=== PATIENT | male | born 1940 | race Caucasian/White ===

== ENCOUNTER 2019-02-02 16:58 | Inpatient (IN) | payer OTHER ==
[2019-02-02 17:38] VITALS: BMI 44.3
[2019-02-02 17:59] LABS: Absolute Lymphocytes (CBC) 0.5 K/uL (0.7-4.9); Basophils % 0.6 % (0-1.3); Hematocrit 43.3 % (39.6-49.0); Lymphocytes % 4.2 % (15.3-44.8); MPV 9.6 fL (7.6-11.3); RBC Red Blood Cell Count 4.43 M/uL (4.33-5.43)
[2019-02-02 18:12] LABS: Albumin 3.3 g/dL (3.4-5.0); Bilirubin Total 1.2 mg/dL (0.2-1.0); Potassium 3.8 mmol/L (3.5-5.1); Protein, Total 7.4 g/dL (6.4-8.2)
[2019-02-02 18:22] LABS: Urine White Blood Cell Casts OK
[2019-02-02 18:23] LABS: Blood Morphology Comment NOT SEEN (NOT SEEN); Platelet Estimate ADEQ
[2019-02-02] MEDS ORDERED: GLUCAGON 1 MG/VIAL IM PRN (20:18)
[2019-02-02] MEDS ORDERED: D50W 25 GM/50 ML SYRINGE IV PRN (20:18)
[2019-02-02] MEDS: NACHLORIDE 0.45% 1,000 ML IV SCH (20:58)
[2019-02-02] MEDS: ENOXAPARIN 30 MG/0.3 ML SQ SCH (21:00)
[2019-02-02] MEDS: INSULIN -REGULAR HUMAN 50 UNIT/0.5 ML ML SQ SCH (21:00)
[2019-02-02] MEDS ORDERED: VANCOMYCIN 1 GM/VIAL ONE (21:20)
[2019-02-02] MEDS: VANCOMYCIN 2 GM in NA CHLORIDE 0.9% 500 ML IVPB SCH (21:21)
[2019-02-02] MEDS: TAMSULOSIN 0.4 MG SR CAP PO SCH (21:24)
[2019-02-02] MEDS ORDERED: NA CHLORIDE 0.9% 0 ML ONE (21:24)
[2019-02-02] MEDS ORDERED: NA CHLORIDE 0.9% 500 ML ONE (21:26)
[2019-02-02] MEDS: HYDRALAZINE HCL 25 MG TABLET PO SCH (21:33)
[2019-02-02] MEDS ORDERED: ACETAMINOPHEN 325 MG TABLET PO PRN (22:05)
[2019-02-02 23:39] LABS: Urine Appearance CLEAR; Urine Bilirubin NEGATIVE (NEG); Urine Blood NEGATIVE (NEG); Urine Color DK YELLOW; Urine Glucose NEGATIVE (NEG); Urine Protein NEGATIVE (NEG); Urine Urobilinogen 0.2 mg/dL (0.2-1.0)
[2019-02-02 23:56] LABS: Urine Microscopic Reflex ORDER UMIC
[2019-02-03 01:01] LABS: Urine Bacteria >50 /HPF (NONE SEEN); Urine Culture Reflex Order REFLEXED; Urine RBC <5 /HPF (NONE SEEN)
[2019-02-03] MEDS: NACHLORIDE 0.45% 1,000 ML IV SCH (05:07)
[2019-02-03] MEDS: INSULIN -REGULAR HUMAN 50 UNIT/0.5 ML ML SQ SCH ×4 (07:30→21:00)
[2019-02-03] MEDS: HYDRALAZINE HCL 25 MG TABLET PO SCH ×4 (07:43→20:57)
[2019-02-03] MEDS: ENOXAPARIN 30 MG/0.3 ML SQ SCH (07:43)
[2019-02-03] MEDS ORDERED: INFLUENZA VACCINE (for 3y+) 0.5 ML DOSE IMVAC ONE (08:00)
--- NOTE | 2019-02-03 08:21 | RAD REPORT ---
EXAM DESCRIPTION: USExtrem Venous W Compress Bil02/02/2019 11:07 pm CLINICAL HISTORY: Right leg pain and swelling. COMPARISON: 2014 FINDINGS: Right common femoral, superficial femoral, popliteal and right posterior tibial veins are compressible and demonstrate augmentation. Doppler demonstrates good flow. IMPRESSION: No evidence of deep venous thrombosis involving the right lower extremity.
[2019-02-03] MEDS: SMZ./TMP. 800/160 MG TABLET PO SCH ×2 (09:20→20:57)
[2019-02-03] MEDS: ATENOLOL 50 MG TAB PO SCH (12:14)
--- NOTE | 2019-02-03 19:00 | HP ---
Date of Admission: 02/02/2019 Chief Complaint: Pain, redness, swelling of both legs, right more than the left. History Of Present Illness: An 78-year-old male was brought to the office with history of 7-10 days of gradual swelling and oozing of the exudation from both legs, particularly the right leg. The stephane ent was found to have temperature of 102. The patient is admitted with a diagnosis of cellulitis, in [facility]. The patient denied any history of trauma. Past Medical History: The patient is known to have history of hypertension, type 2 diabetes, history of DVT. Past Surgical History: Positive for cataract surgery, right ear surgery for melanoma. Family History: History of hypertension, cancer present. Allergies: POSSIBLY TO LEVAQUIN. Review of Systems: The patient denied any chest pain or shortness of breath. Physical Examination: General: Revealed an 78-year-old male, alert for his age. Vital Signs: Temperature 102, blood pressure 150/80. HEENT: No icterus. Neck: Supple. JVD negative. Chest: Clear. Heart: Regular. Abdomen: Pendulous, nontender. Extremities: There is diffuse area of swelling, redness and oozing, right leg more than the left leg . Pedal pulses are hard to feel because of the amount of swelling. Laboratory: White count 12,000. Chem Profile: BUN 27, creatinine 1.23, random blood sugar of 136. Procalcitonin 1.15. Assessment: 1.Cellulitis, both legs, right more than the left. 2.Type 2 diabetes. 3.Hypertension. 4.Benign prostatic hypertrophy. 5.Urinary tract infection. Plan: The patient has been started on vancomycin. He will receive Bactrim for his UTI. Pending the cultures. MARIMAR/JOSELUIS Voice ID: [id number]
[2019-02-03] MEDS: TAMSULOSIN 0.4 MG SR CAP PO SCH (20:57)
[2019-02-03] MEDS: VANCOMYCIN 2 GM in NA CHLORIDE 0.9% 500 ML IVPB SCH (20:58)
--- NOTE | 2019-02-04 00:24 | PN ---
Patient's leg looks better. There is less oozing. He is afebrile. His blood sugars are well contro lled. In view of his response, he will be continued on the same management. MARIMAR/JOSELUIS Voice ID: [id number] Report ID: [id number]
[2019-02-04] MEDS: INSULIN -REGULAR HUMAN 50 UNIT/0.5 ML ML SQ SCH ×4 (07:30→21:00)
--- NOTE | 2019-02-04 08:41 | RAD REPORT ---
EXAM DESCRIPTION: RAD - Chest Single View - 02/04/2019 8:34 am CLINICAL HISTORY: atrial fibrillation Chest pain. COMPARISON: CHEST SINGLE VIEW dated 09/16/2014; CHEST PA AND LAT 2 VIEW dated 09/14/2014 FINDINGS: Portable technique limits examination quality. The lungs are grossly clear. Mild elevation of the right hemidiaphragm is seen, chronic. The heart is moderately enlarged with a tortuous thoracic aorta. IMPRESSION: Moderate cardiomegaly.
[2019-02-04] MEDS: ATENOLOL 50 MG TAB PO SCH (09:19)
[2019-02-04] MEDS: HYDRALAZINE HCL 25 MG TABLET PO SCH ×4 (09:20→22:42)
[2019-02-04] MEDS: SMZ./TMP. 800/160 MG TABLET PO SCH ×2 (09:20→22:42)
[2019-02-04] MEDS: ENOXAPARIN 30 MG/0.3 ML SQ SCH (09:21)
--- NOTE | 2019-02-04 09:40 | EKG ---
Test Date: 2019-02-04 Test Time: 09:03:54 Commercial Energy Auditor: REYNALDO MEASUREMENT RESULTS: Intervals: Rate: 66 MN: QRSD: 144 QT: 488 QTc: 511 [place]: P: MN: QRS: 80 T: -61 INTERPRETIVE STATEMENTS: Atrial fibrillation with premature ventricular or aberrantly conducted complexes Right bundle branch block T wave abnormality, consider inferior ischemia or digitalis effect Abnormal ECG Compared to ECG 09/14/2014 17:04:44 Right bundle-branch block now present T-wave abnormality now present Possible ischemia now present Sinus rhythm no longer present Electronically Signed On 02-04-19 09:40:30 CDT by Wily Carrillo
[2019-02-04] MEDS: NACHLORIDE 0.45% 1,000 ML IV SCH (13:00)
--- NOTE | 2019-02-04 13:52 | CON ---
Identification: An 78-year-old man. Reason For Hospitalization: Cellulitis especially on his right leg. Reason For Cardiology Consult: Atrial fibrillation. 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 His right leg became more swollen, red, painful. He was getting a little bit dizzy, so he saw Dr. De La Cruz. He has in the hospital receiving antibiotics for cellulitis. 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 He has had an old hi story of deep vein thrombosis. No thrombosis is seen in the blood vessels presently. Past Medical History: The patient does not have a previous history of atrial fibrillation. He has a history of melanoma on the ear, history of a leg fracture, history of diabetes, hypertension, remote history of DVT, history of lymphedema. Home Medications: Tamsulosin, atenolol, metformin, lisinopril, hydrochlorothiazide, and hydralazine. Physical Examination: General: He is 5 feet 9 inches and 300 pounds, obese, alert, oriented, pleasant, not in distress. Vital Signs: Blood pressure 102/58, heart rate 68, temperature 97.6. Lungs: Clear. Heart: Actually regular. Assessment And Plan: His admission EKG shows sinus rhythm with first-degree AV block. His monitor n ow shows an irregular beat, but atrial activity is very hard to discern on it and it looks like he is in a right bundle, so we are going to get an EKG before we have to clear this atrial fibr illation. The echocardiogram is pending. His right leg is very edematous, very red, and after his cellulitis improves, he should be considered for [facility] in the lymphedema clinic. NAYELY Voice ID: [id number] Report ID: [id number]
[2019-02-04] MEDS: RIVAROXABAN 15 MG TABLET PO SCH (16:03)
[2019-02-04] MEDS: VANCOMYCIN 2 GM in NA CHLORIDE 0.9% 500 ML IVPB SCH (22:41)
[2019-02-04] MEDS: TAMSULOSIN 0.4 MG SR CAP PO SCH (22:42)
[2019-02-05] MEDS: NACHLORIDE 0.45% 1,000 ML IV SCH (02:20)
[2019-02-05] MEDS: INSULIN -REGULAR HUMAN 50 UNIT/0.5 ML ML SQ SCH ×4 (07:30→20:59)
[2019-02-05] MEDS: SMZ./TMP. 800/160 MG TABLET PO SCH ×2 (09:24→20:58)
[2019-02-05] MEDS: ATENOLOL 50 MG TAB PO SCH (09:24)
[2019-02-05] MEDS: HYDRALAZINE HCL 25 MG TABLET PO SCH ×4 (09:24→20:58)
[2019-02-05] MEDS: FUROSEMIDE 20 MG TABLET PO SCH ×2 (09:27→17:40)
--- NOTE | 2019-02-05 11:08 | ECHO ---
HEIGHT: 5 ft 9 in WEIGHT: 300 lb 0 oz DATE OF STUDY: 02/05/[address]: Mian De La Cruz MD 2-DIMENSIONAL: YES M.MODE: YES DOPPLER: YES COLOR FLOW: YES TDS: PORTABLE: DEFINITY: BUBBLE STUDY: DIAGNOSIS: ATRIAL FIBRILLATION CARDIAC HISTORY: CATHERIZATION: SURGERY: PROSTHETIC VALVE: PACEMAKER: MEASUREMENTS (cm) DIASTOLIC (NORMALS) SYSTOLIC (NORMALS) IVSd 2.3 (0.6-1.2) LA Diam 4.8 (1.9-4.0) LVEF 60-69% LVIDd 3.1 (3.5-5.7) LVIDs 2.3 (2.0-3.5) %FS 24% LVPWd 1.6 (0.6-1.2) Ao Diam 3.3 (2.0-3.7) 2 DIMENSIONAL ASSESSMENT: RIGHT ATRIUM: DILATED LEFT ATRIUM: DILATED RIGHT VENTRICLE: DILATED LEFT VENTRICLE: LEFT VENTRICULAR HYPERTROPHY, SEPTAL ASYMMERTICAL TRICUSPID VALVE: NORMAL MITRAL VALVE: NORMAL PULMONIC VALVE: NORMAL AORTIC VALVE: NORMAL PERICARDIAL EFFUSION: NONE AORTIC ROOT: NORMAL LEFT VENTRICULAR WALL MOTION: NORMAL DOPPLER/COLOR FLOW: NO LEFT VENTRICULAR OUTFLOW TRACT GRADIENT. MILD MITRAL AND TRICUSPID REGURGITATION. ESTIMATED RIGHT VENTRICULAR SYSTOLIC PRESSURE 60-65 mmHg (SEVERE PULMONARY HYPERTENSION). COMMENTS: NORMAL LEFT VENTRICULAR EJECTION FRACTION. DILATED LEFT ATRIUM, RIGHT ATRIUM AND RIGHT VENTRICLE. ASYMMERTICAL SEPTAL HYPERTROPHY. NO LEFT VENTRICULAR OUTFLOW TRACT GRADIENT. HYPERTROPHIC CARDIOMYOPATHY. SEVERE PULMONARY HYPERTENSION. ATRIAL FIBRILLATION. HEART RATE 60-80 BEATS PER MINUTE. TECHNOLOGIST: BC URBINA
[2019-02-05] MEDS: RIVAROXABAN 15 MG TABLET PO SCH (17:43)
[2019-02-05] MEDS: TAMSULOSIN 0.4 MG SR CAP PO SCH (20:58)
[2019-02-05] MEDS: VANCOMYCIN 2 GM in NA CHLORIDE 0.9% 500 ML IVPB SCH (20:59)
[2019-02-06] MEDS: INSULIN -REGULAR HUMAN 50 UNIT/0.5 ML ML SQ SCH ×4 (07:30→20:51)
[2019-02-06] MEDS: SMZ./TMP. 800/160 MG TABLET PO SCH ×2 (09:07→20:50)
[2019-02-06] MEDS: ATENOLOL 50 MG TAB PO SCH (09:07)
[2019-02-06] MEDS: FUROSEMIDE 20 MG TABLET PO SCH ×2 (09:08→16:33)
[2019-02-06] MEDS: HYDRALAZINE HCL 25 MG TABLET PO SCH ×4 (09:09→20:50)
--- NOTE | 2019-02-06 12:58 | PN ---
Shane is doing well. He is in chronic AFib. He is on anticoagulation. 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 It is the firs t time he has had an echo. He also has rather severe pulmonary hypertension and a pulmonary consulta nt might be worthwhile. YAQUELIN/JOSELUIS Voice ID: [id number] Report ID: [id number]
--- NOTE | 2019-02-06 13:57 | PN ---
Patient is afebrile. He is ambulating; however, there is too active oozing from the leg and swelling is elevated. Patient is already on Lasix. Whirlpool therapy might help in debriding the scab and o ther superficial skin pathology. Patient has organisms that are sensitive to Bactrim. He will be switched to oral antibiotic only. MARIMAR/JOSELUIS Voice ID: [id number] Report ID: [id number]
[2019-02-06] MEDS: RIVAROXABAN 15 MG TABLET PO SCH (16:33)
[2019-02-06] MEDS: TAMSULOSIN 0.4 MG SR CAP PO SCH (20:50)
[2019-02-07] MEDS: INSULIN -REGULAR HUMAN 50 UNIT/0.5 ML ML SQ SCH ×4 (07:30→21:00)
[2019-02-07] MEDS: SMZ./TMP. 800/160 MG TABLET PO SCH ×2 (08:28→21:04)
[2019-02-07] MEDS: ATENOLOL 50 MG TAB PO SCH (08:28)
[2019-02-07] MEDS: HYDRALAZINE HCL 25 MG TABLET PO SCH ×4 (08:29→21:04)
[2019-02-07] MEDS: FUROSEMIDE 20 MG TABLET PO SCH ×2 (08:29→16:25)
--- NOTE | 2019-02-07 12:17 | PN ---
Patient's leg looks better, but still it is swollen. I am going to add compression dressings. He al so will [facility] care. He is on oral Bactrim now. If he does not have an y fever, after the consultation from [facility], he will be discharged and followed up as an outpatie nt. MARIMAR/JOSELUIS Voice ID: [id number] Report ID: [id number]
[2019-02-07] MEDS: RIVAROXABAN 15 MG TABLET PO SCH (16:25)
[2019-02-07] MEDS: TAMSULOSIN 0.4 MG SR CAP PO SCH (21:04)
[2019-02-07 21:38] VITALS: O2SAT 95
[2019-02-08] MEDS: INSULIN -REGULAR HUMAN 50 UNIT/0.5 ML ML SQ SCH ×3 (07:30→16:30)
[2019-02-08] MEDS: FUROSEMIDE 20 MG TABLET PO SCH ×2 (09:06→16:38)
[2019-02-08] MEDS: SMZ./TMP. 800/160 MG TABLET PO SCH (09:06)
[2019-02-08] MEDS: HYDRALAZINE HCL 25 MG TABLET PO SCH ×3 (09:07→16:38)
[2019-02-08] MEDS: ATENOLOL 50 MG TAB PO SCH (09:07)
[2019-02-08] MEDS: RIVAROXABAN 15 MG TABLET PO SCH (16:38)
[2019-02-08 16:39] VITALS: BP 128/84
[2019-02-08 17:20] VITALS: TEMP 98.1
== END 2019-02-08 18:23 | disposition home or self-care (01) | DRG 603 ==
LOC: 4TH 16:58
PROVIDERS: ADMIT Internal Medicine; ATTEND Internal Medicine
DX: L03.115 Cellulitis of right lower limb (principal); I48.20 Chronic atrial fibrillation, unspecified; Z68.41 Body mass index [BMI] 40.0-44.9, adult; I42.2 Other hypertrophic cardiomyopathy; N39.0 Urinary tract infection, site not specified; I27.20 Pulmonary hypertension, unspecified; E66.9 Obesity, unspecified; I44.0 Atrioventricular block, first degree; I10 Essential (primary) hypertension; E11.9 Type 2 diabetes mellitus without complications; L03.116 Cellulitis of left lower limb; N40.0 Benign prostatic hyperplasia without lower urinary tract symptoms; Z86.718 Personal history of other venous thrombosis and embolism; Z79.01 Long term (current) use of anticoagulants; Z23 Encounter for immunization
CPT/HCPCS: 36415; 71045; 80053; 80202; 81003; 81015; 82565; 82962; 84145; 84443; 85025; 87040; 87070; 87075; 87077; 87086; 87088; 87186; 87205; 90471; 93005; 93306; 93970; 97116; 97161; 99251; J1650; J7040; Q2035

== ENCOUNTER 2019-02-18 10:22 | Inpatient (IN) | payer OTHER ==
[2019-02-18 11:24] LABS: Absolute Lymphocytes (CBC) 0.4 K/uL (0.7-4.9); Basophils % 0.4 % (0-1.3); Hematocrit 42.8 % (39.6-49.0); Lymphocytes % 3.9 % (15.3-44.8); MPV 8.8 fL (7.6-11.3); RBC Red Blood Cell Count 4.36 M/uL (4.33-5.43)
[2019-02-18 11:42] LABS: Albumin 3.1 g/dL (3.4-5.0); Bilirubin Direct 0.7 mg/dL (0-0.2); Bilirubin Total 1.7 mg/dL (0.2-1.0); Potassium 4.3 mmol/L (3.5-5.1); Protein, Total 7.7 g/dL (6.4-8.2)
--- NOTE | 2019-02-18 12:52 | RAD REPORT ---
EXAM DESCRIPTION: CT - Abdomen Pelvis Wo Contrast - 02/18/2019 12:21 pm CLINICAL HISTORY: ABD PAIN COMPARISON: No comparisons TECHNIQUE: Axial [address] imaging of the abdomen and pelvis was performed without IV contrast. No IV contrast was given because of allergy, abnormal renal function, patient refusal or physician re quest. No oral contrast given. All CT scans are performed using dose optimization technique as appropriate and may include automated exposure control or mA/KV adjustment according to patient size. FINDINGS: Interstitial scarring and atelectasis changes are present at each base. No pleural effusio n. No pericardial thickening or effusion. No focal liver lesion seen on noncontrast imaging. No splenomegaly. No primary pancreatic process see n. Gallbladder and biliary tree are also without suspicious finding. No hydronephrosis or suspicious renal mass. Multiple bilateral variably sized low-density masses are present all believed to be incidental cysts. Largest is lower pole left kidney 3.8 cm in size. No sig nificant adrenal finding. Isodense renal masses and pyelonephritis cannot be excluded in the absence of IV contrast. Urinary bladder is partially contracted. Prostate gland is enlarged projecting into t he bladder base. No invasion of adjacent structures. Irregular thickening of the gastric antrum and proximal duodenum noted. Multiple small air collection s are present in the fatty tissues adjacent to the distal stomach and proximal duodenal C-loop. Perfo rated duodenal ulcer is most likely. This is potentially a perforated gastric ulcer. Distal duodenum in the remainder of the small bowel shows no acute findings. No acute colon process. No abscess. A small amount of free fluid is collecting along the lateral margin of the liver and in the lateral lower right quadrant. No mass or bulky lymphadenopathy. No omental thickening. Disc and bony degenerative changes are present. No pathologic bone process. IMPRESSION: Abnormal appearance to the gastric antrum and proximal duodenum. Free air, free fluid an d stranding in the right upper quadrant. Findings are consistent with perforated ulcer at or near the duodenal bulb. No abscess. Full assessment is limited is the absence of IV contrast.
[2019-02-18] MEDS ORDERED: NA CHLORIDE 0.9% 1,000 ML ONE (13:05)
[2019-02-18] MEDS ORDERED: PIPER/TAZO/NS 3.375gm 3.375 GM/100 ML BAG ONE (13:05)
--- NOTE | 2019-02-18 13:11 | ER ---
Nurse's Notes [facility] Name: Shane Talbert Jr Age: 78 yrs Sex: Male : 1940 Arrival Date: 02/18/2019 Time: 10:26 Bed 5 Private MD: Mian De La Cruz R Diagnosis: Acute duodenal ulcer with perforation Presentation: 02/18 10:47 Presenting complaint: Patient states: upper abd pain radiating to right mid back iw started about 0200 today, pain described ast pressure, dull ache, watery stool this morning but normally has loose stool, denies vomiting, was started on keflex recently for cellulitis in legs. Transition of care: patient was not received from another setting of care. Onset of symptoms was February 18, 2019. Risk Assessment: Do you want to hurt yourself or someone else? Patient reports no desire to harm self or others. Initial Sepsis Screen: Does the patient meet any 2 criteria? No. Patient's initial sepsis screen is negative. Does the patient have a suspected source of infection? No. Patient's initial sepsis screen is negative. Care prior to arrival: None. 10:47 Method Of Arrival: Wheelchair iw 10:47 Acuity: CARMEN 3 iw Historical: - Allergies: 10:51 No Known Allergies; iw - Home Meds: 10:51 tamsulosin 0.4 mg oral cp24 1 cap once daily [Active]; metformin 500 mg Oral tab 1 tab iw 2 times per day [Active]; atenolol 100 mg Oral tab 1 tab once daily [Active]; furosemide 20 mg Oral tab 1 tab once daily [Active]; lisinopril-hydrochlorothiazide 20-25 mg oral tab 1 tab once daily [Active]; hydralazine 50 mg Oral tab daily [Active]; Xarelto 15 mg oral tab daily [Active]; - PMHx: 10:51 Atrial Fib; BPH; Hypertension; Diabetes - NIDDM; iw - PSHx: 10:51 cataract; Tonsillectomy; melanoma removed from right ear; iw - Immunization history:: Adult Immunizations up to date. - Social history:: Smoking status: Patient/guardian denies using tobacco. - Ebola Screening: : Patient negative for fever greater than or equal to 101.5 degrees Fahrenheit, and additional compatible Ebola Virus Disease symptoms Patient denies exposure to infectious person Patient denies travel to an Ebola-affected area in the 21 days before illness onset No symptoms or risks identified at this time. Screenin:59 Abuse screen: Denies threats or abuse. Nutritional screening: No deficits noted. aa5 Tuberculosis screening: No symptoms or risk factors identified. Fall Risk None identified. Assessment: 10:55 General: Appears comfortable, Behavior is calm, cooperative. Pain: Complains of pain in aa5 left upper quadrant Pain radiates to right upper quadrant Pain currently is 3 out of 10 on a pain scale. Quality of pain is described as aching, dull, Pain began today at 0200 Is continuous. Neuro: Level of Consciousness is awake, alert, obeys commands, Oriented to person, place, time, situation. Cardiovascular: Heart tones S1 S2 present Rhythm is atrial fibrillation. Respiratory: Airway is patent Respiratory effort is even, unlabored, Respiratory pattern is regular, symmetrical, Breath sounds are clear bilaterally. GI: Abdomen is obese, Bowel sounds present X 4 quads. Abd is soft and non tender X 4 quads. Reports diarrhea, Patient currently denies nausea, vomiting. : No signs and/or symptoms were reported regarding the genitourinary system. EENT: No signs and/or symptoms were reported regarding the EENT system. Derm: Skin is pink, warm \\T\\ dry. Musculoskeletal: Swelling present in jesenia lower extremites Bandage noted to right lower leg, pt reports cellulitis to right lower leg. Pt states "I was here in the hospital with cellulitis for like a week and I was taking Bactrim and now I am taking Keflex". 12:15 Reassessment: patient sent to ultrasound via stretcher. mg2 14:36 Reassessment: patient prepared for OR. mg2 15:04 Reassessment: Dr Angulo came and spoke to the patient about the surgery. mg2 15:42 Reassessment: Patient appears in no apparent distress at this time. Patient and/or mg2 family updated on plan of care and expected duration. Pain level reassessed. Patient is alert, oriented x 3, equal unlabored respirations, skin warm/dry/pink. Vital Signs: 10:52 BP 134 / 53; Pulse 84; Resp 18 S; Temp 98.0; Pulse Ox 94% on R/A; Weight 136.08 kg; iw Height 5 ft. 9 in. (175.26 cm); Pain 3/10; 11:52 BP 116 / 53; Pulse 76; Resp 18; Pulse Ox 92% on R/A; mg2 12:00 Pulse Ox 97% on 2 lpm NC; mg2 13:00 BP 128 / 65; Pulse 78; Resp 17; Pulse Ox 98% on R/A; tw2 14:00 BP 111 / 52; Pulse 64; Resp 17; Pulse Ox 98% on R/A; tw2 15:07 BP 120 / 60; Pulse 79; Resp 22; Pulse Ox 95% on R/A; tw2 16:05 BP 110 / 51; Pulse 69; Resp 18; Pulse Ox 98% on 2 lpm NC; mg2 10:52 Body Mass Index 44.30 (136.08 kg, 175.26 cm) iw ED Course: 10:26 Patient arrived in ED. mr 10:26 Mian De La Cruz MD is Private Physician. mr 10:36 Charbel Huynh NP is PHCP. pm1 10:36 Lazaro Rushing MD is Attending Physician. pm1 10:46 Suni Houston RN is Primary Nurse. aa5 10:49 Triage completed. iw 10:51 Initial lab(s) drawn, by me, sent to lab. Inserted saline lock: 18 gauge in right dh3 antecubital area, using aseptic technique. Blood collected. 10:52 Arm band placed on. iw 10:55 Patient has correct armband on for positive identification. Placed in gown. Bed in low aa5 position. Call light in reach. Side rails up X2. Adult w/ patient. 11:01 EKG done, by manufacturing tech. reviewed by Charbel Huynh NP. at1 12:05 Report given to GRETEL Torres. aa5 12:20 Abdomen In Process Unspecified. EDMS 13:10 Mian De La Cruz MD is Hospitalizing Provider. pm1 13:17 Initial lab(s) drawn, by me, sent to lab. mg2 14:11 Hospitalizing Provider role handed off by Mian De La Cruz MD pm1 14:11 Luis Hinds MD is Hospitalizing Provider. pm1 15:20 No provider procedures requiring assistance completed. Patient admitted, IV remains in mg2 place. 16:18 Repeat lab(s) drawn. by me, sent to lab. dh3 Administered Medications: 13:17 Drug: NS 0.9% 1000 ml Route: IV; Rate: 100 ml/hr; Site: right antecubital; mg2 16:43 Follow up: Response: No adverse reaction; IV Status: Infusion continued upon admission; mg2 IV Intake: 300ml 13:17 Drug: Zosyn 3.375 grams Route: IVPB; Infused Over: 60 mins; Site: right antecubital; mg2 16:43 Follow up: Response: No adverse reaction; IV Status: Completed infusion mg2 15:18 Drug: ProTONIX 40 mg Route: IVP; Site: right antecubital; mg2 16:43 Follow up: Response: No adverse reaction mg2 Intake: 16:43 IV: 300ml; Total: 300ml. mg2 Outcome: 13:11 Decision to Hospitalize by Provider. pm1 16:45 Admitted to OR accompanied by nurse, via stretcher, with oxygen, with chart, Report mg2 called to GRETEL Arciniega 16:45 Condition: stable 16:45 Instructed on the need for admit, Demonstrated understanding of instructions. 16:45 Patient left the ED. mg2 Signatures: Dispatcher [employer] Claritza Engel mr Mary Alice Harvey, RN RN iw Suni Houston RN RN aa5 Rachell Klein, mult au matic operator EKG Tat1 Charbel Huynh, DIRECT SUPPORT WORKER DIRECT SUPPORT WORKER pm1 Hedy Calderon RN RN 2 Shanita Coburn 3 Brian Can RN RN mg2
--- NOTE | 2019-02-18 13:12 | EDPHYS ---
Physician Documentation [facility] Name: Shane Talbert Jr Age: 78 yrs Sex: Male : 1940 Arrival Date: 02/18/2019 Time: 10:26 Bed 5 Private MD: Mian De La Cruz R ED Physician Lazaro Rushing HPI: 02/18 10:59 This 78 yrs old Male presents to ER via Wheelchair with complaints of pm1 Abdominal Pain. 10:59 The patient presents with abdominal pain in the upper abdomen. Onset: The pm1 symptoms/episode began/occurred this morning, at 02:00. 10:59 The symptoms do not radiate. Associated signs and symptoms: Pertinent positives: loose pm1 stool that is his baseline, Pertinent negatives: nausea, vomiting, and diarrhea, chest pain, constipation, dysuria, fever, shortness of breath. The symptoms are described as achy. Modifying factors: The symptoms are alleviated by nothing, the symptoms are aggravated by nothing. Severity of pain: in the emergency department the pain is a 2 / 10. The patient has not experienced similar symptoms in the past. The patient has been recently seen by a physician: Dr. Keenan for apparently unrelated complaints, wound care clinic right lower leg wounds with lymphedema. 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 - Social history:: Smoking status: Patient/guardian denies using tobacco. - Ebola Screening: : Patient negative for fever greater than or equal to 101.5 degrees Fahrenheit, and additional compatible Ebola Virus Disease symptoms Patient denies exposure to infectious person Patient denies travel to an Ebola-affected area in the 21 days before illness onset No symptoms or risks identified at this time. ROS: 10:59 Constitutional: Negative for fever, chills, and weight loss, Eyes: Negative for injury, pm1 pain, redness, and discharge, ENT: Negative for injury, pain, and discharge, Neck: Negative for injury, pain, and swelling, Cardiovascular: Negative for chest pain, palpitations, and edema, Respiratory: Negative for shortness of breath, cough, wheezing, and pleuritic chest pain. 10:59 : Negative for injury, bleeding, discharge, and swelling, MS/Extremity: Negative for injury and deformity, Skin: Negative for injury, rash, and discoloration. 10:59 Neuro: Negative for headache, weakness, numbness, tingling, and seizure. 10:59 Abdomen/GI: Positive for abdominal pain, of the right upper quadrant and left upper quadrant. 10:59 Back: Positive for of the right mid back. Exam: 10:59 Constitutional: This is a well developed, well nourished patient who is awake, alert, pm1 and in no acute distress. Head/Face: Normocephalic, atraumatic. Neck: Trachea midline, no thyromegaly or masses palpated, and no cervical lymphadenopathy. Supple, full range of motion without nuchal rigidity, or vertebral point tenderness. No Meningismus. Chest/axilla: Normal chest wall appearance and motion. Nontender with no deformity. No lesions are appreciated. Respiratory: Lungs have equal breath sounds bilaterally, clear to auscultation and percussion. No rales, rhonchi or wheezes noted. No increased work of breathing, no retractions or nasal flaring. 10:59 Back: No spinal tenderness. No costovertebral tenderness. Full range of motion. Skin: Warm, dry with normal turgor. Normal color with no rashes, no lesions, and no evidence of cellulitis. MS/ Extremity: Pulses equal, no cyanosis. Neurovascular intact. Full, normal range of motion. 10:59 Cardiovascular: Rate: normal, Rhythm: irregular, Pulses: no pulse deficits are appreciated, Heart sounds: normal, normal S1and S2, no murmur, no rub, no gallop, Edema: Bilateral pedal edema. Right lower leg dressed. 10:59 Abdomen/GI: Inspection: obese Bowel sounds: normal, Palpation: soft, mild abdominal tenderness, in the abdomen diffusely, mass, is not appreciated, rebound tenderness, is not appreciated. 10:59 Neuro: Orientation: is normal, Motor: is normal, moves all fours. Vital Signs: 10:52 BP 134 / 53; Pulse 84; Resp 18 S; Temp 98.0; Pulse Ox 94% on R/A; Weight 136.08 kg; iw Height 5 ft. 9 in. (175.26 cm); Pain 3/10; 11:52 BP 116 / 53; Pulse 76; Resp 18; Pulse Ox 92% on R/A; mg2 12:00 Pulse Ox 97% on 2 lpm NC; mg2 13:00 BP 128 / 65; Pulse 78; Resp 17; Pulse Ox 98% on R/A; tw2 14:00 BP 111 / 52; Pulse 64; Resp 17; Pulse Ox 98% on R/A; tw2 15:07 BP 120 / 60; Pulse 79; Resp 22; Pulse Ox 95% on R/A; tw2 16:05 BP 110 / 51; Pulse 69; Resp 18; Pulse Ox 98% on 2 lpm NC; mg2 10:52 Body Mass Index 44.30 (136.08 kg, 175.26 cm) iw MDM: 10:36 Patient medically screened. pm1 10:47 ED course: Patient comfortable, offered him pain medication. He refused. pm1 12:55 ED course: last PO intake, banana at 0900 this AM. Last took Xarelto 15mg at 2200 pm1 yesterday. 12:55 Counseling: I had a detailed discussion with the patient and/or guardian regarding: the pm1 historical points, exam findings, and any diagnostic results supporting the discharge/admit diagnosis, lab results, radiology results, the need for further work-up and treatment in the hospital. 12:59 Physician consultation: Magdy Kendrick MD was called at 12:57. pm1 13:26 Data reviewed: vital signs. Data interpreted: Pulse oximetry: on room air is 97 %. pm1 Interpretation: normal. 13:32 Physician consultation: Magdy Kendrick MD was contacted at 13:32, Says not production stage manager. pm1 13:34 Physician consultation: Jamison Rebolledo MD was contacted at 13:34, Not production stage manager. pm1 14:07 Physician consultation: Luis Hinds MD was contacted at 14:07, regarding admission, pm1 patient's condition, and will see patient in ED, in OR, shortly, Wants admit to his service with Dr. De La Cruz as consult. He would like me to contact Dr. De La Cruz to let him know. 15:09 Physician consultation: Luis Hinds MD in the emergency department to see patient at pm1 14:50, Change admission to Dorothy with him as Consult. Patient will go to ICU after surgery. Give Protonix IV now. 02/18 10:43 Order name: Basic Metabolic Panel; Complete Time: 11:47 pm1 02/18 10:43 Order name: CBC with Diff; Complete Time: 13:51 pm1 02/18 10:43 Order name: Creatinine for Radiology; Complete Time: 11:47 pm1 02/18 10:43 Order name: Hepatic Function; Complete Time: 11:47 pm1 02/18 10:43 Order name: Lipase; Complete Time: 11:47 pm1 02/18 12:52 Order name: PT-INR; Complete Time: 13:45 pm1 02/18 11:50 Order name: Abdomen ; Complete Time: 12:59 EDMS 02/18 12:52 Order name: Lactate; Complete Time: 14:02 pm1 02/18 13:01 Order name: Type And Screen; Complete Time: 14:26 mg2 02/18 13:50 Order name: Manual Differential; Complete Time: 13:51 EDMS 02/18 14:09 Order name: ABO/RH no charge; Complete Time: 14:26 EDMS 02/18 16:40 Order name: NOVA iw 02/18 10:43 Order name: IV Saline Lock; Complete Time: 10:53 pm1 02/18 10:43 Order name: Labs collected and sent; Complete Time: 10:53 pm1 02/18 12:51 Order name: NPO; Complete Time: 12:54 pm1 02/18 12:54 Order name: EKG Electrocardiogram EDMS EC:59 Rate is 80 beats/min. Rhythm is irregular, A flutter. Clinical impression: Atrial pm1 Flutter. Administered Medications: 13:17 Drug: NS 0.9% 1000 ml Route: IV; Rate: 100 ml/hr; Site: right antecubital; mg2 16:43 Follow up: Response: No adverse reaction; IV Status: Infusion continued upon admission; mg2 IV Intake: 300ml 13:17 Drug: Zosyn 3.375 grams Route: IVPB; Infused Over: 60 mins; Site: right antecubital; mg2 16:43 Follow up: Response: No adverse reaction; IV Status: Completed infusion mg2 15:18 Drug: ProTONIX 40 mg Route: IVP; Site: right antecubital; mg2 16:43 Follow up: Response: No adverse reaction mg2 Disposition: 02/19 15:24 Co-signature as Attending Physician, Lazaro Rushing MD. Disposition: 02/18/19 13:11 Hospitalization ordered by Luis Hinds for Inpatient Admission. Preliminary diagnosis is Acute duodenal ulcer with perforation. - Bed requested for Operating Room. - Status is Inpatient Admission. mg2 - Condition is Stable. - Problem is new. - Symptoms have improved. UTI on Admission? No Signatures: Dispatcher [employer] [facility] Tami Gagnon RN RN Mary Alice Harvey RN RN Charbel Huynh, PLACIDO SHACTOR HELPER pm1 Lazaro Rushing MD MD Cele Rubin Brian Can RN RN mg2 Corrections: (The following items were deleted from the chart) 02/18 11:50 10:44 Abdomen Pelvis W Con+CT.RAD.BRZ ordered. [facility] EDPR 13:28 13:11 Hospitalization Ordered by Mian De La Cruz MD for Inpatient Admission. Preliminary eb diagnosis is Acute duodenal ulcer with perforation. Bed requested for Telemetry/MedSurg (Inpatient). Status is Inpatient Admission. Condition is Stable. Problem is new. Symptoms have improved. UTI on Admission? No. pm1 14:11 13:28 02/18/2019 13:11 Hospitalization Ordered by Mian De La Cruz MD for Inpatient pm1 Admission. Preliminary diagnosis is Acute duodenal ulcer with perforation. Bed requested for Telemetry/MedSurg (Inpatient). Status is Inpatient Admission. Condition is Stable. Problem is new. Symptoms have improved. UTI on Admission? No. eb 14:39 14:11 02/18/2019 13:11 Hospitalization Ordered by Luis Hinds MD for Inpatient eb Admission. Preliminary diagnosis is Acute duodenal ulcer with perforation. Bed requested for Operating Room. Status is Inpatient Admission. Condition is Stable. Problem is new. Symptoms have improved. UTI on Admission? No. pm1 14:41 14:39 02/18/2019 13:11 Hospitalization Ordered by Luis Hinds MD for Inpatient dw Admission. Preliminary diagnosis is Acute duodenal ulcer with perforation. Bed requested for Telemetry/MedSurg (observation). Status is Inpatient Admission. Condition is Stable. Problem is new. Symptoms have improved. UTI on Admission? No. eb 15:50 14:41 02/18/2019 13:11 Hospitalization Ordered by Luis Hinds MD for Inpatient dw Admission. Preliminary diagnosis is Acute duodenal ulcer with perforation. Bed requested for Telemetry/MedSurg (observation). Status is Inpatient Admission. Condition is Stable. Problem is new. Symptoms have improved. UTI on Admission? No. dw 16:45 15:50 02/18/2019 13:11 Hospitalization Ordered by Luis Hinds MD for Inpatient mg2 Admission. Preliminary diagnosis is Acute duodenal ulcer with perforation. Bed requested for Operating Room. Status is Inpatient Admission. Condition is Stable. Problem is new. Symptoms have improved. UTI on Admission? No. dw
[2019-02-18 13:41] LABS: Protime INR 1.88
[2019-02-18 13:49] LABS: Blood Morphology Comment NOT SEEN (NOT SEEN); Platelet Estimate ADEQ
[2019-02-18] MEDS ORDERED: PANTOPRAZOLE 40 MG INJ ONE (15:16)
[2019-02-18] MEDS ORDERED: MORPHINE 4 MG/ML SYR IV PRN (15:38)
[2019-02-18] MEDS ORDERED: ONDANSETRON 4 MG/2 ML VIAL IV PRN (15:38)
[2019-02-18] MEDS ORDERED: D50W 25 GM/50 ML SYRINGE IV PRN (15:38)
[2019-02-18] MEDS ORDERED: SODIUM CHLORIDE 0.9% 10ML INJ IV PRN (15:38)
[2019-02-18] MEDS ORDERED: GLUCAGON 1 MG/VIAL IM PRN (15:38)
[2019-02-18] MEDS: INSULIN -REGULAR HUMAN 50 UNIT/0.5 ML ML SQ SCH ×2 (16:30→21:00)
--- NOTE | 2019-02-18 17:13 | P.HP ---
Certification for Inpatient With expected LOS: >2 Midnights Patient will require the following post-hospital care: Rehabilitation Practitioner: I am a practitioner with admitting privileges, knowledge of patient current condition, hospital course, and medical plan of care. Services: Services provided to patient in accordance with Admission requirements found in Title 42 Section 412.3 of the Code of Federal Regulations Patient History Date of Service: 02/18/19 Primary Care Provider: Dr. De La Cruz Reason for admission: Exploratory laparotomy for perforated viscus History of Present Illness: The patient had sudden onset of abdominal pain last night at 2:00 a.m.. Was located in the upper portion of his abdomen pain intensified throughout the day any could not get relief. Hurts whenever he tries to move. As long as he lays still it is manageable. Has not had any nausea or vomiting associated with this. 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 - Family History Father -: Heart disease Mother -: Cancer - Social History Alcohol use: No CD- Drugs: No Caffeine use: Yes Physical Examination - Vital Signs Temperature: 98.0 F Blood Pressure: 110/51 Pulse: 69 Respirations: 18 - Physical Exam General: Other (Awake alert mildly uncomfortable as long as he does not move) HEENT: Other (Within normal limits) Respiratory: Other (Chest movement equal bilaterally) Cardiovascular: Other (Heart sounds 1 and 2 normal) Gastrointestinal: Distended (Tender in the upper abdomen with guarding and rebound) Musculoskeletal: Other (Has bilateral lymphedema, wound on lower leg (wound was not inspected but will in the OR)) Neurological: Normal affect Lymphatics: Other (Lymphedema of both lower legs) External genitalia: Normal Rectal: Deferred - Studies Laboratory Data (last 24 hrs) 02/18/19 13:09: PT 21.7 H, INR 1.88 02/18/19 10:51: Creatinine 1.63 H 02/18/19 10:51: Sodium 136, Potassium 4.3, BUN 32 H, Creatinine 1.64 H, Glucose 184 H, Total Bilirubin 1.7 H, AST 40 H, ALT 47, Alkaline Phosphatase 126 H, Lipase 252 02/18/19 09:20: WBC 11.2 H, Hgb 14.4, Hct 42.8, Plt Count 231 Imagings Data: Has free fluid around his liver, free air around the area of the pylorus Assessment and Plan - Plan Patient clinically has an acute abdomen, CT scan confirms a ruptured viscus with fluid seen around the liver. Suspected area is that of the 1st portion of the duodenum/pylorus. I will take him to the operating room for exploratory laparotomy and repair of this perforation. The risks of this procedure have been discussed. The possibility of bleeding, infection, injury to blood vessels and surrounding structures were described. The possible need for further surgeries and procedures was discussed. He understands and wants to proceed. - Advance Directives Does patient have a Living Will: Yes Does patient have a Durable POA for Healthcare: Yes - Code Status/Comfort Care Code Status Assessed: Yes Code Status: Full Code Critical Care: Yes
[2019-02-18] MEDS ORDERED: PIPER/TAZO/NS 3.375gm 3.375 GM/100 ML BAG IVPB SCH (18:00)
[2019-02-18] MEDS ORDERED: SUCCINYLCHOLINE 20 MG/ML (10 ML) IV ONE (18:14)
[2019-02-18] MEDS ORDERED: FENTANYL CITR 250 MCG/5 ML ONE (18:16)
[2019-02-18] MEDS ORDERED: ROCURONIUM 50 MG/5 ML VIAL IV ONE ×2 (18:16→18:59)
[2019-02-18] MEDS ORDERED: PROPOFOL 200 MG/20 ML VIAL IV ONE (18:16)
[2019-02-18] MEDS ORDERED: Ringers Lactate 1,000 ML IV ONE ×2 (18:54→19:35)
[2019-02-18] MEDS: PIPER/TAZO/NS 3.375gm 3.375 GM/100 ML BAG IVPB SCH ×2 (19:00→22:17)
[2019-02-18] MEDS ORDERED: Phenylephrine HCl 10 MG/ML 1 ML VIAL ONE (19:02)
[2019-02-18] MEDS ORDERED: GLYCOPYRROLATE 0.2 MG/ML SYR ONE ×2 (19:52)
[2019-02-18] MEDS ORDERED: NEOSTIGMINE 1 MG/ML -10 ML VIAL ONE (19:52)
--- NOTE | 2019-02-18 20:51 | P.OP ---
Preoperative diagnosis: Perforated viscus Postoperative diagnosis: Perforated duodenum ulcer Primary procedure: Harjinder patch of perforated ulcer Secondary procedure: Exploratory laparotomy Anesthesia: General Estimated blood loss: Less than 20 cc Specimen: 9 sent Findings: Perforation anteriorly of the duodenum actively leaking Operative Technique: The patient brought the operating room placed supine on the table. After the induction of adequate general endotracheal anesthesia, the area of the abdomen was prepped with a DuraPrep solution, and he was draped in usual aseptic manner. A Rayo catheter having been inserted. A generous upper midline incision was made. This brought down through the skin and subcutaneous tissue. The fascia was opened in the midline. With this allowed us access to the peritoneal cavity. In the right upper quadrant we encounter a large pocket of green bilious fluid. This was aspirated from the peritoneal cavity. It was also irrigated with a saline solution. Further exploration underneath the liver allowed us to come to an area that was pocketed and contained some old coagulated albumin is type material. This was aspirated from the peritoneal cavity. We could see the 1st portion of the duodenum. Anteriorly there was a hold it was actively leaking. The area was sharply debrided. We now were able to mobilize a piece of omentum and a formal Harjinder patch was performed. The omentum was sutured in place with some chromic superiorly. 5 sutures of silk were then used to securely close and a whole list omentum in place. The area was irrigated with a saline solution. Some further fat from the area was also placed over this to buttress it. The area above the liver was now irrigated and aspirated. A 10 mm [place] drain was placed and into Morison's pouch and drained out through a lateral stab wound incision. At this point the abdomen is inspected to ensure adequate hemostasis. The midline incision was closed with a running suture of looped nylon. Prakash were then applied to the skin. At the end of procedure he was stable when sent to the recovery room. Needle sponge instrument count were correct. 1 drain as mentioned. No specimens were sent. Drain(s): Nasogastric, Wound drain, BARRETT drain Transferred to: Recovery Room Condition: Good
[2019-02-18] MEDS ORDERED: ONDANSETRON 4 MG/2 ML VIAL ONE (20:58)
[2019-02-18] MEDS: MORPHINE 4 MG/ML SYR ONE ×2 (21:00→21:05)
[2019-02-18] MEDS ORDERED: PIPERACIL/TAZO 3.375 GM VIAL IV ONE (22:14)
[2019-02-18] MEDS ORDERED: NA CHLORIDE 0.9% 100 ML ONE (22:15)
[2019-02-18] MEDS: NA CHLORIDE 0.9% 1,000 ML IV SCH (22:18)
[2019-02-19] MEDS ORDERED: NA CHLORIDE 0.9% 100 ML ONE (04:42)
[2019-02-19] MEDS ORDERED: PIPERACIL/TAZO 3.375 GM VIAL IV ONE (04:42)
[2019-02-19] MEDS: PIPER/TAZO/NS 3.375gm 3.375 GM/100 ML BAG IVPB SCH ×3 (05:09→17:30)
[2019-02-19 05:29] LABS: Basophils % 0.3 % (0-1.3); Hematocrit 39.7 % (39.6-49.0); Lymphocytes % 8.3 % (15.3-44.8); MPV 8.4 fL (7.6-11.3); RBC Red Blood Cell Count 3.95 M/uL (4.33-5.43)
[2019-02-19 05:48] LABS: Albumin 2.5 g/dL (3.4-5.0); Bilirubin Direct 0.6 mg/dL (0-0.2); Bilirubin Total 1.1 mg/dL (0.2-1.0); Potassium 5.3 mmol/L (3.5-5.1)
[2019-02-19] MEDS: NA CHLORIDE 0.9% 1,000 ML IV SCH ×2 (06:12→17:00)
[2019-02-19] MEDS: INSULIN -REGULAR HUMAN 50 UNIT/0.5 ML ML SQ SCH ×4 (07:30→21:00)
[2019-02-19] MEDS: PANTOPRAZOLE 40 MG INJ IVP SCH (08:32)
--- NOTE | 2019-02-19 12:14 | CON ---
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 He came to the hospital with sudden onset of uppe r abdominal pain. He was found to have free air in the peritoneum, and after emergency surgery, he w as found to have a perforated duodenal ulcer, now postop, repaired with an omental patch by Dr. Rosario persaud. He was not having any new heart problems. He has chronic atrial fib. He was on Xarelto and act ually was still anticoagulated on Xarelto when he had his surgery. Does not seem to have been a lot of blood loss, which speaks to the excellent surgical technique by Dr. Hinds, and presently he is n ot on any anticoagulation. He should stay off anticoagulation until risk of further bleeding is redu freda and then we can give Lovenox. Father Gali also has chronic left bundle-branch block and he lara s hypertrophic cardiomyopathy without left ventricular outflow tract obstruction and his ejection fra ction is in the normal range. He also has cellulitis and lymphedema of his right leg. Lymphedema is really bilateral and recently he has been getting FarrowWraps by a wound clinic for the lymphedema w ith cellulitis. Physical Examination: Vital Signs: 5 feet 9 inches, 304 pounds. Blood pressure 108/74, heart rate 68, O2 saturation 98% o n nasal cannula. HEENT: Normal. General: Alert, oriented, pleasant. Lungs: Clear. Extremities: Reveal edema. Distal pulses palpable. Impression: The patient is doing well postop. His atrial fibrillation is chronic. We will continue not to give anticoagulation presently. When Dr. Hinds says it is ready, we will give Lovenox subcu twice daily. YAQUELIN/JOSELUIS Voice ID: [id number] Report ID: [id number]
--- NOTE | 2019-02-19 12:58 | EKG ---
Test Date: 2019-02-18 Test Time: 10:54:06 Nail Feeder: REYNALDO MEASUREMENT RESULTS: Intervals: Rate: 80 NH: QRSD: 98 QT: 406 QTc: 468 [place]: P: NH: QRS: 97 T: 269 INTERPRETIVE STATEMENTS: Atrial fibrillation Rightward axis Incomplete right bundle branch block ST & T wave abnormality, non specific Abnormal ECG Compared to ECG 02/04/2019 09:03:54 Right-axis deviation now present Incomplete right bundle-branch block now present Right bundle-branch block no longer present Electronically Signed On 02-19-19 12:57:35 CDT by Wily Carrillo
[2019-02-19] MEDS ORDERED: TAMSULOSIN 0.4 MG SR CAP PO ONE (14:04)
[2019-02-19] MEDS: MORPHINE 4 MG/ML SYR IV PRN (20:00)
--- NOTE | 2019-02-19 23:26 | HP ---
Date of Admission: 02/18/2019 Chief Complaint: Abdominal pain. History Of Present Illness: An 78-year-old male, started having abdominal pain and because of persis tent, he was taken to the emergency room, where a CAT scan showed evidence of perforated duodenal ulc er. Patient is admitted for emergency surgery and follow up. There is no prior history of documente d peptic ulcer disease. No history of vomiting of blood. No history of blood in the stools. Past Medical History: Positive for hypertension; diabetes; intermittent atrial fibrillation; benign prostatic hypertrophy; chronic venous insufficiency with recent cellulitis in both legs, right more t moore the left. Past Surgical History: Positive for melanoma surgery, tonsillectomy, and cataract surgeries. Allergies: NONE. Home Medicines: Please refer to the chart. Physical Examination: General: Revealed an 78-year-old male, alert for his age. Afebrile. HEENT: Negative. Neck: Supple. JVD negative. Chest: Occasional wheezes. Heart: Regular. Abdomen: Tender upper abdomen. Bowel sounds decreased. Extremities: Bilateral pedal edema with excoriations. Laboratory Data: White count done in the emergency room showed white count 11.2. Chemistry profile; creatinine 1.63. CAT scan of the abdomen evidence of perforated viscus. Assessment: 1.Perforated duodenal ulcer. 2.Hypertension. 3.Intermittent atrial fibrillation. 4.Type 2 diabetes, not requiring insulin. 5.Osteoarthritis. 6.Venous insufficiency with secondary infection. Plan: Patient underwent emergency surgery and patching of the perforation. Patient postoperatively doing very well. His potassium is high at 5.3. Patient will be placed on low-potassium diet and it will be repeated. MARIMAR/JOSELUIS Voice ID: [id number]
[2019-02-20] MEDS: PIPER/TAZO/NS 3.375gm 3.375 GM/100 ML BAG IVPB SCH ×4 (00:32→17:27)
[2019-02-20] MEDS: NA CHLORIDE 0.9% 1,000 ML IV SCH ×3 (00:33→18:00)
[2019-02-20] MEDS: MICONAZOLE 2% TOPICAL 15 GM TOP SCH (02:45)
[2019-02-20] MEDS: MORPHINE 4 MG/ML SYR IV PRN (03:51)
[2019-02-20] MEDS: INSULIN -REGULAR HUMAN 50 UNIT/0.5 ML ML SQ SCH ×4 (07:30→21:00)
[2019-02-20] MEDS: PANTOPRAZOLE 40 MG INJ IVP SCH (09:31)
--- NOTE | 2019-02-20 13:27 | PN ---
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 He is out of ICU. He is still not on anticoagulant. I will ask Dr. Hinds to say what we might start giving him some Lovenox or heparin and eventually we want to get h im back on his Xarelto that he has been on. He will begin later today to answer that question. In t he meantime, we will hold off on getting full anticoagulation. YAQUELIN/MODL Voice ID: [id number] Report ID: [id number]
--- NOTE | 2019-02-20 14:50 | P.PN ---
Date of Service: 02/20/19 S: Patient states he feels tired today compared to yesterday. Pain is manageable. Requiring minimal pain medicine. O: Vital signs are stable, BARRETT has some fluid consistent with irrigation fluid, not GI contents. Rayo catheter is in place and draining well Adequate effort on incentive spirometry. Expected amount through nasogastric tube. A: Patient remains surgically stable. Will start to mobilize him. Was unable to remove Rayo catheter will try again on Friday morning. Minimal bowel sounds , no bowel movements yet. Hemoglobin hematocrit are stable. P: Will resume on is Lovenox. He he me trans turned over when he is taking p.o.. Ice chips and popsicles today, will put some Maalox down through the nasogastric tube. Encourage incentive spirometry, ambulation. Continue to mobilize.
--- NOTE | 2019-02-20 16:09 | PN ---
Patient still has not passed any gas. He seems to have mild distention. However, he is afebrile. H is IV antibiotic will be continued. His IV fluids will be continued. Patient will have repeat CBC a nd chem 7 in a.m. MARIMAR/JOSELUIS Voice ID: [id number] Report ID: [id number]
[2019-02-20] MEDS: POLYVINYL ALCOHOL 1.4% 15 ML EACH EYE SCH ×2 (17:24→23:03)
[2019-02-20] MEDS: MAGNES/ALUMIN/SIMET 30ML UCUP FT PRN (17:28)
[2019-02-21] MEDS: PIPER/TAZO/NS 3.375gm 3.375 GM/100 ML BAG IVPB SCH ×4 (00:23→17:00)
[2019-02-21] MEDS: MAGNES/ALUMIN/SIMET 30ML UCUP FT PRN (00:23)
[2019-02-21] MEDS: NA CHLORIDE 0.9% 1,000 ML IV SCH ×3 (00:23→15:46)
[2019-02-21 05:19] LABS: Potassium 4.6 mmol/L (3.5-5.1)
[2019-02-21] MEDS: INSULIN -REGULAR HUMAN 50 UNIT/0.5 ML ML SQ SCH ×4 (07:30→20:22)
[2019-02-21] MEDS: POLYVINYL ALCOHOL 1.4% 15 ML EACH EYE SCH ×4 (08:29→21:46)
[2019-02-21] MEDS: MICONAZOLE 2% TOPICAL 15 GM TOP SCH ×2 (08:30→21:46)
[2019-02-21] MEDS: PANTOPRAZOLE 40 MG INJ IVP SCH (08:31)
--- NOTE | 2019-02-21 13:07 | PN ---
Father Gali is doing nicely, is postop ileus. Still continues to have nasogastric suction and cosme s get ice chips and popsicles. I suspect he may be slower than the average person to wake up from at. His atrial fibrillation is chronic. He is not having heart failure or any other problems from t he atrial fibrillation. He is on an anticoagulant now, so we could probably switch to an oral antico agulant once he is on his diet. YAQUELIN/JOSELUIS Voice ID: [id number] Report ID: [id number]
[2019-02-21] MEDS: TOBRAMYCIN 0.3% 5ML OPTH DROPS RIGHT EYE SCH ×2 (13:21→21:46)
[2019-02-21] MEDS ORDERED: TOBRAMYCIN 0.3% 5ML OPTH DROPS LEFT EYE SCH (14:00)
[2019-02-21 15:41] LABS: Absolute Lymphocytes (CBC) 0.8 K/uL (0.7-4.9); Basophils % 0.5 % (0-1.3); Hematocrit 39.4 % (39.6-49.0); Lymphocytes % 10.8 % (15.3-44.8); MPV 8.3 fL (7.6-11.3); RBC Red Blood Cell Count 3.93 M/uL (4.33-5.43)
--- NOTE | 2019-02-21 20:07 | PN ---
Patient has passed flatus. No bowel movement. He has abdominal distention, however, he is generally feeling better. NG tube return is clear. He is afebrile. He will be continued on Zosyn, which he is on currently. EVELYNK/JOSELUIS Voice ID: [id number] Report ID: [id number]
[2019-02-21] MEDS: MORPHINE 4 MG/ML SYR IV PRN (21:46)
[2019-02-22] MEDS: PIPER/TAZO/NS 3.375gm 3.375 GM/100 ML BAG IVPB SCH ×4 (00:45→17:39)
[2019-02-22] MEDS: MORPHINE 4 MG/ML SYR IV PRN (02:28)
[2019-02-22] MEDS: INSULIN -REGULAR HUMAN 50 UNIT/0.5 ML ML SQ SCH ×4 (07:30→21:00)
[2019-02-22] MEDS: POLYVINYL ALCOHOL 1.4% 15 ML EACH EYE SCH ×4 (08:26→21:00)
[2019-02-22] MEDS: PANTOPRAZOLE 40 MG INJ IVP SCH (08:26)
[2019-02-22] MEDS: TOBRAMYCIN 0.3% 5ML OPTH DROPS RIGHT EYE SCH ×3 (08:26→21:00)
[2019-02-22] MEDS: MICONAZOLE 2% TOPICAL 15 GM TOP SCH ×2 (08:26→21:00)
[2019-02-22] MEDS: NA CHLORIDE 0.9% 1,000 ML IV SCH ×2 (08:28)
--- NOTE | 2019-02-22 13:29 | CON ---
Chief Complaint: Acute on chronic kidney injury. History Of Present Illness: The patient has chronic kidney disease stage 3. He developed severe pre renal azotemia. He is 78-year-old man with history of hypertension, diabetes mellitus type 2, lymphe mary, chronic venous insufficiency with secondary infection in the legs and ulcers. The patient pres ented to the hospital because of abdominal pain. He was complaining of persistent generalized abdomi nal pain. CT scan of the abdomen showed some evidence of perforated duodenal ulcer. He underwent em ergent surgery and close followup. The patient has previous history of peptic ulcer disease. He has history of chronic kidney disease. Baseline creatinine level is 1.1 and 1.2. During this admission , creatinine level is 1.7. Patient is on IV fluids. Patient was found to have acute on chronic kidn ey injury secondary to prerenal azotemia and nonoliguric ATN, complicated by bladder outlet obstructi on. The patient had a Rayo catheter placed to prevent urinary retention. Today, electrolytes are as follows: Sodium 141, potassium 4.6, chloride 108, CO2 of 29, BUN is 45, c reatinine 1.72, calcium 8.9. Patient is currently bed-bound. He is somewhat lethargic. He cannot provide review of systems. He has multiple medical problems. Past Medical History: Morbid obesity, atrial fibrillation, hypertension, venous insufficiency in bot h legs, chronic left bundle-branch block, hypertrophic cardiomyopathy, left ventricular outflow tract obstruction and ejection fraction was normal. The patient has history of chronic dermatitis and his tory of cellulitis, lymphedema of the right leg as well as left leg, chronic kidney disease stage 3, bladder outlet obstruction, and atrial fibrillation on chronic anticoagulation. Social History: Denies tobacco, alcohol, or illicit drugs. Family History: No kidney disease in his family. Physical Examination: General: The patient is awake, follows commands. Eyes: Anicteric sclerae, EOMI. Ears, Nose, Mouth, and throat: NG tube in place. Neck: Supple. No bruits. Lungs: Diminished breath sounds in the bases. No rhonchi. No wheezing. Heart: S1, S2. No pericardial friction or rub. Abdomen: Distended, obese. Bowel sounds diminished. Extremities: Severe edema, cellulitis with venous stasis ulcers and erythema present. Neurological: Moving extremities. Cranial nerves intact. Psychiatric: Alert, oriented. Follows commands. Laboratory Data: Sodium 141, potassium 4.6, chloride 108, CO2 of 29, BUN 45, creatinine 1.72, glucos e 127, calcium 8.9. Urinalysis showed specific gravity 1.020, nitrite positive, leukocyte esterase 2 +. Wbcs greater than 50, rbc's less than 5. Bacteria greater than . Vancomycin trough lev el on February 04, 2019, was 11.2. Hematology shows hemoglobin 13.0, WBC 7.5, platelet count is 199,00 0, absolute neutrophils 5.5, absolute lymphocytes is 0.8. Abdomen and pelvis CT scan done on February 18 without contrast, no hydronephrosis or suspicious renal mass. Multiple bilateral and variable si ze low-density masses are present, all this to be incidental kidney cysts, largest is lower pole, lef t kidney 3.8 cm in size. No significant renal findings, hypodense renal masses and pyelonephritis ca nnot be excluded in the absence of IV contrast. Distal view in the remainder of the small bowel show s no acute findings proximally or edema noted. Multiple small air collection are present in the fatt y tissue adjacent of the distal stomach and proximal duodenum. perforated duodenal ulcer is most likely and potentially perforated gastric ulcer. Impression: 1.Acute on chronic kidney injury with prerenal azotemia secondary to sepsis and ongoing renal hypope rfusion in setting of abdominal pathology with perforated ulcer. Continue IV fluids. Monitor electr olytes. The patient has NG tube. Patient will require electrolytes supplementation currently and po tassium level is within normal level and there is no evidence of metabolic alkalosis or acidosis. 2.Diabetes mellitus. The patient will continue with the insulin tablets. The patient might benefit from TPN. 3.Urinary tract infection likely in this particular setting. The patient is undergoing workup to ru le out urinary tract infection and he will have antibiotics. Currently, on February 04, the patient was found to have E coli infection, sensitive to Zosyn, and sensitive to ampicillin and resistant to Cipro. On the recent urinalysis, there is positive nitrites and multiple wbc. Plan is to rule out i ncreased postvoid residual volume. Catheter was removed due to the discomfort. The patient was comp laining of some discomfort with Rayo catheter. 4.Acute kidney injury. Avoid nephrotoxic medication. Currently, the patient is on multiple antibio tics. Bowel pathology with perforated ulcer. Continue Zosyn with renally adjusted dose. EB/MODL Voice ID: [id number] Report ID: [id number]
--- NOTE | 2019-02-22 14:52 | RAD REPORT ---
EXAM DESCRIPTION: US - Renal Ultrasound-Complete - 02/22/2019 2:26 pm CLINICAL HISTORY: . Acute renal insufficiency COMPARISON: February 18, 2019 cat scan FINDINGS: Limited exam secondary to body habitus. The right kidney measures 11 cm with a normal echotexture. The left kidney measures cm with a normal echotexture. 3.6 centimeters cyst Smaller renal cysts present Hydronephrosis is not seen. Bladder is decompressed and poorly seen IMPRESSION: 3.6 centimeter left renal cyst
--- NOTE | 2019-02-22 15:17 | P.PN ---
Date of Service: 02/22/19 S: Patient apparently had a rough day yesterday with urinary catheters, urinary retention, and not much sleep. He is currently resting at the moment. O: Vital signs remain stable. Minimal out through the nasogastric tube. Minimal out through BARRETT drain. A: Patient from a surgical standpoint is improving P: A Rayo catheter will last a for least a week. Tomorrow will work on the scene nasogastric tube as well as BARRETT drain. We will allow him to rest today. ( He has already had his physical therapy, was sitting up in a chair, and has been moving around.
--- NOTE | 2019-02-22 16:44 | CON ---
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 This was repaired by Dr. Monte on 02/18/2019 with a Harjinder patch, perforated ulcer , and exploratory laparotomy. Patient is now on the floor. He is postop day 4. He still has his NG tube in. He has a history of BPH and normally takes tamsulosin. He has not been taking his tamsulosin here due to surgery. The fact that he is still n.p.o. He has had a Rayo catheter in that was removed and he was unable to void. They reinserted a Rayo catheter and he says he has been having lots of burning from this catheter, so I had it removed this morning at 4:30. It is now approximately 1 p.m. and has not gone into dribbling. PVR showed he has about 600 cc of urine in the bladder. I think he needs to have a Rayo catheter placed. We could try a Silastic just in case, it was latex that was causing some irritation. Medications: Atenolol, tamsulosin, hydralazine, lisinopril, hydrochlorothiazide , metformin. Allergies: NO KNOWN DRUG ALLERGIES. 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 Family History: Significant for heart disease. Mother had cancer. Social History: No alcohol. No drugs. Some caffeine use. Physical Examination: Vital Signs: Afebrile, stable, 97.8, 99, 20, 130/76, 96% sat. General: Awake, comfortable, who is sitting up in chair. Sister is present in the room. He has no spouse. 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 HEENT: Atraumatic, normocephalic. Respiratory: Clear. Cardiovascular: S1, S2. Gastrointestinal: Slightly distended, postop changes. Legs: Lymphedema both legs. Right leg is wrapped. Rectal: Deferred for now. Laboratories: Microbiology also refers that he has had Enterobacter Providencia and Staph, ___ except for Levaquin and Cipro. Latest CBC done yesterday, white count 7.5, H and H 13 and 39, platelet count 199. Coagulation : PT is slightly elevated at 21.7, INR 1.88. Chemistry from yesterday's labs. Sodium 141, potassium 4.6, chloride of 108, carbon dioxide 29, BUN 45, creatinine 1.7, GFR 38, glucose 127. Assessment: Postop, patient with history of BPH, unable to get Flomax due to urinary retention and had some burning from the last catheter placed so we are going to try a Silastic catheter, see if we can get this in place for him. Patient understood all the risks and benefits and proceeding with the Rayo placement, wished to proceed. His PVR is over 600 cc now and he is just having dribbling. There is an overflow incontinence right now, so he definitely needs to keep his Rayo in, will definitely keep it in, once we get it in, keep it in until he is on his Flomax. It may be about a week or so after we can do a voiding trial. DAKOTA/JOSELUIS Voice ID: [id number] Report ID: [id number] JOS
[2019-02-23] MEDS: NA CHLORIDE 0.9% 1,000 ML IV SCH (01:01)
[2019-02-23] MEDS: PIPER/TAZO/NS 3.375gm 3.375 GM/100 ML BAG IVPB SCH ×3 (01:01→12:00)
--- NOTE | 2019-02-23 02:15 | PN ---
The patient could not empty his bladder. Neurology consultation was obtained for insertion. The pat ient had urethral bleeding. For that reason, consultation was done. The patient is afebrile. He lara s mild wheezing of the chest. The patient is passing gas. His bowel sounds are hypoactive. The pat ient will be continued on the same management. MARIMAR/JOSELUIS Voice ID: [id number] Report ID: [id number]
[2019-02-23] MEDS ORDERED: MINERAL OIL 30 ML UCUP PO ONE (06:00)
[2019-02-23] MEDS: INSULIN -REGULAR HUMAN 50 UNIT/0.5 ML ML SQ SCH ×4 (07:30→20:41)
[2019-02-23] MEDS: PANTOPRAZOLE 40 MG INJ IVP SCH (08:37)
[2019-02-23] MEDS: POLYVINYL ALCOHOL 1.4% 15 ML EACH EYE SCH ×4 (09:00→20:39)
[2019-02-23] MEDS: MICONAZOLE 2% TOPICAL 15 GM TOP SCH (09:00)
[2019-02-23] MEDS: TOBRAMYCIN 0.3% 5ML OPTH DROPS RIGHT EYE SCH ×3 (09:00→20:39)
--- NOTE | 2019-02-23 11:12 | PN ---
Date of Progress Note: 02/23/2019 Patient had come in on 02/18/2019 with a perforated duodenal ulcer, underwent surgery by Dr. Hinds. He has chronic atrial fibrillation. He is still on Lovenox for now. His NG tube has been pulled o ff. He still has his Rayo catheter. He is starting to have some clear liquid. He has been sitting up in the chair. From our standpoint whenever he is able to take p.o., he can certainly come off Lo venox and get back on Xarelto 15 mg daily which he was taking at home. He is asymptomatic from a car diovascular standpoint. We will sign off his case. TONI/JOSELUIS Voice ID: [id number] Report ID: [id number]
--- NOTE | 2019-02-23 13:27 | P.PN ---
Date of Service: 02/23/19 S: The patient sitting up in a chair today, states he feels somewhat better than yesterday. Did his physical therapy. Says he is tired. O: Vital signs are stable, adequate urine output. Minimal out through BARRETT drain at this point. Abdomen is soft A: Patient continues to improve P: I will discontinue his antibiotics. We will remove his Fuad-King drain. He will be started on a clear liquid diet advanced as tolerated. Will ask nursing home social worker to see regarding rehab as patient will require assistance with his ambulation
[2019-02-23] MEDS: NYSTATIN 100MU/GM CREAM 15GM TOP SCH (16:19)
[2019-02-23] MEDS ORDERED: ENOXAPARIN 60 MG/0.6 ML SQ SCH (17:00)
--- NOTE | 2019-02-23 17:06 | PN ---
The patient is more alert today. He passed gas and the NG tube has been removed. He did not have an y vomiting or abdominal distention. Very likely, patient may have advanced diet. Meanwhile, the pat ient is afebrile. His Rayo catheter is draining. MARIMAR/JOSELUIS Voice ID: [id number] Report ID: [id number]
--- NOTE | 2019-02-23 19:36 | PN ---
The patient is doing well today. NG tube is out. Starting to feed him. His urine is draining well via Rayo catheter. Offered no complaints about any burning or pain from the catheter, which is good . Once he is ambulating and eating and taking his Flomax, then he can get a voiding trial, but I wou ld not do it until then. DAKOTA/JOSELUIS Voice ID: [id number] Report ID: [id number]
[2019-02-23] MEDS ORDERED: CLOTRIMAZOLE 1% VAG SCH (21:00)
--- NOTE | 2019-02-23 22:53 | P.PN ---
Subjective Date of Service: 02/23/19 Primary Care Provider: Dr. De La Cruz Chief Complaint: Exploratory laparotomy for perforated viscus Subjective: No new changes Pt with HX of DM, Afib , and chronic lymphedema was admitted for perforated Peptic ulcer , recenlty admitted for LE cellulites , received ABx, started on lasix Cr upon discharged increased to 1.4 Today started on liquid diet have LE edema will hold IVF brantley placed for urinary retention Physical Examination - Vital Signs Temperature: 96.8 F Blood Pressure: 166/84 Pulse: 65 Respirations: 20 Pulse Ox (%): 96 - Physical Exam General: In no apparent distress, Mild distress, Obese HEENT: Atraumatic Neck: Supple, Without JVD or thyroid abnormality Respiratory: Clear to auscultation bilaterally Cardiovascular: Regular rate/rhythm, Normal S1 S2, No gallops, No rubs, No murmurs, Edema Gastrointestinal: Soft and benign, Other (wound dressing ) Musculoskeletal: Swelling Assessment And Plan - Plan RADHA on CKD possibly due to ATN from Abx completed Abx now US no hydro will dc iVF Urinary retention S/p Brantley HTN controlled DM as per primary PUD tolerating liquid diet Afib
[2019-02-24 06:34] LABS: Albumin 2.1 g/dL (3.4-5.0); Bilirubin Total 0.8 mg/dL (0.2-1.0); Potassium 4.3 mmol/L (3.5-5.1); Protein, Total 6.6 g/dL (6.4-8.2)
[2019-02-24] MEDS: INSULIN -REGULAR HUMAN 50 UNIT/0.5 ML ML SQ SCH ×4 (07:30→21:00)
[2019-02-24] MEDS: NYSTATIN 100MU/GM CREAM 15GM TOP SCH ×2 (09:00→21:05)
[2019-02-24] MEDS ORDERED: FUROSEMIDE 20 MG TABLET PO SCH (09:00)
[2019-02-24] MEDS: ATENOLOL 50 MG TAB PO SCH (09:08)
[2019-02-24] MEDS: RIVAROXABAN 15 MG TABLET PO SCH (09:08)
[2019-02-24] MEDS: PANTOPRAZOLE 40 MG INJ IVP SCH (09:08)
[2019-02-24] MEDS: TOBRAMYCIN 0.3% 5ML OPTH DROPS RIGHT EYE SCH ×3 (09:09→21:04)
[2019-02-24] MEDS: POLYVINYL ALCOHOL 1.4% 15 ML EACH EYE SCH ×4 (09:09→21:04)
--- NOTE | 2019-02-24 14:21 | P.PN ---
Date of Service: 02/24/19 S: Patient had a rehab early today, sitting up in a chair, says he feels like this is his best day yet. Had rehab earlier today. Tolerating a diet. O: Vital signs remain stable chest movement equal bilaterally abdomen is soft local motor intact as he sits in a chair A: Surgically stable but very weak will require rehab and muscle conditioning P: Continue current therapy, anticipate transfer to the 5th floor soon
--- NOTE | 2019-02-24 15:10 | PN ---
Date of Progress Note: 02/24/2019 Patient was admitted with acute kidney injury. The patient was feeling much better. Kidney function has been normalized. Physical Examination: General: When I saw the patient, the patient sitting on the chair. Vital Signs: Blood pressure 142/90, pulse of 59, afebrile. Patient had good urine output of 2 L, ne gative of 200. Chest: Crackles bilateral base. Heart: S1, S2. Systolic murmur. Abdomen: Soft, nontender. Extremities: +3 lymphedema. Laboratory Data: WBC 7.5, H and H 13/39.4, platelets of 199. Sodium 147, potassium 4.3, bicarb 28, BUN 39, creatinine 1, calcium 8.7. Current Medications: The patient on include: 1.Lasix 20 mg daily. 2.Flomax. 3.Nystatin. 4.Atenolol. 5.Magnesium oxide. 6.Pantoprazole. Assessment And Plan: 1.Acute kidney injury secondary to ATN slightly on the wet side. I am going to go ahead and increas e his Lasix to b.i.d. 2.Urinary retention. Continue Rayo for the time being. Continue Flomax. 3.Hypertension, controlled, optimal, continue current medication. We will increase Lasix. 4.Deconditioning. Continue PT/OT. 5.Obstructive uropathy. Continue Flomax. Continue Rayo. ELIZABETH/JOSELUIS Voice ID: [id number] Report ID: [id number]
[2019-02-24] MEDS: FUROSEMIDE 20 MG TABLET PO SCH (16:19)
[2019-02-24] MEDS: TAMSULOSIN 0.4 MG SR CAP PO SCH (21:04)
--- NOTE | 2019-02-25 00:16 | PN ---
Patient is doing very well today. He is tolerating the diet. I have changed his Lovenox to oral Xar elto 15 mg, which he was on before. His Rayo is draining well. I explained to him that he may need Rayo catheter for some time. However, he is started on Flomax. Patient is afebrile. Patient is r naomie for transfer to rehab unit. MARIMAR/JOSELUIS Voice ID: [id number] Report ID: [id number]
[2019-02-25] MEDS: INSULIN -REGULAR HUMAN 50 UNIT/0.5 ML ML SQ SCH ×4 (07:30→20:49)
[2019-02-25] MEDS: RIVAROXABAN 15 MG TABLET PO SCH (09:06)
[2019-02-25] MEDS: ATENOLOL 50 MG TAB PO SCH (09:06)
[2019-02-25] MEDS: PANTOPRAZOLE 40 MG INJ IVP SCH (09:07)
[2019-02-25] MEDS: FUROSEMIDE 20 MG TABLET PO SCH ×2 (09:07→16:43)
[2019-02-25] MEDS: TOBRAMYCIN 0.3% 5ML OPTH DROPS RIGHT EYE SCH ×3 (09:08→20:45)
[2019-02-25] MEDS: NYSTATIN 100MU/GM CREAM 15GM TOP SCH ×2 (09:08→20:50)
[2019-02-25] MEDS: POLYVINYL ALCOHOL 1.4% 15 ML EACH EYE SCH ×4 (09:08→20:45)
--- NOTE | 2019-02-25 14:32 | P.PN ---
Date of Service: 02/25/19 S: No specific complaints. Did well at rehab today. Has been having bowel movements. Diet is improving. O: Vital signs is stable, incisions clean, and has wound on his right Garcia in ( I did not visualize it today) due to be changed tomorrow. A: Surgically stable P: Awaiting rehab arrangements.
--- NOTE | 2019-02-25 16:47 | PN ---
Date of Progress Note: 02/25/2019 Patient was admitted with acute kidney injury, anasarca. Yesterday, we increased his Lasix. Patient feeling better. Physical Examination: Vital Signs: Blood pressure 131/73, pulse of 72. Patient had good urine output of 1900, negative of 1 L. Chest: Crackles bilateral base. Heart: S1, S2 regular. Abdomen: Soft, nontender. Extremities: Dressing on the right leg. Edema +2. Laboratory Data: WBC 7.5, H and H 13/39.4, platelets 199. Sodium 147, potassium 4.3, bicarb 28, BUN 39, creatinine 1, calcium 8.7. Current Medications: The patient on include: 1.Nystatin. 2.Flomax. 3.Xarelto. 4.Atenolol. 5.Lasix 20 b.i.d. 6.Pantoprazole. 7.Zofran. 8.Insulin. Assessment And Plan: 1.Acute kidney injury secondary to prerenal, toxic acute tubular necrosis, still over volume, achiev ing good negative balance on current treatment. Continue current Lasix dose. 2.Hypertension, controlled, optimal. We will keep utilizing blood pressure for more diuresis. 3.Anasarca secondary to renal failure. Continue diuresis. 4.Cellulitis. Continue current antibiotic. 5.Urinary retention, on Rayo. We will follow up with Urology. ELIZABETH/JOSELUIS Voice ID: [id number] Report ID: [id number]
--- NOTE | 2019-02-25 18:41 | PN ---
The patient is doing well. He is ambulating. He is being fed. He is in a diet. He started his Ashwin max. Plan is to do a voiding trial in the morning and we will see how he does. DAKOTA/JOSELUIS Voice ID: [id number] Report ID: [id number]
[2019-02-25] MEDS: TAMSULOSIN 0.4 MG SR CAP PO SCH (20:44)
--- NOTE | 2019-02-26 02:48 | PN ---
Patient is afebrile. He is tolerating diet. He has mild abdominal distention; however, he does not have any fever. He has loose stools and stools will be checked for C difficile toxin. The patient o therwise is ready for transfer to rehab. MARIMAR/JOSELUIS Voice ID: [id number] Report ID: [id number]
[2019-02-26] MEDS: ATENOLOL 50 MG TAB PO SCH (06:07)
[2019-02-26 06:21] LABS: Albumin 2.2 g/dL (3.4-5.0); Phosphorus 2.5 mg/dL (2.5-4.9); Potassium 3.2 mmol/L (3.5-5.1)
[2019-02-26] MEDS: INSULIN -REGULAR HUMAN 50 UNIT/0.5 ML ML SQ SCH ×4 (07:30→19:58)
[2019-02-26] MEDS: FUROSEMIDE 20 MG TABLET PO SCH ×2 (08:32→17:43)
[2019-02-26] MEDS: PANTOPRAZOLE 40 MG INJ IVP SCH (08:32)
[2019-02-26] MEDS: POLYVINYL ALCOHOL 1.4% 15 ML EACH EYE SCH ×4 (08:32→19:57)
[2019-02-26] MEDS: RIVAROXABAN 15 MG TABLET PO SCH (08:32)
[2019-02-26] MEDS: NYSTATIN 100MU/GM CREAM 15GM TOP SCH ×2 (08:33→19:58)
[2019-02-26] MEDS: TOBRAMYCIN 0.3% 5ML OPTH DROPS RIGHT EYE SCH ×3 (08:33→19:57)
[2019-02-26] MEDS ORDERED: POTASSIUM 25 MEQ EFFERV TAB PO ONE (11:17)
--- NOTE | 2019-02-26 12:30 | P.PN ---
Subjective Date of Service: 02/26/19 Primary Care Provider: Dr. De La Cruz Chief Complaint: Exploratory laparotomy for perforated viscus Pt with HX of DM, Afib , and chronic lymphedema was admitted for perforated Peptic ulcer , recenlty admitted for LE cellulites , received ABx, started on lasix Cr upon discharged increased to 1.4 Today Cr normalized brantley removed again, now with decreased UO , f/u with Urology cont bowel regemin and PT K replaced will consider to increase lasix by tomorrow Physical Examination - Vital Signs Temperature: 97.9 F Blood Pressure: 107/51 Pulse: 73 Respirations: 20 Pulse Ox (%): 95 - Physical Exam General: In no apparent distress, Oriented x3, Obese HEENT: Atraumatic Neck: Supple, Without JVD or thyroid abnormality Respiratory: Clear to auscultation bilaterally, Normal air movement Cardiovascular: Regular rate/rhythm, Normal S1 S2, No gallops, No rubs, No murmurs, Edema Gastrointestinal: Soft and benign Musculoskeletal: Swelling Assessment And Plan - Plan RADHA on CKD resolved possibly due to ATN from Abx completed Abx now US no hydro cont lasix Urinary retention brantley removed urology on baord HTN controlled DM as per primary PUD S/P surgical repair tolerating diet Afib on atenolol
--- NOTE | 2019-02-26 13:49 | P.PN ---
Date of Service: 02/26/19 S: Patient complaining he can not void at the moment. Has been tolerating a diet. When for 2 rounds with physical therapy today. O: Vital signs is stable A: From a surgical standpoint, doing well P: Patient is still having difficulty with urination. I recommended that they call the urologist now so he could re-evaluate the patient in regards to need for a catheter.
[2019-02-26] MEDS: TAMSULOSIN 0.4 MG SR CAP PO SCH (19:57)
--- NOTE | 2019-02-27 00:47 | PN ---
Patient is doing well. He is ambulating in the room with help. His Rayo has been taken out and hop efully he will start urinating without any catheterization. He is afebrile. We are waiting for the bed in the rehab for transfer. MARIMAR/JOSELUIS Voice ID: [id number] Report ID: [id number]
[2019-02-27 05:09] LABS: Albumin 2.3 g/dL (3.4-5.0); Phosphorus 2.7 mg/dL (2.5-4.9); Potassium 3.4 mmol/L (3.5-5.1)
[2019-02-27] MEDS: ATENOLOL 50 MG TAB PO SCH (05:12)
[2019-02-27] MEDS: INSULIN -REGULAR HUMAN 50 UNIT/0.5 ML ML SQ SCH ×4 (07:30→20:58)
[2019-02-27] MEDS: FUROSEMIDE 20 MG TABLET PO SCH ×2 (08:50→16:08)
[2019-02-27] MEDS: POLYVINYL ALCOHOL 1.4% 15 ML EACH EYE SCH ×4 (08:51→20:58)
[2019-02-27] MEDS: RIVAROXABAN 15 MG TABLET PO SCH (08:51)
[2019-02-27] MEDS: TOBRAMYCIN 0.3% 5ML OPTH DROPS RIGHT EYE SCH ×3 (08:51→20:57)
[2019-02-27] MEDS: NYSTATIN 100MU/GM CREAM 15GM TOP SCH ×2 (08:51→20:58)
[2019-02-27] MEDS: PANTOPRAZOLE 40 MG INJ IVP SCH (08:54)
[2019-02-27 10:07] LABS: Urine Appearance CLEAR; Urine Bilirubin NEGATIVE (NEG); Urine Blood 2+ (NEG); Urine Color YELLOW; Urine Glucose NEGATIVE (NEG); Urine Protein 1+ (NEG); Urine pH 5.5 (5.0-7.0)
[2019-02-27 10:39] LABS: Urine Bacteria <20 /HPF (NONE SEEN); Urine Culture Reflex Order NOT NEEDED; Urine RBC 20-50 /HPF (NONE SEEN)
[2019-02-27] MEDS: TAMSULOSIN 0.4 MG SR CAP PO SCH (20:57)
--- NOTE | 2019-02-28 00:31 | PN ---
Patient is doing well. He is able to ambulate in the room. His transfer to rehab has been rejected. I spoke to the patient regarding [facility] facility. He is agreeable and as well as this is arranged, he will be transferred. MARIMAR/JOSELUIS Voice ID: [id number] Report ID: [id number]
--- NOTE | 2019-02-28 00:51 | PN ---
Date of Progress Note: 02/27/2019 Chief Complaint: Acute kidney injury. History Of Present Illness: Patient responded to treatment. He received Lasix for legs edema. He h as lower extremity cellulitis and lymphedema. He has diabetes mellitus, chronic kidney disease secon maría to diabetes mellitus and hypertension. He tolerated peptic ulcer, recently admitted for lower e xtremity cellulitis. He is on antibiotics and he was started on Lasix to control lymphedema. Rayo catheter was removed. Patient was found to have decreased urine output and Urology will follow up. Patient received replacement for hypokalemia. Review of Systems: Denies fever, chills. Physical Examination: Lungs: Clear respiration bilaterally. Heart: S1, S2. Abdomen: Soft, benign. Extremities: Edema present. Impression And Plan: 1.Acute on chronic kidney injury. Monitor fluid balance. Avoid nephrotoxic medication. Patient de veloped acute kidney injury due to acute tubular necrosis. Currently, renal function is stabilizing at baseline. 2.Sepsis. Patient completed antibiotics. Ultrasound did not show hydronephrosis. 3.Patient has bladder outlet obstruction. He will follow up with Urology. Rayo catheter was remov ed. 4.Hypertension, controlled. 5.Diabetes mellitus. Continue insulin. 6.Peptic ulcer disease, status post surgical repair. 7.Patient is tolerating diet. 8.Monitor electrolytes. Adjust replacement with potassium and magnesium and monitor phosphorus. EB/MODL Voice ID: [id number] Report ID: [id number]
--- NOTE | 2019-02-28 01:11 | PN ---
Subjective: He is doing better. He is diuresing well. Last intake was 810 and output 1300 for a ne gative 490. His swelling in his hands are improving. The edema in his hands, upper extremities is i mproving. Urine color was clear. Urine was essentially negative for any type of infection. He was rejected for rehab on the fifth floor. He is looking at going to another place in [place] and disch arge and keeping the Rayo catheter for another 2 to 3 weeks and continue taking his Flomax. DAKOTA/MODL Voice ID: [id number] Report ID: [id number]
[2019-02-28] MEDS: ATENOLOL 50 MG TAB PO SCH (05:29)
[2019-02-28 06:07] LABS: Albumin 2.3 g/dL (3.4-5.0); Phosphorus 2.6 mg/dL (2.5-4.9); Potassium 3.4 mmol/L (3.5-5.1)
[2019-02-28] MEDS: INSULIN -REGULAR HUMAN 50 UNIT/0.5 ML ML SQ SCH ×4 (07:30→20:39)
[2019-02-28] MEDS: NYSTATIN 100MU/GM CREAM 15GM TOP SCH ×2 (09:00→20:41)
[2019-02-28] MEDS: PANTOPRAZOLE 40 MG INJ IVP SCH (09:51)
[2019-02-28] MEDS: FUROSEMIDE 20 MG TABLET PO SCH ×2 (09:52→18:43)
[2019-02-28] MEDS: TOBRAMYCIN 0.3% 5ML OPTH DROPS RIGHT EYE SCH ×3 (09:52→20:38)
[2019-02-28] MEDS: RIVAROXABAN 15 MG TABLET PO SCH (09:53)
[2019-02-28] MEDS: POLYVINYL ALCOHOL 1.4% 15 ML EACH EYE SCH ×4 (09:53→20:38)
[2019-02-28] MEDS: TAMSULOSIN 0.4 MG SR CAP PO SCH (20:38)
--- NOTE | 2019-02-28 22:17 | PN ---
Patient is afebrile. He is ambulating in the room. His Rayo is draining well. His bowel movements are normal. Patient needs to go to [facility] facility. This was explained to the patient. MARIMAR/JOSELUIS Voice ID: [id number] Report ID: [id number]
--- NOTE | 2019-03-01 01:48 | PN ---
Date of Progress Note: 02/28/2019 History Of Present Illness: Congestive heart failure, lymphedema, diabetes mellitus, chronic kidney disease accelerated by acute kidney injury. Patient has urinary retention. He has a Rayo catheter. Review of Systems: Denies fever, chills. Physical Examination: Lungs: Diminished breath sounds in bases. Heart: S1, S2. Abdomen: Soft, benign. Extremities: Edema in both legs. Impression And Plan: 1.Acute on chronic kidney injury. Monitor fluid balance. Avoid nephrotoxic medication. Patient de veloped acute kidney injury due to acute tubular necrosis. Currently, renal function is stabilizing and at baseline. 2.Sepsis. Continue antibiotics as needed. Ultrasound of the kidneys did not show hydronephrosis. Patient will follow up with urologist for bladder outlet obstruction. 3.Diabetes mellitus. Continue insulin. 4.Peptic ulcer disease, status post surgical repair. Patient is tolerating p.o. intake. 5.Hypertension, controlled. Continue current treatment. ZACKARY/JOSELUIS Voice ID: [id number] Report ID: [id number]
[2019-03-01 04:41] VITALS: O2SAT 92
[2019-03-01] MEDS: ATENOLOL 50 MG TAB PO SCH (05:06)
[2019-03-01 05:32] VITALS: BMI 46.0
[2019-03-01 06:23] LABS: Albumin 2.3 g/dL (3.4-5.0); Phosphorus 2.9 mg/dL (2.5-4.9); Potassium 3.2 mmol/L (3.5-5.1)
[2019-03-01] MEDS: INSULIN -REGULAR HUMAN 50 UNIT/0.5 ML ML SQ SCH ×2 (07:30→11:30)
[2019-03-01] MEDS: PANTOPRAZOLE 40 MG INJ IVP SCH (09:06)
[2019-03-01] MEDS: FUROSEMIDE 20 MG TABLET PO SCH (09:08)
[2019-03-01] MEDS: TOBRAMYCIN 0.3% 5ML OPTH DROPS RIGHT EYE SCH (09:09)
[2019-03-01] MEDS: POLYVINYL ALCOHOL 1.4% 15 ML EACH EYE SCH ×2 (09:09→12:30)
[2019-03-01] MEDS: RIVAROXABAN 15 MG TABLET PO SCH (09:19)
[2019-03-01] MEDS: NYSTATIN 100MU/GM CREAM 15GM TOP SCH (09:20)
[2019-03-01] MEDS ORDERED: POTASSIUM CL SA 10 MEQ TAB PO ONE (11:06)
--- NOTE | 2019-03-01 13:46 | P.PN ---
Date of Service: 03/01/19 S: Patient feels much better today, up ambulating on his own. Feels he manage at home by himself. O: Vitals are stable A: Surgically stable P: Patient is surgically stable. He may be discharged and follow up with me in my office in approximately 10 days time. He still has the breanna in the will need to be removed. He will also need a upper endoscopy shows old as an outpatient. He still has his Rayo catheter and he will make arrangements for follow up with his urologist.
--- NOTE | 2019-03-01 15:45 | PN ---
Subjective: Patient's had voiding trial this morning. It has been about 8 hours. Nurse did a bladder scan showing about 400 cc of urine. We will replace the silastic catheter. Objective: Vital Signs: Stable. Laboratory Data: White count 7.5, H and H 13 and 39, platelet count 99. no recent urine cultures. Will check ua/micro. PB/MODSerena Voice ID: [id number] Report ID: [id number] JOS
--- NOTE | 2019-03-01 16:30 | PN ---
Date of Progress Note: 03/01/2019 Chief Complaint: Acute kidney injury, fluid overload, lymphedema, hypernatremia, . History: Patient was found to have mild hypernatremia and p.o. fluid restriction was terminated. Chandra hu will tolerate mild fluid intake. He can have unrestricted p.o. fluid intake. He has congestiv e heart failure, lymphedema, diabetes mellitus. He was found to have hypernatremia and . He has been on diuretics to control legs edema. Review of Systems: Denies PND or orthopnea. Physical Examination: Lungs: Clear to auscultation bilaterally. Heart: S1, S2. Abdomen: Soft, benign. Extremities: Dressing in place. Impression And Plan: 1.Acute on chronic kidney injury secondary to cardiorenal syndrome. Avoid nephrotoxic medication. Renal function has improved and stabilized. Patient has chronic kidney disease stage 3 due to diabet es mellitus, hypertension, benign nephrosclerosis. 2.Sepsis. Continue antibiotics and adjust dose to renal function. Ultrasound did not show hydronep hrosis. Patient will follow up with urologist for bladder outlet obstruction. 3.Diabetes mellitus. Continue insulin. 4.Peptic ulcer disease, status post surgical repair. Patient tolerates p.o. intake. 5.Hypertension. Blood pressure controlled. Continue current treatment. ZACKARY/JOSELUIS Voice ID: [id number] Report ID: [id number]
[2019-03-01 18:20] VITALS: BP 150/70; TEMP 97
--- NOTE | 2019-03-11 03:05 | DS ---
Date of Discharge: 03/01/2019 Final Diagnoses: 1.Perforated peptic ulcer. 2.Type 2 diabetes. 3.Hypertension. 4.Atrial fibrillation, intermittent. 5.Osteoarthritis. 6.Venous insufficiency with secondary infection. 7.Benign prostatic hypertrophy, symptomatic. Hospital Course: The patient after cardiac clearance was taken to surgery and he had surgery with cl osure of the peptic ulcer perforation. The patient was placed on Zosyn. The patient postoperatively had no complications. He will be put on a sliding scale for his blood sugars. The patient subseque ntly developed renal insufficiency. Renal service was consulted, who managed the IV fluids. In adriana tion, patient also had urinary retention. The patient had Rayo catheter done. There was no evidenc e of pneumonia postoperatively. The patient had a renal ultrasound done. There was no evidence of o bstruction. The patient subsequently was discharged home on 03/01/2019, to have outpatient followup. Laboratory Data: Laboratory is extensive please refer to the chart. MARIMAR/JOSELUIS Voice ID: [id number] Report ID: [id number]
== END 2019-03-01 16:39 | disposition home health service (06) | DRG 329 ==
LOC: ER 10:22 → ERHOLD 14:15 → 3RD-ICU 20:23 → 4TH 02-19 16:40
PROVIDERS: ADMIT Internal Medicine; ATTEND Internal Medicine
PROC: 0DU907Z Supplement Duodenum with Autologous Tissue Substitute, Open Approach (ICD-10-PCS; principal; 2019-02-18 16:45)
DX: K26.1 Acute duodenal ulcer with perforation (principal); N17.0 Acute kidney failure with tubular necrosis; A41.9 Sepsis, unspecified organism; I48.20 Chronic atrial fibrillation, unspecified; K56.7 Ileus, unspecified; Z68.42 Body mass index [BMI] 45.0-49.9, adult; K91.89 Other postprocedural complications and disorders of digestive system; L03.115 Cellulitis of right lower limb; N39.0 Urinary tract infection, site not specified; K26.5 Chronic or unspecified duodenal ulcer with perforation; N40.0 Benign prostatic hyperplasia without lower urinary tract symptoms; M19.90 Unspecified osteoarthritis, unspecified site; I87.2 Venous insufficiency (chronic) (peripheral); I12.9 Hypertensive chronic kidney disease with stage 1 through stage 4 chronic kidney disease, or unspecified chronic kidney disease; E11.22 Type 2 diabetes mellitus with diabetic chronic kidney disease; N18.3 Chronic kidney disease, stage 3 (moderate); E66.01 Morbid (severe) obesity due to excess calories; Y83.8 Other surgical procedures as the cause of abnormal reaction of the patient, or of later complication, without mention of misadventure at the time of the procedure; I44.7 Left bundle-branch block, unspecified; N39.490 Overflow incontinence; R33.9 Retention of urine, unspecified; N32.0 Bladder-neck obstruction
CPT/HCPCS: 11042; 11045; 36415; 74176; 76770; 80048; 80053; 80069; 80076; 81001; 82947; 82962; 83605; 83690; 84132; 85025; 85610; 86850; 86900; 86901; 87086; 87088; 93005; 96365; 96366; 96375; 97110; 97116; 97161; 97530; 99285; C9113; J0330; J1650; J2370; J2405; J2543; J2704; J2710; J3010; J7030; J7120

== ENCOUNTER 2019-03-03 14:38 | Inpatient (IN) | payer OTHER ==
[2019-03-03] MEDS ORDERED: SODIUM CHL 0.9% IRR SOLN 2000 ML IRR SCH (16:00)
[2019-03-03 16:28] VITALS: BMI 44.3
[2019-03-03 16:59] LABS: Absolute Lymphocytes (CBC) 1.7 K/uL (0.7-4.9); Basophils % 0.5 % (0-1.3); Hematocrit 42.3 % (39.6-49.0); Lymphocytes % 16.1 % (15.3-44.8); MPV 9.5 fL (7.6-11.3); RBC Red Blood Cell Count 4.32 M/uL (4.33-5.43)
[2019-03-03 18:37] LABS: Urine Appearance TURBID; Urine Blood 3+ (NEG); Urine Color RED; Urine Glucose NEGATIVE (NEG); Urine Protein 3+ (NEG)
[2019-03-03 18:40] LABS: Urine Bilirubin 3+ (NEG)
[2019-03-03 18:48] LABS: Urine Bacteria >50 /HPF (NONE SEEN); Urine Culture Reflex Order REFLEXED; Urine Mucus 2+ /HPF (NONE SEEN); Urine RBC TNTC /HPF (NONE SEEN)
[2019-03-03] MEDS: TRAMADOL HCL 50 MG TAB PO PRN (19:34)
[2019-03-03] MEDS: TAMSULOSIN 0.4 MG SR CAP PO SCH (21:04)
[2019-03-03] MEDS ORDERED: MORPHINE 4 MG/ML SYR IV PRN (21:10)
[2019-03-03] MEDS ORDERED: ONDANSETRON 4 MG/2 ML VIAL IV PRN (21:11)
[2019-03-04] MEDS: HYDRALAZINE HCL 25 MG TABLET PO SCH (10:07)
[2019-03-04] MEDS: hydroCHLOROthiazide 25 MG TAB PO SCH (10:07)
[2019-03-04] MEDS: FUROSEMIDE 20 MG TABLET PO SCH (10:08)
[2019-03-04] MEDS: ATENOLOL 50 MG TAB PO SCH (10:08)
[2019-03-04] MEDS: LISINOPRIL 20 MG TAB PO SCH (10:08)
[2019-03-04] MEDS: PANTOPRAZOLE 40MG TABLET PO SCH (10:10)
[2019-03-04] MEDS ORDERED: GLUCAGON 1 MG/VIAL IM PRN (13:10)
[2019-03-04] MEDS ORDERED: D50W 25 GM/50 ML SYRINGE/VIAL IV PRN (13:10)
[2019-03-04] MEDS: INSULIN -REGULAR HUMAN 50 UNIT/0.5 ML ML SQ SCH ×2 (16:30→21:00)
[2019-03-04] MEDS: CIPROFLOXACIN HCL 500 MG TAB PO SCH (21:28)
[2019-03-04] MEDS: TAMSULOSIN 0.4 MG SR CAP PO SCH (21:28)
[2019-03-04] MEDS: TRAMADOL HCL 50 MG TAB PO PRN (21:32)
--- NOTE | 2019-03-05 00:02 | HP ---
Date of Admission: 03/03/2019 Chief Complaint: Bloody urine. History Of Present Illness: An 78-year-old male was discharged the day before admission following ex tended stay in the hospital with multiple complications that include perforated duodenal and gastric ulcer, chronic venous insufficiency with infection, atrial fibrillation needing Xarelto, hypertension . The patient denied any history of trauma. Past Medical History: Positive for hypertension, type 2 diabetes, chronic venous insufficiency, and cellulitis of the legs. Past Surgical History: Positive for recent perforated peptic ulcer with subsequent patch repair. Family History: Hypertension, diabetes present. Personal History: No known allergies. Home Medicines: Please refer to the chart. Review of Systems: The patient denied any fever, chills, rigors. Physical Examination: General: Revealed an 78-year-old male, morbidly obese. Vital Signs: Temperature normal, blood pressure 150/80. HEENT: Negative. Neck: Supple. JVD negative. Chest: Clear. Heart: Occasional irregularity noted. Abdomen: Pendulous, nontender. Extremities: Bilateral pedal edema. Rayo catheter, lisa bloody urine. Laboratory Data: White count normal, hemoglobin 4.2. Urinalysis; lisa hematuria, nitrite positive, urine bacteria present. Assessment: 1.Lisa hematuria. 2.Rayo catheter due to prostatic obstruction induced urinary retention. 3.Recent peptic ulcer perforation, subsequent surgery. 4.Hypertension. 5.Type 2 diabetes. 6.Chronic venous insufficiency. Plan: The patient has consultation from Urology Service. The patient is having intermittent flushin g of the Rayo catheter since he has bacteria, I will start the antibiotic pending the culture report . MARIMAR/JOSELUIS Voice ID: [id number]
[2019-03-05] MEDS: INSULIN -REGULAR HUMAN 50 UNIT/0.5 ML ML SQ SCH ×4 (07:30→21:00)
[2019-03-05] MEDS: FUROSEMIDE 20 MG TABLET PO SCH (08:03)
[2019-03-05] MEDS: HYDRALAZINE HCL 25 MG TABLET PO SCH (08:03)
[2019-03-05] MEDS: ATENOLOL 50 MG TAB PO SCH (08:04)
[2019-03-05] MEDS: hydroCHLOROthiazide 25 MG TAB PO SCH (08:04)
[2019-03-05] MEDS: CIPROFLOXACIN HCL 500 MG TAB PO SCH ×2 (08:04→21:59)
[2019-03-05] MEDS: PANTOPRAZOLE 40MG TABLET PO SCH (08:07)
[2019-03-05] MEDS: LISINOPRIL 20 MG TAB PO SCH (08:07)
--- NOTE | 2019-03-05 17:16 | PN ---
This patient was admitted because of gross hematuria secondary to Rayo catheter insertion that was d one because of prostatic obstruction. The patient also has Escherichia coli urinary infection. The patient is already on oral antibiotics. His urine is looking better even though it is still bloody. Dr. Gupta is on consult. Before this hematuria episode, patient was on Xarelto for his atrial fibri llation, which has not been restarted because of the bleeding. Patient also had a recent perforated gastric ulcer and was discharged 3 days prior to readmission. Patient now considering going to [facility] because of issues of physical limitations he has due to chronic venous insufficiency. He is on insulin coverage for his mild diabetes. Patient generally is stable. Patient is thinking as to w [facility] would like to go. Patient said he will let the nurse know, after which transfer pr ocess will be initiated. MARIMAR/JOSELUIS Voice ID: [id number] Report ID: [id number]
[2019-03-05] MEDS: DOCUSATE CALCIUM 240 MG CAP PO SCH (21:59)
[2019-03-05] MEDS: TAMSULOSIN 0.4 MG SR CAP PO SCH (21:59)
[2019-03-06] MEDS: INSULIN -REGULAR HUMAN 50 UNIT/0.5 ML ML SQ SCH ×4 (07:30→21:00)
[2019-03-06] MEDS: LISINOPRIL 20 MG TAB PO SCH (09:00)
[2019-03-06] MEDS: hydroCHLOROthiazide 25 MG TAB PO SCH (09:00)
[2019-03-06] MEDS: HYDRALAZINE HCL 25 MG TABLET PO SCH (09:00)
[2019-03-06] MEDS: ATENOLOL 50 MG TAB PO SCH (09:30)
[2019-03-06] MEDS: CIPROFLOXACIN HCL 500 MG TAB PO SCH ×2 (09:31→22:44)
[2019-03-06] MEDS: FUROSEMIDE 20 MG TABLET PO SCH (09:31)
[2019-03-06] MEDS: DOCUSATE CALCIUM 240 MG CAP PO SCH ×2 (09:32→22:44)
[2019-03-06] MEDS: PANTOPRAZOLE 40MG TABLET PO SCH (09:32)
[2019-03-06 13:41] LABS: Absolute Lymphocytes (CBC) 1.1 K/uL (0.7-4.9); Basophils % 0.2 % (0-1.3); Lymphocytes % 6.7 % (15.3-44.8); MPV 9.6 fL (7.6-11.3); RBC Red Blood Cell Count 3.92 M/uL (4.33-5.43)
--- NOTE | 2019-03-06 16:48 | PN ---
Date of Progress Note: 03/06/2019 Subjective: The patient was seen and examined. Chart reviewed and case discussed with RN. [facility] ist service covering for Dr. De La Cruz this weekend. Patient states that his hematuria has improved sign ificantly with irrigation. No other significant complaints, was concerned about his abdominal incisi on from previous surgery. Medications: List reviewed. Physical Examination: Vital Signs: Temperature 97.1, heart rate 67, blood pressure 113/54, respirations 20, O2 94% on room air. General: Awake, alert, oriented x3. Morbidly obese male, in some mild distress, does not appear ill . CV: S1, S2. Regular rate and rhythm. Respiratory: Moving air well bilaterally. No wheezing or stridor. No use of accessory muscles. Gastrointestinal: Abdomen is soft, mildly distended. Positive bowel sounds. Incision site is clean , dry, intact. Prakash in place. No signs of infection. Extremities: No clubbing, cyanosis. Patient has diffuse peripheral edema in bilateral lower extremi ties with a right lower extremity ESTEPHANIA wrapped. Neurologic: Cranial nerves 2 through 12 intact grossly. No focal neurological focal neurological de ficits. Speech is normal. Microbiology: Urine culture growing out E coli sensitive to Cipro. Assessment: 78-year-old male with: 1.Gross hematuria, improving. We will continue with bladder irrigation intermittently. Dr. Gupta i s on the case. We will check CBC today, ensure hemoglobin is stable. Patient was on blood thinners. 2.History of prostatic obstruction, with Rayo catheter due to urinary retention. 3.Recent peptic ulcer perforation with surgical repair. Incision site looks clean, dry, intact. Chandra hu to follow up with surgeon at [place] in 1 week. 4.Essential hypertension, stable. Continue home medications. 5.Diabetes mellitus type 2, non-insulin requiring. We will continue with sliding scale insulin and monitor blood glucose levels. 6.Chronic venous insufficiency with diffuse edema of the lower extremities. We will continue with e levating the legs, ESTEPHANIA wraps. Monitor for signs of infection. Plan: Patient is pending acceptance to [facility]. /MODL Voice ID: [id number] Report ID: [id number]
[2019-03-06] MEDS: TAMSULOSIN 0.4 MG SR CAP PO SCH (22:44)
[2019-03-07] MEDS: TRAMADOL HCL 50 MG TAB PO PRN (00:04)
[2019-03-07 06:29] LABS: Absolute Lymphocytes (CBC) 1.4 K/uL (0.7-4.9); Hematocrit 38.7 % (39.6-49.0); Lymphocytes % 9.7 % (15.3-44.8); MPV 9.4 fL (7.6-11.3); RBC Red Blood Cell Count 3.93 M/uL (4.33-5.43)
[2019-03-07 06:38] LABS: Potassium 3.5 mmol/L (3.5-5.1)
[2019-03-07] MEDS: INSULIN -REGULAR HUMAN 50 UNIT/0.5 ML ML SQ SCH ×4 (07:30→21:00)
[2019-03-07] MEDS: DOCUSATE CALCIUM 240 MG CAP PO SCH ×2 (09:38→21:34)
[2019-03-07] MEDS: CIPROFLOXACIN HCL 500 MG TAB PO SCH (09:39)
[2019-03-07] MEDS: ATENOLOL 50 MG TAB PO SCH (09:39)
[2019-03-07] MEDS: HYDRALAZINE HCL 25 MG TABLET PO SCH (09:39)
[2019-03-07] MEDS: LISINOPRIL 20 MG TAB PO SCH (09:40)
[2019-03-07] MEDS: FUROSEMIDE 20 MG TABLET PO SCH (09:40)
[2019-03-07] MEDS: hydroCHLOROthiazide 25 MG TAB PO SCH (09:40)
[2019-03-07] MEDS: PANTOPRAZOLE 40MG TABLET PO SCH (09:41)
--- NOTE | 2019-03-07 12:16 | P.CNS ---
Date of Consult: 03/07/19 Reason for Consult: RADHA Chief Complaint: hematuria History of Present Illness: An 78 Yo man with PMhx of DM, Afib , HTn , Le lymphedema, and recent perforated PU pt was admitted for hematuria pt is known to me from recent admission, he was admitted for perforated PU, pt developed RADHA , that improved on IVF and brantley insertion, , pt cr was 0.8 on discharged and he went home with Brantley now presented with hematuria that cleared in irrigation, today Cr up to 2.7 no NSAID or contrast exposure , vomiting , diarhhea or constipation , pt was on lasix Po daily Allergies No Known Allergies Allergy (Verified 09/15/14 07:26) Home Medications: Atenolol 100 mg PO DAILY 09/14/14 Tamsulosin HCl [Flomax] 0.4 mg PO BEDTIME 09/14/14 Hydralazine HCl [Apresoline] 1 tab PO DAILY 02/02/19 Lisinopril/Hydrochlorothiazide [Lisinopril-Hctz 20-25 mg Tab] 1 each PO DAILY Furosemide 20 mg PO DAILY 02/18/19 Pantoprazole [Protonix Tab] 40 mg PO DAILY 90 Days #90 tab 03/01/19 - Past Medical/Surgical History Diabetic: Yes -: R leg DVT -: HTN -: cellulitis -: NIDDM -: afib -: BPH -: lymphedema -: Bilateral cataracts (2004) -: Removal of melanoma right ear -: tonsillectomy -: torn retina right eye - Family History Father Medical History: Heart disease Mother Medical History: Cancer - Social History Alcohol use: No CD- Drugs: No Caffeine use: Yes Physical Examination Temp Pulse Resp BP Pulse Ox 97.7 F 61 20 127/60 96 03/07/19 08:00 03/07/19 08:00 03/07/19 08:00 03/07/19 08:00 03/07/19 08:00 General: Obese HEENT: Atraumatic Neck: Supple, Without JVD or thyroid abnormality Respiratory: Clear to auscultation bilaterally, Normal air movement Cardiovascular: Regular rate/rhythm, Normal S1 S2, No rubs, No murmurs, Edema Gastrointestinal: Normal bowel sounds, Soft and benign, Other (Brantley cath with purulent discharge ) Laboratory Data (last 24 hrs) 03/07/19 05:45: Sodium 137, Potassium 3.5, BUN 50 H D, Creatinine 2.35 H D, Glucose 136 H 03/07/19 05:45: WBC 14.0 H, Hgb 12.9 L, Hct 38.7 L, Plt Count 199 03/06/19 13:28: WBC 15.7 H D, Hgb 12.7 L, Hct 38.0 L, Plt Count 205 Conclusions/Impression: RADHA on CKD reason unclear, possibly from overdiuresis vs AIN from Abx No skin rash or eosiniophilia S/P brantley will repeat US will switch cipro to rocephin will DC lasix and start on IVF Lymphedema will hold lasix for now Hematuria resolved HTN controlled DM as per primary Afib on atenolol
--- NOTE | 2019-03-07 13:42 | PN ---
Date of Progress Note: 03/07/2019 Patient seen and examined. Chart reviewed and case discussed with RN. No acute events overnight. Patient is still awaiting acceptance to [facility]. Medications List: Reviewed. Physical Examination: Vital Signs: Temperature 97.7, heart rate 61, blood pressure 127/60, respirations 20, O2 is 96% on room air. General: Awake, alert, oriented x3, not in any acute distress. Elderly male, morbidly obese. CV: S1, S2. Regular rate and rhythm. Peripheral pulses present. Respiratory: Diminished breath sounds at the bases. No wheezing or stridor. Gastrointestinal: Abdomen is distended. Positive bowel sounds. No guarding or rigidity. [place] in place. Extremities: No clubbing, cyanosis. Patient has diffuse edema of the bilateral lower extremities 3+. Right lower extremity is Ad wrapped. Neurologic: Nonfocal. Laboratory Data: WBC 14, H and H 12.9 and 38.7, platelets 199, neutrophils 75% . Sodium 137, potassium 3.5, chloride 101, CO2 of 27, BUN 50, creatinine 2.35. Baseline creatinine is 0.86 from 5 days ago, glucose 136, calcium 8.5. Urine culture growing out E coli. Assessment: 78-year-old male with: 1. Gross hematuria, improving. We will continue with bladder irrigation intermittently. Appreciate Dr. Gupta's input. Hemoglobin is stable. Minimal drop likely due to dilution from the admission. 2. Acute on chronic kidney injury. Stage III. Creatinine is up to 2.35, was normal in February 2019. We will continue with IV fluids, avoid NSAIDs. Possible obstruction. 3. History of prostatic obstruction, now with Rayo catheter and patient with urinary retention. 4. Recent peptic ulcer perforation with surgical repair. Patient to follow up with surgeon in [place] in 1 week. 5. Essential hypertension, stable. 6. Diabetes mellitus type 2, non-insulin requiring. We will continue with sliding scale insulin. Monitor Accu-Cheks. 7. Chronic venous insufficiency with diffuse edema of the lower extremities. We will continue with symptomatic treatment. 8. Deep vein thrombosis prophylaxis addressed. Plan: Monitor kidney function. We will discontinue lisinopril and HCTZ. Avoid nephrotoxins. Consult Nephrology. Dr. De La Cruz to resume care in am. ADDENDUM: Spoke to Dr. De La Cruz. He will see the patient in am. SA/MODL Voice ID: [id number] Report ID: [id number] MTDD
[2019-03-07] MEDS: NA CHLORIDE 0.9% 1,000 ML IV SCH (15:14)
[2019-03-07] MEDS ORDERED: CIPROFLOXACIN HCL 250 MG TAB PO SCH (21:00)
[2019-03-07] MEDS: TAMSULOSIN 0.4 MG SR CAP PO SCH (21:34)
[2019-03-08] MEDS: NA CHLORIDE 0.9% 1,000 ML IV SCH ×3 (04:41→20:42)
[2019-03-08 05:33] LABS: Absolute Lymphocytes (CBC) 1.4 K/uL (0.7-4.9); Basophils % 0.4 % (0-1.3); Hematocrit 34.6 % (39.6-49.0); Lymphocytes % 10.9 % (15.3-44.8); MPV 9.2 fL (7.6-11.3); RBC Red Blood Cell Count 3.55 M/uL (4.33-5.43)
[2019-03-08 05:53] LABS: Potassium 3.7 mmol/L (3.5-5.1); Thyroid Stimulating Hormone 2.18 uIU/mL (0.360-3.740)
[2019-03-08] MEDS: INSULIN -REGULAR HUMAN 50 UNIT/0.5 ML ML SQ SCH ×4 (07:30→20:44)
[2019-03-08] MEDS: HYDRALAZINE HCL 25 MG TABLET PO SCH (09:00)
[2019-03-08] MEDS: CEFTRIAXONE/SWI 1gm 1 GM/10 ML SYR IVP SCH (09:38)
[2019-03-08] MEDS: ACETAMINOPHEN 500 MG TAB PO PRN ×2 (09:39→21:40)
[2019-03-08] MEDS: ATENOLOL 50 MG TAB PO SCH (09:39)
[2019-03-08] MEDS: DOCUSATE CALCIUM 240 MG CAP PO SCH ×2 (09:40→20:44)
[2019-03-08] MEDS: ENOXAPARIN 30 MG/0.3 ML SQ SCH (09:40)
[2019-03-08] MEDS: PANTOPRAZOLE 40MG TABLET PO SCH (09:40)
[2019-03-08] MEDS: FUROSEMIDE 20 MG TABLET PO SCH (09:40)
--- NOTE | 2019-03-08 11:01 | RAD REPORT ---
EXAM DESCRIPTION: US - Renal Ultrasound-Complete - 03/08/2019 10:53 am CLINICAL HISTORY: RADHA Flank pain COMPARISON: Renal Ultrasound-Complete dated 02/22/2019; Abdomen Pelvis Wo Contrast dated 9 FINDINGS: Bilateral renal cysts are present, benign in appearance. The right kidney measures 12.7 x 6.8 x 4.8 cm. No hydronephrosis or aggressive mass seen. The left kidney measures 13.8 x 7.5 x 6.0 cm.. Mild left hydronephrosis. No focal mass seen. Rayo catheter decompresses the urinary bladder. Slight echogenic tissue is seen surrounding the Fole y catheter which may represent enlarged prostatic tissue or a small amount of blood clot. IMPRESSION: Mild left hydronephrosis is seen. Bilateral renal cysts are present, benign in appearance.
--- NOTE | 2019-03-08 15:56 | RAD REPORT ---
EXAM DESCRIPTION: CT - Abdomen Pelvis Wo Contrast - 03/08/2019 3:08 pm CLINICAL HISTORY: fu left hydronephrosis Abdominal pain COMPARISON: Abdomen Pelvis Wo Contrast dated 02/18/2019; Renal Ultrasound-Complete dated 03/08/2019 ; Renal Ultrasound-Complete dated 02/22/2019 TECHNIQUE: Axial [address] imaging of the abdomen and pelvis was performed without IV contrast. No IV contrast was given because of allergy, abnormal renal function, patient refusal or physician re quest. Oral contrast was given. All CT scans are performed using dose optimization technique as appropriate and may include automated exposure control or mA/KV adjustment according to patient size. FINDINGS: No suspicious findings in the lung bases. The liver, spleen and pancreas show no suspicious findings on non-contrast imaging. Gallbladder and b iliary tree are also without suspicious finding. A Rayo catheter has been placed. The balloon tip is inflated in the inferior aspect of the prostatic urethra. This is approximately 45 cm inferior to the urinary bladder lumen. Air is present within th e lumen of the urinary bladder presumed to be related to Rayo catheter placement. No air within eith er ureter. Bilateral renal cysts are present. Left-sided hydronephrosis is present similar or slightly worse. Th ere is extensive congestion and edema appearance to the fat of each renal hilum. No significant adre nal finding. Isodense renal masses and pyelonephritis cannot be excluded in the absence of IV contras t. No dilated bowel loops or bowel wall thickening. No abscess is identifiable. No free air or pneumatos is. Trace amount of free fluid adjacent to the liver. No hernia, mass or bulky lymphadenopathy. Disc and bony degenerative changes are present. Findings telephoned to the referring physician 3:53 p.m. IMPRESSION: Left-sided hydronephrosis is noted. There is significant bilateral congestion and edema in each renal hilum. Pyelonephritis cannot be excluded on a noncontrast study. Rayo catheter has been placed. However, the balloon tip is inflated within the inferior aspect of th e prostatic urethra, 4-5 cm inferior to the urinary bladder lumen. Urinary bladder is distended. Air within the urinary bladder lumen is presumed to be from placement o f the catheter rather than gas-forming organism. Full assessment is limited is the absence of IV contrast. No acute finding. No abscess or free air .
--- NOTE | 2019-03-08 18:54 | CON ---
History Of Present Illness: 78-year-old gentleman with past medical history of diabetes, AFib, hypertension, lymphedema, status post perforated ulcer repair, duodenal ulcer repair, who was admitted for fall. He has urinary retention since his surgery, has a Rayo catheter. Urine is now growing E coli, sensitive to nitrofurantoin, Levaquin, and Cipro. His white count is slightly elevated and he was started on IV Rocephin, which is sensitive to. He also has a new left hydronephrosis on ultrasound, so we will get a CT scan, stone protocol to evaluate that left hydronephrosis. Allergies: NO ALLERGIES. Home Medications: Atenolol, tamsulosin, hydralazine, lisinopril, hydrochloride , Lasix, Protonix. Past Medical History: Right leg DVT, hypertension, cellulitis, __, AFib, BPH, lymphedema, bilateral cataracts, melanoma removal, tonsillectomy, __ right eye. Family History: Significant for heart disease. Mother had cancer. Social History: No alcohol use. No drug use. Some caffeine use. Physical Examination: Vital Signs: Afebrile, stable, 99.1, 59, 70, 97, 95% sat. HEENT: Atraumatic, normocephalic. Chest: Clear. Abdomen: Soft, nontender. Rayo catheter draining clear urine. Extremities: Normal range of motion. Laboratories: Elevated white count of 13.3, H and H 11.7 and 34.6, platelet count 192. Chemistry; sodium 136, potassium 3.7, chloride 101, carbon dioxide 27, creatinine 3.2, GFR 19, seems to be down per the patient, GFR was 75 in the past. Urine culture as mentioned E coli. Assessment: New hydronephrosis. Plan: Plain CT to rule out stone. I will remove catheter in the morning, do voiding trial. PB/MODL Voice ID: [id number] Report ID: [id number] JOS
[2019-03-08] MEDS: TAMSULOSIN 0.4 MG SR CAP PO SCH (20:44)
--- NOTE | 2019-03-09 01:28 | PN ---
Date of Progress Note: 03/08/2019 Chief Complaint: Acute kidney injury and bladder outlet obstruction. Patient had Rayo catheter placed for bladder outlet obstruction and urinary retention. History Of Present Illness: Patient is an 78-year-old man with history of diabetes mellitus, hypertension, history of lymphedema. Recently, he was hospitalized for perforated peptic ulcer. Patient has history of acute kidney injury, diabetic kidney disease with chronic kidney disease stage 3. He was taking lisinopril/hydrochlorothiazide for diabetic kidney disease and furosemide for leg edema. He presented to the hospital because of generalized weakness. Patient was discharged and developed hematuria. He came to the hospital, was evaluated for acute kidney injury, and was found to have creatinine up to 2.7. On discharge, creatinine was 0.8. He denies nonsteroidal anti-inflammatory medication. No contrast exposure. Review of Systems: Denies fever, chills. Physical Examination: Lungs: Clear to auscultation bilaterally. Heart: S1, S2. Abdomen: Soft, obese. Extremities: Severe edema. Laboratory Data: Sodium 136, potassium 3.7, chloride 101, CO2 27, BUN 64, creatinine 3.24. Impression And Plan: Acute on chronic kidney injury, nonoliguric. Renal function has declined. Patient is undergoing workup for obstructive uropathy. Plan is to continue Rayo catheter. Patient has severe leg edema, lymphedema, and will require diuretics for volemia control. Patient was found to have mild left hydronephrosis. Urology consultation is obtained to rule out obstructive uropathy. Patient has bilateral kidney cysts, appeared benign. Monitor fluid balance. Patient may need to start IV fluids if renal function does not improve over the next 24 hours. Lasix is currently on hold. Hematuria resolved. Consult pending. Patient was started on antibiotics and Cipro was switched to Rocephin. Culture pending. ZACKARY/MODSerena Voice ID: [id number] Report ID: [id number] JOS
--- NOTE | 2019-03-09 03:31 | PN ---
Patient is afebrile. However, his kidney function has gotten worse. Patient was told about the opti on of starting anticoagulation for his atrial fibrillation as well as DVT prophylaxis. He will be gi donna Lovenox. Meanwhile, he has been changed to IV Rocephin in view of his elevated white count. Ofelia montiel will have repeat lab in a.m. to see whether IV fluid administration as ordered by Renal Service will improve his kidney function. MARIMAR/JOSELUIS Voice ID: [id number] Report ID: [id number]
[2019-03-09] MEDS: NA CHLORIDE 0.9% 1,000 ML IV SCH ×2 (05:00→17:31)
[2019-03-09] MEDS: INSULIN -REGULAR HUMAN 50 UNIT/0.5 ML ML SQ SCH ×4 (07:30→21:00)
[2019-03-09 07:53] LABS: Absolute Lymphocytes (CBC) 1.4 K/uL (0.7-4.9); Basophils % 0.3 % (0-1.3); Hematocrit 33.8 % (39.6-49.0); Lymphocytes % 11.2 % (15.3-44.8); MPV 9.6 fL (7.6-11.3); RBC Red Blood Cell Count 3.45 M/uL (4.33-5.43)
[2019-03-09 08:08] LABS: CKMB Creatine Kinase MB 1.1 ng/mL (0.3-3.6); Phosphorus 5.1 mg/dL (2.5-4.9); Potassium 3.6 mmol/L (3.5-5.1)
[2019-03-09] MEDS: DOCUSATE CALCIUM 240 MG CAP PO SCH ×2 (09:37→21:00)
[2019-03-09] MEDS: HYDRALAZINE HCL 25 MG TABLET PO SCH (09:37)
[2019-03-09] MEDS: ATENOLOL 50 MG TAB PO SCH (09:37)
[2019-03-09] MEDS: PANTOPRAZOLE 40MG TABLET PO SCH (09:38)
[2019-03-09] MEDS: ENOXAPARIN 30 MG/0.3 ML SQ SCH (09:38)
[2019-03-09] MEDS: CEFTRIAXONE/SWI 1gm 1 GM/10 ML SYR IVP SCH (09:38)
--- NOTE | 2019-03-09 10:16 | RAD REPORT ---
EXAM DESCRIPTION: RAD - Chest Single View - 03/09/2019 4:58 am CLINICAL HISTORY: The patient is 78 years old and is Male; PICC TECHNIQUE: Frontal view of the chest. COMPARISON: No relevant prior studies available. FINDINGS: LUNGS: Unremarkable. No consolidation. PLEURAL SPACE: Unremarkable. No pneumothorax. HEART: The cardiac silhouette is enlarged. MEDIASTINUM: Unremarkable. BONES/JOINTS: Unremarkable. TUBES, LINES AND DEVICES: A right upper extremity PICC is present with the tip near the SVC/RA j unction. IMPRESSION: A right upper extremity PICC is present with the tip near the SVC/RA junction. Electronically signed by: Mahsa Cai MD 03/09/2019 6:03 AM DIETARY TECH Due to temporary technical issues with the PACS/Fluency reporting system, reports are being signed by the in house radiologist as a courtesy to ensure prompt reporting. The interpreting radiologist is f ully responsible for the content of the report.
--- NOTE | 2019-03-09 12:20 | EKG ---
Test Date: 2019-03-08 Test Time: 23:27:45 Electrochemist: RT-O MEASUREMENT RESULTS: Intervals: Rate: 66 PA: QRSD: 144 QT: 492 QTc: 515 [place]: P: PA: QRS: 58 T: -55 INTERPRETIVE STATEMENTS: Atrial fibrillation Right bundle branch block T wave abnormality, consider lateral ischemia or digitalis effect Abnormal ECG Compared to ECG 02/18/2019 10:54:06 Right bundle-branch block now present T-wave abnormality now present Possible ischemia now present Right-axis deviation no longer present Incomplete right bundle-branch block no longer present ST (T wave) deviation no longer present Electronically Signed On 03-09-19 12:19:21 OIL INSPECTOR by Riccardo Salas
--- NOTE | 2019-03-09 16:10 | PN ---
History Of Present Illness: Patient was admitted with acute kidney injury secondary to obstructive u ropathy. Rayo has been changed. Rayo has been removed today. Patient still have lymphedema. Acc ording to him, patient incontinent. Physical Examination: Vital Signs: Blood pressure 120/58, pulse of 60, afebrile. Patient had good urine output of 1100. Chest: Decreased entry bilateral base. Heart: S1, S2. Regular. Abdomen: Soft, nontender. Extremities: Lymphedema bilateral. Laboratory Data: WBC 12.4, H and H 11.6/33.8, platelet 183. Sodium 138, potassium 3.6, bicarb 26, B UN 77, creatinine 3.2, GFR down to 18, calcium 8.4, phosphorus 5.1. Medications: Current medications the patient on, its include: 1.Flomax. 2.Ceftriaxone. 3.Lovenox. 4.Atenolol. 5.Hydralazine 50 daily. 6.Tylenol. 7.Zofran. 8.IV fluid at 75 per hour. Assessment And Plan: 1.Acute kidney injury secondary to obstructive uropathy, status post Rayo removal today. I am junaid g do postvoid renal ultrasound to make sure that he is voiding back to where it should be. Continue Flomax. I rather hold on the discharging for another 24 hours to establish better stabilization on t he kidney function. Continue IV fluid for the time being. 2.Hypertension, controlled, optimal. Continue current medication. 3.Lymphedema. We will keep holding Lasix for the time being. 4.Obstructive uropathy. Follow up with Urology. Continue Flomax as above. KULWANT Voice ID: [id number] Report ID: [id number]
--- NOTE | 2019-03-09 21:22 | PN ---
Patient had his Rayo catheter removed in the morning. Has not been voiding well, just been tricklin g and dribbling when he stands up. Had the nurse check a PVR was about 600 cc. Nurse tried to attem pt to place a silastic catheter, but gotten some type of obstruction or false passage, so came by and tried. It would not advance, so decided to a flexible cystoscope at the bedside. There was some re dness seen in the prostatic urethra, but was able to navigate by turning the tip of the scope upwards and got into the bladder. Urine was seen coming back through the port. We then placed a [employer] gu idewire through the port into the bladder by using the Seldinger technique. The scope was removed le aving the wire in place and then an 18 Councill-Tip Aryo catheter was passed over the guidewire into the bladder with good return of urine. A wire was removed. Rayo was inflated and connected to a b ag. DAKOTA/JOSELUIS Voice ID: [id number] Report ID: [id number]
[2019-03-09] MEDS: TAMSULOSIN 0.4 MG SR CAP PO SCH (21:26)
[2019-03-09] MEDS: levoFLOXacin 250 MG TAB PO SCH (21:27)
[2019-03-10] MEDS: ACETAMINOPHEN 500 MG TAB PO PRN
--- NOTE | 2019-03-10 00:31 | PN ---
Patient's renal function has not improved with the IV fluids yet. His white count, however, is ema r. I spoke to the patient regarding issues with urinary infection and renal failure. Patient unders tands the problems. Renal service recommendations are noted. They want to monitor postvoid urinary volume to make sure that there is no obstructive process causing the renal failure. Patient generall y is stable. RRK/MODL Voice ID: [id number] Report ID: [id number]
[2019-03-10] MEDS: NA CHLORIDE 0.9% 1,000 ML IV SCH (05:14)
[2019-03-10 05:18] LABS: Potassium 3.4 mmol/L (3.5-5.1)
[2019-03-10 05:19] LABS: Absolute Lymphocytes (CBC) 1.3 K/uL (0.7-4.9); Basophils % 0.5 % (0-1.3); Hematocrit 33.7 % (39.6-49.0); Lymphocytes % 12.7 % (15.3-44.8); MPV 9.2 fL (7.6-11.3)
[2019-03-10] MEDS: INSULIN -REGULAR HUMAN 50 UNIT/0.5 ML ML SQ SCH ×4 (07:30→21:00)
[2019-03-10] MEDS: HYDRALAZINE HCL 25 MG TABLET PO SCH (10:14)
[2019-03-10] MEDS: DOCUSATE CALCIUM 240 MG CAP PO SCH ×2 (10:14→19:58)
[2019-03-10] MEDS: PANTOPRAZOLE 40MG TABLET PO SCH (10:14)
[2019-03-10] MEDS: ATENOLOL 50 MG TAB PO SCH (10:15)
[2019-03-10] MEDS: ENOXAPARIN 30 MG/0.3 ML SQ SCH (10:15)
--- NOTE | 2019-03-10 12:36 | P.PN ---
Subjective Date of Service: 03/10/19 Chief Complaint: hematuria Pt admitted for hematuria , found to have RADHA , due to obstructive Uropathy today Polyuric , will change fluid to 1/2 NS and adjust 1/2 NS rate to be 2/3 of UO Cr improving , K replaced Physical Examination - Vital Signs Temperature: 97.2 F Blood Pressure: 118/60 Pulse: 56 Respirations: 18 Pulse Ox (%): 95 - Physical Exam General: Alert, In no apparent distress HEENT: Atraumatic Neck: Supple, Without JVD or thyroid abnormality Respiratory: Clear to auscultation bilaterally, Normal air movement Cardiovascular: Regular rate/rhythm, Normal S1 S2, Abnormal S3, No gallops, No rubs, Edema Gastrointestinal: Soft and benign Musculoskeletal: Swelling - Studies Laboratory Data (last 24 hrs) 03/10/19 04:50: Sodium 141, Potassium 3.4 L, BUN 68 H, Creatinine 1.99 H D, Glucose 127 H 03/10/19 04:50: WBC 10.5 D, Hgb 11.4 L, Hct 33.7 L, Plt Count 198 Assessment And Plan - Plan RADHA on CKD III Due to obstructive uropathy Rayo replaced polyuric now Cont 1/2 NS Polyuria due to release of obstructive uropathy will cont 1/2 NS at rate of 2/3 of UO Lymphedema will cont to monitor UTI cont abx HTN controlled DM as per primary Afib on atenolol
[2019-03-10] MEDS ORDERED: NACHLORIDE 0.45% 1,000 ML IV SCH (13:00)
[2019-03-10] MEDS: NACHLORIDE 0.45% 1,000 ML IV SCH (15:03)
--- NOTE | 2019-03-10 18:37 | PN ---
Subjective: Patient is feeling well. Patient's vital signs are stable, afebrile. Patient's I's and O's show that he took in 1269 and put out 2100, especially after the Rayo catheter was fixed, -831 mL over the last shift. His white count has come down from 12,400 to 10,500. Creatinine is now down to 1.99 from a high of 3.3. Plan: To go ahead and pull out the Rayo and empty every 4 to 6 hours with bladder training. DAKOTA/JOSELUIS Voice ID: [id number] Report ID: [id number]
[2019-03-10] MEDS: TAMSULOSIN 0.4 MG SR CAP PO SCH (19:57)
[2019-03-10] MEDS: levoFLOXacin 250 MG TAB PO SCH (19:58)
--- NOTE | 2019-03-10 22:34 | PN ---
Subjective: Patient is doing much better. He feels better. He is afebrile. His urine output has i ncreased. His BUN and creatinine have come down very likely. Renal failure was secondary to post ob struction. This was explained to the patient. Plan: As soon as the renal function is normal, discharge planning will be done. MARIMAR/JOSELUIS Voice ID: [id number] Report ID: [id number]
[2019-03-11] MEDS: INSULIN -REGULAR HUMAN 50 UNIT/0.5 ML ML SQ SCH ×4 (07:30→21:00)
[2019-03-11] MEDS: ATENOLOL 50 MG TAB PO SCH (08:35)
[2019-03-11] MEDS: HYDRALAZINE HCL 25 MG TABLET PO SCH (08:35)
[2019-03-11] MEDS: ENOXAPARIN 30 MG/0.3 ML SQ SCH (08:35)
[2019-03-11] MEDS: DOCUSATE CALCIUM 240 MG CAP PO SCH ×2 (08:35→21:00)
[2019-03-11] MEDS: PANTOPRAZOLE 40MG TABLET PO SCH (08:35)
[2019-03-11] MEDS: NACHLORIDE 0.45% 1,000 ML IV SCH (08:36)
[2019-03-11 09:41] LABS: Potassium 3.4 mmol/L (3.5-5.1)
[2019-03-11 16:06] LABS: Absolute Lymphocytes (CBC) 1.4 K/uL (0.7-4.9); Hematocrit 33.9 % (39.6-49.0); Lymphocytes % 22.1 % (15.3-44.8); MPV 8.8 fL (7.6-11.3); RBC Red Blood Cell Count 3.48 M/uL (4.33-5.43)
[2019-03-11 16:22] LABS: Potassium 3.5 mmol/L (3.5-5.1)
--- NOTE | 2019-03-11 18:47 | PN ---
Subjective: Patient is afebrile. He is ambulating in the room. However, his bladder training is no t very effective so far. The patient's BUN and creatinine today has come down further back to normal . BUN is 42 and creatinine 1.17, indicating correction of obstruction. Patient would like to go carol e. At this point, patient is on bladder training. Once this is complete, he will be discharged. MARIMAR/JOSELUIS Voice ID: [id number] Report ID: [id number]
--- NOTE | 2019-03-11 20:33 | PN ---
Subjective: The patient is doing well today. Rayo catheter is draining well. White count checked_. He is doing well today. His urine culture did show E coli in the past, sensitive to Macrobid and Augmentin. I believe he can go home on some Macrodantin 50 mg once a day. He already got treatment for the E coli while an inpatient. He is making good urine output, in fact it is -780 over the shift. He is going half-way home in the [facility] due to some Medicare issues with his insurance, something is off, and he is trying to get that straightened out. He can keep the catheter in for a month. See me in a month. He may be at his half-way home for about 2 to 3 weeks and then see me after. He will be receiving rehabilitation there. DAKOTA/JOSELUIS Voice ID: [id number] Report ID: [id number] JOS
[2019-03-11] MEDS: levoFLOXacin 250 MG TAB PO SCH (21:57)
[2019-03-11] MEDS: TAMSULOSIN 0.4 MG SR CAP PO SCH (21:58)
--- NOTE | 2019-03-12 02:13 | PN ---
Date of Progress Note: 03/11/2019 Chief Complaint: Acute kidney injury due to obstructive uropathy associated with hematuria. History Of Present Illness: Patient is on uric. He is started on fluids with half normal saline. Subsequently creatinine is somewhat improving. Potassium is replaced. Review of Systems: Denies PND, orthopnea. He has swelling in upper and lower extremities. Denies nausea, vomiting. Physical Examination: Vital Signs: Blood pressure 110/60, heart rate 56, respiratory rate 18, SpO2 of 95%. General: Not in acute distress. Eyes: Anicteric sclerae. Lungs: Clear to auscultation bilaterally. Heart: S1, S2. Abdomen: Soft, benign. Extremities: Edema present. Laboratory Data: Hemoglobin 11.5, WBC 6.3, platelet count 201. Sodium 143, potassium 3.5, chloride 108, CO2 of 29, BUN is 41, creatinine 1.26, glucose 142 , calcium 8.4. Impression And Plan: 1. Acute kidney injury due to obstructive uropathy. Patient will continue IV hydration. Monitor electrolytes and plan replacement accordingly. 2. Severe legs edema, history of lymphedema. Monitor fluid. 3. [id number] kidney injury due to obstructive uropathy. Avoid nephrotoxic medication. 4. Right hydronephrosis per Urology. 5. Urinary tract infection. Continue antibiotics. 6. Diabetes mellitus. Continue insulin. I spent total 36 min including 25 min to coordinate care plan. ZACKARY/JOSELUIS Voice ID: [id number] Report ID: [id number] JOS
[2019-03-12 05:29] VITALS: O2SAT 90
[2019-03-12 05:32] LABS: Potassium 3.4 mmol/L (3.5-5.1)
[2019-03-12] MEDS: NACHLORIDE 0.45% 1,000 ML IV SCH (07:00)
[2019-03-12] MEDS: INSULIN -REGULAR HUMAN 50 UNIT/0.5 ML ML SQ SCH ×3 (07:30→16:30)
[2019-03-12] MEDS: DOCUSATE CALCIUM 240 MG CAP PO SCH (09:00)
[2019-03-12] MEDS: ENOXAPARIN 30 MG/0.3 ML SQ SCH (09:57)
[2019-03-12] MEDS: ATENOLOL 50 MG TAB PO SCH (09:58)
[2019-03-12] MEDS: PANTOPRAZOLE 40MG TABLET PO SCH (09:58)
[2019-03-12] MEDS: HYDRALAZINE HCL 25 MG TABLET PO SCH (09:58)
[2019-03-12] MEDS ORDERED: POTASSIUM 25 MEQ EFFERV TAB PO ONE (11:45)
--- NOTE | 2019-03-12 11:47 | P.PN ---
Subjective Date of Service: 03/12/19 Chief Complaint: hematuria Subjective: Improving Pt admitted for hematuria , found to have RADHA , due to obstructive Uropathy today Cr normalize UO slowing down will dc IVF will replace K cleared for discharge from nephrology point of view, F/U with nephrology clinic in 2-3 days Physical Examination - Vital Signs Temperature: 97.5 F Blood Pressure: 154/72 Pulse: 57 Respirations: 18 Pulse Ox (%): 95 - Physical Exam General: Oriented x3, Obese HEENT: Atraumatic Neck: Supple Respiratory: Clear to auscultation bilaterally, Normal air movement Cardiovascular: Regular rate/rhythm, Normal S1 S2, No gallops, No rubs, No murmurs, Edema Gastrointestinal: Soft and benign Musculoskeletal: No swelling - Studies Laboratory Data (last 24 hrs) 03/12/19 05:06: Sodium 144, Potassium 3.4 L, BUN 34 H, Creatinine 1.03, Glucose 136 H 03/11/19 15:35: WBC 6.3 D, Hgb 11.5 L, Hct 33.9 L, Plt Count 201 03/11/19 15:35: Sodium 143, Potassium 3.5, BUN 41 H, Creatinine 1.26, Glucose 142 H Assessment And Plan - Plan RADHA on CKD III Due to obstructive uropathy Rayo replaced Lymphedema stable will cont to monitor UTI cont abx HTN controlled DM as per primary Afib on atenolol
[2019-03-12 17:25] VITALS: BP 118/57; TEMP 98.6
== END 2019-03-12 17:20 | DRG 683 ==
LOC: OBSVTOIN 14:39 → INTOOBSV 14:39 → 2ND 14:39 → OBSVTOIN 03-06 13:48
PROVIDERS: ADMIT Internal Medicine; ATTEND Internal Medicine
PROC: 02HV33Z Insertion of Infusion Device into Superior Vena Cava, Percutaneous Approach (ICD-10-PCS; principal; 2019-03-09)
DX: I12.9 Hypertensive chronic kidney disease with stage 1 through stage 4 chronic kidney disease, or unspecified chronic kidney disease (principal); N17.9 Acute kidney failure, unspecified; N39.0 Urinary tract infection, site not specified; Z68.41 Body mass index [BMI] 40.0-44.9, adult; E11.22 Type 2 diabetes mellitus with diabetic chronic kidney disease; N18.3 Chronic kidney disease, stage 3 (moderate); N13.9 Obstructive and reflux uropathy, unspecified; I89.0 Lymphedema, not elsewhere classified; B96.20 Unspecified Escherichia coli [E. coli] as the cause of diseases classified elsewhere; R31.9 Hematuria, unspecified; I48.91 Unspecified atrial fibrillation; I87.2 Venous insufficiency (chronic) (peripheral); E66.01 Morbid (severe) obesity due to excess calories; R33.8 Other retention of urine; Z96.0 Presence of urogenital implants
CPT/HCPCS: 36415; 71045; 74176; 76770; 80048; 81001; 82553; 82947; 84100; 84443; 85025; 87077; 87086; 87088; 87186; 93005; 97110; 97116; 97161; 97530; G0378; G0379; J0696; J1650; J7030

== ENCOUNTER 2019-04-26 12:28 | Observation (INO) | payer OTHER ==
[2019-04-26 13:48] LABS: Absolute Lymphocytes (CBC) 1.2 K/uL (0.7-4.9); Basophils % 0.7 % (0-1.3); Hematocrit 42.1 % (39.6-49.0); Lymphocytes % 20.1 % (15.3-44.8); MPV 9.5 fL (7.6-11.3); RBC Red Blood Cell Count 4.16 M/uL (4.33-5.43)
[2019-04-26 14:04] LABS: Potassium 4.1 mmol/L (3.5-5.1)
[2019-04-26] MEDS ORDERED: FUROSEMIDE 100 MG/10 ML VIAL IV ONE (14:17)
--- NOTE | 2019-04-26 14:53 | RAD REPORT ---
EXAM DESCRIPTION: CTAbdomen Pelvis W Contrast - 04/26/2019 2:37 pm CLINICAL HISTORY: Abdominal pain. scrotal pain COMPARISON: No comparisons TECHNIQUE: Biphasic CT imaging of the abdomen and pelvis was performed with 100 ml non-ionic IV cont rast. All CT scans are performed using dose optimization technique as appropriate and may include automated exposure control or mA/KV adjustment according to patient size. FINDINGS: Small right pleural effusion is seen with linear atelectasis in the right lung base. Mild diffuse fatty liver is present. No focal mass or intrahepatic biliary dilatation. The spleen, ad renal glands are normal. A few small calcifications are present in the pancreas compatible with chron ic pancreatitis. Benign appearing renal cysts are noted bilaterally. No significant hydronephrosis. Mild ascites is seen. Significant fluid is present in scrotal sac. No bowel obstruction or free air. Sigmoid diverticulosis coli without diverticulitis. Normal appendix. Aortic atherosclerosis. No evide nce of significant lymphadenopathy. Prostate gland is mildly enlarged. Small fat containing left ingu inal hernia. Moderate lumbosacral degenerative changes. IMPRESSION: Small right pleural effusion, mild ascites and significant scrotal hydrocele noted.
[2019-04-26] MEDS ORDERED: IPRATROPIUM BROM 0.5MG/2.5ML NEB PRN (17:27)
[2019-04-26] MEDS ORDERED: ALBUTEROL 2.5 MG/3 ML NEB SOL NEB PRN (17:27)
[2019-04-26] MEDS ORDERED: ACETAMINOPHEN 500 MG TAB PO PRN (17:27)
[2019-04-26] MEDS ORDERED: ONDANSETRON 4 MG/2 ML VIAL IV PRN (17:27)
--- NOTE | 2019-04-26 17:41 | ER ---
Nurse's Notes [facility] Name: Shane Talbert Jr Age: 78 yrs Sex: Male : 1940 Arrival Date: 04/26/2019 Time: 12:30 Bed 15 Private MD: Mian De La Cruz R Diagnosis: Lymphedema, not elsewhere classified;Shortness of breath;Hydrocele, unspecified;COPD Exacerbation Presentation: 04/26 12:41 Presenting complaint: Patient states: testicular swelling x 2 days. Transition of care: sv patient was not received from another setting of care. Onset of symptoms was April 24, 2019. Risk Assessment: Do you want to hurt yourself or someone else? Patient reports no desire to harm self or others. Initial Sepsis Screen: Does the patient meet any 2 criteria? No. Patient's initial sepsis screen is negative. Does the patient have a suspected source of infection? No. Patient's initial sepsis screen is negative. Care prior to arrival: None. 12:41 Method Of Arrival: Wheelchair sv 12:41 Acuity: CARMEN 3 sv Triage Assessment: 18:24 General: Behavior is calm, cooperative. 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 - Social history:: Smoking status: Patient/guardian denies using tobacco. - Ebola Screening: : No symptoms or risks identified at this time. Screenin:00 Abuse screen: Denies threats or abuse. Denies injuries from another. Nutritional aj1 screening: No deficits noted. Tuberculosis screening: No symptoms or risk factors identified. 18:23 Fall Risk No fall in past 12 months (0 pts). Secondary diagnosis (15 points) impaired aj1 mobility, IV access (20 points). Ambulatory Aid- None/Bed Rest/Nurse Assist (0 pts). Gait- Impaired (20 pts.). Mental Status- Oriented to own ability (0 pts). Total Rodriges Fall Scale indicates High Risk Score (45 or more points). Family Present and informed to notify staff if the need to leave the bedside As available patient and family educated on Fall Prevention Program and Strategies. Assessment: 13:00 General: Appears in no apparent distress. uncomfortable. Pain: Denies pain. Neuro: aj1 Level of Consciousness is awake, alert, obeys commands. Cardiovascular: Patient's skin is warm and dry. Cardiovascular: anasarca noted, large amounts of edema noted to scrotum . Respiratory: Reports shortness of breath Airway is patent Respiratory effort is even, unlabored, Respiratory pattern is regular, symmetrical. GI: No signs and/or symptoms were reported involving the gastrointestinal system. : Swelling noted. EENT: No signs and/or symptoms were reported regarding the EENT system. Derm: No signs and/or symptoms reported regarding the dermatologic system. Skin is pink, warm \T\ dry. normal. Musculoskeletal: No signs and/or symptoms reported regarding the musculoskeletal system. Circulation, motion, and sensation intact. 14:00 Reassessment: Patient appears in no apparent distress at this time. No changes from aj1 previously documented assessment. Patient and/or family updated on plan of care and expected duration. Pain level reassessed. Patient is alert, oriented x 3, equal unlabored respirations, skin warm/dry/pink. 15:00 Reassessment: Patient appears in no apparent distress at this time. No changes from aj1 previously documented assessment. Patient and/or family updated on plan of care and expected duration. Pain level reassessed. Patient is alert, oriented x 3, equal unlabored respirations, skin warm/dry/pink. 16:00 Reassessment: Patient and/or family updated on plan of care and expected duration. Pain aj1 level reassessed. General: Appears in no apparent distress. uncomfortable. Neuro: Level of Consciousness is awake, alert, obeys commands, Oriented to person, place, time, situation, Speech is normal, Facial symmetry appears normal. Cardiovascular: Patient's skin is warm and dry. Respiratory: Airway is patent Respiratory effort is even, unlabored, Respiratory pattern is regular, symmetrical. Derm: No signs and/or symptoms reported regarding the dermatologic system. Skin is pink, warm \T\ dry. normal. Musculoskeletal: No signs and/or symptoms reported regarding the musculoskeletal system. Circulation, motion, and sensation intact. 17:05 Reassessment: Patient appears in no apparent distress at this time. No changes from aj1 previously documented assessment. Patient and/or family updated on plan of care and expected duration. Pain level reassessed. Patient is alert, oriented x 3, equal unlabored respirations, skin warm/dry/pink. 18:05 Reassessment: Patient appears in no apparent distress at this time. No changes from aj1 previously documented assessment. Patient and/or family updated on plan of care and expected duration. Pain level reassessed. Patient is alert, oriented x 3, equal unlabored respirations, skin warm/dry/pink. Vital Signs: 12:42 BP 126 / 49; Pulse 58; Resp 20; Temp 97; Pulse Ox 96% ; Weight 147.42 kg; Height 5 ft. sv 9 in. (175.26 cm); 13:31 BP 125 / 75; Pulse 58; Resp 18; Temp 97.5(O); Pulse Ox 93% on R/A; mh5 14:30 BP 111 / 67; Pulse 60; Resp 18; Pulse Ox 95% on R/A; aj1 15:45 BP 128 / 79; Pulse 63; Resp 20; Temp 98.0(O); Pulse Ox 94% on R/A; mh5 16:45 BP 101 / 72; Pulse 59; Resp 18; Pulse Ox 98% on R/A; aj1 18:23 BP 111 / 66; Pulse 52; Resp 18; Pulse Ox 98% on R/A; aj1 12:42 Body Mass Index 47.99 (147.42 kg, 175.26 cm) sv ED Course: 12:30 Patient arrived in ED. as 12:31 Mian De La Cruz MD is Private Physician. as 12:33 Nicola Ayala MD is Attending Physician. kdr 12:41 Triage completed. sv 12:42 Arm band placed on. sv 13:00 No provider procedures requiring assistance completed. aj1 13:32 Patient has correct armband on for positive identification. Bed in low position. Call [facility] light in reach. Side rails up X 1. Adult w/ patient. Warm blanket given. Pulse ox on. NIBP on. 13:43 Placed in gown. [facility] 13:43 Initial lab(s) drawn, by ia, sent to lab. Inserted saline lock: 22 gauge in right [facility] antecubital area, using aseptic technique. Blood collected. 13:43 Chem 7 Sent. [facility] 13:43 CBC with Diff Sent. 5 14:35 Note: BEST IMAGES OBTAINED DUE TO PATIENT HAVING DIFFICULTY BREATHING WHILE LAYING sw FLAT, HAD TO CALL RN OVER FOR O2. 14:[address] via stretcher. 14:39 CT Abd/Pelvis - IV Contrast Only In Process Unspecified. EDMS 16:10 Rayo cath inserted, using sterile technique, 16 Fr., by me, by ED staff, balloon ss inflated, to gravity drainage, Patient tolerated well. 16:54 Claudette Morales, RN is Primary Nurse. aj1 17:32 Mian De La Cruz MD is Hospitalizing Provider. kdr 18:24 Patient admitted, IV remains in place. aj1 18:43 Report given to GRETEL ESTRADA on 2nd floor. aj1 Administered Medications: 15:47 Drug: Lasix 100 mg Route: IVP; Site: left antecubital; ss 19:15 Follow up: Response: No adverse reaction aj1 Outcome: 17:40 Decision to Hospitalize by Provider. kdr 19:14 Admitted to Tele accompanied by tech, via stretcher, with chart. aj1 19:14 Condition: stable 19:14 Discharge instructions given to patient, family, Instructed on the need for admit, Demonstrated understanding of instructions. 19:26 Patient left the ED. ea Signatures: Dispatcher [employer] EDMS Claudette Morales, RN GRETEL ajAlicia Wen, Nicola Abraham RN, MD MD kdr Martinez, Amelia as Smirch, Shelby, RN RN ss Warren, Shannon sw Martinez, Maria [facility] Aniya Montalvo RN RN ea
--- NOTE | 2019-04-26 17:42 | EDPHYS ---
Physician Documentation [facility] Name: Shane Talbert Jr Age: 78 yrs Sex: Male : 1940 Arrival Date: 04/26/2019 Time: 12:30 Bed 15 Private MD: Mian De La Cruz R ED Physician Nicola Ayala HPI: 04/26 16:03 This 78 yrs old Male presents to ER via Wheelchair with complaints of kdr Testicular Swelling. 16:03 The patient presents with scrotal pain, swelling, that is moderate, of the scrotum. kdr Onset: The symptoms/episode began/occurred gradually, 1 month(s) ago. Modifying factors: The symptoms are alleviated by nothing, the symptoms are aggravated by movement, pressure, Standing up. Associated signs and symptoms: Pertinent positives: The patient has a history of lymphedema with swelling to both extremities and abdomen.. Severity of symptoms: At their worst the symptoms were mild, moderate, in the emergency department the symptoms are unchanged. The patient has not experienced similar symptoms in the past, The lymph edema has slightly worsened but the scrotal swelling is new. The patient has been recently seen by a physician: the patient's primary care provider. 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 - Social history:: Smoking status: Patient/guardian denies using tobacco. - Ebola Screening: : No symptoms or risks identified at this time. ROS: 16:03 Constitutional: Negative for fever, chills, and weight loss, Eyes: Negative for injury, kdr pain, redness, and discharge, ENT: Negative for injury, pain, and discharge, Neck: Negative for injury, pain, and swelling, Cardiovascular: Negative for chest pain, palpitations, and edema, Back: Negative for injury and pain, MS/Extremity: Negative for injury and deformity, Skin: Negative for injury, rash, and discoloration, Neuro: Negative for headache, weakness, numbness, tingling, and seizure activity. Psych: Negative for depression, anxiety, suicide ideation, homicidal ideation, and hallucinations, Allergy/Immunology: Negative for hives, rash, and allergies, Endocrine: Negative for neck swelling, polydipsia, polyuria, polyphagia, and marked weight changes, Hematologic/Lymphatic: Negative for swollen nodes, abnormal bleeding, and unusual bruising. 16:03 Respiratory: Positive for dyspnea on exertion, orthopnea, shortness of breath, on exertion. wheezing, Negative for hemoptysis, pleurisy. 16:03 MS/extremity: Positive for swelling, of the right leg and left leg, Significant kdr lymphedema to both lower extremities. Exam: 16:03 Constitutional: This is a well developed, well nourished patient who is awake, alert, kdr and in no acute distress. Head/Face: Normocephalic, atraumatic. Eyes: Pupils equal round and reactive to light, extra-ocular motions intact. Lids and lashes normal. Conjunctiva and sclera are non-icteric and not injected. Cornea within normal limits. Periorbital areas with no swelling, redness, or edema. Neck: Trachea midline, no thyromegaly or masses palpated, and no cervical lymphadenopathy. Supple, full range of motion without nuchal rigidity, or vertebral point tenderness. No Meningismus. Chest/axilla: Normal chest wall appearance and motion. Nontender with no deformity. No lesions are appreciated. Cardiovascular: Regular rate and rhythm with a normal S1 and S2. No gallops, murmurs, or rubs. Normal PMI, no JVD. No pulse deficits. Back: No spinal tenderness. No costovertebral tenderness. Full range of motion. Skin: Warm, dry with normal turgor. Normal color with no rashes, no lesions, and no evidence of cellulitis. Neuro: Awake and alert, GCS 15, oriented to person, place, time, and situation. Cranial nerves II-XII grossly intact. Motor strength 5/5 in all extremities. Sensory grossly intact. Cerebellar exam normal. Normal gait. Psych: Awake, alert, with orientation to person, place and time. Behavior, mood, and affect are within normal limits. 16:03 Respiratory: the patient does not display signs of respiratory distress, Respirations: normal, Breath sounds: wheezing: that is mild, is heard diffusely. 16:03 Abdomen/GI: Inspection: obese scar(s), are noted in the epigastric area, umbilical area and suprapubic area. 16:03 : Male external genitalia: swelling, scrotal, that is severe, tenderness, that is mild. 16:03 Musculoskeletal/extremity: Significant bilateral lymphedema that is slight worse on the left per the patient. Vital Signs: 12:42 BP 126 / 49; Pulse 58; Resp 20; Temp 97; Pulse Ox 96% ; Weight 147.42 kg; Height 5 ft. sv 9 in. (175.26 cm); 13:31 BP 125 / 75; Pulse 58; Resp 18; Temp 97.5(O); Pulse Ox 93% on R/A; mh5 14:30 BP 111 / 67; Pulse 60; Resp 18; Pulse Ox 95% on R/A; aj1 15:45 BP 128 / 79; Pulse 63; Resp 20; Temp 98.0(O); Pulse Ox 94% on R/A; mh5 16:45 BP 101 / 72; Pulse 59; Resp 18; Pulse Ox 98% on R/A; aj1 18:23 BP 111 / 66; Pulse 52; Resp 18; Pulse Ox 98% on R/A; aj1 12:42 Body Mass Index 47.99 (147.42 kg, 175.26 cm) sv MDM: 17:40 Patient medically screened. kdr 17:40 Data reviewed: vital signs, nurses notes, lab test result(s), radiologic studies. kdr Counseling: I had a detailed discussion with the patient and/or guardian regarding: the historical points, exam findings, and any diagnostic results supporting the discharge/admit diagnosis, lab results, radiology results, the need for further work-up and treatment in the hospital. 04/26 12:43 Order name: CBC with Diff; Complete Time: 14:26 kdr 04/26 12:43 Order name: Chem 7; Complete Time: 14:26 kdr 04/26 16:10 Order name: Urine Culture ss 04/26 17:31 Order name: Basic Metabolic Panel EDDE 04/26 17:31 Order name: Basic Metabolic Panel EDDE 04/26 17:31 Order name: CBC with Automated Diff EDDE 04/26 12:43 Order name: CT Abd/Pelvis - IV Contrast Only; Complete Time: 15:07 kdr 04/26 17:31 Order name: CBC with Automated Diff EDDE 04/26 17:31 Order name: NT PRO-BNP EDDE 04/26 17:31 Order name: NT PRO-BNP [facility] 04/26 17:31 Order name: Troponin I [facility] 04/26 17:31 Order name: Troponin I [facility] 04/26 17:31 Order name: Troponin I [facility] 04/26 12:43 Order name: Urine Dipstick-Ancillary (obtain specimen); Complete Time: 16:10 kdr 04/26 17:31 Order name: Regular EDDE Administered Medications: 15:47 Drug: Lasix 100 mg Route: IVP; Site: left antecubital; 19:15 Follow up: Response: No adverse reaction aj1 Disposition: 04/26/19 17:40 Hospitalization ordered by Mian De La Cruz for Observation. Preliminary diagnosis are Lymphedema, not elsewhere classified, Shortness of breath, Hydrocele, unspecified, COPD Exacerbation. - Bed requested for Telemetry/MedSurg (observation). - Status is Observation. ea - Condition is Fair. - Problem is an acute exacerbation. - Symptoms have improved. UTI on Admission? No Signatures: Dispatcher [employer] EDDE Giuliana Hernandez Stephanie, RN RN sv Nicola Ayala MD MD kdr Smirch, Shelby, RN RN ss Aniya Montalvo RN RN ea Johnson, Angela RN aj1 Corrections: (The following items were deleted from the chart) 18:05 17:40 Hospitalization Ordered by Mian De La Cruz MD for Observation. Preliminary diagnosis bd is Lymphedema, not elsewhere classified; Shortness of breath; Hydrocele, unspecified; COPD Exacerbation. Bed requested for Telemetry/MedSurg (observation). Status is Observation. Condition is Fair. Problem is an acute exacerbation. Symptoms have improved. UTI on Admission? No. kdr 19:26 18:05 04/26/2019 17:40 Hospitalization Ordered by Mian De La Cruz MD for Observation. ea Preliminary diagnosis is Lymphedema, not elsewhere classified; Shortness of breath; Hydrocele, unspecified; COPD Exacerbation. Bed requested for Telemetry/MedSurg (observation). Status is Observation. Condition is Fair. Problem is an acute exacerbation. Symptoms have improved. UTI on Admission? No. bd
[2019-04-26 23:50] LABS: Urine Appearance CLOUDY; Urine Bilirubin NEGATIVE (NEG); Urine Blood 3+ (NEG); Urine Color YELLOW; Urine Glucose NEGATIVE (NEG); Urine Protein TRACE (NEG)
[2019-04-27 00:11] LABS: Urine Microscopic Reflex ORDER UMIC
[2019-04-27 00:46] LABS: Urine Culture Reflex Order NOT NEEDED
[2019-04-27 00:48] LABS: Urine Bacteria 20-50 /HPF (NONE SEEN); Urine Mucus 2+ /HPF (NONE SEEN); Urine RBC 20-50 /HPF (NONE SEEN); Urine Urothelial Cells <5 /HPF (NONE SEEN)
[2019-04-27] MEDS ORDERED: METHYLPREDNISOLONE 40 MG INJ IV SCH (01:00)
[2019-04-27 04:16] LABS: Absolute Lymphocytes (CBC) 1.1 K/uL (0.7-4.9); Basophils % 0.7 % (0-1.3); Hematocrit 40.7 % (39.6-49.0); Lymphocytes % 19.7 % (15.3-44.8); MPV 9.6 fL (7.6-11.3); RBC Red Blood Cell Count 4.03 M/uL (4.33-5.43)
[2019-04-27 04:47] LABS: Potassium 4.1 mmol/L (3.5-5.1)
[2019-04-27] MEDS: RIVAROXABAN 20 MG TABLET PO SCH (09:00)
[2019-04-27] MEDS: FUROSEMIDE 40 MG/4 ML VIAL IV SCH ×2 (09:00→16:28)
[2019-04-27] MEDS: SPIRONOLACTONE 25 MG TABLET PO SCH (09:00)
[2019-04-27] MEDS: ASPIRIN EC 81 MG TAB PO SCH (09:00)
[2019-04-27] MEDS: NITROFURAN MACRO 50 MG CAP PO SCH (09:00)
[2019-04-27] MEDS: PANTOPRAZOLE 40MG TABLET PO SCH (09:00)
[2019-04-27] MEDS ORDERED: ATENOLOL 100 MG PO SCH ×2 (09:00)
[2019-04-27] MEDS ORDERED: HOME MED 1 EA UNK (Hydralazine Hcl [Hydralazine Hcl] 50 MG) PO SCH (09:00)
--- NOTE | 2019-04-27 11:53 | CON ---
Date of Consultation: 04/26/2019 He is admitted to Dr. De La Cruz's service on 04/26/2019. I saw the patient on 04/26/2019. Reason For Consultation: Congestive heart failure. History Of Present Illness: The patient is an 78-year-old white male. He is a patient of Dr. Wily Carrillo and Dr. De La Cruz. He has a history of chronic diastolic congestive heart failure, atrial fibrill ation, hypertension, gastroesophageal reflux disease, benign prostatic hypertrophy, and chronic bilat eral severe lymphedema. He comes in with congestive heart failure symptoms, PND, orthopnea, shortnes s of breath. Denied any symptoms of palpitations or chest pain or syncope. Denied any fever or chil ls. Symptoms have been going on for approximately 2 days. By the time I saw him, he received IV Las ix in the emergency room and diuresed 1300 cc immediately and was feeling slightly better. A Rayo w as in place. Past Medical History: As stated above. Allergies: NONE. Review of Systems: Negative. Social History: Negative. Family History: Noncontributory. Medications: At home include Lasix 20 mg daily, atenolol 100 mg daily, Flomax, Macrodantin, hydralaz ine, Protonix, and he takes lisinopril with hydrochlorothiazide. Physical Examination: General: Patient, when I saw him, he was in no acute distress. Vital Signs: Stable. He was in sinus rhythm. He was afebrile. HEENT: Negative. Neck: Supple without any bruit, lymphadenopathy, JVD, or thyromegaly. Chest: Reveals some rales, both bases. Cardiac: Revealed a regular rhythm and rate with a tricuspid regurgitation murmur, S4 gallops. No r ubs. Abdomen: Obese, but benign. Extremities: Revealed lymphedema bilaterally. He had both of his lower extremity wrapped. Pulses w ere weak distally bilaterally. Skin: Dry and intact. Neurologic: He was nonfocal. Diagnostic Data: Fairly unremarkable. Chest x-ray showed mild failure. His echocardiogram from Feb showed severe pulmonary hypertension. Normal ejection fraction. Asymmetrical septal hy pertrophy. Impression And Plan: 1.Acute on chronic diastolic congestive heart failure. 2.Atrial fibrillation that has resolved. 3.Hypertension, well controlled. 4.Lymphedema, chronic. 5.Gastroesophageal reflux disease. 6.Benign prostatic hypertrophy. 7.Severe pulmonary hypertension. I think we need to diurese him with IV Lasix as we are doing 40 b.i.d. I think when he goes home, he should go home on Lasix 40 mg daily, Aldactone 25 mg daily. He should continue beta-luiz. He sh ould stop his lisinopril with hydrochlorothiazide. We will continue to follow him. TONI/JOSELUIS Voice ID: [id number] Report ID: [id number]
--- NOTE | 2019-04-27 13:19 | PN ---
Date of Progress Note: 04/27/2019 Patient is 78, was admitted with acute on chronic diastolic congestive heart failure. He is on a bet a-luiz. He diuresed significantly on Lasix IV b.i.d. I think I am comfortable with him going carol e today. I think he should stop the lisinopril with hydrochlorothiazide. He should increase his Las ix dose to 40 once or twice a day. I think he need to start Aldactone 25 mg daily. Continue the res t of the medications, otherwise. We will see him in the office in the next 2 weeks. The case was di scussed with Dr. De La Cruz. TONI/JOSELUIS Voice ID: [id number] Report ID: [id number]
[2019-04-27] MEDS: TAMSULOSIN 0.4 MG SR CAP PO SCH (21:15)
--- NOTE | 2019-04-27 21:19 | HP ---
Date of Admission: 04/26/2019 Chief Complaint: Swelling of legs and scrotum. History Of Present Illness: An 78-year-old male was brought to the emergency room with gradual swell ing of both legs as well as scrotum. Patient is known to have chronic lymphedema for which he [facility]. The patient after initial workup is admitted. Past Medical History: The patient is known to have chronic atrial fibrillation. He is on Xarelto. He has history of BPH, type 2 diabetes, hypertension, and chronic lymphedema. Past Surgical History: Positive for right ear surgery for melanoma, tonsillectomy, and cataract surg eries. Family History: Negative. Personal History: Nonsmoker. Home Medicines: Please refer to the chart. Allergies: NONE. Review of Systems: No history of chest pain. Physical Examination: General: Revealed an 78-year-old male, not in acute distress. Vital Signs: Normal. HEENT: Negative. Neck: Supple, JVD negative. Chest: Few scattered wheezes. Heart: Irregularity noted. Abdomen: Pendulous, nontender. Extremities: Diffuse bilateral leg edema including scrotal edema. However, there is no evidence of cellulitis. Laboratory Data: White count normal. Chest x-ray, pulmonary congestion, atelectasis, and small pleu ral effusion. Assessment: 1.Acute on chronic lymphedema. 2.Type 2 diabetes. 3.Hypertension. 4.Chronic atrial fibrillation on Xarelto. 5.Morbid obesity. 6.Symptomatic benign prostatic hypertrophy. Plan: The patient received IV Lasix. He is already feeling better and he wants to go home for [facility]. He will be discharged as soon as he decides to go. While he is here, he will receive IV Lasix and at discharge his Lasix will be increased to twice a day and electrolytes will be followed in the office. MARIMAR/JOSELUIS Voice ID: [id number]
[2019-04-28] MEDS: PANTOPRAZOLE 40MG TABLET PO SCH (09:38)
[2019-04-28] MEDS: SPIRONOLACTONE 25 MG TABLET PO SCH (09:38)
[2019-04-28] MEDS: FUROSEMIDE 40 MG/4 ML VIAL IV SCH ×2 (09:38→16:35)
[2019-04-28] MEDS: HYDRALAZINE HCL 25 MG TABLET PO SCH (09:39)
[2019-04-28] MEDS: ASPIRIN EC 81 MG TAB PO SCH (09:39)
[2019-04-28] MEDS: atenoloL 50 MG TAB PO SCH (09:39)
[2019-04-28] MEDS: RIVAROXABAN 20 MG TABLET PO SCH (09:39)
[2019-04-28] MEDS: NITROFURAN MACRO 50 MG CAP PO SCH (10:35)
[2019-04-28] MEDS ORDERED: PNEUMOCOCCAL VACCINE 0.5 ML IMVAC ONE (12:00)
[2019-04-28] MEDS: TAMSULOSIN 0.4 MG SR CAP PO SCH (20:40)
--- NOTE | 2019-04-28 22:12 | PN ---
History: The patient is afebrile. His swelling of the legs as well as abdominal wall is much better . He is growing ESBL on urine culture; however, he has a Rayo catheter and prior to Rayo catheter, he did not have any symptoms, it is not clear whether it needs to be treated. Consultation with Inf ectious Disease has been done, pending recommendation. He will be on observation for any signs of UT I. The patient will have a BMP done tomorrow. MARIMAR/JOSELUIS Voice ID: [id number] Report ID: [id number]
[2019-04-29 06:43] LABS: Potassium 3.6 mmol/L (3.5-5.1)
[2019-04-29] MEDS ORDERED: POTASSIUM 25 MEQ EFFERV TAB PO ONE (08:34)
[2019-04-29] MEDS: FUROSEMIDE 40 MG/4 ML VIAL IV SCH ×2 (08:35→17:21)
[2019-04-29] MEDS: ASPIRIN EC 81 MG TAB PO SCH (08:36)
[2019-04-29] MEDS: RIVAROXABAN 20 MG TABLET PO SCH (08:36)
[2019-04-29] MEDS: atenoloL 50 MG TAB PO SCH (08:36)
[2019-04-29] MEDS: PANTOPRAZOLE 40MG TABLET PO SCH (08:36)
[2019-04-29] MEDS: SPIRONOLACTONE 25 MG TABLET PO SCH (08:36)
[2019-04-29] MEDS: NITROFURAN MACRO 50 MG CAP PO SCH (08:37)
[2019-04-29] MEDS: HYDRALAZINE HCL 25 MG TABLET PO SCH (08:41)
[2019-04-29] MEDS ORDERED: NS 0.9% IV SCH (17:00)
[2019-04-29] MEDS ORDERED: MEROPENEM IV SCH (17:00)
[2019-04-29] MEDS ORDERED: Meropenem 500 MG in NA CHLORIDE 0.9% 100 ML IV SCH (17:00)
[2019-04-29] MEDS ORDERED: Meropenem 500 MG VIAL IV SCH (17:00)
[2019-04-29] MEDS ORDERED: ALBUTEROL 2.5 MG/3 ML NEB SOL NEB PRN (18:00)
[2019-04-29] MEDS ORDERED: IPRATROPIUM BROM 0.5MG/2.5ML NEB PRN (18:00)
--- NOTE | 2019-04-29 21:04 | CON ---
History Of Present Illness: Patient is an 78-year-old male. I was consulted for stasis ulcer, stasi s edema and lymphedema of the scrotum and lower extremity. Patient has significant history of diabet es mellitus, benign prostatic hypertrophy, hypertension, chronic lymphedema, melanoma, tonsillectomy, cataract surgery, right ear surgery, coming in with worsening edema to the scrotum and lower extremi ties. Patient [facility] [place]. Past Medical History: As per HPI. Social History: Nonsmoker, nondrinker. Family History: Noncontributory. Medication: Macrodantin. See MAR for other medications. Allergies: NO KNOWN DRUG ALLERGIES. Review of Systems: A 10-point review was performed. Physical Examination: General: This is an 78-year-old male, sitting in easy chair, not in any acute cardiopulmonary distre ss. Vital Signs: Temperature 98.5, pulse 59, respirations 18, blood pressure 117/68. HEENT: Unremarkable. Neck: Supple. Lungs: Basal crackles. Heart: S1, S2. Regular. Abdomen: Soft, nontender. Bowel sounds present. Obese. Extremities: 4+ nonpitting edema in both lower extremity and scrotal 4+ nonpitting edema. Small ulc erations noted on the leg and scrotal area, also noted in the bilateral groin area. Laboratory Data: WBC 5.5, hemoglobin 13.1, platelets are . Chemistry shows sodium 143, po tassium 3.6, chloride 104, bicarb 36, BUN 32, creatinine 1.1. Glucose is 120. Micro data shows urine cultures growing E coli ESBL sensitive to meropenem, resistant to Macrodantin, was not checked. Assessment And Plan: An 78-year-old male with significant lymphedema to the lower extremity and scro simone area. We will recommend to apply Xeroform and petroleum gel to the dry areas of the skin and als o antifungal cream to the groin area and barrier cream to the coccyx region. We will start patient o n meropenem for urinary tract infection and continue meropenem 500 mg IV q.8 hours for 10 days. We w ill follow patient closely. Repeat urinalysis and cultures in 5 days. Consider transferring patient to long-term acute care. We will follow patient closely. Continue leg wraps. Apply cotton roll in itially and then Ad wrap and Coban dressing on top. We will follow patient closely. Thank you, Dr. De La Cruz for consult. NISSA/JOSELUIS Voice ID: [id number] Report ID: [id number]
[2019-04-29] MEDS: TAMSULOSIN 0.4 MG SR CAP PO SCH (21:15)
--- NOTE | 2019-04-30 00:43 | PN ---
The patient is afebrile. His urine is clear. Infectious Disease consultation resulted in , given imipenem. The patient is not sure whether he wants to go to a Nursing Facility. I will disc uss with him again tomorrow. A Social Service consult also will be done. MARIMAR/JOSELUIS Voice ID: [id number] Report ID: [id number]
[2019-04-30] MEDS: FUROSEMIDE 40 MG/4 ML VIAL IV SCH ×2 (09:00→16:53)
[2019-04-30] MEDS ORDERED: ERTAPENEM SODIUM 1 GM VIAL IVPB SCH (09:00)
--- NOTE | 2019-04-30 10:11 | RAD REPORT ---
EXAM DESCRIPTION: RAD - Chest Single View - 04/29/2019 8:52 pm CLINICAL HISTORY: PICC placement TECHNIQUE: Frontal view of the chest. COMPARISON: 03/09/2019. FINDINGS: Limitations: None. Lungs: Mild vascular congestion. Stable airspace consolidation in the right base. Improved aer ation left base. Pleural space: Unremarkable. No pneumothorax. Heart: Stable cardiac enlargement. Mediastinum: Unremarkable. Bones/joints: Unremarkable. Tubes, lines and devices: Right percutaneous catheter central venous catheter terminates at the junction of the middle and distal thirds of the SVC. IMPRESSION: 1. Mild vascular congestion. Stable airspace consolidation in the right base. Impr adele aeration left base. 2. Lines and tubes as above. Electronically signed by: Giuliana Peterson MD 04/29/2019 9:37 PM IMAGING NURSE Due to temporary technical issues with the PACS/Fluency reporting system, reports are being signed by the in house radiologist as a courtesy to ensure prompt reporting. The interpreting radiologist is f ully responsible for the content of the report.
[2019-04-30] MEDS: RIVAROXABAN 20 MG TABLET PO SCH (10:56)
[2019-04-30] MEDS: atenoloL 50 MG TAB PO SCH (10:57)
[2019-04-30] MEDS: HYDRALAZINE HCL 25 MG TABLET PO SCH (10:57)
[2019-04-30] MEDS: SPIRONOLACTONE 25 MG TABLET PO SCH (10:57)
[2019-04-30] MEDS: PANTOPRAZOLE 40MG TABLET PO SCH (10:57)
[2019-04-30] MEDS: ASPIRIN EC 81 MG TAB PO SCH (10:58)
[2019-04-30] MEDS: Meropenem 500 MG in NA CHLORIDE 0.9% 100 ML IV SCH ×2 (12:25→16:53)
[2019-04-30] MEDS ORDERED: ERTAPENEM NA 1 GM in NA CHLORIDE 0.9% 100 ML IVPB SCH (15:00)
[2019-04-30] MEDS: TAMSULOSIN 0.4 MG SR CAP PO SCH (20:07)
--- NOTE | 2019-04-30 21:04 | PN ---
Date of Progress Note: 04/30/2019 Subjective: Patient under hospitalist service as Dr. Mendez is out due to illness, requested h ospitalist service. Patient was admitted on the for lower extremity edema, scrotal edema. Ramya ent was seen and examined, chart reviewed and case discussed with RN. Patient currently on meropenem for ESBL E coli. States his swelling has improved. Medications: List reviewed. Code Status: Full. Physical Examination: Vital Signs: Temperature 97, heart rate 52, blood pressure 112/53, respirations 17, O2 of 95% on abdoul m air. General: Awake, alert, oriented x3. Morbidly obese, elderly male, somewhat ill-appearing. CV: S1, S2. Irregularly irregular. Peripheral pulses present. Respiratory: Moving air well bilaterally. No wheezing or stridor. Gastrointestinal: Abdomen is somewhat distended. Positive bowel sounds. No guarding or rigidity. Extremities: No clubbing or cyanosis. Patient has lower extremity edema 3+ with currently wrapped i n Ad wrap. Neuro: Nonfocal. Laboratory Data: Blood glucose levels 116. Urine culture growing out ESBL E coli. Chest x-ray from 04/29/2019, shows mild vascular congestion, stable airspace consolidation in the rig ht base, improved aeration in the left base. Lines And Tubes: As above. Assessment: 78-year-old male with. 1.Acute on chronic lymphedema. Patient has been diuresed with Lasix. We will continue diuretics. Appreciate Dr. Salas's input. Continue elevating legs when sitting. 2.Chronic venous stasis ulcerations. Appreciate Dr. Jimenez's input. Patient is undergoing wound ca re. 3.Acute cystitis without hematuria, secondary to extended-spectrum beta-lactamase Escherichia coli, currently on meropenem. Awaiting transfer to LTAC versus SNF for treatment with Invanz. 4.Diabetes mellitus type 2, non-insulin requiring with hyperglycemia. We will continue with sliding scale insulin and monitor blood glucose levels. 5.Essential hypertension, stable. 6.Atrial fibrillation, chronic, permanent. Continue Xarelto and rate control, stable. 7.Morbid obesity. BMI greater than 40. 8.Symptomatic benign prostatic hyperplasia. We will continue tamsulosin. Plan: Discharge once placement has been arranged and IV antibiotics have been arranged as outpatient . SA/MODL Voice ID: [id number] Report ID: [id number]
[2019-05-01] MEDS: Meropenem 500 MG in NA CHLORIDE 0.9% 100 ML IV SCH ×3 (00:44→16:05)
[2019-05-01 05:44] VITALS: BMI 47.7
[2019-05-01] MEDS: ASPIRIN EC 81 MG TAB PO SCH (08:26)
[2019-05-01] MEDS: RIVAROXABAN 20 MG TABLET PO SCH (08:26)
[2019-05-01] MEDS: PANTOPRAZOLE 40MG TABLET PO SCH (08:26)
[2019-05-01] MEDS: SPIRONOLACTONE 25 MG TABLET PO SCH (08:26)
[2019-05-01] MEDS: atenoloL 50 MG TAB PO SCH (08:27)
[2019-05-01] MEDS: HYDRALAZINE HCL 25 MG TABLET PO SCH (08:27)
[2019-05-01] MEDS: FUROSEMIDE 40 MG/4 ML VIAL IV SCH (08:29)
[2019-05-01 13:21] VITALS: O2SAT 92
[2019-05-01 13:26] VITALS: BP 124/67; TEMP 97.1
--- NOTE | 2019-05-02 11:19 | DS ---
Date of Discharge: 05/01/2019 Discharge Diagnoses: 1.Chronic lymphedema, improved. 2.Chronic venous stasis ulceration, undergoing wound care. 3.Acute cystitis with extended spectrum beta lactamase Escherichia coli. 4.Diet-controlled diabetes mellitus. 5.Hypertension. 6.Atrial fibrillation. 7.Morbid obesity. 8.Urinary retention needing Rayo catheter. 9.BPH. Consult: 1.Dr. Jimenez. 2.Dr. Salas. Procedure: CT of the abdomen and pelvis done on the admission date showed small right pleural effusi on. Mild ascites and significant scrotal hydrocele noted. History Of Present Illness: Please refer to admission note from Dr. Mendez. Hospital Course: Initially, the patient presented with progressive lower extremity edema. He have a history of chronic lymphedema. He presented with acute on chronic edema. Dr. Salas seen him from Cardiology. He advised to give him IV Lasix twice a day as well as Aldactone 25 mg daily. In the , the patient had wound care for his lower extremity wounds. His urine culture showed ESBL an d Dr. Jimenez was consulted and the patient was initially on meropenem and Dr. Jimenez advised to switc h him to Invanz 1 g IV for next 10 days. On initial exam, we sent the patient to long-term care [facility], but then the patient wanted to go home. Dr. Jimenez advised to check his CBC and BMP weekly on Friday. He also advised wound care to bilateral lower extremity wrap ointment over dry ar eas rubbed with cotton rolls pressure. Apply antifungal cream to the groin as well as ___ cream to bilateral buttocks. Patient had issue with urinary retention with a Rayo catheter placed. He was continued on tamsulosin. We will continue Rayo catheter and patient need to follow up with Dr. Gupta as outpatient to decide what they are going to do about his BPH. I also advised sharmin hu to follow up with Dr. Jimenez in 1 week. Follow up with primary care physician next week. Discharge Condition: Stable. Discharged Diet: Cardiac, 1800 ADA. Given patient's history of diet-controlled diabetes mellitus. Activities: As tolerated. Discharge Medications: Invanz 1 g daily, Aldactone 25 mg daily per Cardiology, Tenormin 100 mg daily , Lasix 40 mg daily, hydralazine 50 mg daily, Protonix 40 mg daily, Xarelto 20 mg daily, and Flomax 0 .4 mg daily. Discharge Condition: Stable. Discharge Diet: As above. Discharge Activity: As tolerated. Discharge Physical Examination: Vital Signs: Blood pressure is 124/67, respiratory rate 20, pulse 6 2, temperature 97.1, saturating 92%. General: Patient is alert and oriented x3, does not look in any distress. HEENT: Atraumatic, normocephalic. PERRLA. Oral mucosa is moist. Neck: Supple. No JVD. No carotid bruits. Chest: Clear to auscultation. Good air entry. Heart: Regular rate and rhythm. S1, S2 normal. No gallop or murmur. Abdomen: Soft, nontender. No masses. No hepatosplenomegaly. Obese. Positive bowel sounds. Extremities: No clubbing or cyanosis. +3 edema. Currently wrapped in Ad wrap. MAMADOU/JOSELUIS Voice ID: [id number] Report ID: [id number]
== END 2019-05-01 17:29 | disposition home or self-care (01) ==
LOC: ER 12:28 → ERHOLD 17:31 → 2ND 18:53
PROVIDERS: ADMIT Family Medicine; ATTEND Internal Medicine
DX: I89.0 Lymphedema, not elsewhere classified (principal); I83.009 Varicose veins of unspecified lower extremity with ulcer of unspecified site; L97.909 Non-pressure chronic ulcer of unspecified part of unspecified lower leg with unspecified severity; N30.00 Acute cystitis without hematuria; B96.20 Unspecified Escherichia coli [E. coli] as the cause of diseases classified elsewhere; Z16.12 Extended spectrum beta lactamase (ESBL) resistance; E11.9 Type 2 diabetes mellitus without complications; I10 Essential (primary) hypertension; I48.91 Unspecified atrial fibrillation; E66.9 Obesity, unspecified; Z68.42 Body mass index [BMI] 45.0-49.9, adult; N40.1 Benign prostatic hyperplasia with lower urinary tract symptoms; R33.8 Other retention of urine
CPT/HCPCS: 87088; 85025 ×2; 87086; 80048 ×3; 36415 ×2; 84132; 82947 ×18; 87077; 87186; 84484 ×2; 83880; 74177; 71045; 94760 ×8; 51702; 96374; 99285; Q9967; J1940 ×9; G0378 ×8; J2920; 81003; 81015; J1335

== ENCOUNTER 2019-06-21 10:33 | Inpatient (IN) | payer OTHER, BC ==
--- NOTE | 2019-06-21 11:30 | RAD REPORT ---
EXAM DESCRIPTION: CT - Ct Stroke Brain Wo Cont - 06/21/2019 11:13 am CLINICAL HISTORY: Slurred speech COMPARISON: none TECHNIQUE: Computed axial tomography of the head was obtained. All CT scans are performed using dose optimization technique as appropriate and may include automated exposure control or mA/KV adjustment according to patient size. FINDINGS: An intracranial bleed is not seen . The ventricles are normal in caliber. No extra-axial fluid collection is noted. Fluid within the sinuses/ mastoids is not seen. IMPRESSION: No acute intracranial abnormality is seen. If patient's symptoms persist MRI of the bra in would be recommended. Dr Ibarra of the emergency room was notified at 11:16 a.m. June 21, 2019
[2019-06-21 11:31] LABS: Absolute Lymphocytes (CBC) 0.7 K/uL (0.7-4.9); Basophils % 0.2 % (0-1.3); Hematocrit 43.9 % (39.6-49.0); MPV 9.5 fL (7.6-11.3); RBC Red Blood Cell Count 4.31 M/uL (4.33-5.43)
[2019-06-21 11:33] LABS: Potassium 5.5 mmol/L (3.5-5.1); Troponin (Emerg Dept Use Only) 0.03 ng/mL (0.0-0.045)
[2019-06-21 11:36] LABS: Protime INR 1.81
--- NOTE | 2019-06-21 11:45 | RAD REPORT ---
EXAM DESCRIPTION: RAD - Chest Single View - 06/21/2019 11:23 am CLINICAL HISTORY: SOB Chest pain. COMPARISON: Chest Single View dated 04/29/2019; Chest Single View dated 03/09/2019; Chest Single View dated 02/04/2019; CHEST SINGLE VIEW dated 09/16/2014 FINDINGS: Portable technique limits examination quality. Mild chronic opacity in the right lung base probably represents atelectasis. The heart is mildly mode rately enlarged with a very tortuous thoracic aorta. No displaced fractures.
[2019-06-21 12:34] LABS: Anisocytosis 1+; Blood Morphology Comment NOTED (NOT SEEN); Platelet Estimate DECR
--- NOTE | 2019-06-21 12:52 | EDPHYS ---
Physician Documentation [facility] Name: Shane Talbert Jr Age: 78 yrs Sex: Male : 1940 Arrival Date: 06/21/2019 Time: 10:36 Bed 5 Private MD: Mian De La Cruz R ED Physician Ziggy Ibarra HPI: 06/21 20:13 This 78 yrs old Male presents to ER via Wheelchair with complaints of Slurred tw4 Speech, Tired. 20:13 The patient presents to the emergency department with weakness of the entire body, tw4 generalized weakness. Onset: The symptoms/episode began/occurred today. Context: occurred at home. Associated signs and symptoms: The patient has no apparent associated signs or symptoms. Severity of symptoms: At their worst the symptoms were moderate in the emergency department the symptoms are unchanged. The patient has not experienced similar symptoms in the past. 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 - Coronavirus screen:: The patient has NOT traveled to [place] in the past 14 days. The patient has NOT had contact with known/suspected case of Coronavirus? Proceed with normal triage procedures. - Social history:: Smoking status: Patient denies any tobacco usage or history of. - Ebola Screening: : No symptoms or risks identified at this time. ROS: 20:13 Constitutional: Negative for fever, chills, and weight loss, Eyes: Negative for injury, tw4 pain, redness, and discharge, Cardiovascular: Negative for chest pain, palpitations, and edema, Respiratory: Negative for shortness of breath, cough, wheezing, and pleuritic chest pain, Abdomen/GI: Negative for abdominal pain, nausea, vomiting, diarrhea, and constipation, Back: Negative for injury and pain, MS/Extremity: Negative for injury and deformity, Skin: Negative for injury, rash, and discoloration. 20:13 Neuro: Positive for weakness, Negative for altered mental status, dizziness, gait disturbance, headache, hearing loss, loss of consciousness, numbness, seizure activity, speech changes, syncope, near syncope, tinnitus, tremor, visual changes. Exam: 20:13 Constitutional: This is a well developed, well nourished patient who is awake, alert, tw4 and in no acute distress. Head/Face: Normocephalic, atraumatic. Eyes: Pupils equal round and reactive to light, extra-ocular motions intact. Lids and lashes normal. Conjunctiva and sclera are non-icteric and not injected. Cornea within normal limits. Periorbital areas with no swelling, redness, or edema. Chest/axilla: Normal chest wall appearance and motion. Nontender with no deformity. No lesions are appreciated. Cardiovascular: Regular rate and rhythm with a normal S1 and S2. No gallops, murmurs, or rubs. Normal PMI, no JVD. No pulse deficits. Respiratory: Lungs have equal breath sounds bilaterally, clear to auscultation and percussion. No rales, rhonchi or wheezes noted. No increased work of breathing, no retractions or nasal flaring. Abdomen/GI: Soft, non-tender, with normal bowel sounds. No distension or tympany. No guarding or rebound. No evidence of tenderness throughout. Back: No spinal tenderness. No costovertebral tenderness. Full range of motion. MS/ Extremity: Pulses equal, no cyanosis. Neurovascular intact. Full, normal range of motion. Neuro: Awake and alert, GCS 15, oriented to person, place, time, and situation. Cranial nerves II-XII grossly intact. Motor strength 5/5 in all extremities. Sensory grossly intact. Cerebellar exam normal. Normal gait. Vital Signs: 10:55 Weight 136.08 kg; Height 5 ft. 9 in. (175.26 cm); Pain 0/10; ss 10:56 BP 123 / 68; Pulse 72; Resp 16; Temp 97.4; Pulse Ox 95% on R/A; hb 12:08 BP 96 / 56; Pulse 52; Resp 16; Pulse Ox 95% on R/A; tw2 13:06 BP 100 / 63; Pulse 38; tw2 14:08 BP 112 / 71; Pulse 53; Resp 16; Pulse Ox 97% on R/A; tw2 10:55 Body Mass Index 44.30 (136.08 kg, 175.26 cm) ss 13:06 provider notified. tw2 MDM: 10:46 Patient medically screened. tw4 20:13 Data reviewed: vital signs, nurses notes. Data reviewed: lab test result(s), cardiac tw4 enzymes, CBC, hepatic panel. Data interpreted: Pulse oximetry: is 93 %. Interpretation: hypoxia. Plan: O2 by NC applied. Test interpretation: by ED physician or midlevel provider: ECG, plain radiologic studies. Counseling: I had a detailed discussion with the patient and/or guardian regarding: the historical points, exam findings, and any diagnostic results supporting the discharge/admit diagnosis. Special discussion: I discussed with the patient/guardian in detail that at this point there is no indication for admission to the hospital. It is understood, however, that if the symptoms persist or worsen the patient needs to return immediately for re-evaluation. 20:20 Physician consultation: Mian De La Cruz MD regarding admission, to the telemetry unit. tw4 patient's condition, and will see patient in inpatient room. Admission orders: after a detailed discussion of the patient's condition and case, the admit orders are written by me. 06/21 10:59 Order name: Troponin (emerg Dept Use Only) tw4 06/21 10:59 Order name: Basic Metabolic Panel tw4 06/21 10:59 Order name: CBC with Diff tw4 06/21 10:59 Order name: Protime (+inr) tw4 06/21 10:59 Order name: Ptt, Activated tw4 06/21 10:59 Order name: BNP tw4 06/21 11:37 Order name: Protime (+INR); Complete Time: 12:16 EDMS 06/21 11:37 Order name: PTT, Activated Partial Thromb; Complete Time: 12:16 EDMS 06/21 11:43 Order name: Basic Metabolic Panel; Complete Time: 12:16 EDMS 06/21 11:43 Order name: Troponin (Emerg Dept Use Only); Complete Time: 12:16 EDPA 06/21 11:43 Order name: NT PRO-BNP; Complete Time: 12:16 EDPA 06/21 12:33 Order name: Manual Differential [facility] 06/21 12:41 Order name: Lactate tw 06/21 13:18 Order name: Lactate [facility] 06/21 10:59 Order name: CT Stroke Brain w/o Contrast [facility] 06/21 10:59 Order name: Stroke CXR 1 View 06/21 10:59 Order name: EKG; Complete Time: 11:01 06/21 10:59 Order name: Cardiac monitoring; Complete Time: 11:10 06/21 10:59 Order name: EKG - Nurse/Tech; Complete Time: 12:10 06/21 10:59 Order name: IV Saline Lock; Complete Time: 12:10 06/21 12:13 Order name: CT; Complete Time: 12:16 [facility] 06/21 12:14 Order name: RAD; Complete Time: 12:16 [facility] 06/21 14:03 Order name: Urine Dipstick--Ancillary (enter results) 06/21 10:59 Order name: Labs collected and sent; Complete Time: 11:10 06/21 10:59 Order name: NPO; Complete Time: 11:10 06/21 10:59 Order name: O2 Per Protocol; Complete Time: 11:10 06/21 10:59 Order name: O2 Sat Monitoring; Complete Time: 11:10 06/21 10:59 Order name: Stroke Swallow Screen; Complete Time: 12:19 06/21 13:56 Order name: Urine Dipstick-Ancillary (obtain specimen); Complete Time: 13:56 Administered Medications: 13:17 Drug: D50W 50 ml Route: IVP; Site: right antecubital; 13:56 Follow up: Response: No adverse reaction 13:19 Drug: Insulin Regular Human 10 units {Co-Signature: sv (Alicia Lr RN).} Route: tw2 IVP; Site: right antecubital; 13:56 Follow up: Response: No adverse reaction 13:22 Drug: Sodium Bicarbonate 1 amp Route: IVP; Site: right antecubital; tw2 13:55 Follow up: Response: No adverse reaction tw2 13:24 Drug: Calcium Gluconate 1 grams Route: IVPB; Infused Over: 60 mins; Site: right tw2 antecubital; 13:25 Follow up: Response: No adverse reaction; IV Status: Completed infusion tw2 14:00 Drug: Rocephin - (cefTRIAXone) 1 grams {Note: IVP available only.} Route: IVPB; Infused tw2 Over: 5 mins; Site: right antecubital; 14:07 Follow up: Response: No adverse reaction; IV Status: Completed infusion tw2 14:29 Drug: AZITHromycin 500 mg Route: IVPB; Infused Over: 1 hrs; Site: right antecubital; tw2 14:40 Follow up: IV Status: Infusion continued upon admission tw2 Disposition: 06/21/19 12:50 Hospitalization ordered by Mian De La Cruz for Inpatient Admission. Preliminary diagnosis are Weakness, Hyperkalemia, Other pneumonia, unspecified organism. - Bed requested for Telemetry/MedSurg (Inpatient). - Status is Inpatient Admission. sv - Condition is Stable. - Problem is an ongoing problem. - Symptoms are unchanged. Signatures: Dispatcher [employer] EDMS Giuliana Hernandez Stephanie, RN RN Blaire Styles RN RN Hedy Calderon RN RN tw2 Ziggy Ibarra MD MD tw4 Alicia Lr RN sv Corrections: (The following items were deleted from the chart) 12:10 10:59 Accucheck ordered. tw4 tw2 12:50 12:50 Hospitalization Ordered by Mian De La Cruz MD for Inpatient Admission. Preliminary tw4 diagnosis is Weakness. Bed requested for Telemetry/MedSurg (Inpatient). Status is Inpatient Admission. Condition is Stable. Problem is an ongoing problem. Symptoms are unchanged. tw4 13:36 12:50 06/21/2019 12:50 Hospitalization Ordered by Mian De La Cruz MD for Inpatient tw4 Admission. Preliminary diagnosis is Weakness; Hyperkalemia. Bed requested for Telemetry/MedSurg (Inpatient). Status is Inpatient Admission. Condition is Stable. Problem is an ongoing problem. Symptoms are unchanged. tw4 14:30 13:36 06/21/2019 12:50 Hospitalization Ordered by Mian De La Cruz MD for Inpatient bd Admission. Preliminary diagnosis is Weakness; Hyperkalemia; Other pneumonia, unspecified organism. Bed requested for Telemetry/MedSurg (Inpatient). Status is Inpatient Admission. Condition is Stable. Problem is an ongoing problem. Symptoms are unchanged. tw4 14:50 14:30 06/21/2019 12:50 Hospitalization Ordered by Mian De La Cruz MD for Inpatient sv Admission. Preliminary diagnosis is Weakness; Hyperkalemia; Other pneumonia, unspecified organism. Bed requested for Telemetry/MedSurg (Inpatient). Status is Inpatient Admission. Condition is Stable. Problem is an ongoing problem. Symptoms are unchanged. bd
--- NOTE | 2019-06-21 12:52 | ER ---
Nurse's Notes [facility] Name: Shane Talbert Jr Age: 78 yrs Sex: Male : 1940 Arrival Date: 06/21/2019 Time: 10:36 Bed 5 Private MD: Mian De La Cruz R Diagnosis: Weakness;Hyperkalemia;Other pneumonia, unspecified organism Presentation: 06/21 10:55 Presenting complaint: states: intermittent slurred speech and fatigue x 1 week. ss Low blood pressure last night. Transition of care: patient was not received from another setting of care. Onset of symptoms was June 14, 2019. Risk Assessment: Do you want to hurt yourself or someone else? Patient reports no desire to harm self or others. Initial Sepsis Screen: Does the patient meet any 2 criteria? No. Patient's initial sepsis screen is negative. Does the patient have a suspected source of infection? No. Patient's initial sepsis screen is negative. Care prior to arrival: None. 10:55 Method Of Arrival: Wheelchair ss 10:55 Acuity: CARMEN 3 ss Historical: - Allergies: 10:55 No Known Allergies; hb - Home Meds: 10:55 atenolol 100 mg Oral tab 1 tab once daily [Active]; furosemide 20 mg Oral tab 1 tab hb once daily [Active]; hydralazine 50 mg Oral tab daily [Active]; lisinopril-hydrochlorothiazide 20-25 mg Oral tab 1 tab once daily [Active]; metformin 500 mg Oral tab 1 tab 2 times per day [Active]; tamsulosin 0.4 mg Oral cp24 1 cap once daily [Active]; Xarelto 15 mg Oral tab daily [Active]; - PMHx: 10:55 Atrial Fib; BPH; Diabetes - NIDDM; Hypertension; lymphedema; hb - PSHx: 10:55 cataract; Tonsillectomy; 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 - Coronavirus screen:: The patient has NOT traveled to [place] in the past 14 days. The patient has NOT had contact with known/suspected case of Coronavirus? Proceed with normal triage procedures. - Social history:: Smoking status: Patient denies any tobacco usage or history of. - Ebola Screening: : No symptoms or risks identified at this time. Screenin:56 Abuse screen: Denies threats or abuse. Denies injuries from another. Nutritional hb screening: No deficits noted. Tuberculosis screening: No symptoms or risk factors identified. Fall Risk None identified. 12:19 Patient has been NPO before screening. The patient is alert, able to follow commands. tw2 The patient does not exhibit slurred or garbled speech slow in speech The patient is not exhibiting difficulty speaking. The patient is exhibiting difficulty understanding words. The patient is able to swallow own secretions with no drooling or need for suction. Patient tolerated one teaspoon of water. No drooling, immediate coughing, gurgling, or clearing of the throat was noted. The patient tolerated 90mL of water. No drooling, immediate coughing, gurgling, or clearing of the throat was noted. The patient passed the bedside swallow screening. Oral medications may be given as ordered. Contact Physician for further diet orders. Provider notified of bedside swallow screening results: Ziggy Ibarra MD. Assessment: 11:12 General: Appears in no apparent distress. Behavior is calm, cooperative. Pain: Denies hb pain. Neuro: Level of Consciousness is awake, alert, obeys commands, Oriented to person, place, time, situation. Cardiovascular: Capillary refill < 3 seconds Patient's skin is warm and dry. Respiratory: Airway is patent Respiratory effort is even, unlabored, Respiratory pattern is regular, symmetrical. GI: No signs and/or symptoms were reported involving the gastrointestinal system. : No signs and/or symptoms were reported regarding the genitourinary system. EENT: No signs and/or symptoms were reported regarding the EENT system. Derm: Skin is pink, warm \T\ dry. Musculoskeletal: No signs and/or symptoms reported regarding the musculoskeletal system. 12:09 Reassessment: Patient appears in no apparent distress at this time. No changes from tw2 previously documented assessment. Patient and/or family updated on plan of care and expected duration. Pain level reassessed. Patient is alert, oriented x 3, equal unlabored respirations, skin warm/dry/pink. 12:59 Reassessment: order for Calcium Gluconate faxed to pharmacy at this time. tw2 13:00 Reassessment: Patient appears in no apparent distress at this time. No changes from tw2 previously documented assessment. Patient and/or family updated on plan of care and expected duration. Pain level reassessed. Patient is alert, oriented x 3, equal unlabored respirations, skin warm/dry/pink. 14:08 Reassessment: Patient appears in no apparent distress at this time. No changes from tw2 previously documented assessment. Patient and/or family updated on plan of care and expected duration. Pain level reassessed. Patient is alert, oriented x 3, equal unlabored respirations, skin warm/dry/pink. Vital Signs: 10:55 Weight 136.08 kg; Height 5 ft. 9 in. (175.26 cm); Pain 0/10; ss 10:56 BP 123 / 68; Pulse 72; Resp 16; Temp 97.4; Pulse Ox 95% on R/A; hb 12:08 BP 96 / 56; Pulse 52; Resp 16; Pulse Ox 95% on R/A; tw2 13:06 BP 100 / 63; Pulse 38; tw2 14:08 BP 112 / 71; Pulse 53; Resp 16; Pulse Ox 97% on R/A; tw2 10:55 Body Mass Index 44.30 (136.08 kg, 175.26 cm) ss 13:06 provider notified. tw2 ED Course: 10:36 Patient arrived in ED. mr 10:36 Mian De La Crzu MD is Private Physician. mr 10:45 Ziggy Ibarra MD is Attending Physician. tw4 10:51 Blaire Styles, RN is Primary Nurse. hb 10:56 Arm band placed on. hb 10:56 Patient has correct armband on for positive identification. Bed in low position. Call hb light in reach. Side rails up X 1. 10:58 Triage completed. ss 11:08 Inserted saline lock: 20 gauge in right antecubital area, using aseptic technique. hb Blood collected. 12:08 Primary Nurse role handed off by Blaire Styles, RN tw2 12:08 Hedy Calderon, GRETEL is Primary Nurse. tw2 12:45 Mian De La Cruz MD is Hospitalizing Provider. tw4 14:18 Urine Dipstick--Ancillary (enter results) Sent. sv 14:18 Lactate Sent. sv 14:18 BNP Sent. sv 14:19 Troponin (emerg Dept Use Only) Sent. sv 14:19 Basic Metabolic Panel Sent. sv 14:19 Stroke CXR 1 View Sent. sv 14:19 CT Stroke Brain w/o Contrast Sent. sv 14:19 Protime (+inr) Sent. sv 14:19 Ptt, Activated Sent. sv 14:41 No provider procedures requiring assistance completed. Patient admitted, IV remains in tw2 place. Administered Medications: 13:17 Drug: D50W 50 ml Route: IVP; Site: right antecubital; tw2 13:56 Follow up: Response: No adverse reaction tw2 13:19 Drug: Insulin Regular Human 10 units {Co-Signature: gabby (Alicia Lr RN).} Route: tw2 IVP; Site: right antecubital; 13:56 Follow up: Response: No adverse reaction tw2 13:22 Drug: Sodium Bicarbonate 1 amp Route: IVP; Site: right antecubital; tw2 13:55 Follow up: Response: No adverse reaction tw2 13:24 Drug: Calcium Gluconate 1 grams Route: IVPB; Infused Over: 60 mins; Site: right tw2 antecubital; 13:25 Follow up: Response: No adverse reaction; IV Status: Completed infusion tw2 14:00 Drug: Rocephin - (cefTRIAXone) 1 grams {Note: IVP available only.} Route: IVPB; Infused tw2 Over: 5 mins; Site: right antecubital; 14:07 Follow up: Response: No adverse reaction; IV Status: Completed infusion tw2 14:29 Drug: AZITHromycin 500 mg Route: IVPB; Infused Over: 1 hrs; Site: right antecubital; tw2 14:40 Follow up: IV Status: Infusion continued upon admission tw2 Outcome: 12:50 Decision to Hospitalize by Provider. tw4 14:41 Admitted to Med/surg accompanied by tech, via stretcher, room 411, with chart, Report tw2 called to GRETEL Hinojosa 14:41 Condition: stable 14:41 Instructed on the need for admit. 14:50 Patient left the ED. Signatures: Alicia Lr, GRETEL pierre Austin Claritza mr KurtzVanessa scott, GRETEL MAJANO Blaire Styles RN RN hb Wise, Tara, RN RN tw2 Ziggy Ibarra MD MD tw4 Alicia pierre
[2019-06-21] MEDS ORDERED: INSULIN -REGULAR HUMAN 50 UNIT/0.5 ML ML ONE (13:00)
[2019-06-21] MEDS ORDERED: D50W 25 GM/50 ML SYRINGE/VIAL IV ONE ×2 (13:00→18:00)
[2019-06-21] MEDS ORDERED: CALCIUM GLUCONATE 1gm/100 ML NS (4.65 mEq/100mL) IV ONE ×2 (13:15)
[2019-06-21] MEDS ORDERED: IPRATROPIUM BROM 0.5MG/2.5ML NEB PRN (13:38)
[2019-06-21] MEDS ORDERED: ALBUTEROL 2.5 MG/3 ML NEB SOL NEB PRN (13:38)
[2019-06-21] MEDS ORDERED: CEFTRIAXONE/SWI 1gm 1 GM/10 ML SYR ONE (14:03)
[2019-06-21] MEDS ORDERED: AZITHROMYCIN IV 500 MG in NA CHLORIDE 0.9% 250 ML IVPB ONE (14:15)
[2019-06-21 15:11] VITALS: BMI 48.3
--- NOTE | 2019-06-21 15:27 | EKG ---
Test Date: 2019-06-21 Test Time: 11:33:44 Resident Services Supervisor: MICHEL MEASUREMENT RESULTS: Intervals: Rate: 63 NV: QRSD: 150 QT: 488 QTc: 499 Una: P: NV: QRS: 98 T: -64 INTERPRETIVE STATEMENTS: Atrial fibrillation Right bundle branch block T wave abnormality, consider inferolateral ischemia Abnormal ECG Compared to ECG 03/08/2019 23:27:45 no significant change from previous ECG Electronically Signed On 06-21-19 15:27:00 TRAFFIC I MANAGER by Wily Carrillo
[2019-06-21] MEDS ORDERED: PNEUMOCOCCAL VACCINE 0.5 ML IMVAC ONE (16:00)
[2019-06-21] MEDS ORDERED: D50W 25 GM/50 ML SYRINGE/VIAL IV PRN (16:03)
[2019-06-21] MEDS ORDERED: GLUCAGON 1 MG/VIAL IM PRN (16:03)
[2019-06-21] MEDS: INSULIN -REGULAR HUMAN 50 UNIT/0.5 ML ML SQ SCH ×2 (16:30→21:00)
[2019-06-21 16:34] LABS: Urine Blood NEGATIVE (NEG); Urine Glucose NEGATIVE (NEG); Urine Protein NEGATIVE (NEG)
--- NOTE | 2019-06-21 17:57 | RAD REPORT ---
EXAM DESCRIPTION: US - Renal Ultrasound-Complete - 06/21/2019 5:48 pm CLINICAL HISTORY: hydronephrosis/arf COMPARISON: Renal Ultrasound-Complete dated 03/08/2019 FINDINGS: Examination was quite limited due to patient body habitus bowel gas shadowing. The right kidney measures 11.7 x 6.8 x 5.2 cm. No hydronephrosis, focal mass or perinephric fluid. The left kidney measures 13.2 x 6.9 x 4.8 cm.. No hydronephrosis, focal mass or perinephric fluid. 3 cm benign-appearing cortical renal cyst. The urinary bladder is incompletely distended without gross abnormality seen. IMPRESSION: Unremarkable renal sonogram, however limited by body habitus and bowel gas shadowing. .
[2019-06-21] MEDS ORDERED: INSULIN -REGULAR HUMAN 50 UNIT/0.5 ML ML IV ONE (18:00)
[2019-06-21] MEDS ORDERED: ALBUTEROL 2.5 MG/3 ML NEB SOL NEB ONE (18:00)
[2019-06-21] MEDS: RIVAROXABAN 20 MG TABLET PO SCH (18:32)
[2019-06-21] MEDS: NA CHLORIDE 0.9% 1,000 ML IV SCH (18:33)
[2019-06-21] MEDS ORDERED: HOME MED 1 EA UNK (Hydralazine Hcl [Hydralazine Hcl] 50 MG) PO SCH (21:00)
[2019-06-21] MEDS: CEFTRIAXONE/SWI 1gm 1 GM/10 ML SYR IV SCH (21:27)
[2019-06-21] MEDS: TAMSULOSIN 0.4 MG SR CAP PO SCH (21:27)
[2019-06-21] MEDS: HYDRALAZINE HCL 25 MG TABLET PO SCH (21:27)
[2019-06-22 04:12] LABS: Urine Protein/Creatinine Ratio 0.18 ratio (<0.15)
[2019-06-22 05:49] LABS: Absolute Lymphocytes (CBC) 0.6 K/uL (0.7-4.9); Basophils % 0.3 % (0-1.3); Hematocrit 41.6 % (39.6-49.0); Lymphocytes % 7.7 % (15.3-44.8); MPV 9.3 fL (7.6-11.3)
[2019-06-22] MEDS: INSULIN -REGULAR HUMAN 50 UNIT/0.5 ML ML SQ SCH ×4 (07:30→21:00)
[2019-06-22] MEDS: FUROSEMIDE 20 MG TABLET PO SCH (08:50)
[2019-06-22] MEDS: HYDRALAZINE HCL 25 MG TABLET PO SCH (08:50)
[2019-06-22] MEDS ORDERED: AZITHROMYCIN IV 250 MG in NA CHLORIDE 0.9% 250 ML IVPB SCH (09:00)
[2019-06-22] MEDS ORDERED: ATENOLOL 100 MG PO SCH (09:00)
[2019-06-22] MEDS ORDERED: atenoloL 50 MG TAB PO SCH (09:00)
[2019-06-22] MEDS: CEFTRIAXONE/SWI 1gm 1 GM/10 ML SYR IV SCH ×2 (09:32→21:03)
--- NOTE | 2019-06-22 14:02 | P.CNS ---
Date of Consult: 06/22/19 Reason for Consult: RADHA , hyperkalemia Chief Complaint: AMS History of Present Illness: An 78 Yo man with PMhx of DM, Afib on Xarelto , HTn , LE lymphedema, and Hx perforated PU pt was admitted for AMS As per pt he was lethargic for 3 days, he denied taking pain medications had no similar episodes before , he is compliant with Xarelto in er BP borderline, Head CT negative , K 5.5, Cr 1.7 no NSAID or contrast exposure , vomiting , diarrhea or constipation , pt was on lasix Po daily he stated he was gaining weight and had developed scrotal edema since last month Physical exam general: AAOX3, NAD , obese Neck; Supple, No elevated JVD hear: RRR, normal S1,2 no murmur or rub Chest: CTBA, no rlaes or wheezes Abdomen: Soft ,Mild distended Nt , scrotal edema Extremities Edema +1 with upper extremity +2 RADHA on CKD III possibly due to dehydration US: no hydro, UA no prto or bld, UPC 0.1 will stop IVF this evening , considering he abdominal distension and edema Cr improved , but Bun still elevated Lymphedema stable will cont to monitor will hold lasix for now PNA cont Abx Hyperkalmeia due to RADHA reaolved HTN borderline will dc hydralazine DM as per primary Afib on xarelto Allergies No Known Allergies Allergy (Verified 04/26/19 22:42) Home Medications: Atenolol [Tenormin] 100 mg PO DAILY 04/26/19 Furosemide [Lasix*] 20 mg PO DAILY 04/26/19 Hydralazine HCl 50 mg PO BID 04/26/19 Rivaroxaban [Xarelto] 20 mg PO DAILY 04/26/19 Tamsulosin [Flomax*] 0.4 mg PO BEDTIME 04/26/19 Finasteride [Proscar*] 5 mg PO DAILY 06/22/19 - Past Medical/Surgical History Diabetic: Yes -: R leg DVT -: HTN -: cellulitis -: NIDDM -: afib -: BPH -: lymphedema -: Bilateral cataracts (2004) -: Removal of melanoma right ear -: tonsillectomy -: torn retina right eye - Family History Father Medical History: Heart disease Mother Medical History: Cancer - Social History Alcohol use: No CD- Drugs: No Caffeine use: Yes Place of Residence: Home Physical Examination Temp Pulse Resp BP Pulse Ox 96.4 F L 57 18 100/51 L 93 06/22/19 12:00 06/22/19 12:00 06/22/19 12:00 06/22/19 12:00 06/22/19 12:00
--- NOTE | 2019-06-22 15:32 | RAD REPORT ---
EXAM DESCRIPTION: US - Abdomen Exam Limited - 06/22/2019 2:48 pm CLINICAL HISTORY: evaluate for ascitis Abdominal distention COMPARISON: Renal Ultrasound-Complete dated 06/21/2019 FINDINGS: Limited abdominal sonography was performed to evaluate presence of ascites and volume. Fou r-quadrant sonography was performed. Ascites is present. Ascites is mild in overall volume. IMPRESSION: Small amount of abdominal ascites present. Volume is probably amenable to diagnostic paracentesis. Volume is not felt to be sufficient for thera peutic paracentesis.
[2019-06-22] MEDS ORDERED: IPRATROPIUM BROM 0.5MG/2.5ML NEB PRN (16:00)
[2019-06-22] MEDS ORDERED: ALBUTEROL 2.5 MG/3 ML NEB SOL NEB PRN (16:00)
[2019-06-22] MEDS: NA CHLORIDE 0.9% 1,000 ML IV SCH (16:17)
[2019-06-22] MEDS: RIVAROXABAN 20 MG TABLET PO SCH (17:42)
--- NOTE | 2019-06-22 19:06 | HP ---
Date of Admission: 06/21/2019 Chief Complaint: Weakness. History Of Present Illness: An 78-year-old male, who is known to have multiple medical problems, who was brought to the emergency room with fatigue, weakness, lack of energy, and vague symptoms. He lara d workup done. He was found to have acute on chronic renal failure with hyperkalemia. The patient i s admitted. There also was findings of atelectasis versus pneumonitis on the x-ray. The patient denied any history of chest pain. Past Medical History: Positive for chronic atrial fibrillation, benign prostatic hypertrophy with ur inary retention in the past, type 2 diabetes, hypertension, chronic lymphedema. Past Surgical History: Positive for tonsillectomy, cataract surgery, right ear surgery. Review of Systems: Patient denied any chest pain. Family History: Noncontributory. Personal History: Nonsmoker. Home Medicines: Please refer to the chart. Physical Examination: General: Revealed 78-year-old male, comfortable at rest. HEENT: Negative. Neck: Supple. JVD negative. Chest: Few scattered wheezes. Heart: Irregularity with bradycardia noted. Abdomen: Pendulous, nontender. Extremities: Bilateral pedal edema and scrotal edema noted. Laboratory: White count normal. Chem profile at admission; potassium 5.5, BUN 72, creatinine 1.78. BNP 2657. Troponin normal. Chest x-ray, atelectasis right base versus pneumonitis. Assessment: 1.Acute on chronic renal failure. 2.Atelectasis versus pneumonitis. 3.Hypertension. 4.Chronic atrial fibrillation. Plan: The patient is started on IV antibiotic and Nephrology consult has been done. Renal ultrasoun d does not show any evidence of urinary obstruction. Patient developed severe bradycardia with ateno lol, which will be on hold and the patient will be observed in regard to the ventricular response on the monitor. RRK/MODL Voice ID: [id number]
[2019-06-22] MEDS: TAMSULOSIN 0.4 MG SR CAP PO SCH (21:03)
[2019-06-22] MEDS: JUVEN PACKET PO SCH (21:03)
[2019-06-23] MEDS: INSULIN -REGULAR HUMAN 50 UNIT/0.5 ML ML SQ SCH ×4 (07:30→21:00)
[2019-06-23] MEDS: FUROSEMIDE 20 MG TABLET PO SCH (09:19)
[2019-06-23] MEDS: AZITHROMYCIN 250 MG TAB PO SCH (09:20)
[2019-06-23] MEDS: JUVEN PACKET PO SCH ×2 (09:20→22:04)
[2019-06-23] MEDS: CEFTRIAXONE/SWI 1gm 1 GM/10 ML SYR IV SCH ×2 (09:20→21:58)
[2019-06-23] MEDS: RIVAROXABAN 20 MG TABLET PO SCH (16:41)
--- NOTE | 2019-06-23 16:43 | PN ---
Date of Progress Note: 06/23/2019 Subjective: The patient was admitted with acute kidney injury, altered mental status. Physical Examination: Vital Signs: Blood pressure 112/61, pulse of 65. Patient had urine output of 650. Chest: Decreased air entry bilateral base. Heart: S1, S2. Regular. Abdomen: Morbidly obese. Extremities: Bilateral edema, lymphedema. Compression dressing bilateral. Laboratory Data: WBC 7.6, hemoglobin and hematocrit 13.4/41.6, platelets 121. Sodium 138, potassium 5, bicarb 25, BUN 72, creatinine 1.3, calcium 8.7. BNP 2800. Chest x-ray, cardiomegaly. Current Medications: The patient on: 1.Lasix 20 p.o. 2.Ceftriaxone. 3.Flomax. 4.Breathing treatment. Assessment And Plan: 1.Acute kidney injury secondary to cardiorenal slightly on the wet side. I am going to go ahead and increase Lasix to 40 mg IV and we will monitor the patient. 2.Edema, possible secondary to renal failure/cardiorenal. We will adjust diuresis. Protein and cre atinine within normal limit. We will send for TSH and we will follow up. 3.Pneumonia. Continue current antibiotic. 4.Hypertension. We will utilize the blood pressure for more diuresis. Increase Lasix. ELIZABETH/JOSELUIS Voice ID: [id number] Report ID: [id number]
[2019-06-23] MEDS: TAMSULOSIN 0.4 MG SR CAP PO SCH (21:58)
[2019-06-24 05:26] LABS: Albumin 2.6 g/dL (3.4-5.0); Phosphorus 3.5 mg/dL (2.5-4.9); Potassium 4.9 mmol/L (3.5-5.1)
[2019-06-24 05:28] LABS: Thyroid Stimulating Hormone 4.95 uIU/mL (0.360-3.740)
[2019-06-24] MEDS: INSULIN -REGULAR HUMAN 50 UNIT/0.5 ML ML SQ SCH ×2 (07:30→11:30)
[2019-06-24 08:20] VITALS: O2SAT 95
[2019-06-24] MEDS ORDERED: FUROSEMIDE 40 MG/4 ML VIAL IV SCH (09:00)
[2019-06-24] MEDS: AZITHROMYCIN 250 MG TAB PO SCH (09:11)
[2019-06-24] MEDS: CEFTRIAXONE/SWI 1gm 1 GM/10 ML SYR IV SCH (09:11)
[2019-06-24 09:47] VITALS: TEMP 96.8
[2019-06-24] MEDS ORDERED: FUROSEMIDE 40 MG/4 ML VIAL IV ONE (10:31)
--- NOTE | 2019-06-24 13:18 | PN ---
The patient is doing better. He still has considerable leg swelling. However, his kidney function i s better. His potassium is 4.9. The patient is generally doing well. I spoke to the family regardi ng future care of lymphedema as well as diuresis and other ancillary measures to reduce the swelling of the legs. RRK/MODL Voice ID: [id number] Report ID: [id number]
[2019-06-24 14:27] VITALS: BP 123/58
--- NOTE | 2019-06-24 15:47 | PN ---
Date of Progress Note: 06/24/2019 Subjective: The patient was admitted with acute kidney injury, anasarca. Physical Examination: Vital Signs: When I saw the patient, blood pressure 131/60, pulse of 68, afebrile. Patient had good urine output. No change in weight. Chest: Decreased entry bilateral base. Heart: S1, S2. Regular. Abdomen: Soft, morbidly obese. Extremities: Compression dressing, both leg. Laboratory Data: WBC 7.6, H and H 13.4/41.6, platelets 121. Sodium 139, potassium 4.9, bicarb 25, B UN 68, creatinine 1.2. GFR of 58, albumin 2.6. TSH 4.9. PC ratio 0.1. Current Medications: The patient on include: 1.Z-Shashank. 2.Ceftriaxone. 3.Flomax. 4.Lasix 40 daily. 5.Insulin. Assessment And Plan: 1.Acute kidney injury secondary to cardiorenal. Continue to recover. Still on the over volume side . I am going to keep and diuresing the patient. I am going to give the patient extra dose of Lasix today and we will monitor the patient. 2.Hypertension, controlled, optimal. Continue current treatment. We will utilize blood pressure fo r more diuresis. 3.Anasarca, minimal proteinuria, TSH marginally elevated, mostly secondary to lymphedema. Continue diuresis. We will follow up with primary. 4.Pneumonia. Continue current antibiotic. ELIZABETH/JOSELUIS Voice ID: [id number] Report ID: [id number]
--- NOTE | 2019-07-11 23:32 | DS ---
Date of Discharge: 06/24/2019 Final Diagnoses: 1.Pccof-px-lxtdjkv renal failure. 2.Hyperkalemia related to above. 3.Atelectasis/pneumonia. 4.Hypertension. 5.Chronic atrial fibrillation. 6.Chronic venous insufficiency with swelling of the legs. Hospital Course: This patient was admitted because of multiple vague symptoms. However, his lab was clearly abnormal with elevation of BUN to 72 and potassium of 5.5. The patient, after admission to the hospital was seen by Renal Service. He was put on low-potassium diet and renal ultrasound did no t show any evidence of obstruction. The patient received cautious dose of Lasix to improve his leg s welling at the same time not worsen the renal failure. The patient showed improvement with this appr [facility] and the patient was discharged home on 06/24 with the advice to stop atenolol and renal adjustme nt for the Lasix was made. He was advised to follow up in the office. Laboratory Data: Admitting white count normal. Chem-profile, potassium 5.5, BUN 72, creatinine 1.78 . Normal troponin. BNP 2657. Chest x-ray, atelectasis versus pneumonia, right base. RRK/MODL Voice ID: [id number] Report ID: [id number]
== END 2019-06-24 15:10 | disposition home health service (06) | DRG 682 ==
LOC: ER 10:33 → ERHOLD 13:37 → 4TH 14:41
PROVIDERS: ADMIT Internal Medicine; ATTEND Internal Medicine
DX: I12.9 Hypertensive chronic kidney disease with stage 1 through stage 4 chronic kidney disease, or unspecified chronic kidney disease (principal); J18.9 Pneumonia, unspecified organism; N17.9 Acute kidney failure, unspecified; Z68.42 Body mass index [BMI] 45.0-49.9, adult; J98.11 Atelectasis; E11.22 Type 2 diabetes mellitus with diabetic chronic kidney disease; N18.3 Chronic kidney disease, stage 3 (moderate); E87.5 Hyperkalemia; E66.9 Obesity, unspecified; I48.91 Unspecified atrial fibrillation; N40.0 Benign prostatic hyperplasia without lower urinary tract symptoms; I87.2 Venous insufficiency (chronic) (peripheral); Z79.01 Long term (current) use of anticoagulants
CPT/HCPCS: 36415; 70450; 71045; 71275; 74175; 76705; 76770; 80048; 80053; 80069; 80076; 80202; 81003; 81015; 82150; 82550; 82553; 82565; 82570; 82947; 83605; 83690; 83735; 83880; 84100; 84145; 84156; 84439; 84443; 84484; 84550; 85025; 85610; 85730; 87040; 93005; 93970; 94640; 94760; 96365; 96374; 96375; 97116; 97161; 97530; 99251; 99285; J0456; J0610; J0692; J0696; J1200; J1650; J1940; J2543; J3370; J7030; J7040; Q9967

== ENCOUNTER 2019-06-26 16:52 | Inpatient (IN) | payer OTHER, BC ==
[2019-06-26] MEDS ORDERED: FUROSEMIDE 20 MG/ 2ML VIAL ONE (20:30)
--- NOTE | 2019-06-26 20:44 | RAD REPORT ---
EXAM DESCRIPTION: RAD - Chest Single View - 06/26/2019 8:31 pm CLINICAL HISTORY: SOB COMPARISON: Chest Single View dated 06/21/2019; Chest Single View dated 04/29/2019; Chest Single View dated 03/09/2019; Abdomen Pelvis W Contrast dated 04/26/2019 TECHNIQUE: AP portable chest image was obtained 06/26/2019 8:31 pm . FINDINGS: Lungs are underinflated. Right hemidiaphragm elevation is present. There is chronic opacif ication at the right base. Small chronic pleural effusion is suspected. Cardiac silhouette is enlarge d. There is prominent widening in the mediastinum accentuated by rotation on this examination. This i s not clearly different from prior imaging. No pneumothorax. No acute aortic finding suspected. IMPRESSION: Limited portable study showing chronic pleural and parenchymal opacification right lung base. Cardiomegaly with enlarged mediastinal silhouette matching prior imaging.
[2019-06-26 20:59] LABS: Albumin 2.6 g/dL (3.4-5.0); Bilirubin Direct 0.6 mg/dL (0-0.2); Bilirubin Total 0.9 mg/dL (0.2-1.0); CKMB Creatine Kinase MB 4.5 ng/mL (0.3-3.6); Potassium 4.3 mmol/L (3.5-5.1); Protein, Total 7.8 g/dL (6.4-8.2); Troponin (Emerg Dept Use Only) 0.04 ng/mL (0.0-0.045)
--- NOTE | 2019-06-26 21:45 | ER ---
Nurse's Notes [facility] Name: Shane Talbert Jr Age: 78 yrs Sex: Male : 1940 Arrival Date: 06/26/2019 Time: 16:54 Bed 27 Private MD: Diagnosis: Edema, unspecified;Cellulitis and acute lymphangitis of other parts of limb-bilateral lower extremities;Obesity, unspecified;Type 2 diabetes mellitus;Pleural effusion in conditions classified elsewhere;Cardiomegaly;Unspecified combined systolic (congestive) and diastolic (congestive) heart failure;Ascites;Atrial fibrillation and flutter Presentation: 06/26 17:23 Presenting complaint: Significant other states: "he just got out of the hospital, he aj1 had pneumonia, and a high potassium, his kidneys are not working right, he's had lymphedema and cellulitis and they were oozing, but it wasn't a big issue last week but now the drainage is green, he hasn't started running temperature, but I think that's because he's been on antibiotics". Transition of care: patient was not received from another setting of care. Onset of symptoms was June 2019. Risk Assessment: Do you want to hurt yourself or someone else? Patient reports no desire to harm self or others. Initial Sepsis Screen: Does the patient meet any 2 criteria? No. Patient's initial sepsis screen is negative. Does the patient have a suspected source of infection? Yes: Skin breakdown/wound. Care prior to arrival: None. 17:23 Method Of Arrival: Wheelchair aj1 17:23 Acuity: CARMEN 3 aj1 Triage Assessment: 17:29 General: Appears in no apparent distress. comfortable, Behavior is calm, cooperative, aj1 appropriate for age. Pain: Denies pain. Neuro: Level of Consciousness is awake, alert, obeys commands. Cardiovascular: Patient's skin is warm and dry. Respiratory: Airway is patent Respiratory effort is even, unlabored, Respiratory pattern is regular, symmetrical. Historical: - Allergies: 17:29 Levaquin; aj1 - Home Meds: 17:29 finasteride 5 mg oral tab 1 tab once daily [Active]; furosemide 60 mg Oral tab 1 tab aj1 once daily [Active]; hydralazine 50 mg Oral tab daily [Active]; Xarelto 15 mg Oral tab daily [Active]; tamsulosin 0.4 mg Oral cp24 1 cap once daily [Active]; - PMHx: 17:29 Atrial Fib; BPH; Diabetes - NIDDM; Hypertension; lymphedema; aj1 - Immunization history:: Flu vaccine is up to date. - Coronavirus screen:: The patient has NOT traveled to [place] in the past 14 days. - Social history:: Smoking status: Patient/guardian denies using tobacco. - Family history:: not pertinent. - Ebola Screening: : Patient denies travel to an Ebola-affected area in the 21 days before illness onset. Screenin:00 Abuse screen: Denies threats or abuse. Denies injuries from another. Nutritional ls4 screening: No deficits noted. Tuberculosis screening: No symptoms or risk factors identified. Fall Risk None identified. Assessment: 23:57 General: Appears in no apparent distress. ls4 23:58 General: Behavior is calm, cooperative. ls4 Vital Signs: 17:29 BP 147 / 74; Pulse 67; Resp 18; Temp 97.5; Pulse Ox 95% on R/A; Weight 136.08 kg (R); aj1 Height 5 ft. 9 in. (175.26 cm) (R); Pain 0/10; 19:00 BP 133 / 66; Pulse 64; Resp 16; Pulse Ox 96% on R/A; Pain 0/10; ls4 20:00 BP 127 / 77; Pulse 68; Resp 16; Pulse Ox 95% on R/A; Pain 0/10; ls4 21:00 BP 138 / 72; Pulse 62; Resp 14; Pulse Ox 96% on R/A; Pain 0/10; ls4 17:29 Body Mass Index 44.30 (136.08 kg, 175.26 cm) aj1 ED Course: 16:54 Patient arrived in ED. as 17:27 Triage completed. aj1 17:29 Arm band placed on Patient placed in waiting room, Patient notified of wait time. aj1 19:00 Patient has correct armband on for positive identification. Bed in low position. Call ls4 light in reach. Side rails up X 1. interactive digital media specialist on. Pulse ox on. NIBP on. Warm blanket given. Pillow given. 19:00 No provider procedures requiring assistance completed. Inserted saline lock: 18 gauge ls4 in right antecubital area, using aseptic technique. Blood collected. Patient maintains SpO2 saturation greater than 95% on room air. 19:06 Elizabeth Marie RN is Primary Nurse. ls4 19:08 Darron Ivy MD is Attending Physician. ruchi 20:50 Patient admitted, IV remains in place. intact. Wound care: to cellulitis was cleaned ls4 with dressed with cling, katia wraps . 21:42 Justin Lunsford is Hospitalizing Provider. ruchi 23:09 Radiology exam delayed due to in ct, u/s completed. sg3 23:20 Urine Dipstick--Ancillary (enter results) Sent. ls4 23:20 CT Aorta for Dissection: ro dissection, pe Sent. ls4 23:21 US Extremity Venous W Compression Jeff Sent. ls4 23:21 Magnesium Sent. ls4 23:21 NT PRO-BNP Sent. ls4 23:22 Amylase, Serum Sent. ls4 23:22 Basic Metabolic Panel Sent. ls4 23:22 Blood Culture Adult (2) Sent. ls4 23:23 CBC with Diff Sent. ls4 23:23 Ckmb Sent. ls4 23:23 CPK Sent. ls4 23:28 Lactate Sent. ls4 23:29 LFT's Sent. ls4 23:29 Lipase Sent. ls4 23:29 Procalcitonin Sent. ls4 23:29 Protime (+inr) Sent. ls4 23:49 Ptt, Activated Sent. ls4 23:49 Troponin (emerg Dept Use Only) Sent. ls4 23:49 Urine Microscopic Only Sent. ls4 Administered Medications: 20:37 Drug: Lasix 20 mg Route: IVP; Site: right antecubital; ls4 21:07 Follow up: Response: No adverse reaction ls4 22:52 Drug: Zosyn 3.375 grams Route: IVPB; Infused Over: 60 mins; Site: right antecubital; ls4 23:50 Follow up: IV Status: Completed infusion; IV Intake: 100ml ls4 Intake: 23:50 IV: 100ml; Total: 100ml. ls4 Outcome: 21:44 Decision to Hospitalize by Provider. [facility] 06/27 01:12 Admitted to Tele accompanied by tech, family with patient, via wheelchair, room 401, ls4 with chart, Report called to Nathalia MAJANO Condition: stable Instructed on the need for admit. 01:18 Patient left the ED. ls4 Signatures: Claudette Morales RN RN aj1 Darron Ivy MD MD cha Martinez, Amelia as Godinez, Sarah 3 Elizabeth Marie RN RN ls4
--- NOTE | 2019-06-26 21:45 | EDPHYS ---
Physician Documentation [facility] Name: Shane Talbert Jr Age: 78 yrs Sex: Male : 1940 Arrival Date: 06/26/2019 Time: 16:54 Bed 27 Private MD: NICOLLE Physician Darron Ivy HPI: 06/26 20:13 This 78 yrs old Male presents to ER via Wheelchair with complaints of Leg ruchi Swelling - green discharge. 20:13 The patient presents with decreased range of motion, pain, swelling, tenderness. The ruchi complaints affect the right leg and left leg. Context: The problem was sustained at an unknown site. Onset: The symptoms/episode began/occurred 20 day(s) ago. Modifying factors: The symptoms are alleviated by elevating leg, the symptoms are aggravated by movement, weight bearing. Associated signs and symptoms: The patient has no apparent associated signs or symptoms. The patient presents with abdominal distention in the upper abdomen, in the lower abdomen. Onset: The symptoms/episode began/occurred 20 day(s) ago. Associated signs and symptoms: Pertinent positives: shortness of breath. Historical: - Allergies: 17:29 Levaquin; aj1 - Home Meds: 17:29 finasteride 5 mg oral tab 1 tab once daily [Active]; furosemide 60 mg Oral tab 1 tab aj1 once daily [Active]; hydralazine 50 mg Oral tab daily [Active]; Xarelto 15 mg Oral tab daily [Active]; tamsulosin 0.4 mg Oral cp24 1 cap once daily [Active]; - PMHx: 17:29 Atrial Fib; BPH; Diabetes - NIDDM; Hypertension; lymphedema; aj1 - Immunization history:: Flu vaccine is up to date. - Coronavirus screen:: The patient has NOT traveled to [place] in the past 14 days. - Social history:: Smoking status: Patient/guardian denies using tobacco. - Family history:: not pertinent. - Ebola Screening: : Patient denies travel to an Ebola-affected area in the 21 days before illness onset. ROS: 20:13 Constitutional: Negative for fever, chills, and weight loss, Eyes: Negative for injury, ruchi pain, redness, and discharge, ENT: Negative for injury, pain, and discharge, Neck: Negative for injury, pain, and swelling, Cardiovascular: Negative for chest pain, palpitations, and edema, Respiratory: Negative for shortness of breath, cough, wheezing, and pleuritic chest pain, Back: Negative for injury and pain, : Negative for injury, bleeding, discharge, and swelling, Skin: Negative for injury, rash, and discoloration, Psych: Negative for depression, anxiety, suicide ideation, homicidal ideation, and hallucinations, Allergy/Immunology: Negative for hives, rash, and allergies, Endocrine: Negative for neck swelling, polydipsia, polyuria, polyphagia, and marked weight changes, Hematologic/Lymphatic: Negative for swollen nodes, abnormal bleeding, and unusual bruising. 20:13 Abdomen/GI: Positive for abdominal distension. 20:13 MS/extremity: Positive for decreased range of motion, erythema, pain, swelling, tenderness, of the right leg and left leg. Exam: 20:13 Constitutional: This is a well developed, well nourished patient who is awake, alert, ruchi and in no acute distress. Head/Face: Normocephalic, atraumatic. Eyes: Pupils equal round and reactive to light, extra-ocular motions intact. Lids and lashes normal. Conjunctiva and sclera are non-icteric and not injected. Cornea within normal limits. Periorbital areas with no swelling, redness, or edema. ENT: Nares patent. No nasal discharge, no septal abnormalities noted. Tympanic membranes are normal and external auditory canals are clear. Oropharynx with no redness, swelling, or masses, exudates, or evidence of obstruction, uvula midline. Mucous membranes moist. Neck: Trachea midline, no thyromegaly or masses palpated, and no cervical lymphadenopathy. Supple, full range of motion without nuchal rigidity, or vertebral point tenderness. No Meningismus. Chest/axilla: Normal chest wall appearance and motion. Nontender with no deformity. No lesions are appreciated. Cardiovascular: Regular rate and rhythm with a normal S1 and S2. No gallops, murmurs, or rubs. Normal PMI, no JVD. No pulse deficits. Abdomen/GI: Soft, non-tender, with normal bowel sounds. No distension or tympany. No guarding or rebound. No evidence of tenderness throughout. Back: No spinal tenderness. No costovertebral tenderness. Full range of motion. Male : Normal genitalia with no discharge or lesions. Neuro: Awake and alert, GCS 15, oriented to person, place, time, and situation. Cranial nerves II-XII grossly intact. Motor strength 5/5 in all extremities. Sensory grossly intact. Cerebellar exam normal. Normal gait. Psych: Awake, alert, with orientation to person, place and time. Behavior, mood, and affect are within normal limits. 20:13 Respiratory: the patient does not display signs of respiratory distress, Respirations: normal, Breath sounds: are clear throughout, Respiratory rate: 18 Vital Signs: 17:29 BP 147 / 74; Pulse 67; Resp 18; Temp 97.5; Pulse Ox 95% on R/A; Weight 136.08 kg (R); aj1 Height 5 ft. 9 in. (175.26 cm) (R); Pain 0/10; 19:00 BP 133 / 66; Pulse 64; Resp 16; Pulse Ox 96% on R/A; Pain 0/10; ls4 20:00 BP 127 / 77; Pulse 68; Resp 16; Pulse Ox 95% on R/A; Pain 0/10; ls4 21:00 BP 138 / 72; Pulse 62; Resp 14; Pulse Ox 96% on R/A; Pain 0/10; ls4 17:29 Body Mass Index 44.30 (136.08 kg, 175.26 cm) 1 MDM: 19:08 Patient medically screened. [facility] 20:16 Data reviewed: vital signs, nurses notes, lab test result(s), EKG, radiologic studies, [facility] CT scan, plain films. 06/26 20:00 Order name: Amylase, Serum [facility] 06/26 20:00 Order name: Basic Metabolic Panel [facility] 06/26 20:00 Order name: Blood Culture Adult (2) [facility] 06/26 20:00 Order name: CBC with Diff [facility] 06/26 20:00 Order name: Ckmb [facility] 06/26 20:00 Order name: CPK [facility] 06/26 20:00 Order name: Lactate [facility] 06/26 20:00 Order name: LFT's [facility] 06/26 20:00 Order name: Lipase [facility] 06/26 20:00 Order name: Procalcitonin [facility] 06/26 20:00 Order name: Protime (+inr) [facility] 06/26 20:00 Order name: Ptt, Activated [facility] 06/26 20:00 Order name: Troponin (emerg Dept Use Only) [facility] 06/26 20:00 Order name: Urine Microscopic Only [facility] 06/26 20:08 Order name: Magnesium [facility] 06/26 20:08 Order name: NT PRO-BNP [facility] 06/26 21:07 Order name: Basic Metabolic Panel; Complete Time: 21:10 EDMS 06/26 21:08 Order name: Liver (Hepatic) Function; Complete Time: 21:10 EDMS 06/26 21:08 Order name: Creatine Phosphokinase; Complete Time: 21:10 EDMS 06/26 21:08 Order name: CKMB Creatine Kinase MB; Complete Time: 21:10 EDMS 06/26 21:08 Order name: Troponin (Emerg Dept Use Only); Complete Time: 21:10 EDMS 06/26 21:08 Order name: Amylase Level; Complete Time: 21:10 EDMS 06/26 21:08 Order name: Lipase; Complete Time: 21:10 [facility] 06/26 21:08 Order name: Lactate; Complete Time: 21:10 [facility] 06/26 21:29 Order name: Procalcitonin; Complete Time: 21:33 EDMS 06/26 22:05 Order name: CBC with Automated Diff [facility] 06/26 22:17 Order name: Protime (+INR); Complete Time: 23:10 EDMS 06/26 22:17 Order name: PTT, Activated Partial Thromb; Complete Time: 23:10 EDMS 06/26 22:25 Order name: NT PRO-BNP; Complete Time: 23:10 [facility] 06/26 22:25 Order name: Magnesium; Complete Time: 23:10 [facility] 06/26 20:00 Order name: Chest Single View XRAY [facility] 06/26 20:00 Order name: Cardiac monitoring; Complete Time: 23:21 [facility] 06/26 20:00 Order name: EKG - Nurse/Tech; Complete Time: 23:21 [facility] 06/26 20:00 Order name: IV Saline Lock - Large Bore; Complete Time: 23:21 [facility] 06/26 20:00 Order name: Labs collected and sent; Complete Time: 23:21 [facility] 06/26 20:00 Order name: O2 Per Protocol; Complete Time: 23:21 [facility] 06/26 20:00 Order name: O2 Sat Monitoring; Complete Time: 23:22 ls4 06/26 20:00 Order name: Urine Dipstick-Ancillary (obtain specimen); Complete Time: 23:50 ls4 06/26 20:08 Order name: EKG; Complete Time: 21:41 [facility] 06/26 20:08 Order name: IV Saline Lock [facility] 06/26 20:08 Order name: US Extremity Venous W Compression Jeff [facility] 06/26 21:35 Order name: CT Aorta for Dissection: ro dissection, pe [facility] 06/26 21:55 Order name: RAD; Complete Time: 23:10 EDMS 06/26 23:07 Order name: Urine Dipstick--Ancillary (enter results) sp 06/26 23:22 Order name: Urine Microscopic Only; Complete Time: 23:59 EDMS 06/26 23:57 Order name: Urine Dipstick-Ancillary; Complete Time: 23:59 EDMS 06/27 00:43 Order name: Manual Differential EDMS Administered Medications: 20:37 Drug: Lasix 20 mg Route: IVP; Site: right antecubital; ls4 21:07 Follow up: Response: No adverse reaction ls4 22:52 Drug: Zosyn 3.375 grams Route: IVPB; Infused Over: 60 mins; Site: right antecubital; ls4 23:50 Follow up: IV Status: Completed infusion; IV Intake: 100ml ls4 Disposition: 06/26/19 21:44 Hospitalization ordered by Justin Lunsford for Inpatient Admission. Preliminary diagnosis are Edema, unspecified, Cellulitis and acute lymphangitis of other parts of limb - bilateral lower extremities, Obesity, unspecified, Type 2 diabetes mellitus, Pleural effusion in conditions classified elsewhere, Cardiomegaly, Unspecified combined systolic (congestive) and diastolic (congestive) heart failure, Ascites, Atrial fibrillation and flutter. - Bed requested for Telemetry/MedSurg (Inpatient). - Status is Inpatient Admission. ls4 - Condition is Stable. - Problem is new. - Symptoms have improved. Signatures: Dispatcher [employer] EDMS Claudette Morales RN RN aj1 Darron Ivy MD MD cha Garcia, Cindy, RN RN cg Elizabeth Marie RN RN ls4 Cassandra Vieira lt1 Corrections: (The following items were deleted from the chart) 23:45 21:44 Hospitalization Ordered by Justin Lunsford for Inpatient Admission. Preliminary diagnosis is Edema, unspecified; Cellulitis and acute lymphangitis of other parts of limb - bilateral lower extremities; Obesity, unspecified; Type 2 diabetes mellitus. Bed requested for Telemetry/MedSurg (Inpatient). Status is Inpatient Admission. Condition is Stable. Problem is new. Symptoms have improved. ruchi 23:52 23:45 06/26/2019 21:44 Hospitalization Ordered by Justin Lunsford for Inpatient lt1 Admission. Preliminary diagnosis is Edema, unspecified; Cellulitis and acute lymphangitis of other parts of limb - bilateral lower extremities; Obesity, unspecified; Type 2 diabetes mellitus. Bed requested for Telemetry/MedSurg (Inpatient). Status is Inpatient Admission. Condition is Stable. Problem is new. Symptoms have improved. 06/27 00:01 06/26 23:52 06/26/2019 21:44 Hospitalization Ordered by Justin Lunsford for Inpatient ruchi Admission. Preliminary diagnosis is Edema, unspecified; Cellulitis and acute lymphangitis of other parts of limb - bilateral lower extremities; Obesity, unspecified; Type 2 diabetes mellitus. Bed requested for Telemetry/MedSurg (Inpatient). Status is Inpatient Admission. Condition is Stable. Problem is new. Symptoms have improved. lt1 06/27 01:18 00:01 06/26/2019 21:44 Hospitalization Ordered by Justin Lunsford for Inpatient ls4 Admission. Preliminary diagnosis is Edema, unspecified; Cellulitis and acute lymphangitis of other parts of limb - bilateral lower extremities; Obesity, unspecified; Type 2 diabetes mellitus; Pleural effusion in conditions classified elsewhere; Cardiomegaly; Unspecified combined systolic (congestive) and diastolic (congestive) heart failure; Ascites; Atrial fibrillation and flutter. Bed requested for Telemetry/MedSurg (Inpatient). Status is Inpatient Admission. Condition is Stable. Problem is new. Symptoms have improved. ruchi
[2019-06-26 22:03] LABS: Absolute Lymphocytes (CBC) 0.6 K/uL (0.7-4.9); Basophils % 0.9 % (0-1.3); Hematocrit 42.2 % (39.6-49.0); Lymphocytes % 11.1 % (15.3-44.8); MPV 8.9 fL (7.6-11.3); RBC Red Blood Cell Count 4.17 M/uL (4.33-5.43)
[2019-06-26 22:11] LABS: Protime INR 1.19
[2019-06-26] MEDS ORDERED: PIPER/TAZO/NS 3.375gm 3.375 GM/100 ML BAG ONE (22:34)
--- NOTE | 2019-06-26 23:19 | P.HP ---
Certification for Inpatient Patient admitted to: Inpatient With expected LOS: >2 Midnights Practitioner: I am a practitioner with admitting privileges, knowledge of patient current condition, hospital course, and medical plan of care. Services: Services provided to patient in accordance with Admission requirements found in Title 42 Section 412.3 of the Code of Federal Regulations Patient History Date of Service: 06/26/19 Reason for admission: Increased bilateral lower extremity swelling and weeping sores History of Present Illness: 78-year-old gentleman with a history of chronic lower extremity lymphedema, diabetes mellitus type 2 and atrial fibrillation presented to the ED with a complaint of increased bilateral lower extremity swelling. Patient has both legs in a lymphedema wrap. He stated both his legs were oozing pus, followed by clear yellow to greenish discharge when they were unwrapped today. He was then referred to the emergency department for evaluation. The patient was here about 4 days ago for hyperkalemia and acute renal failure. He was seen by nephrology, treated with IV hydration and discharged to home a couple of days ago. He has scrotal edema which the patient stated has gotten better. Today his serum creatinine is normal. He has a history of severe pulmonary hypertension and cor pulmonale. He is admitted for further management. Allergies levofloxacin [From Levaquin] Allergy (Verified 06/27/19 01:27) Hives Home Medications: Furosemide [Lasix*] 60 mg PO DAILY 04/26/19 Hydralazine HCl 50 mg PO BID 04/26/19 Rivaroxaban [Xarelto] 20 mg PO DAILY 04/26/19 Tamsulosin [Flomax*] 0.4 mg PO BEDTIME 04/26/19 Finasteride [Proscar*] 5 mg PO DAILY 06/22/19 - Past Medical/Surgical History Diabetic: Yes -: R leg DVT -: HTN -: cellulitis -: NIDDM -: afib -: BPH -: lymphedema -: Bilateral cataracts (2004) -: Removal of melanoma right ear -: tonsillectomy -: torn retina right eye - Family History Father -: Heart disease Mother -: Cancer - Social History Alcohol use: No CD- Drugs: No Caffeine use: Yes Review of Systems Other: Except as documented, all other systems reviewed and negative. Physical Examination - Physical Exam General: Alert, In no apparent distress, Oriented x3, Obese HEENT: Mucous membr. moist/pink, Sclerae nonicteric Neck: Supple, JVD not distended Respiratory: Clear to auscultation bilaterally, Normal air movement Cardiovascular: Normal S1 S2, Edema (3+ bilateral lower extremity edema), Irregular heart rate/rhythm Capillary refill: <2 Seconds Gastrointestinal: Normal bowel sounds, Soft and benign, Non-distended, No tenderness Musculoskeletal: Other (Bilateral lower extremity lymphedema) Integumentary: Other (Weeping sores on bilateral lower extremity) Neurological: Normal speech, Normal strength at 5/5 x4 extr, Cranial nerves 3- 12 intact - Studies Laboratory Data (last 24 hrs) 06/26/19 21:48: Magnesium 2.0 06/26/19 21:48: PT 13.9 H, INR 1.19, APTT 34.0 06/26/19 21:48: WBC 5.6 D, Hgb 13.5 L, Hct 42.2, Plt Count 136 L 06/26/19 20:06: Sodium 142, Potassium 4.3, BUN 46 H D, Creatinine 0.93, Glucose 112 H, Total Bilirubin 0.9, AST 56 H, ALT 43, Alkaline Phosphatase 217 H, Amylase 76, Lipase 329 Assessment and Plan - Problems (Diagnosis) (1) Cellulitis, leg Onset Date: 09/15/14 Current Visit: No Status: Acute (2) Chronic venous hypertension (idiopathic) with ulcer of right lower extremity Current Visit: No Status: Acute (3) Chronic cor pulmonale Current Visit: Yes Status: Chronic (4) DM type 2 (diabetes mellitus, type 2) Current Visit: Yes Status: Acute (5) Chronic atrial fibrillation Current Visit: Yes Status: Acute (6) Morbid obesity Current Visit: Yes Status: Acute - Plan Admit to medical. Treat lower extremity edema with IV Lasix. Keep lower extremities elevated. Follow venous Doppler of lower extremities result IV Rocephin and vanco Aggressive blood sugar control-insulin sliding scale. Local wound care Consult to wound care team. Monitor renal function. - Advance Directives Does patient have a Living Will: No Does patient have a Durable POA for Healthcare: No
[2019-06-26 23:21] LABS: Urine Bacteria <20 /HPF (NONE SEEN); Urine RBC NONE SEEN /HPF (NONE SEEN)
[2019-06-26 23:56] LABS: Urine Blood NEGATIVE (NEG); Urine Glucose NEGATIVE (NEG); Urine Protein NEGATIVE (NEG); Urine Specific Gravity 1.015 (1.005-1.030)
[2019-06-27] MEDS ORDERED: VANCOMYCIN 1.25 GM in NA CHLORIDE 0.9% 250 ML IVPB SCH (00:18)
[2019-06-27] MEDS ORDERED: Levofloxacin 750mg IV 750 MG/150 ML BAG IV SCH (00:18)
[2019-06-27] MEDS ORDERED: ALBUTEROL 2.5 MG/3 ML NEB SOL NEB PRN (00:18)
[2019-06-27 00:42] LABS: Blood Morphology Comment NOT SEEN (NOT SEEN); Platelet Estimate ADEQ
[2019-06-27 01:24] VITALS: BMI 49.6
[2019-06-27] MEDS ORDERED: VANCOMYCIN 1 GM/VIAL ONE ×2 (01:58→02:21)
[2019-06-27] MEDS ORDERED: VANCOMYCIN 500 MG/VIAL ONE (01:59)
[2019-06-27 02:24] LABS: Thyroid Stimulating Hormone 4.25 uIU/mL (0.360-3.740)
[2019-06-27] MEDS: VANCOMYCIN 2 GM in NA CHLORIDE 0.9% 500 ML IVPB SCH ×2 (02:25→21:29)
[2019-06-27] MEDS ORDERED: NA CHLORIDE 0.9% 0 ML ONE (02:25)
[2019-06-27] MEDS ORDERED: NA CHLORIDE 0.9% 500 ML ONE (02:29)
[2019-06-27 03:01] LABS: Urine Appearance CLEAR; Urine Bilirubin NEGATIVE (NEG); Urine Blood NEGATIVE (NEG); Urine Color YELLOW; Urine Glucose NEGATIVE (NEG); Urine Protein NEGATIVE (NEG); Urine Specific Gravity >=1.030 (1.005-1.030)
[2019-06-27 03:07] LABS: Urine Microscopic Reflex NO UMIC
[2019-06-27 06:34] LABS: Absolute Lymphocytes (CBC) 0.5 K/uL (0.7-4.9); Basophils % 0.5 % (0-1.3); Hematocrit 39.9 % (39.6-49.0); Lymphocytes % 11.9 % (15.3-44.8); MPV 8.8 fL (7.6-11.3); RBC Red Blood Cell Count 3.94 M/uL (4.33-5.43)
[2019-06-27 07:07] LABS: Magnesium 2.1 mg/dL (1.8-2.4); Phosphorus 2.8 mg/dL (2.5-4.9); Potassium 3.5 mmol/L (3.5-5.1)
[2019-06-27] MEDS: INSULIN -REGULAR HUMAN 50 UNIT/0.5 ML ML SQ SCH ×4 (07:30→21:00)
--- NOTE | 2019-06-27 07:45 | EKG ---
Test Date: 2019-06-26 Test Time: 23:46:42 Audio Visual Facilities Engineer: RIZWANT MEASUREMENT RESULTS: Intervals: Rate: 64 MT: QRSD: 148 QT: 440 QTc: 453 [place]: P: MT: QRS: 92 T: -53 INTERPRETIVE STATEMENTS: Atrial fibrillation Right bundle branch block T wave abnormality, consider lateral ischemia Abnormal ECG Compared to ECG 06/21/2019 11:33:44 No significant changes Electronically Signed On 06-27-19 07:44:30 BONDING AND COMPOSITE FABRICATOR by Riccardo Salas
[2019-06-27] MEDS ORDERED: POTASSIUM CL SA 10 MEQ TAB PO ONE (08:00)
[2019-06-27] MEDS: FUROSEMIDE 40 MG/4 ML VIAL IV SCH ×2 (08:56→17:06)
[2019-06-27] MEDS ORDERED: ENOXAPARIN 40 MG/0.4 ML SQ SCH (09:00)
--- NOTE | 2019-06-27 09:57 | RAD REPORT ---
EXAM DESCRIPTION: USExtrem Venous W Compress Bil06/26/2019 11:10 pm CLINICAL HISTORY: Bilateral leg swelling COMPARISON: 2019 FINDINGS: The common femoral, superficial femoral, popliteal and posterior tibial veins bilaterally are compressible and demonstrate augmentation. Doppler demonstrates good flow. Edema is present within the subcutaneous tissues IMPRESSION: No evidence of deep venous thrombosis involving either lower extremity.
--- NOTE | 2019-06-27 11:09 | PN ---
Date of Progress Note: 06/27/2019 Subjective: Patient is seen and examined. Chart reviewed and case discussed with RN. Patient is co mplaining of some swelling of his legs. Code Status: Full. Medications: List reviewed. Physical Examination: Vital Signs: Temperature 97, heart rate 61, blood pressure 119/65, respirations 20, O2 of 93% on abdoul m air. General: Awake, alert, oriented x3. Elderly male, morbidly obese, in some mild distress. CV: S1, S2. Regular rate and rhythm. Peripheral pulses present. Respiratory: Moving air well bilaterally. No wheezing or stridor. Gastrointestinal: Abdomen is soft, nontender, nondistended. Positive bowel sounds. Extremities: No clubbing or cyanosis. Patient has lower extremity edema. Skin: Erythema of the bilateral lower extremities. Neuro: Cranial nerves 2 through 12 intact grossly. No focal neurological deficit. Speech is normal . Laboratory Data: Sodium 143, potassium 3.5, chloride 108, CO2 of 26, BUN 41, creatinine 0.88, glucos e 103, calcium 8.4, phosphorus 2.8, magnesium 2.1. WBC 4.5, H and H are 13 and 39.9, platelets 130. Blood cultures are pending. Imaging Studies: Venous doppler of lower extremities still pending. CT scan shows no evidence of in tra-atrial filling defect to suggest acute or chronic pulmonary embolism or aortic dissection. Ascen ding thoracic aorta is borderline, dilated, small right pleural effusion with right basilar consolida tion, likely due to atelectasis. Hazy ground-glass opacification bilaterally, which is nonspecific a nd may be related to edema, cardiomegaly, diffuse infiltration of the subcutaneous fat along the post erolateral lower chest wall consistent with edema. CTA of the abdomen and pelvis, no evidence of abd ominal aortic aneurysm, aortic dissection. Small bilateral renal cyst, small amount of ascites, infi ltration of the subcutaneous fat consistent with anasarca. Mild prostatic enlargement. Mild likely chronic superior endplate compression fracture of L4. Assessment And Plan: 78-year-old male with: 1.Cellulitis of the bilateral lower extremities. Continue with IV antibiotics. Follow up on cultur es. Continue with wound care. 2.Chronic venous hypertension with ulceration of the lower extremities. Continue with antibiotics a nd elevate lower extremities. [facility] to be consulted in a.m. 3.Chronic cor pulmonale. 4.Diabetes mellitus type 2, non-insulin requiring with hyperglycemia. We will continue with sliding scale insulin. Monitor blood glucose levels. 5.Chronic atrial fibrillation, permanent. Continue with Xarelto. Discontinue Lovenox. 6.Morbid obesity. BMI 49.6. We will add cefepime for gram-negative coverage. We will turn over e service to Dr. Ann, hospitalist service covering this weekend. /JOSELUIS Voice ID: [id number] Report ID: [id number]
[2019-06-27] MEDS ORDERED: CEFEPIME 2 GM in NA CHLORIDE 0.9% 100 ML IV SCH (21:00)
[2019-06-27] MEDS ORDERED: HOME MED 1 EA UNK (Hydralazine Hcl [Hydralazine Hcl] 50 MG) PO SCH (21:00)
[2019-06-27] MEDS: TAMSULOSIN 0.4 MG SR CAP PO SCH (21:36)
[2019-06-27] MEDS: HYDRALAZINE HCL 25 MG TABLET PO SCH (21:36)
[2019-06-27] MEDS ORDERED: DIPHENHYDRAMINE 50 MG/ML VIAL IV ONE (22:15)
[2019-06-27] MEDS ORDERED: DIPHENHYDRAMINE 50 MG/ML VIAL ONE (22:25)
[2019-06-28 04:16] LABS: Absolute Lymphocytes (CBC) 0.6 K/uL (0.7-4.9); Basophils % 1.2 % (0-1.3); Hematocrit 38.9 % (39.6-49.0); Lymphocytes % 12.9 % (15.3-44.8); MPV 9.1 fL (7.6-11.3); RBC Red Blood Cell Count 3.88 M/uL (4.33-5.43)
[2019-06-28 04:42] LABS: Albumin 2.2 g/dL (3.4-5.0); Bilirubin Total 1.1 mg/dL (0.2-1.0); Potassium 3.7 mmol/L (3.5-5.1); Protein, Total 6.6 g/dL (6.4-8.2)
[2019-06-28] MEDS ORDERED: POTASSIUM 25 MEQ EFFERV TAB PO ONE (05:26)
[2019-06-28] MEDS: INSULIN -REGULAR HUMAN 50 UNIT/0.5 ML ML SQ SCH ×4 (07:30→20:55)
[2019-06-28] MEDS: FINASTERIDE 5 MG TAB PO SCH (09:12)
[2019-06-28] MEDS: RIVAROXABAN 20 MG TABLET PO SCH (09:12)
[2019-06-28] MEDS: FUROSEMIDE 40 MG/4 ML VIAL IV SCH ×2 (09:16→17:24)
[2019-06-28] MEDS: HYDRALAZINE HCL 25 MG TABLET PO SCH ×2 (09:17→20:54)
--- NOTE | 2019-06-28 12:10 | RAD REPORT ---
EXAM DESCRIPTION: CT - Angio Aorta For Dissection - 06/26/2019 10:51 pm CLINICAL HISTORY: 78-year-old male with chest pain, rule out dissection. TECHNIQUE: CT imaging of the chest, abdomen and pelvis with intravenous contrast administration. Sag ittal and coronal reconstructed images were performed. No MIP or 3-D images were obtained for this st y. The CT study is performed according to ALARA (as low as reasonably achievable) or ALARA/[employer], with automatic adjustment of mA and/or kV according to patient size. Performed on: 06/26/2019 at 10:04 PM COMPARISON: None FINDINGS: CHEST: Lungs: The lungs are well expanded. There is hazy groundglass opacification bilaterally which is nons pecific and may be related to edema. There is a small right pleural effusion and right basilar consol idation likely due to atelectasis. Heart: The heart is enlarged. There is no pericardial effusion. Mediastinum: The mediastinum is unremarkable. The ascending aorta measures approximately 4.1 x 3.8 cm in cross-sectional diameter and is borderline dilated. There is no evidence of aortic dissection. Pulmonary arteries are normal in caliber and contour. No definite intra-arterial filling defects are identified to suggest acute or chronic pulmonary emboli. There are moderate coronary artery calcifica tions. Bones: No acute osseous abnormalities are identified. There are degenerative changes along the thorac ic spine. Soft tissues: There is diffuse infiltration of the subcutaneous fat particularly along the posterior lateral lower chest wall. Lymphadenopathy: No pathologic hilar, mediastinal or axillary lymphadenopathy is identified. ABDOMEN/PELVIS: Liver: The liver is normal in size and configuration. No focal hepatic abnormalities are identified. Liver attenuation is within normal limits. Spleen: The spleen is normal is size, configuration and attenuation. Gallbladder and bile duct: The gallbladder is well distended and unremarkable. There is no biliary ductal dilatation. Pancreas: The pancreas is grossly normal in size and configuration. Adrenal Glands: The adrenal glands are normal in size and configuration. Kidneys: The kidneys are normal in size and configuration. There is no evidence of hydronephrosis. Th ere is no evidence of nephrolithiasis. There are a diffuse small bilateral renal hypodense mass lesio ns most consistent with renal cysts. There is stranding of the perinephric fat bilaterally which is n onspecific but can be seen with chronic medical renal disease. Stomach: The stomach is grossly normal. There is a very small hiatal hernia. Bowel: The bowel gas pattern is non specific and non obstructive. Appendix: The appendix is not well visualized on this examination. Free air: There is no evidence of free air. Free fluid: There is a small amount of ascites best appreciated surrounding the liver and spleen and in the right lower quadrant. Vasculature: The aorta is normal in caliber and contour without evidence of aneurysm or dissection. T he celiac artery and superior mesenteric artery are patent and are unremarkable. The inferior mesente marni artery is patent. The renal arteries are patent bilaterally and are grossly unremarkable. The com mon iliac arteries are patent and are normal in caliber and contour. There are atherosclerotic calcif ications along the abdominal aorta and iliac arteries. The inferior vena cava is grossly unremarkable . Lymphadenopathy: No pathologic lymphadenopathy is identified. Bladder: The bladder is partially distended and smooth in contour. Reproductive: The prostate gland is mildly enlarged and measures approximately 5.4 x 4.5 cm in cross- sectional diameter. Bones: No acute osseous abnormalities are identified. There are degenerative changes along the thorac ic spine. There is a mild, likely chronic superior endplate compression fracture along the superior e ndplate of L4. Soft tissues: There is diffuse infiltration of the subcutaneous fat consistent with anasarca. IMPRESSION: CTA chest: 1. No evidence of intra-arterial filling defect to suggest acute or chronic pulmonary embolism or aor tic dissection. The ascending thoracic aorta is borderline dilated. 2. Small right pleural effusion with right basilar consolidation likely due to atelectasis. 3. Hazy groundglass opacification bilaterally which is nonspecific and may be related to edema. 4. Cardiomegaly. 5. Diffuse infiltration of the subcutaneous fat along the posterior lateral lower chest wall consiste nt with edema. CTA abdomen and pelvis: 1. No evidence of abdominal aortic aneurysm or aortic dissection. 2. Small bilateral renal cysts. 3. Small amount of ascites. 4. Infiltration of the subcutaneous fat consistent with anasarca. 5. Mild prostatic enlargement. 6. Mild, likely chronic superior endplate compression fracture of L4. Electronically signed by: Kyung Mora DO 06/26/2019 11:32 PM FAX MACHINE OPERATOR Due to temporary technical issues with the PACS/Fluency reporting system, reports are being signed by the in house radiologist as a courtesy to ensure prompt reporting. The interpreting radiologist is f ully responsible for the content of the report.
[2019-06-28] MEDS: VANCOMYCIN 2 GM in NA CHLORIDE 0.9% 500 ML IVPB SCH (13:57)
[2019-06-28] MEDS ORDERED: ACETIC ACID 0.25% IRRIG IRR ONE (20:00)
[2019-06-28] MEDS: TAMSULOSIN 0.4 MG SR CAP PO SCH (20:53)
[2019-06-29] MEDS: SILVER SULFADIAZINE 1% 25 GM TOP SCH ×3 (05:15→21:00)
[2019-06-29 06:40] LABS: Potassium 3.7 mmol/L (3.5-5.1)
[2019-06-29] MEDS: INSULIN -REGULAR HUMAN 50 UNIT/0.5 ML ML SQ SCH ×4 (07:30→21:00)
[2019-06-29] MEDS: VANCOMYCIN 2 GM in NA CHLORIDE 0.9% 500 ML IVPB SCH (08:00)
--- NOTE | 2019-06-29 08:41 | PN ---
The patient is afebrile. However, there is extensive cellulitis of the legs. I spoke to the wound c are service and they started local wound care treatment; however, the patient is going to need long-t erm care for antibiotic as well as wound care. Consult with Social Service will be done in that rega rd. The patient meanwhile is doing well without any fever. MARIMAR/JOSELUIS Voice ID: [id number] Report ID: [id number]
[2019-06-29] MEDS ORDERED: POTASSIUM CL SA 10 MEQ TAB PO ONE (09:00)
[2019-06-29] MEDS: RIVAROXABAN 20 MG TABLET PO SCH (09:30)
[2019-06-29] MEDS: FUROSEMIDE 40 MG/4 ML VIAL IV SCH ×2 (09:30→16:35)
[2019-06-29] MEDS: FINASTERIDE 5 MG TAB PO SCH (09:30)
[2019-06-29] MEDS: HYDRALAZINE HCL 25 MG TABLET PO SCH ×2 (09:30→21:53)
[2019-06-29] MEDS ORDERED: ALBUTEROL 2.5 MG/3 ML NEB SOL NEB PRN (18:00)
[2019-06-29] MEDS: TAMSULOSIN 0.4 MG SR CAP PO SCH (21:53)
[2019-06-30] MEDS: VANCOMYCIN 2 GM in NA CHLORIDE 0.9% 500 ML IVPB SCH (02:00)
[2019-06-30 06:50] LABS: Potassium 4.2 mmol/L (3.5-5.1)
[2019-06-30] MEDS: INSULIN -REGULAR HUMAN 50 UNIT/0.5 ML ML SQ SCH ×4 (07:30→22:06)
[2019-06-30] MEDS: HYDRALAZINE HCL 25 MG TABLET PO SCH ×2 (08:55→22:05)
[2019-06-30] MEDS: FINASTERIDE 5 MG TAB PO SCH (08:55)
[2019-06-30] MEDS: FUROSEMIDE 40 MG/4 ML VIAL IV SCH ×2 (08:55→16:40)
[2019-06-30] MEDS: SILVER SULFADIAZINE 1% 25 GM TOP SCH ×2 (08:57→21:00)
--- NOTE | 2019-06-30 12:08 | PN ---
The patient is doing well. His vancomycin level is elevated. There is still oozing and swelling of the legs. The patient very likely will need a long-term management of these issues and tomorrow, as per the nurse, long-term facility people will visit him to see whether he is eligible and agreeable p er the plan. His labs overall look satisfactory with a BUN of 36, creatinine 1.19, potassium normal. RRK/MODL Voice ID: [id number] Report ID: [id number]
[2019-06-30] MEDS ORDERED: VANCOMYCIN 2 GM in NA CHLORIDE 0.9% 500 ML IVPB SCH (15:00)
[2019-06-30] MEDS: RIVAROXABAN 20 MG TABLET PO SCH (16:39)
[2019-06-30] MEDS: TAMSULOSIN 0.4 MG SR CAP PO SCH (22:00)
[2019-07-01] MEDS: INSULIN -REGULAR HUMAN 50 UNIT/0.5 ML ML SQ SCH ×4 (07:30→21:00)
[2019-07-01] MEDS: SILVER SULFADIAZINE 1% 25 GM TOP SCH ×2 (09:00→21:11)
[2019-07-01] MEDS: FINASTERIDE 5 MG TAB PO SCH (09:21)
[2019-07-01] MEDS: HYDRALAZINE HCL 25 MG TABLET PO SCH ×2 (09:21→21:11)
[2019-07-01] MEDS: FUROSEMIDE 40 MG/4 ML VIAL IV SCH ×2 (09:21→18:10)
[2019-07-01] MEDS: VANCOMYCIN/NS 1 gm 1 GM/250 ML BAG IV SCH (09:24)
--- NOTE | 2019-07-01 12:54 | PN ---
Patient's legs look slightly better. There is still watery oozing, but there is no foul smell or yel lowish discoloration. Patient is to be seen by LTAC facility to see whether he will be eligible for long-term care. MARIMAR/JOSELUIS Voice ID: [id number] Report ID: [id number]
[2019-07-01] MEDS: RIVAROXABAN 20 MG TABLET PO SCH (18:10)
[2019-07-01] MEDS: TAMSULOSIN 0.4 MG SR CAP PO SCH (21:11)
[2019-07-02] MEDS: INSULIN -REGULAR HUMAN 50 UNIT/0.5 ML ML SQ SCH ×2 (07:30→11:30)
[2019-07-02] MEDS: VANCOMYCIN/NS 1 gm 1 GM/250 ML BAG IV SCH (10:24)
[2019-07-02] MEDS: FUROSEMIDE 40 MG/4 ML VIAL IV SCH (10:27)
[2019-07-02 10:28] VITALS: O2SAT 94
[2019-07-02] MEDS: FINASTERIDE 5 MG TAB PO SCH (10:28)
[2019-07-02] MEDS: HYDRALAZINE HCL 25 MG TABLET PO SCH (10:28)
[2019-07-02 12:17] VITALS: BP 116/62; TEMP 96.9
--- NOTE | 2019-07-02 12:53 | PN ---
Subjective: Patient refused to go to [facility]. He wants to follow up in the [facility]. T he patient will be discharged on IV antibiotic as an outpatient. He will be rechecked on Friday and if stable will receive oral antibiotic and he will follow up with the lymphedema clinic in [facility]. Meanwhile, the patient was told about continuing the maintenance medication. MARIMAR/JOSELUIS Voice ID: [id number] Report ID: [id number]
--- NOTE | 2019-07-05 15:04 | RAD REPORT ---
EXAM DESCRIPTION: RAD - Chest Single View - 07/02/2019 1:20 am CLINICAL HISTORY: PICC Placement TECHNIQUE: Single frontal view of the chest is submitted. COMPARISON: 04/29/2019 FINDINGS: Heart: The cardiothoracic silhouette is enlarged, stable. Lungs: Mild central pulmonary vascular and interstitial prominence. Patchy right basilar opacificatio n. Mediastinum: Thoracic aortic atherosclerosis. Pleura: Blunting of the right costophrenic angle. Bones: Intact Upper abdomen: Unremarkable Other: Right upper extremity PICC tip projects over the mid superior vena cava. IMPRESSION: 1. Right upper extremity PICC tip projects over the mid superior vena cava. 2. Findings which may be related to mild pulmonary congestion including possible small right pleura l effusion. Superimposed infection not excluded. Electronically signed by: Lacie Gomez MD 07/01/2019 11:03 PM SENIOR GL ACCOUNTANT Due to temporary technical issues with the PACS/Fluency reporting system, reports are being signed by the in house radiologist as a courtesy to ensure prompt reporting. The interpreting radiologist is f ully responsible for the content of the report.
--- NOTE | 2019-07-11 23:08 | DS ---
Date of Discharge: 07/02/2019 Final Diagnoses: 1.Cellulitis, both legs. 2.Chronic venous insufficiency. 3.Morbid obesity. 4.Chronic atrial fibrillation. 5.Chronic renal insufficiency. 6.Type 2 diabetes. Hospital Course: This patient was admitted because of evidence of cellulitis of the legs. The patie nt after admission to the hospital was started on IV vancomycin. The patient was restarted on his me dication including Lasix. The patient had elevation of the leg and local treatment of the legs. The patient, however had significant the swelling as well as redness. The patient needed outpatient IV antibiotic. The patient was discharged on IV vancomycin and the patient was advised to follow up in the office as well as [facility] for further care. Laboratory Data: White count 5.6, BUN 46, creatinine 0.9. PT, PTT normal. Magnesium 2.0. Chest x-ray, no evidence of pneumonia. RRK/MODL Voice ID: [id number] Report ID: [id number]
== END 2019-07-02 14:10 | disposition home health service (06) | DRG 603 ==
LOC: ER 16:52 → ERHOLD 23:32 → 4TH 06-27 00:04
PROVIDERS: ADMIT Internal Medicine; ATTEND Internal Medicine
DX: L03.116 Cellulitis of left lower limb (principal); I48.20 Chronic atrial fibrillation, unspecified; Z68.42 Body mass index [BMI] 45.0-49.9, adult; I87.311 Chronic venous hypertension (idiopathic) with ulcer of right lower extremity; L03.115 Cellulitis of right lower limb; I27.81 Cor pulmonale (chronic); E66.01 Morbid (severe) obesity due to excess calories; E11.9 Type 2 diabetes mellitus without complications; I10 Essential (primary) hypertension
CPT/HCPCS: 36415; 71045; 71275; 74175; 80048; 80053; 80076; 80202; 81003; 81015; 82150; 82550; 82553; 82565; 82947; 83605; 83690; 83735; 83880; 84100; 84145; 84439; 84443; 84484; 85025; 85610; 85730; 87040; 93005; 93970; 94760; 96365; 96375; 97116; 97161; 97530; 99251; 99285; J0692; J1200; J1650; J1940; J2543; J3370; J7030; J7040; Q9967

== ENCOUNTER 2019-09-10 05:12 | Inpatient (IN) | payer OTHER, BC ==
--- OUTSIDE RECORDS SUMMARY | 2019-09-10 05:15 | XMS REPORT | Clinical Summary ---
:1940 Author Organization [facility] Address [address] [place] [address] Care Team Providers Name Role Phone Micheline Bond MD Primary Care Provider [phone] Allergies Active Allergy Reactions Severity Noted Date Comments Levofloxacin Rash Low 07/08/2019 Medications Medication Sig Dispensed Refills Start Date End Date Status hydrALAZINE Take 50 mg by 0 Acti ve (APRESOLINE) 50 mouth 2 (two) MG tablet times a day. tamsulosin Take 0.4 mg 0 Active (FLOMAX) 0.4 mg by mouth capsule daily with dinner. rivaroxaban Take 20 mg by 0 Acti ve (XARELTO) 20 mg mouth daily. tablet finasteride Take 5 mg by 0 Activ e (PROSCAR) 5 mg mouth daily. tablet freestyle 28 Check glucose 100 each 1 07/19/2019 Ac tive gauge once a day. lancetsIndication s: Pre-diabetes FREESTYLE TEST Check glucose 100 strip 1 07/19/2019 Active strip test once a day. stripsIndications : Pre-diabetes furosemide TAKE 1 TABLET 30 tablet 2 08/23/2019 Acti ve (LASIX) 20 mg BY MOUTH tablet EVERY MORNING furosemide Take 20 mg by 0 Disco ntinued (LASIX) 20 mg mouth 3 0 (Reord er) tablet (three) times a day. furosemide Take 1 tablet 90 tablet 1 07/19/2019 Disc ontinued (LASIX) 20 mg (20 mg total) 0 tablet by mouth 3 (three) times a day. Active Problems Not on file Encounters Date Type Specialty Care Team Description 08/23/2019 Refill Family Medicine Micheline Bnod MD 08/03/2019 Travel 08/02/2019 Travel 08/02/2019 Telephone Family Medicine Micheline Bond MD 08/02/2019 Telephone Family Medicine Micheline Bond MD 07/26/2019 Refill Internal Medicine Micheline Bond MD 07/19/2019 Telephone Internal Medicine Micheline Bond Pre-d iabetes (Primary MD Sourav Dx) 07/13/2019 Telephone Family Medicine Micheline Bond MD 07/08/2019 Office Visit Family [facility] Micheline Bond Chronic acquired lymphedema (Primary Dx); MD Sourav Recurrent cellu litis of lower extremity; Pneumonia due t o infectious organism, unspecified laterality, unspecified part of lung after 09/09/2018 Family History Relation Name Status Comments Father Mother Social History Tobacco Use Types Packs/Day Years Used Date Never Smoker Smokeless Tobacco: Never Used Sex Assigned at Date Recorded Not on file Job Start Date Occupation Industry Not on file Not on file Not on file Travel History Travel Start Travel End No recent travel history available. Last Filed Vital Signs Vital Sign Reading Time Taken Comments Blood Pressure 130/72 07/08/2019 2:31 PM PUPIL PERSONNEL WORKER Pulse 71 07/08/2019 2:31 PM PUPIL PERSONNEL WORKER Temperature 36.4 C (97.6 F) 07/08/2019 2:31 PM PUPIL PERSONNEL WORKER Respiratory Rate - - Oxygen Saturation 96% 07/08/2019 2:31 PM PUPIL PERSONNEL WORKER Inhaled Oxygen Concentration - - Weight 147 kg (325 lb) 07/08/2019 2:31 PM PUPIL PERSONNEL WORKER Height 175.3 cm (5' 9") 07/08/2019 2:31 PM PUPIL PERSONNEL WORKER Body Mass Index 47.99 07/08/2019 2:31 PM PUPIL PERSONNEL WORKER Plan of Treatment Health Maintenance Due Date Last Done Comments SHINGLES VACCINES (#1) 1988 65+ PNEUMOCOCCAL VACCINE (1 of 2 - PCV13) 10/24/2003 INFLUENZA VACCINE 12/04/2019 Results Not on fileafter 09/09/2018 Insurance Payer Benefit Plan / Subscriber ID Effective Dates Phone Addre ss Type Group MEDICARE MEDICARE PART A xxxxxxxxxxx 2011-Present [place], [place] Medicare AND B BCBS BCBS CHOICE xxxxxxxxxxxx 2019-Present PPO PPO/FEDERAL EMPL PPO ([place]) [facility] [address] [place] [address] Advance Directives For more information, please contact: [phone] Type Date Recorded Patient Seam Sewer Explanati on Advance Directives, Living Will and Medical Power of Steam Tender
[2019-09-10 05:45] LABS: Absolute Lymphocytes (CBC) 0.6 K/uL (0.7-4.9); Basophils % 0.7 % (0-1.3); Hematocrit 40.6 % (39.6-49.0); Lymphocytes % 12.6 % (15.3-44.8); MPV 8.1 fL (7.6-11.3); RBC Red Blood Cell Count 4.15 M/uL (4.33-5.43)
[2019-09-10] MEDS ORDERED: dexAMETHasone 10 MG/ML VIAL ONE (05:45)
[2019-09-10] MEDS ORDERED: METOCLOPRAMIDE 10 MG/2mL INJ ONE (05:45)
[2019-09-10] MEDS ORDERED: NA CHLORIDE 0.9% 500 ML ONE ×2 (05:46→07:25)
[2019-09-10 05:52] LABS: Protime INR 2.39
[2019-09-10 06:28] LABS: Potassium 6.1 mmol/L (3.5-5.1)
--- NOTE | 2019-09-10 06:40 | ER ---
Nurse's Notes [facility] Name: Shane Talbert Jr Age: 78 yrs Sex: Male : 1940 Arrival Date: 09/10/2019 Time: 05:15 Bed 13 Private MD: Diagnosis: Headache;Acute kidney failure;Acidosis;Hyperkalemia Presentation: 09/09 05:30 Chief complaint: Patient states: i woke up with occipital headache, sensitivity to mg2 bright light and ringing in my ears. Coronavirus screen: Proceed with normal triage. Patient denies a cough. Patient denies shortness of breath or difficulty breathing. Patient denies measured and/or subjective temperature greater than 100.4F prior to today's visit. Patient denies travel on a cruise ship or to a country the [facility] currently lists as an affected area. Patient denies contact with known and/or suspected case of COVID-19. Ebola Screen: No symptoms or risks identified at this time. Initial Sepsis Screen: Does the patient meet any 2 criteria? No. Patient's initial sepsis screen is negative. Does the patient have a suspected source of infection? No. Patient's initial sepsis screen is negative. Risk Assessment: Do you want to hurt yourself or someone else? Patient reports no desire to harm self or others. Onset of symptoms was September 10, 2019. 05:30 Method Of Arrival: Wheelchair mg2 05:30 Acuity: CARMEN 3 mg2 Triage Assessment: 05:44 Headache History: Denies prior headaches. General: Appears in no apparent distress. mg2 comfortable, Behavior is calm, cooperative. Pain:. 05:45 Headache History: Denies prior headaches. General: Appears in no apparent distress. mg2 comfortable, Behavior is calm, cooperative. 05:45 Pain: Complains of pain in occiput Pain currently is 5 out of 10 on a pain scale. Pain mg2 began gradually, Also complains of photophobia. Historical: - Allergies: 05:41 Levaquin; mg2 - Home Meds: 05:41 finasteride 5 mg Oral tab 1 tab once daily [Active]; furosemide 60 mg Oral tab 1 tab mg2 once daily [Active]; hydralazine 50 mg Oral tab daily [Active]; tamsulosin 0.4 mg Oral cp24 1 cap once daily [Active]; Xarelto 15 mg Oral tab daily [Active]; - PMHx: 05:41 Atrial Fib; BPH; Diabetes - NIDDM; Hypertension; lymphedema; mg2 - PSHx: 05:41 abdominal surgery; mg2 - Immunization history:: Flu vaccine is up to date. - Social history:: Smoking status: Patient denies any tobacco usage or history of. Patient/guardian denies using alcohol, street drugs, IV drugs. - Family history:: not pertinent. - Hospitalizations: : No recent hospitalization is reported. Screenin:39 Abuse screen: Denies threats or abuse. Denies injuries from another. Nutritional mg2 screening: No deficits noted. Tuberculosis screening: No symptoms or risk factors identified. Fall Risk IV access (20 points). Gait- Weak (10 pts.). Assessment: 05:42 General: Appears in no apparent distress. comfortable, Behavior is calm, cooperative. mg2 Pain: Complains of pain in occiput. Neuro: Level of Consciousness is awake, alert, obeys commands, Oriented to person, place, time, situation, Reports headache photophobia. Cardiovascular: Capillary refill < 3 seconds Patient's skin is warm and dry. Respiratory: Airway is patent Respiratory effort is even, unlabored, Respiratory pattern is regular, symmetrical. GI: No signs and/or symptoms were reported involving the gastrointestinal system. : No signs and/or symptoms were reported regarding the genitourinary system. EENT: Reports ringing in right ear and left ear. Derm: patient has bilateral lymphedema with dressing on both legs. Musculoskeletal: Circulation, motion, and sensation intact. Capillary refill < 3 seconds. 05:42 GI: Abdomen is round distended. mg2 06:01 Reassessment: patient in ct scan now. mg2 06:27 Reassessment: patient returned back from ct scan. mg2 07:11 Reassessment: Patient appears in no apparent distress at this time. Patient and/or mg2 family updated on plan of care and expected duration. Pain level reassessed. Patient is alert, oriented x 3, equal unlabored respirations, skin warm/dry/pink. 07:30 Reassessment: Patient appears in no apparent distress at this time. Patient and/or em family updated on plan of care and expected duration. Pain level reassessed. Patient is alert, oriented x 3, equal unlabored respirations, skin warm/dry/pink. Patient denies pain at this time. Patient states feeling better. 08:30 Reassessment: Patient appears in no apparent distress at this time. Patient and/or em family updated on plan of care and expected duration. Pain level reassessed. Patient is alert, oriented x 3, equal unlabored respirations, skin warm/dry/pink. brantley cath. inserted, tolerated well. 09:09 Reassessment: PLACIDO Daniels (hospitalist) at bedside. em 11:34 Reassessment: Patient appears in no apparent distress at this time. Patient and/or em family updated on plan of care and expected duration. Pain level reassessed. Patient is alert, oriented x 3, equal unlabored respirations, skin warm/dry/pink. Patient denies pain at this time. Vital Signs: 05:30 BP 91 / 52; Pulse 87; Resp 18; Temp 97.8(O); Pulse Ox 95% on R/A; Weight 127.01 kg; mg2 Height 5 ft. 9 in. (175.26 cm); Pain 5/10; 06:28 BP 93 / 56; Pulse 83; Resp 18; Pulse Ox 96% on R/A; mg2 07:11 BP 104 / 55; Pulse 85; Resp 18; Pulse Ox 94% on R/A; mg2 08:30 BP 104 / 62; Pulse 80; Resp 16; Pulse Ox 94% on R/A; Pain 0/10; em 10:15 BP 103 / 54; Pulse 83; Resp 16; Pulse Ox 92% on R/A; em 11:24 BP 130 / 67; Pulse 89; Resp 16; Pulse Ox 95% on R/A; Pain 0/10; em 05:30 Body Mass Index 41.35 (127.01 kg, 175.26 cm) mg2 Floyd Coma Score: 06:37 Eye Response: spontaneous(4). Verbal Response: oriented(5). Motor Response: obeys rn commands(6). Total: 15. ED Course: 05:15 Patient arrived in ED. ag3 05:17 Felice Parmar MD is Attending Physician. rn 05:36 Luis Ta is Primary Nurse. wh 05:38 Triage completed. mg2 05:38 Arm band placed on. mg2 05:38 No provider procedures requiring assistance completed. Inserted saline lock: 20 gauge mg2 in right forearm, using aseptic technique. Blood collected. by GRETEL Genao. 05:43 Patient has correct armband on for positive identification. Door closed. Warm blanket mg2 given. 06:00 Brian Can, GRETEL is Primary Nurse. mg2 06:13 CT Head Brain wo Cont In Process Unspecified. EDMS 06:28 Notified ED physician of a critical lab result(s). K 6.1, Creatinine 6.32. lp1 06:39 Julia Wolf MD is Hospitalizing Provider. rn 06:58 Radiology exam delayed due to Patient is unable to come to the CT Department at this kw1 time -receiving medication. 07:48 CT Abd/Pelvis - Without Contrast In Process Unspecified. EDMS 08:30 Brantley cath inserted, using sterile technique, 16 Fr., by pr, balloon inflated, returned em barak urine. Patient tolerated well. 11:44 Patient admitted, IV remains in place. em Administered Medications: 05:41 Drug: Decadron - Dexamethasone 10 mg Route: IVP; Site: right forearm; mg2 06:32 Follow up: Response: No adverse reaction; Marked relief of symptoms mg2 05:43 Drug: Reglan 10 mg Route: IVP; Site: right forearm; rr5 06:32 Follow up: Response: No adverse reaction; Marked relief of symptoms mg2 06:25 Drug: NS 0.9% 500 ml Route: IV; Rate: bolus; Site: right forearm; mg2 11:22 Follow up: IV Status: Completed infusion; IV Intake: 500ml em 06:55 Drug: Sodium Bicarbonate 1 amp Route: IVP; Site: right forearm; mg2 11:23 Follow up: Response: No adverse reaction em 07:10 Drug: Insulin Regular Human 5 units {Co-Signature: em (Clark Bright RN).} Route: IVP; mg2 Site: right forearm; 11:24 Follow up: Response: No adverse reaction em 07:10 Drug: D50W 50 ml Route: IVP; Site: right forearm; mg2 07:30 Follow up: Response: No adverse reaction em 08:35 Drug: NS 0.9% 500 ml Route: IV; Rate: 75 ml/hr; Site: right forearm; em 11:22 Follow up: IV Status: Infusion continued upon admission em Point of Care Testing: Blood Glucose: 11:35 Blood Glucose: 151 mg/dL; em Ranges: Intake: 11:22 IV: 500ml; Total: 500ml. em Output: 12:00 Urine: 380ml (Brantley); Total: 380ml. em Outcome: 06:40 Decision to Hospitalize by Provider. rn 11:42 Admitted to Tele accompanied by tech, via stretcher, room 217, with chart, Report em called to GRETEL Martinez 11:42 Condition: good 11:42 Instructed on the need for admit, Demonstrated understanding of instructions. 12:02 Patient left the ED. em Signatures: Dispatcher [employer] Clark Lancaster, GRETEL RN em Felice Parmar MD MD rn Pena, Laura, RN RN lp1 Luis Ta Kimberly kw1 Brian Can RN RN [facility] Mira Oliver3 Chadwick Chase RN RN rr5 Clark Bright RN em Corrections: (The following items were deleted from the chart) 05:45 05:41 Reglan 10 mg IVP in right forearm rr5 rr5
--- NOTE | 2019-09-10 06:41 | EDPHYS ---
Physician Documentation [facility] Name: Shane Talbert Jr Age: 78 yrs Sex: Male : 1940 Arrival Date: 09/10/2019 Time: 05:15 Bed 13 Private MD: ED Physician Felice Parmar HPI: 09/09 05:32 This 78 yrs old Male presents to ER via Unassigned with complaints of rn Headache. 05:32 The patient complains of pain to the back of head. The patient describes the headache rn as aching, intermittent. Onset: The symptoms/episode began/occurred 3 day(s) ago. Associated signs and symptoms: Pertinent negatives: altered mental status, fever, neck stiffness, rash, vision loss, vomiting, weakness, vertigo. Severity of symptoms: At its worst the pain was moderate, in the emergency department the pain is unchanged. Headache History: Denies prior headaches. The patient has not experienced similar symptoms in the past. Reports has been having headaches at night, go away during daytime, no trauma, no fever, no focal neuro complaint. Denies having previous headaches. NO vomiting or loss of vision. Coordination seems at baseline. Denies chest pain or sob or abd pain.. Historical: - Allergies: 05:41 Levaquin; mg2 - Home Meds: 05:41 finasteride 5 mg Oral tab 1 tab once daily [Active]; furosemide 60 mg Oral tab 1 tab mg2 once daily [Active]; hydralazine 50 mg Oral tab daily [Active]; tamsulosin 0.4 mg Oral cp24 1 cap once daily [Active]; Xarelto 15 mg Oral tab daily [Active]; - PMHx: 05:41 Atrial Fib; BPH; Diabetes - NIDDM; Hypertension; lymphedema; mg2 - PSHx: 05:41 abdominal surgery; mg2 - Immunization history:: Flu vaccine is up to date. - Social history:: Smoking status: Patient denies any tobacco usage or history of. Patient/guardian denies using alcohol, street drugs, IV drugs. - Family history:: not pertinent. - Hospitalizations: : No recent hospitalization is reported. ROS: 05:32 Constitutional: Negative for fever, chills, and weight loss, Eyes: Negative for injury, rn pain, redness, and discharge, Neck: Negative for injury, and swelling, Cardiovascular: Negative for chest pain, palpitations Respiratory: Negative for shortness of breath, cough, wheezing, and pleuritic chest pain, Abdomen/GI: Negative for abdominal pain, nausea, vomiting, diarrhea, and constipation, MS/Extremity: Negative for injury and deformity, Neuro: + headache, negative for focal weakness/numbness/seizure/syncope Exam: 05:32 Constitutional: This is a well developed, well nourished patient who is awake, alert, rn and in no acute distress. Head/Face: Normocephalic, atraumatic. Eyes: Pupils equal round and reactive to light, extra-ocular motions intact. Lids and lashes normal. Conjunctiva and sclera are non-icteric and not injected. Cornea within normal limits. Periorbital areas with no swelling, redness, or edema. Neck: Trachea midline, no thyromegaly or masses palpated, and no cervical lymphadenopathy. Supple, full range of motion without nuchal rigidity, or vertebral point tenderness. No Meningismus. Cardiovascular: Irregularly irregular, equal distal pulses Respiratory: Speaking full sentences. No increased work of breathing, no retractions or nasal flaring. MS/ Extremity: Pulses equal, no cyanosis. Neuro: Awake and alert, GCS 15, oriented to person, place, time, and situation. Cranial nerves II-XII grossly intact. Motor strength 5/5 in all extremities. Sensory grossly intact. Cerebellar exam normal. Vital Signs: 05:30 BP 91 / 52; Pulse 87; Resp 18; Temp 97.8(O); Pulse Ox 95% on R/A; Weight 127.01 kg; mg2 Height 5 ft. 9 in. (175.26 cm); Pain 5/10; 06:28 BP 93 / 56; Pulse 83; Resp 18; Pulse Ox 96% on R/A; mg2 07:11 BP 104 / 55; Pulse 85; Resp 18; Pulse Ox 94% on R/A; mg2 08:30 BP 104 / 62; Pulse 80; Resp 16; Pulse Ox 94% on R/A; Pain 0/10; em 10:15 BP 103 / 54; Pulse 83; Resp 16; Pulse Ox 92% on R/A; em 11:24 BP 130 / 67; Pulse 89; Resp 16; Pulse Ox 95% on R/A; Pain 0/10; em 05:30 Body Mass Index 41.35 (127.01 kg, 175.26 cm) mg2 Floyd Coma Score: 06:37 Eye Response: spontaneous(4). Verbal Response: oriented(5). Motor Response: obeys rn commands(6). Total: 15. MDM: 05:17 Patient medically screened. rn 06:37 Differential diagnosis: intracerebral hemorrhage, migraine, neoplasm, tension headache, rn uremia, vasomotor headache. Data reviewed: vital signs, nurses notes, lab test result(s), radiologic studies, CT scan, and as a result, I will admit patient. Counseling: I had a detailed discussion with the patient and/or guardian regarding: the historical points, exam findings, and any diagnostic results supporting the discharge/admit diagnosis, lab results, radiology results, the need for further work-up and treatment in the hospital. Response to treatment: the patient's symptoms have mildly improved after treatment, and as a result, I will admit patient. Admission orders: after a detailed discussion of the patient's condition and case, the admit orders are written by me. ED course: Pt improved headache, but in acute renal failure, with acidosis and hyperkalemia, given bicarb, insulin, d50, holding kayexalate given borderline hypotension. Admitted to Dr. Wolf for further care and nephrology consult. Still makes urine. Rayo ordered to rule out obstructive renal failure and to monitor fluid balance. CT head neg for acute findings. . 09/09 05:31 Order name: CBC with Diff rn 09/09 05:31 Order name: Basic Metabolic Panel; Complete Time: 06:35 rn 09/09 05:31 Order name: Protime (+inr); Complete Time: 06:07 rn 09/09 05:31 Order name: Ptt, Activated; Complete Time: 06:07 rn 09/09 09:33 Order name: CBC Smear Scan; Complete Time: 09:33 EDVA 09/09 11:38 Order name: Glucose, Ancillary Testing EDVA 09/09 05:30 Order name: CT Head Brain wo Cont rn 09/09 06:45 Order name: CT Abd/Pelvis - Without Contrast; Complete Time: 09:25 rn 09/09 09:49 Order name: Echo with Doppler EDVA 09/09 09:49 Order name: Chest Pa And Lat (2 Views) EDVA 09/09 05:31 Order name: IV Start; Complete Time: 05:42 rn 09/09 06:38 Order name: EKG - Nurse/Tech; Complete Time: 07:06 lp1 09/09 06:38 Order name: EKG; Complete Time: 06:38 lp1 09/09 09:49 Order name: CONS Physician Consult EDMS 09/09 09:49 Order name: Renal EDMS 09/09 09:49 Order name: EKG Electrocardiogram EDMS 09/09 09:49 Order name: EKG Electrocardiogram EDMS 09/09 09:56 Order name: Social Service Consult EDMS Administered Medications: 05:41 Drug: Decadron - Dexamethasone 10 mg Route: IVP; Site: right forearm; mg2 06:32 Follow up: Response: No adverse reaction; Marked relief of symptoms mg2 05:43 Drug: Reglan 10 mg Route: IVP; Site: right forearm; rr5 06:32 Follow up: Response: No adverse reaction; Marked relief of symptoms mg2 06:25 Drug: NS 0.9% 500 ml Route: IV; Rate: bolus; Site: right forearm; mg2 11:22 Follow up: IV Status: Completed infusion; IV Intake: 500ml em 06:55 Drug: Sodium Bicarbonate 1 amp Route: IVP; Site: right forearm; mg2 11:23 Follow up: Response: No adverse reaction em 07:10 Drug: Insulin Regular Human 5 units {Co-Signature: em (Clark Bright RN).} Route: IVP; mg2 Site: right forearm; 11:24 Follow up: Response: No adverse reaction em 07:10 Drug: D50W 50 ml Route: IVP; Site: right forearm; mg2 07:30 Follow up: Response: No adverse reaction em 08:35 Drug: NS 0.9% 500 ml Route: IV; Rate: 75 ml/hr; Site: right forearm; em 11:22 Follow up: IV Status: Infusion continued upon admission em Point of Care Testing: Blood Glucose: 11:35 Blood Glucose: 151 mg/dL; em Ranges: Critical Glucose Levels:Adult <50 mg/dl or >400 mg/dl <40 mg/dl or >180 mg/dl Disposition: 09/10/19 06:40 Hospitalization ordered by Julia Wolf for Inpatient Admission. Preliminary diagnosis are Headache, Acute kidney failure, Acidosis, Hyperkalemia. - Bed requested for Telemetry/MedSurg (Inpatient). - Status is Inpatient Admission. em - Condition is Stable. - Problem is new. - Symptoms have improved. Signatures: Dispatcher [employer] Clark Lancaster, GRETEL MAJANO em Felice Parmar MD MD rn Pena, Laura, RN RN lp1 Jeremiah Solares, TRAVEL PROFESSIONAL-C TRAVEL PROFESSIONAL-Cla1 Cele Rubin eb Brian Can, GRETEL RN [facility] Chadwick Chase RN RN rr5 Clark Bright RN em Corrections: (The following items were deleted from the chart) 10:46 06:40 Hospitalization Ordered by Julia Wolf MD for Inpatient Admission. Preliminary eb diagnosis is Headache; Acute kidney failure; Acidosis; Hyperkalemia. Bed requested for Telemetry/MedSurg (Inpatient). Status is Inpatient Admission. Condition is Stable. Problem is new. Symptoms have improved. rn 12:02 10:46 09/10/2019 06:40 Hospitalization Ordered by Julia Wolf MD for Inpatient em Admission. Preliminary diagnosis is Headache; Acute kidney failure; Acidosis; Hyperkalemia. Bed requested for Telemetry/MedSurg (Inpatient). Status is Inpatient Admission. Condition is Stable. Problem is new. Symptoms have improved. eb
[2019-09-10] MEDS ORDERED: SODIUM BICARB 50 MEQ/50ML VIAL ONE (06:53)
[2019-09-10] MEDS ORDERED: D50W 25 GM/50 ML SYRINGE/VIAL IV ONE (06:53)
[2019-09-10] MEDS ORDERED: INSULIN -REGULAR HUMAN 50 UNIT/0.5 ML ML ONE (06:55)
[2019-09-10] MEDS ORDERED: LIDOCAINE VISCOUS 2% SOLN 15 ML UDC ONE (07:32)
--- NOTE | 2019-09-10 08:29 | RAD REPORT ---
EXAM DESCRIPTION: CT - Abdomen Pelvis Wo Contrast - 09/10/2019 7:48 am CLINICAL HISTORY: Abdominal pain. acute renal failure COMPARISON: Abdomen Pelvis W Contrast dated 04/26/2019 TECHNIQUE: CT imaging of the abdomen and pelvis was performed without contrast. Solid organ, bowel a nd vascular assessment is limited due to lack of IV and oral contrast. All CT scans are performed using dose optimization technique as appropriate and may include automated exposure control or mA/KV adjustment according to patient size. FINDINGS: Mild linear atelectasis is present in the right lung base.Mild chronic elevation right hem idiaphragmatic leaflet. The liver, spleen, pancreas, adrenal glands are within normal limits for a limited non-contrast exami [facility] [place].Several benign renal cysts are present bilaterally. Small curvilinear calcification is seen in the inferior calyx left kidney measuring 4 mm. Additional punctate calcifications present bilaterall y. No hydronephrosis. No bowel obstruction, free air, free fluid or abscess. Aortic atherosclerosis is present. The appendi x is normal. Multilevel degenerative spondylosis the lumbar spine is present.Mild degenerative dextroscoliosis. Mo derate prostatomegaly. IMPRESSION: No acute intra-abdominal or pelvic findings. A limited non-contrast examination was performed as detailed.
[2019-09-10 09:32] LABS: Blood Morphology Comment NOT SEEN (NOT SEEN); Platelet Estimate ADEQ; Urine White Blood Cell Casts OK
[2019-09-10] MEDS ORDERED: ONDANSETRON 4 MG/2 ML VIAL IV PRN (09:33)
[2019-09-10] MEDS ORDERED: ACETAMINOPHEN 500 MG TAB PO PRN (09:33)
[2019-09-10] MEDS ORDERED: CALCIUM GLUC 10% INJ 4.65 MEQ in NA CHLORIDE 0.9% 100 ML IV ONE ×2 (09:33→19:16)
[2019-09-10] MEDS: SOD POLYSTYREN SUL 15 GM/60 ML UCUP PO ONE ×4 (09:33→13:21)
[2019-09-10] MEDS ORDERED: NACHLORIDE 0.45% 1,000 ML with NA BICARB 8.4% 75 MEQ IV SCH ×2 (10:00)
--- NOTE | 2019-09-10 10:35 | EKG ---
Test Date: 2019-09-10 Test Time: 07:04:02 Leather Fitter: MI MEASUREMENT RESULTS: Intervals: Rate: 82 WI: QRSD: 140 QT: 428 QTc: 500 [place]: P: WI: QRS: 88 T: -5 INTERPRETIVE STATEMENTS: Atrial fibrillation Right bundle branch block T wave abnormality, consider inferior ischemia or digitalis effect Abnormal ECG Compared to ECG 06/26/2019 23:46:42 No significant changes Electronically Signed On 09-10-19 10:34:38 CDT by Riccardo Salas
--- NOTE | 2019-09-10 10:35 | P.HP ---
Certification for Inpatient With expected LOS: >2 Midnights Patient will require the following post-hospital care: None Practitioner: I am a practitioner with admitting privileges, knowledge of patient current condition, hospital course, and medical plan of care. Services: Services provided to patient in accordance with Admission requirements found in Title 42 Section 412.3 of the Code of Federal Regulations <BeckJeremiah - Last Filed: 09/10/19 10:28> Patient admitted to: Inpatient With expected LOS: >2 Midnights <Dave Cain - Last Filed: 09/10/19 17:49> Patient History Date of Service: 09/10/19 Reason for admission: Acute renal failure, hyperkalemia History of Present Illness: 78-year-old male with history of atrial fibrillation on chronic anticoagulation therapy, ueo-[id number]-jhbuwjrgs diabetes mellitus type 2, hypertension, BPH presented to the emergency department with 3 day history of new onset headache. During his evaluation he is found to have acute on chronic renal failure with hyperkalemia. ER provider wishes to admit patient to hospital service for further evaluation and management of this condition. When I saw the patient in the emergency department he was resting comfortably. Reports he still has a headache. Patient reports he noticed that he has had some issues with his kidney function in the past but has never been a significant. Patient denies the use of any NSAIDs. Blood pressure was on the lower end of normal when I saw him in the emergency department at 109/64. Will admit patient to telemetry floor. Consult nephrology, anticipate clinical improvement in the next 48-72 hr. Home medications list reviewed: Yes - Past Medical/Surgical History Diabetic: Yes -: R leg DVT -: HTN -: cellulitis -: NIDDM -: afib -: BPH -: lymphedema -: Bilateral cataracts (2004) -: Removal of melanoma right ear -: tonsillectomy -: torn retina right eye Psychosocial/ Personal History: Patient lives at home and has a caregiver. - Family History Family History: Reviewed- Non-Contributory - Family History Father -: Heart disease Mother -: Cancer - Social History Smoking Status: Never smoker Alcohol use: No CD- Drugs: No Caffeine use: Yes Place of Residence: Home <Jeremiah Solares - Last Filed: 09/10/19 10:28> Date of Service: 09/10/19 History of Present Illness: Patient seen and examined. Agree with history, exam, and plan of care. - Past Medical/Surgical History -: History of cellulitis -: Diabetes mellitus type 2 diet controlled -: Atrial fibrillation on chronic anti coagulation <Dave Cain - Last Filed: 09/10/19 17:49> Allergies cefepime [From Maxipime] Allergy (Verified 09/10/19 14:59) Itching levofloxacin [From Levaquin] Allergy (Verified 09/10/19 14:59) Hives Home Medications: Furosemide [Lasix*] 60 mg PO DAILY 04/26/19 Hydralazine HCl 25 mg PO BID 04/26/19 Rivaroxaban [Xarelto] 20 mg PO DAILY 04/26/19 Tamsulosin [Flomax*] 0.4 mg PO BEDTIME 04/26/19 Finasteride [Proscar*] 5 mg PO DAILY 06/22/19 Review of Systems General: Unremarkable Eyes: Unremarkable ENT: Unremarkable Respiratory: Unremarkable Cardiovascular: Unremarkable Gastrointestinal: Unremarkable Genitourinary: Unremarkable Musculoskeletal: Unremarkable Integumentary: Unremarkable Neurological: Other (Headache), As per HPI <Jeremiah Solares - Last Filed: 09/10/19 10:28> Physical Examination - Physical Exam General: Alert, In no apparent distress, Oriented x3 HEENT: Atraumatic, Normocephalic, PERRLA Neck: Supple Respiratory: Clear to auscultation bilaterally, Normal air movement Cardiovascular: Edema (Lymphedema bilateral lower extremities) Capillary refill: <2 Seconds Gastrointestinal: Normal bowel sounds, Soft and benign Musculoskeletal: Swelling (Lymphedema) Neurological: Normal speech, Normal tone - Studies Laboratory Data (last 24 hrs) 09/10/19 05:35: PT 27.7 H, INR 2.39, APTT 45.4 H 09/10/19 05:35: Sodium 133 L, Potassium 6.1 H*, BUN 129 H, Creatinine 6.32 H*, Glucose 110 H 09/10/19 05:35: WBC 4.9, Hgb 13.6, Hct 40.6, Plt Count 177 <Jeremiah Solares - Last Filed: 09/10/19 10:28> - Physical Exam Other Physical/Emotional Findings: Patient seen and examined. Agree with examination. - Studies Laboratory Data (last 24 hrs) 09/10/19 05:35: PT 27.7 H, INR 2.39, APTT 45.4 H 09/10/19 05:35: Sodium 133 L, Potassium 6.1 H*, BUN 129 H, Creatinine 6.32 H*, Glucose 110 H 09/10/19 05:35: WBC 4.9, Hgb 13.6, Hct 40.6, Plt Count 177 <Dave Cain - Last Filed: 09/10/19 17:49> Assessment and Plan - Plan Assessment Acute on chronic renal failure with hyperkalemia and acidosis Atrial fibrillation on chronic anticoagulation therapy Diabetes mellitus type 2 Hypertension BPH Plan Acute on chronic renal failure with hyperkalemia and acidosis-Discussed case extensively with nephrology. Patient will receive kayexalate 15gm x1 for hyperkalemia in addition to calcium gluconate. Patient also to be placed on 1/2 NS with 75mcg bicarb at 70cc/hr per nephrology for acidemia, this will be further adjusted by nephrology. CT abd/pelvis without contrast was obtained in ED and does not show any findings that would explain patients acute renal changes. Will work to decrease potassium and await further input from nephrology regarding need for dialysis. Patient is stable at this time. Atrial fibrillation on chronic anticoagulation therapy-will continue patient's Xarelto, will obtain echocardiogram to evaluate function Diabetes mellitus type 2- patient currently not taking any anti diabetic agents, will obtain A1c level tomorrow morning to evaluate the need of an oral antidiabetic agent. Hypertension- will obtain patient's home medications, continue as appropriate. BPH-will obtain patient's home medications, continue as appropriate Discharge Plan: Home Plan to discharge in: 72 Hours - Advance Directives Does patient have a Living Will: No Does patient have a Durable POA for Healthcare: No - Code Status/Comfort Care Code Status Assessed: Yes (Patient is full code) Critical Care: No Time Spent Managing Pts Care (In Minutes): 55 <Jeremiah Solares - Last Filed: 09/10/19 10:28> - Plan Patient seen and examined. Agree with evaluation, exam and plan of care. Case discussed with nephrology. Acute on chronic renal failure with hyperkalemia likely related to recent antibiotic use. Will need to investigate further other etiology. Patient given medication for hyperkalemia. Patient will not receive Kayexalate as recommended by nephrology. Will continue with other measures. Continue bicarb drip. Will monitor blood pressure closely. Will hold blood pressure medication at this time due to low blood pressure. Will monitor blood sugar as the patient has diabetes but well controlled off medication. Patient with history of atrial fibrillation on on chronic anti coagulation therapy. Will need to restart medication but may need to change medication due to his acute renal failure. Will change to Eliquis 2.5 mg BID. <Dave Cain - Last Filed: 09/10/19 17:49>
--- NOTE | 2019-09-10 10:51 | RAD REPORT ---
EXAM DESCRIPTION: RAD - Chest Pa And Lat (2 Views) - 09/10/2019 10:40 am CLINICAL HISTORY: Evaluate volume status Chest pain. COMPARISON: Chest Single View dated 07/01/2019; Chest Single View dated 06/26/2019; Chest Single View dated 06/21/2019; Chest Single View dated 04/29/2019 FINDINGS: Mild interstitial pulmonary edema seen. The heart is moderately enlarged No displaced frac tures. IMPRESSION: Mild CHF versus volume overload.
[2019-09-10] MEDS: INSULIN -REGULAR HUMAN 50 UNIT/0.5 ML ML SQ SCH ×3 (11:30→20:46)
[2019-09-10] MEDS ORDERED: ALBUTEROL 2.5 MG/3 ML NEB SOL NEB ONE ×2 (13:31→19:16)
--- NOTE | 2019-09-10 14:48 | P.CNS ---
Date of Consult: 09/10/19 Reason for Consult: RADHA , hyperkalmeia Chief Complaint: Acute renal failure, hyperkalemia History of Present Illness: An 78 Yo man with PMhx of DM, Afib on Xarelto , HTn , LE lymphedema, and Hx perforated PU pt was admitted for RADHA pt presented to ER with headaches 4 days ago was started on Bactrim by his surgeon for LE wounds , pt denuied NSAID intake or contrast denied dysuria, hematuria , nausea , vomiting , or constipation in ER Cr 6.3, k 6.1, Cr in Feb 1.0 Physical exam general: AAOX3, NAD , obese Neck; Supple, No elevated JVD hear: RRR, normal S1,2 no murmur or rub Chest: CTBA, no rlaes or wheezes Abdomen: Soft ,NT Extremities B/l legs wraped with foul smell RADHA on CKD III possibly due BACTRIM will start On IVF CT : no hydro I/O non oliguric if K or Cr cont to trend up will initiate HD Hyperkalmeia due to RADHA and bactrim will avoid kaeyxalate in review of perforated PU will start bicar drip , ca gluconate and albuterol if no improvement will initiate HD Lymphedema stable will cont to monitor will hold lasix for now Wound care surgery evaluation prn PNA cont Abx DM as per primary Afib will hold xarelto for possible catheter placement total time spent 50 min Allergies cefepime [From Maxipime] Allergy (Verified 06/28/19 05:21) Itching levofloxacin [From Levaquin] Allergy (Verified 06/27/19 01:27) Hives Home Medications: Furosemide [Lasix*] 60 mg PO DAILY 04/26/19 Hydralazine HCl 50 mg PO BID 04/26/19 Rivaroxaban [Xarelto] 20 mg PO DAILY 04/26/19 Tamsulosin [Flomax*] 0.4 mg PO BEDTIME 04/26/19 Finasteride [Proscar*] 5 mg PO DAILY 06/22/19 VANCOMYCIN/NS 1 gm [Vancomycin 1 gm/250 ml Ns Ivpb] 1 gm IV Q24H 4 Days #4 bag 07/01/19 - Past Medical/Surgical History Diabetic: Yes -: R leg DVT -: HTN -: cellulitis -: NIDDM -: afib -: BPH -: lymphedema -: Duodenal ulcer -: Bilateral cataracts (2004) -: Removal of melanoma right ear -: tonsillectomy -: torn retina right eye -: Abdominal surgery Psychosocial/ Personal History: Patient lives at home and has a caregiver. - Family History Father Medical History: Heart disease Mother Medical History: Cancer - Social History Alcohol use: No CD- Drugs: No Caffeine use: Yes Place of Residence: Home Physical Examination Temp Pulse Resp BP Pulse Ox 96.8 F 87 20 127/65 98 09/10/19 12:37 09/10/19 12:37 09/10/19 12:37 09/10/19 12:37 09/10/19 12:37 Laboratory Data (last 24 hrs) 09/10/19 05:35: PT 27.7 H, INR 2.39, APTT 45.4 H 09/10/19 05:35: Sodium 133 L, Potassium 6.1 H*, BUN 129 H, Creatinine 6.32 H*, Glucose 110 H 09/10/19 05:35: WBC 4.9, Hgb 13.6, Hct 40.6, Plt Count 177
[2019-09-10 16:29] LABS: Albumin 2.3 g/dL (3.4-5.0); Bilirubin Total 0.7 mg/dL (0.2-1.0); Protein, Total 7.8 g/dL (6.4-8.2)
--- NOTE | 2019-09-10 16:43 | RAD REPORT ---
EXAM DESCRIPTION: CT head/brain without contrast CLINICAL HISTORY: HEADACHE COMPARISON: CT head 06/21/2019 TECHNIQUE: Head/brain axial images acquired without contrast. Coronal and sagittal reformats created . Exam performed according to departmental dose-optimization program which includes automated exposur e control, adjustment of mA and/or kV according to patient size, and/or use of iterative reconstructi on technique. FINDINGS: No midline shift, mass effect, intracranial hemorrhage, or hydrocephalus. CSF spaces appear overall mildly enlarged likely representing age-appropriate cerebral volume loss. Paranasal sinuses and mastoid air cells clear. No skull fracture or significant skull lesion. IMPRESSION: No CT evidence of acute intracranial abnormality. Electronically signed by: David Alfaro MD 09/10/2019 6:23 AM CDT Due to temporary technical issues with the PACS/Fluency reporting system, reports are being signed by the in house radiologist as a courtesy to ensure prompt reporting. The interpreting radiologist is f ully responsible for the content of the report.
[2019-09-10] MEDS: D5W 1,000 ML with NA BICARB 8.4% 150 MEQ IV SCH ×2 (17:52)
[2019-09-10 18:43] LABS: Urine Appearance CLOUDY; Urine Blood 2+ (NEG); Urine Color YELLOW; Urine Glucose NEGATIVE (NEG); Urine Protein NEGATIVE (NEG); Urine Specific Gravity 1.015 (1.005-1.030); Urine Urobilinogen 0.2 mg/dL (0.2-1.0)
[2019-09-10 18:57] LABS: Urine Bilirubin NEGATIVE (NEG); Urine Microscopic Reflex ORDER UMIC
[2019-09-10 19:03] LABS: Urine Bacteria <20 /HPF (NONE SEEN); Urine Culture Reflex Order REFLEXED; Urine Mucus 1+ /HPF (NONE SEEN)
[2019-09-10] MEDS ORDERED: FUROSEMIDE 40 MG/4 ML VIAL IV ONE (19:15)
[2019-09-10] MEDS ORDERED: LACTULOSE 20 GM/30 ML UCUP PO ONE (19:15)
[2019-09-10] MEDS ORDERED: D50W 25 GM/50 ML SYRINGE/VIAL IV PRN (19:17)
[2019-09-10] MEDS ORDERED: GLUCAGON 1 MG/VIAL IM PRN (19:17)
[2019-09-10] MEDS ORDERED: INSULIN -REGULAR HUMAN 50 UNIT/0.5 ML ML SQ ONE (19:19)
[2019-09-10] MEDS ORDERED: NA CHLORIDE 0.9% 0 ML ONE (20:27)
[2019-09-10] MEDS: TAMSULOSIN 0.4 MG SR CAP PO SCH (20:29)
[2019-09-10] MEDS: APIXABAN 2.5 MG TABLET PO SCH (20:29)
[2019-09-11] MEDS: D5W 1,000 ML with NA BICARB 8.4% 150 MEQ IV SCH ×2 (04:51)
[2019-09-11 05:48] LABS: Absolute Lymphocytes (CBC) 0.1 K/uL (0.7-4.9); Basophils % 0.2 % (0-1.3); Hematocrit 37.5 % (39.6-49.0); Lymphocytes % 1.4 % (15.3-44.8); MPV 8.3 fL (7.6-11.3); RBC Red Blood Cell Count 3.83 M/uL (4.33-5.43)
[2019-09-11 05:56] LABS: Protime INR 1.63
[2019-09-11 06:06] LABS: Magnesium 2.7 mg/dL (1.8-2.4); Potassium 5.3 mmol/L (3.5-5.1); Thyroid Stimulating Hormone 1.15 uIU/mL (0.360-3.740)
[2019-09-11] MEDS: INSULIN -REGULAR HUMAN 50 UNIT/0.5 ML ML SQ SCH ×4 (07:30→20:53)
[2019-09-11] MEDS ORDERED: RIVAROXABAN 20 MG TABLET PO SCH (09:00)
[2019-09-11 09:08] LABS: Blood Morphology Comment NOT SEEN (NOT SEEN); Platelet Estimate ADEQ
--- NOTE | 2019-09-11 09:33 | CON ---
Date of Consultation: 09/11/2019 Brief History Of Present Illness: Patient is an 78-year-old male, known to me from previou s wound care history and with chronic lymphedema to bilateral lower extremities, who presents also wi th a concomitant history of atrial fibrillation on chronic anticoagulation, insulin dependent, hypert ension, BPH, DVT in the right lower extremity, who presents with a new-onset 3-day history of headach e. He was found to have acute on chronic renal failure with hyperkalemia. Attempts were made to cor rect this; however, while he continued to make urine, his potassium and renal parameters continued to be nonreassuring, and as such I am consulted for placement of a temporary hemodialysis catheter to s ee if he can be reversed and potentially avoid long-term hemodialysis as such. I have agreed to see the patient. Past Medical History: Significant for right leg DVT, hypertension, cellulitis, non-insulin diabetic, atrial fibrillation, BPH, lymphedema bilaterally, bilateral cataracts. Past Surgical History: Includes removal of melanoma from ear, tonsillectomy, torn retinal eye surger y. Family History: Consistent with heart disease and cancer in his mother. Social History: He denies smoking, alcohol, or recreational drug use. Allergies: TO CEFEPIME AND LEVAQUIN. Home Medications: Include Lasix, hydralazine, Xarelto, Flomax, and Proscar. Review of Systems: Ten-point review of systems other than HPI, denies. Physical Examination: Vital Signs: At the time of my examination, his BMI is 40, blood pressure 195/57, SpO2 is 97% on abdoul m air. Heart rate is 89, respiratory rate is 16. General: He is awake, alert, and oriented. Psychiatric: Appropriate. Conversive. HEENT: Head is normocephalic. His mucous membranes are moist. Oropharynx is clear. Neck: Supple. No JVD. Chest: Normal to expansion and excursion. Abdomen: Soft, obese. Extremities: He has bilateral lower extremity pitting edema and significant lymphedema chronically. Skin: Otherwise warm and dry. He has some discoloration of bilateral lower extremities. Laboratory Data: Reveals a white blood cell count of 10.5, hemoglobin is 12.6, hematocrit 37.5, plat elet count is 179, neutrophils are 92%. His PT is 19.1, INR 1.63, PTT is 37.1. His sodium is 136, p otassium 5.3, chloride 103, carbon dioxide is 20, BUN 144, creatinine 5.5. His glucose is 169. His magnesium is 2.7, proBNP is 5161. UA showed trace leukocyte esterase, 5-10 white blood cells. He lara d an abdomen and pelvis CT on 09/09, officially read as no acute intraabdominal pelvic findings, diane barry noncontrast examination was performed. Head CT performed as well, official read as no evidence o f acute intracranial abnormality. He had a chest x-ray performed, which officially read as mild CHF versus volume overload. Assessment And Plan: This is an 78-year-old male with acute on chronic kidney disease, in need of te mporary hemodialysis. 1.Continue medical management per primary and nephrology teams. 2.I have explained the risks, benefits, and alternatives of insertion of a temporary hemodialysis ca theter, including but not limited to bleeding, infection, damage to surrounding tissues, need for fur ther operation and procedure. Patient agrees to proceed as indicated. HEMANT/JOSELUIS Voice ID: [id number] Report ID: [id number]
[2019-09-11] MEDS ORDERED: HEPARIN 5000 UNIT/ML 1 ML VIAL IV SCH (10:00)
--- NOTE | 2019-09-11 10:29 | P.OP ---
Preoperative diagnosis: Acute on Chronic Renal Failure Postoperative diagnosis: Acute on Chronic Renal Failure Primary procedure: Placement of temporary hemodialysis catheter - LEFT internal jugular Secondary procedure: ultrasound guidance, microintroducer used Other procedure(s): attempt in LEFT femoral vein, unsuccessful Anesthesia: 1% lidocaine Estimated blood loss: <10cc Specimen: None Findings: non-pulsatile dark blood returnd from IJ, Complications: None Implants: non-tunnelled hemodialysis catheter Transferred to: Recovery Room Condition: Good
[2019-09-11] MEDS: FINASTERIDE 5 MG TAB PO SCH (10:48)
[2019-09-11] MEDS: APIXABAN 2.5 MG TABLET PO SCH ×2 (10:48→20:52)
--- NOTE | 2019-09-11 10:55 | RAD REPORT ---
EXAM DESCRIPTION: RAD - Chest Single View - 09/11/2019 10:43 am CLINICAL HISTORY: HD catheter placement COMPARISON: September 09 portable exam TECHNIQUE: AP portable chest image was obtained 09/11/2019 10:43 am . FINDINGS: Left-sided hemodialysis catheter has been placed via left jugular approach. Tip is in the mid to distal SVC. No pneumothorax or other suspicious lung parenchymal finding.
--- NOTE | 2019-09-11 13:23 | P.PN ---
Subjective Date of Service: 09/11/19 Chief Complaint: Acute renal failure, hyperkalemia Subjective: Improving Physical Examination - Vital Signs Temperature: 97.0 F Blood Pressure: 114/58 Pulse: 81 Respirations: 18 Pulse Ox (%): 96 - Physical Exam General: Alert, In no apparent distress, Oriented x3, Cooperative HEENT: Atraumatic Neck: Supple Respiratory: Clear to auscultation bilaterally, Normal air movement Cardiovascular: Irregular heart rate/rhythm (rate controlled) Gastrointestinal: Normal bowel sounds, Soft and benign Neurological: Normal speech, Normal strength at 5/5 x4 extr, Normal tone, Normal affect - Studies Medications List Reviewed: Yes Assessment & Plan Discharge Plan: Home Plan to discharge in: Greater than 2 days Physician Review Additional Text: Assessment 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 Nephrology spoke to surgery to place dialysis catheter. Patient will receive dialysis. Will continue to monitor closely. Acute renal failure likely related to recent use of Bactrim. Nephrology to further adjust IV fluids. Continue monitor closely. Atrial fibrillation on chronic anticoagulation therapy: Will discontinue Xarelto and use Eliquis due to her renal function. Await echocardiogram. Diabetes mellitus type 2: Will continue to monitor closely. A1c very well controlled.. Continue Accu-Cheks. Sliding scale in place. Hypertension: Blood pressure stable. Home medications will be reviewed. Hold medication at this time. Consider restarting hydralazine if blood pressure increases. BPH: Continue medication Time Spent Managing Pts Care (In Minutes): 55
--- NOTE | 2019-09-11 13:58 | PN ---
Date of Progress Note: 09/11/2019 History: Patient was admitted with acute kidney injury secondary to Bactrim. Kidney function not im proving. Patient had hyperkalemia. Physical Examination: Vital Signs: When I saw the patient, blood pressure 114/58, pulse of 81. General: Patient had good urine output of 825. Chest: Crackles bilateral. Heart: S1, S2. Regular. Abdomen: Morbidly obese. Extremities: Dressing both legs. Laboratory Data: Sodium 136, potassium 5.3, bicarb 20, BUN 144, creatinine 5.5, calcium 8.6, magnesi um 2.7. BNP 5161. TSH 1.1. Current Medications: The patient on include Flomax, Eliquis, Lasix, Kayexalate. Assessment And Plan: 1.Acute kidney injury secondary to Bactrim induced nonoliguric with hyperkalemia and acidosis. Ramya ent is going to be initiated on dialysis, mostly it is temporary. We will arrange for another sessio n of dialysis tomorrow hyperkalemia. Patient is going to be dialyzed on low-potassium bath and is go ing to be dialyzed also tomorrow. 2.Cellulitis. Continue current antibiotic. We will follow up with the primary. 3.Over volume. We will try to challenge the patient, then we will follow up. 4.Hypertension. We will utilize the blood pressure for more ultrafiltration, currently controlled off all blood pressure medications. KULWANT Voice ID: [id number] Report ID: [id number]
[2019-09-11] MEDS ORDERED: ALBUMIN HUMAN 25% 50 ML IV SCH (14:00)
--- NOTE | 2019-09-11 14:13 | OP ---
Date of Procedure: 09/11/2019 Surgeon: Jamison Rebolledo MD, Preoperative Diagnosis: Acute on chronic renal failure. Postoperative Diagnosis: Acute on chronic renal failure. Procedure Performed: 1.Attempted left femoral vein cannulation unsuccessfully. 2.Placement of a temporary non-tunneled left internal jugular hemodialysis catheter using ultrasound guidance and microintroducer set. Anesthesia: 1% lidocaine used. Estimated Blood Loss: Less than 10 mL. Specimen: None. Findings: Nonpulsatile dark red blood return from the internal jugular. Complications: None. Implants: Non-tunneled hemodialysis Mahurkar-type hemodialysis catheter. Disposition: Patient remained in room in good condition throughout the procedure. Procedure In Detail: After informed consent was obtained, patient was prepped and draped in the usua l sterile fashion. After adequate anesthesia was achieved in the area of the left groin using ultras ound guidance. A microintroducer set was not available. I cannulated the femoral vein, but found to be quite small and with the patient having a history of lymphedema, I decided to abandon it at this point. As such, the area was cleansed once again and minimal pressure held in the area with no compl ications associated. I then placed the patient in steep Trendelenburg, prepped and draped in the usu al sterile fashion after adequate anesthesia was achieved in the area of the left internal jugular ve in using ultrasound guidance and microintroducer set to cannulate the internal jugular vein on the fi rst attempt without evidence of complication. Dark red nonpulsatile blood was returned. As such, I advanced a micro wire, made a small dick incision over the insertions point, advanced the microintrod ucer sheath. Wire out was called at this point for the micro wire and then I placed a standard wire through this, removed the introducer sheath and performed sequential dilatation using Seldinger techn ique, dilating up the tract and placed in the catheter without evidence of complication. Dark red no npulsatile blood was returned from both ports and flushed quite easily and was flushed with saline mu ltiple times to completely clear. The catheter was then secured to the patient's neck using included 2-0 nylon suture and a sterile dressing was placed over top. Patient tolerated the procedure well w ithout evidence of complication, remained in the room throughout the procedure in good condition. Al l counts were correct at the end of the case. All wires were accounted for. The patient was in the head up position after the procedure was complete, doing well. Stat chest x-ray will be performed. HEMANT/JOSELUIS Voice ID: [id number] Report ID: [id number]
[2019-09-11] MEDS: TAMSULOSIN 0.4 MG SR CAP PO SCH (20:52)
[2019-09-12 04:27] LABS: Absolute Lymphocytes (CBC) 0.2 K/uL (0.7-4.9); Basophils % 0.3 % (0-1.3); Hematocrit 36.4 % (39.6-49.0); Lymphocytes % 2.3 % (15.3-44.8); MPV 8.2 fL (7.6-11.3); RBC Red Blood Cell Count 3.72 M/uL (4.33-5.43)
[2019-09-12 04:39] LABS: Magnesium 2.6 mg/dL (1.8-2.4); Potassium 4.8 mmol/L (3.5-5.1)
[2019-09-12] MEDS: INSULIN -REGULAR HUMAN 50 UNIT/0.5 ML ML SQ SCH ×4 (07:30→21:00)
[2019-09-12] MEDS: APIXABAN 2.5 MG TABLET PO SCH ×2 (09:01→21:06)
[2019-09-12] MEDS: FINASTERIDE 5 MG TAB PO SCH (09:01)
--- NOTE | 2019-09-12 13:00 | P.PN ---
Subjective Date of Service: 09/12/19 Chief Complaint: Acute renal failure, hyperkalemia Subjective: Improving, Doing well Physical Examination - Vital Signs Temperature: 96.5 F Blood Pressure: 111/64 Pulse: 85 Respirations: 17 Pulse Ox (%): 97 - Physical Exam General: Alert, In no apparent distress, Oriented x3, Cooperative HEENT: Atraumatic Neck: Supple Respiratory: Clear to auscultation bilaterally, Normal air movement Cardiovascular: Normal pulses, Regular rate/rhythm Gastrointestinal: Normal bowel sounds, Soft and benign, Non-distended Integumentary: Other (Edema to the lower extremities) Neurological: Normal speech, Normal strength at 5/5 x4 extr, Normal tone - Studies Medications List Reviewed: Yes Assessment & Plan Discharge Plan: Other (Home with home health/caregiver services verses skilled placement) Plan to discharge in: 48 Hours Physician Review Additional Text: Assessment Acute on chronic renal failure stage 5 with hyperkalemia and metabolic acidosis likely related to antibiotic-Bactrim Atrial fibrillation on chronic anticoagulation therapy Diabetes mellitus type 2 Hypertension BPH Plan Acute on chronic renal failure stage 5 with hyperkalemia and metabolic acidosis likely related to antibiotic-Bactrim: Patient continues to improve. Patient received dialysis yesterday. Spoke with nephrology today. Patient will receive dialysis again tomorrow. Will continue to follow closely. Continue with nephrology recommendation. Patient continues with renal failure. Will physical therapy assess ambulation. Will consider skilled placement prior to discharge or home with home health and caregiver services. Atrial fibrillation on chronic anticoagulation therapy: Patient now on Eliquis due to her renal function. Echo to be obtained tomorrow Diabetes mellitus type 2: Will continue to monitor closely. A1c very well controlled. Continue Accu-Cheks. Sliding scale in place. Hypertension: Blood pressure stable. Home medications will be reviewed. Hold medication at this time. Consider restarting hydralazine if blood pressure increases. BPH: Continue medication Time Spent Managing Pts Care (In Minutes): 55
--- NOTE | 2019-09-12 17:02 | PN ---
Date of Progress Note: 09/12/2019 Subjective: Patient was admitted with acute kidney injury. Patient had 1 session of dialysis yester day, managed to remove 1 L. Patient still feeling the same. Physical Examination: Vital Signs: Blood pressure 105/47, pulse of 81, afebrile. Patient had urine output of 700, dialysi s removal of 1 L. Chest: Decreased entry, bilateral base. Heart: S1, S2. Regular. Abdomen: Morbidly obese. Extremities: Dressing on both legs. Neurologic: Alert. Nonfocal. No tremor. Laboratory Data: WBC 7.1, H and H 12.1/36.4, platelets 162. Sodium 137, potassium 4.8, bicarb 25, B UN 101, creatinine down to 3.1, calcium 8.5, magnesium 2.6. Current Medications: The patient on include: 1.Eliquis. 2.Flomax. 3.Zofran. 4.Finasteride. Assessment And Plan: 1.Acute kidney injury secondary to Bactrim, nonoliguric. Hyperkalemia resolved. Has acidosis. We will arrange for another session of dialysis tomorrow. 2.Cellulitis. Continue current antibiotic. We will follow up with the primary. 3.Over volume. We will try to establish better volume control with dialysis tomorrow. 4.Hypertension, controlled, currently on the lower side off all blood pressure medications. We will monitor. We will follow up blood pressure after dialysis tomorrow. ELIZABETH/JOSELUIS Voice ID: [id number] Report ID: [id number]
[2019-09-12] MEDS: TAMSULOSIN 0.4 MG SR CAP PO SCH (21:06)
[2019-09-13 04:33] LABS: Absolute Lymphocytes (CBC) 0.2 K/uL (0.7-4.9); Basophils % 0.2 % (0-1.3); Lymphocytes % 4.6 % (15.3-44.8); MPV 8.1 fL (7.6-11.3); RBC Red Blood Cell Count 3.76 M/uL (4.33-5.43)
[2019-09-13 04:42] LABS: Magnesium 2.4 mg/dL (1.8-2.4); Potassium 4.2 mmol/L (3.5-5.1)
[2019-09-13 05:21] LABS: Blood Morphology Comment NOT SEEN (NOT SEEN); Platelet Estimate ADEQ
[2019-09-13] MEDS: INSULIN -REGULAR HUMAN 50 UNIT/0.5 ML ML SQ SCH ×4 (07:30→20:52)
[2019-09-13] MEDS: FINASTERIDE 5 MG TAB PO SCH (08:45)
[2019-09-13] MEDS: APIXABAN 2.5 MG TABLET PO SCH ×2 (08:45→20:55)
--- NOTE | 2019-09-13 12:17 | P.PN ---
Subjective Date of Service: 09/13/19 Chief Complaint: Acute renal failure, hyperkalemia Subjective: No new changes, No C/O voiced <Jeremiah Solares Last Filed: 09/13/19 12:15> Date of Service: 09/13/19 Subjective: Other (Patient seen and examined with nurse practitioner.) <SarahkathyDave - Last Filed: 09/13/19 16:30> Review of Systems Unremarkable <Jeremiah Solares Last Filed: 09/13/19 12:15> Physical Examination - Vital Signs Temperature: 98.6 F Blood Pressure: 111/60 Pulse: 83 Respirations: 16 Pulse Ox (%): 96 - Physical Exam General: Alert, In no apparent distress, Oriented x3 HEENT: Atraumatic, Normocephalic Neck: Supple Respiratory: Clear to auscultation bilaterally, Normal air movement Cardiovascular: No edema Capillary refill: <2 Seconds Gastrointestinal: Normal bowel sounds Other Physical/Emotional Findings: Patient seen and examined. Agree with examination. - Studies Medications List Reviewed: Yes <Jeremiah Solares Last Filed: 09/13/19 12:15> - Physical Exam Cardiovascular: Normal pulses, Regular rate/rhythm Integumentary: No warmth, No cyanosis, Tenderness/swelling (Edema to the lower extremity.) - Studies Medications List Reviewed: Yes <Dave Cain - Last Filed: 09/13/19 16:30> Assessment & Plan Discharge Plan: Home Plan to discharge in: 24 Hours Physician Review Additional Text: Assessment Acute on chronic renal failure stage 5 with hyperkalemia and metabolic acidosis likely related to antibiotic-Bactrim Atrial fibrillation on chronic anticoagulation therapy Diabetes mellitus type 2 Hypertension BPH Plan Acute on chronic renal failure stage 5 with hyperkalemia and metabolic acidosis likely related to antibiotic-Bactrim: Patient continues to improve. Patient will likely receive dialysis again today. Creatinine continues to fall. Will continue to follow closely. Continue with nephrology recommendation. Will have physical therapy assess ambulation. Will consider skilled placement prior to discharge or home with home health and caregiver services. Atrial fibrillation on chronic anticoagulation therapy: Patient now on Eliquis due to her renal function. Still awaiting results from echocardiogram. Diabetes mellitus type 2: Will continue to monitor closely. A1c very well controlled. Continue Accu-Cheks. Sliding scale in place. Hypertension: Blood pressure stable. Home medications will be reviewed. Hold medication at this time. Consider restarting hydralazine if blood pressure increases. BPH: Continue medication Critical Care: No Time Spent Managing Pts Care (In Minutes): 55 <Jeremiah Solares - Last Filed: 09/13/19 12:15> Discharge Plan: Home Plan to discharge in: 48 Hours Physician Review Additional Text: Patient seen and examined with nurse practitioner. Case discussed at length. Agree with plan of care. Patient will have dialysis again today. Significant improvement has been made with dialysis. Will continue to monitor closely. Continue other home medication at this time. Patient wants to go home with home health and caregiver services. Anticipate discharge as early as tomorrow or within the next 48 hr if okay with nephrology. Continue to monitor renal function. I will turn the service over to the hospitalist team tomorrow. I will go over the plan of care with him. <Dave Cain - Last Filed: 09/13/19 16:30>
[2019-09-13] MEDS: TAMSULOSIN 0.4 MG SR CAP PO SCH (20:55)
[2019-09-13] MEDS: JUVEN PACKET PO SCH (20:58)
--- NOTE | 2019-09-14 00:15 | PN ---
Date of Progress Note: 09/13/2019 Chief Complaint: Acute kidney injury. History Of Present Illness: Patient was started on dialysis and received dialysis on 09/10. Due to the hypervolemia, patient had ultrafiltration done to control fluid overload and treat peripheral [place] and congestive heart failure. Review of Systems: Denies new complaints. Physical Examination: Lungs: Diminished breath sounds at bases. HEART: S1, S2. Abdomen: Obese, soft. Extremities: Leg edema in both extremities. Laboratory Data: Hemoglobin 12.3, WBC 5.3, platelet count 151,000. Chemistry showed sodium 141, pot assium 4.2, chloride 107, CO2 of 29, BUN 88, creatinine 2.26, glucose 112, calcium 8.8, magnesium 2.4 . Impression And Plan: 1.Acute on chronic kidney injury, fluid overload. Continue p.o. fluid restriction. Monitor electro lytes and fluid balance. 2.Hypertension, continue blood pressure medication. 3.Benign prostatic hyperplasia, continue Flomax. 4.Cellulitis, continue antibiotics. Adjust antibiotic dose to renal function. 5.Fluid overload. Patient will have dialysis with ultrafiltration tomorrow. 6.Acute kidney injury, secondary to Bactrim, nonoliguric. 7.Hyperkalemia, resolved. 8.Patient was found to have metabolic acidosis and bicarbonate at this point is improved and stabili zed. ZACKARY/MODSerena Voice ID: [id number] Report ID: [id number]
[2019-09-14 04:52] LABS: Absolute Lymphocytes (CBC) 0.4 K/uL (0.7-4.9); Basophils % 0.2 % (0-1.3); Hematocrit 36.5 % (39.6-49.0); Lymphocytes % 8.5 % (15.3-44.8); RBC Red Blood Cell Count 3.71 M/uL (4.33-5.43)
[2019-09-14 04:59] LABS: Potassium 3.6 mmol/L (3.5-5.1)
[2019-09-14] MEDS: INSULIN -REGULAR HUMAN 50 UNIT/0.5 ML ML SQ SCH ×4 (07:30→20:30)
[2019-09-14] MEDS: APIXABAN 2.5 MG TABLET PO SCH ×2 (07:57→20:23)
[2019-09-14] MEDS: FINASTERIDE 5 MG TAB PO SCH (07:57)
[2019-09-14] MEDS: JUVEN PACKET PO SCH ×2 (07:58→20:24)
--- NOTE | 2019-09-14 08:27 | ECHO ---
HEIGHT: 5 ft 9 in WEIGHT: 259 lb 11.2 oz DATE OF STUDY: 09/13/[address]: Jeremiah Solares NP 2-DIMENSIONAL: YES M.MODE: YES DOPPLER: YES COLOR FLOW: YES TDS: YES PORTABLE: NO DEFINITY: NO BUBBLE STUDY: NO DIAGNOSIS: ACUTE ATRIAL FIBRILLATION WITH RENAL FAILURE CARDIAC HISTORY: CATHERIZATION: NO SURGERY: NO PROSTHETIC VALVE: NO PACEMAKER: NO MEASUREMENTS (cm) DIASTOLIC (NORMALS) SYSTOLIC (NORMALS) IVSd 1.2 (0.6-1.2) LA Diam 4.2 (1.9-4.0) LVEF 67% LVIDd 3.0 (3.5-5.7) LVIDs 1.9 (2.0-3.5) %FS 36% LVPWd 1.2 (0.6-1.2) Ao Diam 3.0 (2.0-3.7) 2 DIMENSIONAL ASSESSMENT: RIGHT ATRIUM: NORMAL LEFT ATRIUM: DILATED RIGHT VENTRICLE: NORMAL LEFT VENTRICLE: NORMAL TRICUSPID VALVE: NORMAL MITRAL VALVE: NORMAL PULMONIC VALVE: NORMAL AORTIC VALVE: SCLEROSIS PERICARDIAL EFFUSION: NONE AORTIC ROOT: NORMAL LEFT VENTRICULAR WALL MOTION: NORMAL. DOPPLER/COLOR FLOW: MILD TRICUSPID REGURGITATION. COMMENTS: MILD TRICUSPID REGURGITATION - NORMAL RIGHT VENTRICULAR SYSTOLIC PRESSURE. NORMAL LEFT VENTRICULAR EJECTION FRACTION. LEFT ATRIAL ENLARGEMENT. AORTIC SCLEROSIS WITH NO STENOSIS. ASSYMETRICAL SEPTAL HYPERTROPHY. NO STENOSIS. TECHNOLOGIST: BC HUANG
[2019-09-14] MEDS ORDERED: POTASSIUM CL SA 10 MEQ TAB PO ONE (09:00)
--- NOTE | 2019-09-14 13:17 | P.PN ---
Subjective Date of Service: 09/14/19 Chief Complaint: Acute renal failure, hyperkalemia Subjective: No new changes (Patient is feeling well. Has no shortness of breath. No acute events overnight. I discussed with Dr. Marques from Nephrology. I will dialyzed the patient again today, feels patient's renal function has improved for the most part) Physical Examination - Vital Signs Temperature: 97.2 F Blood Pressure: 118/64 Pulse: 69 Respirations: 18 Pulse Ox (%): 93 - Physical Exam General: Alert, In no apparent distress HEENT: Other (Dialyzed) Neck: Supple, Other (dialyzed) Respiratory: Clear to auscultation bilaterally, Normal air movement Cardiovascular: No edema, Normal pulses, Regular rate/rhythm, Normal S1 S2 Gastrointestinal: Normal bowel sounds, Soft and benign, Non-distended Musculoskeletal: No clubbing, No swelling, No contractures, No erythema, No tenderness, No warmth Integumentary: No rashes, No breakdown, No significant lesion, No tenderness/swelling, No erythema, No warmth, No cyanosis Neurological: Normal gait Urinary: Rayo catheter Other Physical/Emotional Findings: Patient seen and examined. Agree with examination. - Studies Medications List Reviewed: Yes Assessment & Plan Physician Review Additional Text: Assessment Patient is a 78 year old male who was admitted with worsening renal function and hyperkalemia. Patient attributed this to a recent course of bactrim for lower extremity cellulitis. He was oliguric and required a few sessions of hemodialysis. Nephrology feels that patient's renal function has improved for the most part but will require one more session before discharge Acute on chronic CKD stage IV s/p hemodialysis Hyperkalemia Atrial fibrillation BPH PLAN: Dialysis today Continue apixaban Continue flomax and finasteride Discharge tomorrow
--- NOTE | 2019-09-14 19:15 | PN ---
Date of Progress Note: 09/14/2019 History: Patient was admitted with acute kidney injury secondary to Bactrim AIN. Patient had over v olume. Patient was initiated on dialysis. Patient received 2 sessions of dialysis. Started having good urine output. Kidney function started recovering. Physical Examination: Vital Signs: When I saw the patient, blood pressure 118/64, pulse of 69, afebrile. Patient had good urine output of 2 L. Chest: Decreased entry, bilateral base. Heart: S1, S2. Regular. Abdomen: Soft, nontender, morbidly obese. Extremities: Edema with compression dressing, both legs. Neurologic: Alert and oriented x3. Laboratory Data: WBC 4.2, H and H of 12.4/36.5. Sodium 140, potassium 3.6, bicarb 29, BUN 53, creat inine 1.3, GFR of 49, calcium 8.6. Current Medications: The patient on include: 1.Flomax. 2.Eliquis. 3.Tylenol. 4.Januvia. 5.Finasteride. Assessment And Plan: 1.Acute kidney injury secondary to acute interstitial nephritis secondary to Bactrim, nonoliguric, s tatus post dialysis, still over volume. I am going to do another session of dialysis today, then we will remove the dialysis catheter. Patient is going to be cleared from the renal standpoint for disc harge planning. 2.Hypertension, controlled, optimal. We will try to utilize the blood pressure for more ultrafiltra tion. 3.Hyperkalemia, resolved with dialysis. 4.Acidosis, resolved. 5.Cellulitis. Continue current treatment. 6.Atrial fibrillation. Continue Eliquis. Follow up with Cardiology. ELIZABETH/JOSELUIS Voice ID: [id number] Report ID: [id number]
[2019-09-14] MEDS: TAMSULOSIN 0.4 MG SR CAP PO SCH (20:23)
[2019-09-15 00:55] VITALS: BMI 38.7
[2019-09-15 02:32] LABS: HBsAG Nonreactive (Nonreactive)
[2019-09-15 04:35] LABS: Absolute Lymphocytes (CBC) 0.5 K/uL (0.7-4.9); Basophils % 0.7 % (0-1.3); Hematocrit 36.2 % (39.6-49.0); Lymphocytes % 12.4 % (15.3-44.8); RBC Red Blood Cell Count 3.64 M/uL (4.33-5.43)
[2019-09-15 04:49] LABS: Potassium 3.5 mmol/L (3.5-5.1)
[2019-09-15 05:49] VITALS: O2SAT 93
[2019-09-15] MEDS: INSULIN -REGULAR HUMAN 50 UNIT/0.5 ML ML SQ SCH ×2 (07:30→11:19)
[2019-09-15] MEDS ORDERED: POTASSIUM CL SA 10 MEQ TAB PO ONE (09:00)
[2019-09-15] MEDS: APIXABAN 2.5 MG TABLET PO SCH (09:48)
[2019-09-15] MEDS: FINASTERIDE 5 MG TAB PO SCH (09:48)
[2019-09-15] MEDS: JUVEN PACKET PO SCH (09:49)
--- NOTE | 2019-09-15 10:41 | P.DS ---
Admission Date: 09/10/19 Discharge Date: 09/15/19 Disposition: ROUTINE DISCHARGE Discharge Condition: GOOD Reason for Admission: Acute renal failure, hyperkalemia - Problems (1) Acute renal failure Current Visit: Yes Status: Acute (2) Cellulitis, leg Onset Date: 09/15/14 Current Visit: No Status: Acute (3) Chronic atrial fibrillation Current Visit: No Status: Acute (4) Chronic venous hypertension (idiopathic) with ulcer of right lower extremity Current Visit: No Status: Acute (5) DM type 2 (diabetes mellitus, type 2) Current Visit: No Status: Acute (6) Morbid obesity Current Visit: No Status: Acute (7) Chronic cor pulmonale Current Visit: No Status: Chronic Hospital Course: Patient is a 78 year old female with a PMH of HTN, TYPE II diabetes mellitus, atrial fibrillation, chronic bilateral lymphedema who presented to the ER with intractable headache. His work up revealed acute renal failure, which the patient attributes to recent prescription of bactrim for lower extremity cellulitis. He required sessions of hemodialysis during this admission. He is non-oliguric at this point and has been cleared by Nephrology for discharge. Vital Signs/Physical Exam: Temp Pulse Resp BP Pulse Ox 97.1 F 61 18 127/73 93 09/15/19 04:00 09/15/19 04:00 09/15/19 04:00 09/15/19 04:00 09/15/19 04:00 General: Alert, In no apparent distress, Obese HEENT: Atraumatic, Normocephalic, EOMI Neck: Supple Respiratory: Clear to auscultation bilaterally, Normal air movement Cardiovascular: Regular rate/rhythm, Normal S1 S2, Other (bilateral lower extremity wrapped), Edema Gastrointestinal: Normal bowel sounds, Soft and benign, Non-distended Neurological: Normal speech, Sensation intact, Normal affect Other Physical/Emotional Findings: Patient seen and examined. Agree with examination. Laboratory Data at Discharge: WBC 3.7 K/uL (4.3-10.9) L 09/15/19 04:13 Hgb 12.1 g/dL (13.6-17.9) L 09/15/19 04:13 Hct 36.2 % (39.6-49.0) L 09/15/19 04:13 Plt Count 138 K/uL (152-406) L 09/15/19 04:13 PT 19.1 SECONDS (9.5-12.5) H 09/11/19 05:15 INR 1.63 09/11/19 05:15 APTT 37.1 SECONDS (24.3-36.9) H 09/11/19 05:15 Sodium 142 mmol/L (136-145) 09/15/19 04:13 Potassium 3.5 mmol/L (3.5-5.1) 09/15/19 04:13 BUN 52 mg/dL (7-18) H 09/15/19 04:13 Creatinine 1.38 mg/dL (0.55-1.3) H 09/15/19 04:13 Glucose 105 mg/dL (74-106) 09/15/19 04:13 Magnesium 2.4 mg/dL (1.8-2.4) 09/13/19 03:35 Total Bilirubin 0.7 mg/dL (0.2-1.0) 09/10/19 15:49 AST 45 U/L (15-37) H 09/10/19 15:49 ALT 36 U/L (12-78) 09/10/19 15:49 Alkaline Phosphatase 136 U/L (45-117) H 09/10/19 15:49 Home Medications: Furosemide [Lasix*] 60 mg PO DAILY 04/26/19 Hydralazine HCl 25 mg PO BID 04/26/19 Rivaroxaban [Xarelto] 20 mg PO DAILY 04/26/19 Tamsulosin [Flomax*] 0.4 mg PO BEDTIME 04/26/19 Finasteride [Proscar*] 5 mg PO DAILY 06/22/19 Diet: Regular
[2019-09-15 12:03] VITALS: BP 111/50; TEMP 98.6
--- NOTE | 2019-09-15 20:29 | PN ---
Date of Progress Note: 09/15/2019 Subjective: Patient was admitted with acute kidney injury, anasarca. His acute kidney injury was Ba ctrim induced. After stopping Bactrim, patient required a couple of session of dialysis. Patient's kidney function started improving. Creatinine down to 1.3 without dialysis for the last 2 days. Cre atinine maintained as 1.3. Patient had good urine output. Physical Examination: Vital Signs: Blood pressure 111/50, pulse of 61. Patient had good urine output of 1400. Today, we done sequential and managed to remove another 1500. Chest: Decreased entry bilateral base. Heart: S1, S2. Regular. Abdomen: Soft, nontender. Extremities: Compression wrap both legs. Laboratory Data: WBC 3.7, H and H of 12.1/36.2. Sodium 142, potassium 3.5, bicarb 27, BUN 52, creat inine 1.3, calcium 8.2. Current Medications: The patient on, include: 1.Eliquis. 2.Finasteride. 3.Hydralazine 25 b.i.d. 4.Zofran. 5.Flomax. Assessment And Plan: 1.Acute kidney injury secondary to Bactrim, over volume, status post dialysis, recover, resolve, sti ll over volume. I am going to start the patient on Lasix 40 mg daily. Okay from the renal standpoin t to remove the hemodialysis catheter, patient will not need any dialysis. Patient is going to need follow up in 2 to 3 weeks. 2.Hypertension, controlled optimal. We will utilize the blood pressure for more diuresis. We will start the patient on Lasix. 3.Prostate hypertrophy. Patient will remove the Rayo. We will check postvoid. 4.Anasarca secondary to renal failure. Started the patient on diuresis. Patient cleared from the renal standpoint for discharge planning to follow up in the offic e in 2 to 3 weeks. ELIZABETH/JOSELUIS Voice ID: [id number] Report ID: [id number]
[2019-09-15] MEDS ORDERED: HYDRALAZINE HCL 25 MG TABLET PO SCH (21:00)
[2019-09-16] MEDS ORDERED: FUROSEMIDE 40 MG/4 ML VIAL IV SCH (09:00)
[2019-09-16] MEDS ORDERED: FUROSEMIDE 40 MG TABLET PO SCH (09:00)
== END 2019-09-15 12:50 | disposition home health service (06) | DRG 682 ==
LOC: ER 05:12 → ERHOLD 09:32 → 2ND 11:40
PROVIDERS: ADMIT Family Medicine; ATTEND Internal Medicine
PROC: 5A1D70Z Performance of Urinary Filtration, Intermittent, Less than 6 Hours Per Day (ICD-10-PCS; principal; 2019-09-11)
PROC: 02HV33Z Insertion of Infusion Device into Superior Vena Cava, Percutaneous Approach (ICD-10-PCS; 2019-09-11)
DX: N17.9 Acute kidney failure, unspecified (principal); J18.9 Pneumonia, unspecified organism; E87.2 Acidosis; Z68.41 Body mass index [BMI] 40.0-44.9, adult; I12.0 Hypertensive chronic kidney disease with stage 5 chronic kidney disease or end stage renal disease; I48.20 Chronic atrial fibrillation, unspecified; I87.311 Chronic venous hypertension (idiopathic) with ulcer of right lower extremity; L97.919 Non-pressure chronic ulcer of unspecified part of right lower leg with unspecified severity; L03.119 Cellulitis of unspecified part of limb; E11.22 Type 2 diabetes mellitus with diabetic chronic kidney disease; E87.5 Hyperkalemia; N40.0 Benign prostatic hyperplasia without lower urinary tract symptoms; I89.0 Lymphedema, not elsewhere classified; T36.8X5A Adverse effect of other systemic antibiotics, initial encounter; N18.5 Chronic kidney disease, stage 5; N10 Acute pyelonephritis; E87.70 Fluid overload, unspecified; E66.01 Morbid (severe) obesity due to excess calories; Z79.899 Other long term (current) drug therapy; Z79.4 Long term (current) use of insulin; Z86.718 Personal history of other venous thrombosis and embolism; Z79.01 Long term (current) use of anticoagulants; Z88.1 Allergy status to other antibiotic agents; L89.312 Pressure ulcer of right buttock, stage 2
CPT/HCPCS: 36415; 51702; 70450; 71045; 71046; 74176; 80048; 80053; 81003; 81015; 82947; 83036; 83735; 83880; 84439; 84443; 85025; 85610; 85730; 86317; 86704; 87086; 87088; 87340; 90935; 93005; 93306; 94640; 96361; 96374; 96375; 97161; 97165; 99251; 99285; J0610; J1100; J1644; J1940; J2765; J7040; P9047

== ENCOUNTER 2019-10-13 14:18 | Observation (INO) | payer OTHER, BC ==
--- OUTSIDE RECORDS SUMMARY | 2019-10-13 14:25 | XMS REPORT | Continuity of Care Document ---
:[address] [facility] t Address [address] [place] [address] Care Team Providers Name Role Phone Catherine FORD, Micheline Benjamin Primary Care Physician [phone] Sourav Bond MD Attending Clinician Payers Payer Name Policy Policy Number Effective Expiration Source Type Date Date MEDICAREMEDICARE PART xxxxxxxxxxx 2011 Kwasi Welch AND 00:00:00 [place] 2019 [place] PPO/FEDERAL EMPL 00:00:00 Methodis t PPOxxxxxxxxxxxx1-PresentPPO Problems This patient has no known problems. Allergies, Adverse Reactions, Alerts Allergy Allergy Status Severity Reaction(s) Onset Inactive Treating Comm ents Source Name Type Date Date Clinician Levoflox Propensi Active Rash [place] acin ty to 3-05 [facility] adverse 00:00: st reaction 00 s to drug Social History Social Habit Start Date Stop Date Quantity Comments Source Sex Assigned At [place] Smoking Status Start Date Stop Date Source Never smoker [place] [facility] t Medications Ordered Filled Start Stop Current Ordering Indication Dosage Frequency Signature Comments Components Source Medication Medication Date Date Medication? Clinician (SIG) Name Name furosemide Yes TAKE 1 [place] on (LASIX) 20 4-20 TABLET BY Meth kindra mg tablet 00:00: MOUTH st 00 EVERY MORNING furosemide 2020- No 20mg [id number] Take 20 mg [place] (LASIX) 20 3-16 03-16 [id number] by mouth 3 [facility] mg tablet 10:29: 00:[address] ([address]) st 14 :00 times a day. freestyle 2020-0 Yes Pre-diabete Check [place] 28 gauge 3-16 s glucose [facility] lancets 00:00: once a st 00 day. FREESTYLE 2020-0 Yes Pre-diabete Check [place] TEST strip 3-16 s glucose Method i test strips 00:00: once a st 00 day. furosemide 2020-0 2020- No 20mg [id number] Take 1 [place] (LASIX) 20 3-16 04-20 [id number] tablet (20 [facility] mg tablet 00:00: 00:00 3D mg total) st 00 :00 by mouth 3 (three) times a day. hydrALAZINE 2020-0 Yes 50mg Q.5D Take 50 mg [place] (APRESOLINE 3-05 by mouth 2 Me thodi ) 50 MG 14:40: (two) st tablet 48 times a day. tamsulosin 2020-0 Yes .4mg QD Take 0.4 [place] st[place] (FLOMAX) 3-05 mg by [facility] 0.4 mg 14:40: mouth st capsule 48 daily with dinner. rivaroxaban 2020-0 Yes 20mg QD Take 20 mg [place] (XARELTO) 3-05 by mouth Method i 20 mg 14:40: daily. st tablet 48 finasteride 2020-0 Yes 5mg QD Take 5 mg [place] (PROSCAR) 5 3-05 by mouth Meth kindra mg tablet 14:40: daily. st 48 Vital Signs Vital Name Observation Time Observation Value Comments Source Systolic blood 2019-07-08 14:31:00 130 mm[Hg] Sara n [facility] pressure Diastolic blood 2019-07-08 14:31:00 72 mm[Hg] J[place] on [facility] pressure Heart rate 2019-07-08 14:31:00 71 /min [place] Body temperature 2019-07-08 14:31:00 36.44 [place] [facility] Body height 2019-07-08 14:31:00 175.3 cm [place] Body weight 2019-07-08 14:31:00 147.419 kg [place] BMI 2019-07-08 14:31:00 47.99 kg/m2 [place] Oxygen saturation in 2019-07-08 14:31:00 96 /min [place] [facility] Arterial blood by Pulse oximetry Procedures This patient has no known procedures. Plan of Care Planned Activity Planned Date Details Comments Source Future Scheduled 2019-12-04 INFLUENZA VACCINE [place] [facility] Test 00:00:00 [code = INFLUENZA VACCINE] Future Scheduled 2003-10-24 65+ PNEUMOCOCCAL [place] [facility] Test 00:00:00 VACCINE (1 of 2 - PCV13) [code = 65+ PNEUMOCOCCAL VACCINE (1 of 2 - PCV13)] Future Scheduled [facility] [code = SHINGLES VACCINES (#1)] Encounters Start End Encounter Admission Attending Care Care Encounter Source Date/Time Date/Time Type Type Clinicians Facility Department ID 2019-07-08 2019-07-08 Outpatient [facility] [id number] [place] 00:00:00 00:00:[address] Results This patient has no known results.
--- OUTSIDE RECORDS SUMMARY | 2019-10-13 14:25 | XMS REPORT | Clinical Summary ---
:1940 Author Organization [facility] Address [address] [place] [address] Care Team Providers Name Role Phone Micheline Bond MD Primary Care Provider [phone] Allergies Active Allergy Reactions Severity Noted Date [...] Team Description 08/23/2019 Refill Family Medicine Micheline Bond MD 08/03/2019 Travel 08/02/2019 Travel 08/02/2019 Telephone Family Medicine Micheline Bond MD 08/02/2019 Telephone Family Medicine Micheline Bond MD 07/26/2019 Refill Internal Medicine Micheline Bond MD 07/19/2019 Telephone Internal Medicine Micheline Bond Pre-d iabetes (Primary MD Sourav Dx) 07/13/2019 Telephone Family Medicine Micheline Bond MD 07/08/2019 Office Visit Family [facility] Micheline Bond Chronic acquired lymphedema (Primary Dx); MD Sourav Recurrent cellu litis of lower extremity; Pneumonia due t o infectious organism, unspecified laterality, unspecified part of lung after 10/12/2018 Family History Relation Name Status Comments Father [...] Comments Blood Pressure 130/72 07/08/2019 2:31 PM ASSOCIATE CHIEF NURSE Pulse 71 07/08/2019 2:31 PM ASSOCIATE CHIEF NURSE Temperature 36.4 C (97.6 F) 07/08/2019 2:31 PM ASSOCIATE CHIEF NURSE Respiratory Rate - - Oxygen Saturation 96% 07/08/2019 2:31 PM ASSOCIATE CHIEF NURSE Inhaled Oxygen Concentration - - Weight 147 kg (325 lb) 07/08/2019 2:31 PM ASSOCIATE CHIEF NURSE Height 175.3 cm (5' 9") 07/08/2019 2:31 PM ASSOCIATE CHIEF NURSE Body Mass Index 47.99 07/08/2019 2:31 PM ASSOCIATE CHIEF NURSE Plan of Treatment Health Maintenance Due Date Last Done Comments SHINGLES VACCINES (#1) 1988 65+ PNEUMOCOCCAL VACCINE (1 of 2 - PCV13) 10/24/2003 INFLUENZA VACCINE 12/04/2019 Results Not on fileafter 10/12/2018 Insurance Payer Benefit Plan / Subscriber ID Effective Dates Phone Addre ss Type Group MEDICARE MEDICARE PART A xxxxxxxxxxx 2011-Present [place], [place] Medicare AND B BCBS BCBS CHOICE xxxxxxxxxxxx 2019-Present PPO PPO/FEDERAL EMPL PPO ([place]) [facility] [address] [place] [address] Advance Directives For more information, please contact: [phone] Type Date Recorded Patient Mill Controller Explanati on Advance Directives, Living Will and Medical Power of Line Maintainer
[2019-10-13 14:54] VITALS: BMI 38.5
[2019-10-13 15:03] LABS: Absolute Lymphocytes (CBC) 0.8 K/uL (0.7-4.9); Basophils % 1.1 % (0-1.3); Hematocrit 40.4 % (39.6-49.0); Lymphocytes % 16.4 % (15.3-44.8); MPV 7.6 fL (7.6-11.3); RBC Red Blood Cell Count 4.13 M/uL (4.33-5.43)
[2019-10-13 15:15] LABS: Potassium 3.7 mmol/L (3.5-5.1)
--- NOTE | 2019-10-13 15:17 | RAD REPORT ---
EXAM DESCRIPTION: RAD - Chest Pa And Lat (2 Views) - 10/13/2019 3:10 pm CLINICAL HISTORY: HTN, AFIB Chest pain. COMPARISON: Chest Single View dated 09/11/2019; Chest Pa And Lat (2 Views) dated 09/10/2019; Chest Singl e View dated 07/01/2019; Chest Single View dated 06/26/2019 FINDINGS: Lungs are mildly emphysematous with mildly elevated right hemidiaphragm, chronic. The hear t is mildly to moderately enlarged with a tortuous thoracic aorta. No displaced fractures. IMPRESSION: No acute finding evident.
[2019-10-13 15:25] LABS: Protime INR 2.02
[2019-10-13 15:37] LABS: Blood Morphology Comment NOT SEEN (NOT SEEN); Platelet Estimate ADEQ; Urine White Blood Cell Casts OK
[2019-10-13] MEDS: Meropenem 500 MG in NA CHLORIDE 0.9% 100 ML IV SCH ×2 (16:50→21:00)
[2019-10-13 17:30] LABS: Urine Appearance CLEAR; Urine Bilirubin NEGATIVE (NEG); Urine Blood NEGATIVE (NEG); Urine Color YELLOW; Urine Glucose NEGATIVE (NEG); Urine Protein NEGATIVE (NEG); Urine Specific Gravity <=1.005 (1.005-1.030); Urine Urobilinogen 0.2 mg/dL (0.2-1.0)
[2019-10-13 17:32] LABS: Urine Microscopic Reflex NO UMIC
--- NOTE | 2019-10-13 21:49 | P.SSS ---
Patient History Date of Service: 10/13/19 Reason for admission: RIGHT LEG INFECTION. History of Present Illness: FATHER THOMAS IS A DIABETIC WITH RENAL FAILURE AND SEVERE LYMPHEDEMA. WE GAVE CIPRO PO FOR ABOUT TWO WEEKS FOR PSEUDOMONAS AND E FECALES INFECTION BUT IT FAILED TO CURE THE INFECTION. HIS R LEG EDMEA HAS IMPROVED BUT THE ULCER THAT EXCAURIATED THE SKIN HAS COVERED THE WHOLE LEG EXCEPT A SMALL PART OF CIRCUMFERNCE. HE DOES NOT HAVE FEVER BUT HIS DRESSING HAD GREEN DISCHARGE ON IT. Allergies cefepime [From Maxipime] Allergy (Verified 09/10/19 14:59) Itching levofloxacin [From Levaquin] Allergy (Verified 09/10/19 14:59) Hives sulfamethoxazole [From Bactrim] Adverse Reaction (Verified 09/20/19 16:46) Nausea/Vomiting trimethoprim [From Bactrim] Adverse Reaction (Verified 09/20/19 16:46) Nausea/Vomiting Home Medications: Hydralazine HCl 25 mg PO BID 04/26/19 Rivaroxaban [Xarelto] 20 mg PO DAILY 04/26/19 Tamsulosin [Flomax*] 0.4 mg PO BEDTIME 04/26/19 Finasteride [Proscar*] 5 mg PO DAILY 06/22/19 Furosemide [Lasix] 40 mg PO DAILY 09/20/19 Furosemide [Lasix*] 1 tab PO DAILY 10/13/19 - Past Medical/Surgical History Has patient received pneumonia vaccine in the past: Yes Diabetic: Yes -: Lymphedema -: DM -: HTN -: Atrial fibrillation -: BPH -: Incontinence -: lymphedema -: Duodenal ulcer -: Bilateral cataracts (2004) -: Removal of melanoma right ear -: tonsillectomy -: torn retina right eye -: Small bowel resection Psychosocial/ Personal History: Patient lives at home and has a caregiver. - Family History Father -: Heart disease Mother -: Cancer - Social History Smoking Status: Never smoker Alcohol use: No CD- Drugs: No Caffeine use: Yes Review of Systems 10-point ROS is otherwise unremarkable Physical Examination - Vital Signs Temperature: 96.8 F Blood Pressure: 116/65 Pulse: 77 Respirations: 18 Pulse Ox (%): 97 - Physical Exam General: Alert, In no apparent distress, Obese HEENT: Atraumatic, PERRLA, Mucous membr. moist/pink, EOMI, Sclerae nonicteric Neck: Supple, 2+ carotid pulse no bruit, No LAD, Without JVD or thyroid abnormality Respiratory: Clear to auscultation bilaterally, Normal air movement Cardiovascular: Regular rate/rhythm, Normal S1 S2 Gastrointestinal: Normal bowel sounds, No tenderness Musculoskeletal: No tenderness Integumentary: No rashes, Venous stasis ulcer (R LEG ABOVE IN HPI) Neurological: Normal gait, Normal speech, Normal strength at 5/5 x4 extr, Normal tone, Normal affect Lymphatics: No axilla or inguinal lymphadenopathy - Studies Laboratory Data (last 24 hrs) 10/13/19 14:48: Sodium 138, Potassium 3.7, BUN 22 H, Creatinine 1.03, Glucose 104 10/13/19 14:48: PT 23.5 H, INR 2.02 10/13/19 14:48: WBC 5.0 D, Hgb 13.5 L, Hct 40.4, Plt Count 173 - Diagnosis (Problem(s)) (1) Pseudomonas (aeruginosa) (mallei) (pseudomallei) as the cause of diseases classified elsewhere Current Visit: Yes Status: Acute Plan: HE IS ALLERGIC TO CEFEPIME HE FAILED CIPRO. NOW MERREM HAS TO BE USED A LAST RESORT. PICC LINE. IV ABX FOR 14 DAYS. FU IN [facility]. (2) Cellulitis of leg without foot, right Current Visit: Yes Status: Acute Plan: ABOVE. (3) Venous stasis ulcer of right lower leg with edema of right lower leg Current Visit: Yes Status: Chronic Plan: COBAN 2 WRAP TO CONTINUE AFTER INFECTION IS CURED. (4) Atrial fibrillation Current Visit: No Status: Chronic Qualifiers: Atrial fibrillation type: longstanding persistent Qualified Code(s): I48.11 - Longstanding persistent atrial fibrillation (5) DM type 2 (diabetes mellitus, type 2) Current Visit: No Status: Chronic Plan: FU A1C AND LDL. HE GOES TO DR ROBLES FOR HIS CARE. - Disposition Disposition: ROUTINE DISCHARGE
[2019-10-14] MEDS ORDERED: ENOXAPARIN 40 MG/0.4 ML SQ SCH (09:00)
[2019-10-14] MEDS: Meropenem 500 MG in NA CHLORIDE 0.9% 100 ML IV SCH (09:00)
[2019-10-14] MEDS: RIVAROXABAN 20 MG TABLET PO SCH (09:54)
[2019-10-14] MEDS: FINASTERIDE 5 MG TAB PO SCH (09:54)
[2019-10-14] MEDS: FUROSEMIDE 40 MG TABLET PO SCH (09:55)
[2019-10-14] MEDS: HYDRALAZINE HCL 25 MG TABLET PO SCH ×2 (09:55→20:36)
[2019-10-14] MEDS: Meropenem 1,000 MG in NA CHLORIDE 0.9% 100 ML IV SCH ×2 (09:56→17:35)
--- NOTE | 2019-10-14 12:42 | P.PN ---
Subjective Date of Service: 10/14/19 Chief Complaint: RIGHT LEG INFECTION. Physical Examination - Vital Signs Temperature: 97.8 F Blood Pressure: 125/73 Pulse: 55 Respirations: 17 Pulse Ox (%): 95 - Studies Laboratory Data (last 24 hrs) 10/13/19 22:07: LDL Cholesterol Direct 74 L 10/13/19 14:48: Sodium 138, Potassium 3.7, BUN 22 H, Creatinine 1.03, Glucose 104 10/13/19 14:48: PT 23.5 H, INR 2.02 10/13/19 14:48: WBC 5.0 D, Hgb 13.5 L, Hct 40.4, Plt Count 173 Microbiology Data (last 24 hrs): 10/14/19 09:25 Nasopharnyx Coronavirus COVID-19 PCR - Final Assessment And Plan - Current Problems (Diagnosis) (1) Pseudomonas (aeruginosa) (mallei) (pseudomallei) as the cause of diseases classified elsewhere Current Visit: Yes Status: Acute Plan: HE IS ALLERGIC TO CEFEPIME HE FAILED CIPRO. NOW MERREM HAS TO BE USED A LAST RESORT. PICC LINE. IV ABX FOR 14 DAYS. FU IN [facility]. (2) Cellulitis of leg without foot, right Current Visit: Yes Status: Acute Plan: ABOVE. (3) Venous stasis ulcer of right lower leg with edema of right lower leg Current Visit: Yes Status: Chronic Plan: COBAN 2 WRAP TO CONTINUE AFTER INFECTION IS CURED. (4) Atrial fibrillation Current Visit: No Status: Chronic Qualifiers: Atrial fibrillation type: longstanding persistent Qualified Code(s): I48.11 - Longstanding persistent atrial fibrillation (5) DM type 2 (diabetes mellitus, type 2) Current Visit: No Status: Chronic Plan: FU A1C AND LDL. HE GOES TO DR ROBLES FOR HIS CARE.
[2019-10-14] MEDS ORDERED: LIDOCAINE 1% MPF 30 ML VIAL ONE (14:22)
[2019-10-14] MEDS ORDERED: NA CHLORIDE 0.9% 500 ML ONE (14:44)
--- NOTE | 2019-10-14 15:05 | P.CNS ---
Date of Consult: 10/14/19 PC: I was asked to see this 78-year-old male regards to placement of central line. HPC: Patient has had a recurrent infections is septicemia from his chronic bilateral lymphedema. He is at the moment on medication. He has a vascular access PSHx: Previous perforated duodenal ulcer, late entry, chronic lymphedema SOC: Allergies noted SYS REVIEW: States he has been in relatively good health last couple weeks O/E awake alert stable HEENT: Kyung Mic Chest: Chest movement equal bilaterally ABD: Saw LOCO: No evidence of any clavicular fractures IMPRESSION: Lack of vascular access PLAN: I will place a left subclavian line procedure were discussed. He understands and wants us to proceed.
[2019-10-14] MEDS ORDERED: KETOROLAC 30 MG/ML INJ ONE (15:27)
--- NOTE | 2019-10-14 16:18 | P.OP ---
Preoperative diagnosis: Lack of vascular access Postoperative diagnosis: The same Primary procedure: Attempted insertion of left subclavian catheter, insertion of right subclav Anesthesia: Local Estimated blood loss: Less than 30 cc Operative Technique: The patient brought the operating room and placed supine on the table. After the induction of adequate positioning of the table, with a roll between the patient's shoulders, previous prepped and draped in usual aseptic manner. 1% lidocaine was used to infiltrate the subclavicular area. The finer needle was then passed to trying cannulate the left subclavian vein. We made a 2 contact with the vein but were unable to easily pass a wire. This was verified with our initial fluoroscopy films. We attempted 2 more times to pass into the left subclavian vein. We did manage to hit the artery. This was recognized and pressure was held to control bleeding which was easily done. At this point it was determined to tried the other side. A fluoroscopy showed no evidence of any pneumothorax or collapsed lung on the left side. Has the right chest was prepped and with a new set the area of the right subclavicular area was infiltrated 1% lidocaine. We were able to cannulate the subclavian vein. The guidewire was passed down through this. Our initial films show that the wire went up into the neck, applied gentle manipulation of the guidewire were able to flip it down into the SVC. The finer needle was now removed leaving guidewire in place. The dilator was passed over the guidewire. The catheter was now we placed over the guidewire in using a modified Seldinger technique positioned in good position as confirmed by fluoroscopy. The catheter was now secured with the provided clip as well as sutures to the status on the catheter itself. The catheter was then flushed in the usual manner. A sterile dressing was applied. At the end of procedure he was in a stable condition when sent to the recovery room. We will obtain a chest x-ray. Complications: None Transferred to: Recovery Room Condition: Good
--- NOTE | 2019-10-14 16:42 | RAD REPORT ---
EXAM DESCRIPTION: RAD - Fluoroscopy <1 Hour - 10/14/2019 4:35 pm CLINICAL HISTORY: Venous catheter insertion. CENTRAL LINE PLACEMENT COMPARISON: No comparisons FINDINGS: Fluoroscopic imaging is submitted from placement of a venous catheter. Details of the pro cedure not available. Fluoroscopy time: 3.1 minutes
--- NOTE | 2019-10-14 16:42 | RAD REPORT ---
EXAM DESCRIPTION: RAD - Chest Single View - 10/14/2019 4:35 pm CLINICAL HISTORY: S/P CENTRAL LINE PLACEMENT Chest pain. COMPARISON: Chest Pa And Lat (2 Views) dated 10/13/2019; Chest Single View dated 09/11/2019; Chest Pa A nd Lat (2 Views) dated 09/10/2019; Chest Single View dated 07/01/2019 FINDINGS: Portable technique limits examination quality. Right-sided central line has been placed with its tip in the SVC. No postprocedure pneumothorax. The heart is moderately enlarged with a tortuous thoracic aorta. No displaced fractures. IMPRESSION: No postprocedure pneumothorax.
[2019-10-14] MEDS ORDERED: TAMSULOSIN 0.4 MG SR CAP PO SCH (21:00)
--- NOTE | 2019-10-14 21:51 | PN ---
Subjective: Father Shane is doing good. Denies any chest pain, nausea, vomiting. He is able to ambul ate around in the room. We still waiting for a central line and an approval of insurance company for his IV antibiotics at home. Physical Examination: General: He is an obese gentleman who has lost significant amount of weight. Chest: Clear. Heart: Regular. Abdomen: No guarding, no rebound. No rigidity. Extremities: On leg examination, right side on admission, I have detailed the infection he has. He has more to severe cellulitis. The denuded skin on the right lower leg is secondary to lymphedema an d Pseudomonas infection on top of that. Assessment And Plan: Severe cellulitis and venous stasis ulcer and lymphedema, needing IV antibiotic s for about 14 days. We have picked meropenem, which is the only one effective so far. He is allerg ic to cefepime, Bactrim, and vancomycin. His second culture for wound is pending. He is clinically stable. Discussed with Dr. Hinds. PATRICA/JOSELUIS Voice ID: [id number] Report ID: [id number]
[2019-10-15] MEDS: Meropenem 1,000 MG in NA CHLORIDE 0.9% 100 ML IV SCH ×3 (00:51→13:00)
[2019-10-15] MEDS: FINASTERIDE 5 MG TAB PO SCH (07:55)
[2019-10-15] MEDS: RIVAROXABAN 20 MG TABLET PO SCH (07:55)
[2019-10-15 08:02] VITALS: O2SAT 98
[2019-10-15] MEDS: HYDRALAZINE HCL 25 MG TABLET PO SCH (08:07)
[2019-10-15] MEDS: FUROSEMIDE 40 MG TABLET PO SCH (08:07)
[2019-10-15 11:46] VITALS: BP 133/73; TEMP 97.3
--- NOTE | 2019-10-15 14:28 | P.DS ---
Admission Date: 10/13/19 Discharge Date: 10/15/19 Disposition: ROUTINE DISCHARGE Discharge Condition: FAIR Reason for Admission: RIGHT LEG INFECTION. - Problems (1) Pseudomonas (aeruginosa) (mallei) (pseudomallei) as the cause of diseases classified elsewhere Current Visit: Yes Status: Acute (2) Cellulitis of leg without foot, right Current Visit: Yes Status: Acute (3) Venous stasis ulcer of right lower leg with edema of right lower leg Current Visit: Yes Status: Chronic (4) Atrial fibrillation Current Visit: No Status: Chronic Qualifiers: Atrial fibrillation type: longstanding persistent Qualified Code(s): I48.11 - Longstanding persistent atrial fibrillation (5) DM type 2 (diabetes mellitus, type 2) Current Visit: No Status: Chronic Brief History of Present Illness: FATHER THOMAS IS A DIABETIC WITH RENAL FAILURE AND SEVERE LYMPHEDEMA. WE GAVE CIPRO PO FOR ABOUT TWO WEEKS FOR PSEUDOMONAS AND E FECALES INFECTION BUT IT FAILED TO CURE THE INFECTION. HIS R LEG EDMEA HAS IMPROVED BUT THE ULCER THAT EXCAURIATED THE SKIN HAS COVERED THE WHOLE LEG EXCEPT A SMALL PART OF CIRCUMFERNCE. HE DOES NOT HAVE FEVER BUT HIS DRESSING HAD GREEN DISCHARGE ON IT. Hospital Course: FATHER THOMAS HAS SEVERE LYEMPHEDEMA. HE WAS TREATED FOR PSEUDOMONAS INFECTION WITH CIPRO BUT FAILED. I DECIEDD TO ADMIT HIM FOR IV MERREM AND HE DID GREAT. ALL HIS SECREITONS AND INFECTION HAS DRIED UP IN A DAY. HE WILL CONTINUE ANTIBIOTICS FOR 14 DAYS AND WE WILL BE ABLE TO COMPRESS THE LEGS TO TAKE CARE OF EDEMA AFTER ULCER CLOSES UP. Vital Signs/Physical Exam: Temp Pulse Resp BP Pulse Ox 97.3 F 72 16 133/73 96 10/15/19 11:00 10/15/19 11:00 10/15/19 11:00 10/15/19 11:00 10/15/19 11:00 Laboratory Data at Discharge: WBC 5.0 K/uL (4.3-10.9) D 10/13/19 14:48 Hgb 13.5 g/dL (13.6-17.9) L 10/13/19 14:48 Hct 40.4 % (39.6-49.0) 10/13/19 14:48 Plt Count 173 K/uL (152-406) 10/13/19 14:48 PT 23.5 SECONDS (9.5-12.5) H 10/13/19 14:48 INR 2.02 10/13/19 14:48 Sodium 138 mmol/L (136-145) 10/13/19 14:48 Potassium 3.7 mmol/L (3.5-5.1) 10/13/19 14:48 BUN 22 mg/dL (7-18) H 10/13/19 14:48 Creatinine 1.03 mg/dL (0.55-1.3) 10/13/19 14:48 Glucose 104 mg/dL (74-106) 10/13/19 14:48 LDL Cholesterol Direct 74 mg/dL (100-129) L 10/13/19 22:07 Home Medications: Rivaroxaban [Xarelto] 20 mg PO DAILY 04/26/19 Tamsulosin [Flomax*] 0.4 mg PO BEDTIME 04/26/19 Finasteride [Proscar*] 5 mg PO DAILY 06/22/19 Furosemide [Lasix*] 1 tab PO DAILY 10/13/19 Patient Discharge Instructions: COME TO WOUND CENTER NEXT WEEK.
== END 2019-10-15 15:57 | disposition home health service (06) ==
LOC: 2ND 14:18
PROVIDERS: ADMIT Internal Medicine; ATTEND Internal Medicine
PROC: B516ZZA Fluoroscopy of Right Subclavian Vein, Guidance (ICD-10-PCS; 2019-10-14)
PROC: 02HV33Z Insertion of Infusion Device into Superior Vena Cava, Percutaneous Approach (ICD-10-PCS; principal; 2019-10-14 14:30)
DX: L03.115 Cellulitis of right lower limb (principal); B96.5 Pseudomonas (aeruginosa) (mallei) (pseudomallei) as the cause of diseases classified elsewhere; I83.218 Varicose veins of right lower extremity with both ulcer of other part of lower extremity and inflammation; L97.819 Non-pressure chronic ulcer of other part of right lower leg with unspecified severity; I89.0 Lymphedema, not elsewhere classified; I48.11 Longstanding persistent atrial fibrillation; E11.9 Type 2 diabetes mellitus without complications; Z11.59 Encounter for screening for other viral diseases
CPT/HCPCS: 36569; 85025; 80048; 36415; 83721; 85610; 82947 ×3; 83605; 81003; 83036; 84145; 71045; 71046; 36558; 77001; U0002; G0378 ×5; J7040; G0379; 76000

== ENCOUNTER 2020-02-09 13:43 | Inpatient (IN) | payer OTHER, BC ==
[2020-02-09] MEDS ORDERED: ACETAMINOPHEN 325 MG TABLET PO PRN (14:19)
[2020-02-09 14:39] VITALS: BMI 41.9
--- NOTE | 2020-02-09 15:23 | RAD REPORT ---
EXAM DESCRIPTION: RAD - Chest Single View - 02/09/2020 3:08 pm CLINICAL HISTORY: physician order Chest pain. COMPARISON: Chest Single View dated 10/14/2019; Chest Pa And Lat (2 Views) dated 10/13/2019; Chest Sin gle View dated 09/11/2019; Chest Pa And Lat (2 Views) dated 09/10/2019 FINDINGS: Portable technique limits examination quality. The right lung base demonstrates mild atelectasis. The lungs are otherwise clear. The heart is modera tely enlarged in size. Tortuous thoracic aorta is seen.
[2020-02-09 15:43] LABS: Absolute Lymphocytes (CBC) 0.6 K/uL (0.7-4.9); Basophils % 1.1 % (0-1.3); Lymphocytes % 15.8 % (15.3-44.8); RBC Red Blood Cell Count 3.68 M/uL (4.33-5.43)
[2020-02-09 15:44] LABS: Protime INR 1.79
[2020-02-09 15:49] LABS: Potassium 3.2 mmol/L (3.5-5.1)
[2020-02-09 16:14] LABS: Blood Morphology Comment NOT SEEN (NOT SEEN); Platelet Estimate ADEQ; White Blood Cell Scan OK (OK)
[2020-02-09 16:52] LABS: Urine Appearance CLEAR; Urine Bilirubin NEGATIVE (NEG); Urine Blood NEGATIVE (NEG); Urine Color YELLOW; Urine Glucose NEGATIVE (NEG); Urine Protein NEGATIVE (NEG); Urine Specific Gravity 1.015 (1.005-1.030)
[2020-02-09] MEDS ORDERED: TOBRAMYCIN IV SCH ×2 (17:00→23:00)
[2020-02-09] MEDS ORDERED: Meropenem 500 MG in NA CHLORIDE 0.9% 100 ML IV SCH ×2 (17:00→23:00)
[2020-02-09] MEDS ORDERED: NA CHLORIDE 0.9% IV SCH ×2 (17:00→23:00)
[2020-02-09 17:03] LABS: Urine Microscopic Reflex NO UMIC
--- NOTE | 2020-02-09 21:26 | P.HP ---
Certification for Inpatient Patient admitted to: Inpatient With expected LOS: >2 Midnights Practitioner: I am a practitioner with admitting privileges, knowledge of patient current condition, hospital course, and medical plan of care. Services: Services provided to patient in accordance with Admission requirements found in Title 42 Section 412.3 of the Code of Federal Regulations Patient History Date of Service: 02/09/20 Reason for admission: LEG INFECTIONS History of Present Illness: FATHER THOMAS HAS SEVERE LYMPHEDEMA IN BOTH LEGS. HE HAS GONE THROUGH TOBRAMYCIN BY [facility]ELIB[facility]O [facility]D IN [place] FOR 3 WEEKS DID WELL FOR TWO WEEKS AFTER THAT AND STARTED INFECTION AGAIN WITHIN TWO WEEKS HE STARTED TO ULCERATE THE WHOLE LEG ON R SIDE WITH GREEN DISCHARGE AND GREW 3 REISSTANT BACTERIA FROM IT- PSEUDOMONAS, ESBL AND E FECALIS. SENSITIVE ONLY TO TOBRAMYCIN FOR FIRST ONE, MERREM AND GENTAMYCIN FOR SECOND ONE AND FEW MORE FOR THIRD BACTERIA. HE HAS NO FEVER, NO NAUSEA, VOMITING ETC. Allergies cefepime [From Maxipime] Allergy (Verified 09/10/19 14:59) Itching levofloxacin [From Levaquin] Allergy (Verified 09/10/19 14:59) Hives meropenem Allergy (Verified 10/28/19 12:46) Rash sulfamethoxazole [From Bactrim] Adverse Reaction (Verified 09/20/19 16:46) Nausea/Vomiting trimethoprim [From Bactrim] Adverse Reaction (Verified 09/20/19 16:46) Nausea/Vomiting Home Medications: Rivaroxaban [Xarelto] 20 mg PO BEDTIME 04/26/19 Tamsulosin [Flomax*] 0.4 mg PO DAILY 04/26/19 Finasteride [Proscar*] 5 mg PO DAILY 06/22/19 Furosemide [Lasix*] 80 tab PO DAILY 10/13/19 - Past Medical/Surgical History Has patient received pneumonia vaccine in the past: Yes Diabetic: Yes -: Lymphedema -: DM -: HTN -: Atrial fibrillation -: BPH -: Incontinence -: lymphedema -: Duodenal ulcer -: Bilateral cataracts (2004) -: Removal of melanoma right ear -: tonsillectomy -: torn retina right eye -: Small bowel resection Psychosocial/ Personal History: Patient lives at home and has a caregiver. - Family History Father -: Heart disease Mother -: Cancer - Social History Smoking Status: Never smoker Alcohol use: No CD- Drugs: No Caffeine use: Yes Place of Residence: Home Review of Systems 10-point ROS is otherwise unremarkable Integumentary: As per HPI Physical Examination - Vital Signs Temperature: 97.8 F Blood Pressure: 151/68 Pulse: 79 Respirations: 20 Pulse Ox (%): 97 - Physical Exam General: Mild distress, Obese HEENT: Atraumatic, PERRLA, Mucous membr. moist/pink, EOMI, Sclerae nonicteric Neck: Supple, 2+ carotid pulse no bruit, No LAD, Without JVD or thyroid abnormality Respiratory: Clear to auscultation bilaterally, Normal air movement Cardiovascular: Regular rate/rhythm, Normal S1 S2, Edema (R LEG IS TOTALLY DENUDED WITH ULCER, L SIDE HAS ALSO A LARGE ULCER.) Gastrointestinal: Normal bowel sounds, No tenderness Musculoskeletal: No tenderness Integumentary: No rashes Neurological: Normal gait, Normal speech, Normal strength at 5/5 x4 extr, Normal tone, Normal affect Lymphatics: No axilla or inguinal lymphadenopathy - Studies Laboratory Data (last 24 hrs) 02/09/20 15:00: Sodium 142, Potassium 3.2 L, BUN 19 H, Creatinine 0.95, Glucose 95 02/09/20 15:00: PT 20.9 H, INR 1.79 02/09/20 15:00: WBC 3.8 L, Hgb 12.4 L, Hct 37.0 L, Plt Count 176 Assessment and Plan - Problems (Diagnosis) (1) Pseudomonas infection Current Visit: Yes Status: Acute Plan: THERE ARE 3 BACTERIA GROWING FROM THE R LEG. THIS ARE COLONISED BACTERIA BUT THEY ARE GIVING HIM SERIOUS INFECTION NOW. HE MAY HAVE SEPSIS FROM IT IF NOT TREATED, AT THE SAME TIME WE ARE OUT OF ANTIBIOTICS. TOBRAMYCIN IS NOT GOOD FOR HIS KIDNEYS BUT WE HAVE NO OTHER CHOICE. MERREM IS LISTED ALLERGIC MEDICINE BUT WE WILL HAVE TO TRY AGAIN TO SEE HOW IT GOES TO SAVE HIM FROM SEPSIS. HE CARRIES POOR PROGNOSIS THIS INFECTION AND COLONIZATION ARE NOT CURABLE. HE MAY BENEFIT BY AMPUTATION BUT AGAIN IT THINK HE WILL NOT HEAL HE HAS LARGE LEGS WITH LYMPHEDEMA AND HE MAY NOT HEAL AFTER AMPUTATION ALSO. (2) ESBL (extended spectrum beta-lactamase) producing bacteria infection Current Visit: Yes Status: Acute (3) Lymphedema Current Visit: No Status: Acute (4) Cellulitis, leg Onset Date: 09/15/14 Current Visit: No Status: Resolved - Advance Directives Does patient have a Living Will: No Does patient have a Durable POA for Healthcare: No
[2020-02-10] MEDS ORDERED: NA CHLORIDE 0.9% 250 ML ONE (01:23)
[2020-02-10 01:46] LABS: Absolute Lymphocytes (CBC) 0.6 K/uL (0.7-4.9); Basophils % 1.4 % (0-1.3); Hematocrit 34.3 % (39.6-49.0); Lymphocytes % 14.9 % (15.3-44.8); MPV 8.2 fL (7.6-11.3); RBC Red Blood Cell Count 3.44 M/uL (4.33-5.43)
[2020-02-10] MEDS: NA CHLORIDE 0.9% IV SCH ×4 (02:00→22:00)
[2020-02-10] MEDS: TOBRAMYCIN IV SCH ×4 (02:00→22:00)
[2020-02-10] MEDS ORDERED: POTASSIUM CL SA 10 MEQ TAB PO ONE (02:11)
[2020-02-10] MEDS: Meropenem 500 MG in NA CHLORIDE 0.9% 100 ML IV SCH ×2 (08:14→21:59)
[2020-02-10] MEDS: FINASTERIDE 5 MG TAB PO SCH (08:14)
[2020-02-10] MEDS: SPIRONOLACTONE 25 MG TABLET PO SCH (08:14)
[2020-02-10] MEDS: TAMSULOSIN 0.4 MG SR CAP PO SCH (08:17)
[2020-02-10] MEDS ORDERED: FUROSEMIDE 20 MG TABLET PO SCH (09:00)
[2020-02-10 09:45] VITALS: O2SAT 93
[2020-02-10] MEDS ORDERED: POTASSIUM 25 MEQ EFFERV TAB PO ONE (10:40)
--- NOTE | 2020-02-10 17:46 | P.PN ---
Subjective Date of Service: 02/10/20 Chief Complaint: LEG INFECTIONS Subjective: No C/O voiced FATHER THOMAS IS STABLE .HAS NO NEW ISSUES. HE IS WAITING FOR PICC LINE AND INSURANCE APPROVAL. HE TOLD US THAT MERREM DID NOT DO ANYTHING TO HIM. HE IS JUST AFRAID OF RENAL EFFECTS. I TOLD HIM THAT WE AT PRESENT HAVE NO CHOICE BUT TO USE IT. Physical Examination - Vital Signs Temperature: 97.8 F Blood Pressure: 118/59 Pulse: 69 Respirations: 20 Pulse Ox (%): 96 - Physical Exam General: Alert, In no apparent distress, Obese HEENT: Atraumatic, PERRLA, EOMI Neck: Supple, JVD not distended Respiratory: Clear to auscultation bilaterally, Normal air movement Cardiovascular: Regular rate/rhythm, Normal S1 S2, Edema (SEVERE R MORE THAN L. WRAPPED FOR NOW. ) Gastrointestinal: Normal bowel sounds, No tenderness Musculoskeletal: No tenderness Integumentary: No rashes Neurological: Normal speech, Normal tone, Normal affect Lymphatics: No axilla or inguinal lymphadenopathy - Studies Laboratory Data (last 24 hrs) 02/10/20 09:22: Potassium 3.6 02/10/20 01:30: Sodium 143, Potassium 3.0 L, BUN 18, Creatinine 0.88, Glucose 98 02/10/20 01:30: WBC 3.9 L, Hgb 11.7 L, Hct 34.3 L, Plt Count 162 Microbiology Data (last 24 hrs): 02/09/20 16:45 Nasopharnyx Coronavirus COVID-19 PCR - Final Medications List Reviewed: Yes Assessment And Plan - Current Problems (Diagnosis) (1) Pseudomonas infection Current Visit: Yes Status: Acute Plan: THERE ARE 3 BACTERIA GROWING FROM THE R LEG. THIS ARE COLONISED BACTERIA BUT THEY ARE GIVING HIM SERIOUS INFECTION NOW. HE MAY HAVE SEPSIS FROM IT IF NOT TREATED, AT THE SAME TIME WE ARE OUT OF ANTIBIOTICS. TOBRAMYCIN IS NOT GOOD FOR HIS KIDNEYS BUT WE HAVE NO OTHER CHOICE. MERREM IS LISTED ALLERGIC MEDICINE BUT WE WILL HAVE TO TRY AGAIN TO SEE HOW IT GOES TO SAVE HIM FROM SEPSIS. HE CARRIES POOR PROGNOSIS THIS INFECTION AND COLONIZATION ARE NOT CURABLE. HE MAY BENEFIT BY AMPUTATION BUT AGAIN IT THINK HE WILL NOT HEAL HE HAS LARGE LEGS WITH LYMPHEDEMA AND HE MAY NOT HEAL AFTER AMPUTATION ALSO. SO FAR HE HAS TOLERATED MEDS. THIS IS A CASE WITH POOR PROGNOSIS. WE DON'T HAVE GOOD CHOICE TO USE TO PREVENT SEPTIC SHOCK. HE HAS SEVERE LEG INFECTION AND THERE IS NO CURE TO STOP THIS FROM PROGRESSING FOR LONG DURATION. HE MAY IMPROVE WITH ABX BUT WITH HIS SEVERE LYMPHEEMA TI WILL COME BACK. (2) ESBL (extended spectrum beta-lactamase) producing bacteria infection Current Visit: Yes Status: Acute (3) Lymphedema Current Visit: No Status: Acute (4) Cellulitis, leg Onset Date: 09/15/14 Current Visit: No Status: Resolved
[2020-02-10] MEDS ORDERED: TOBRAMYCIN IV SCH (19:00)
[2020-02-10] MEDS ORDERED: NA CHLORIDE 0.9% IV SCH (19:00)
[2020-02-10] MEDS ORDERED: RIVAROXABAN 20 MG TABLET PO SCH (21:00)
--- OUTSIDE RECORDS SUMMARY | 2020-02-10 21:14 | XMS REPORT | Clinical Summary ---
:1940 Author Organization [facility] Address [address] [place] [address] Care Team Providers Name Role Phone Micheline Bond MD Primary Care Provider [phone] Allergies Active Allergy Reactions Severity Noted Date [...] Encounters Date Type Specialty Care Team Description 11/12/2019 Telephone Family Medicine Micheline Bond Pre-annalisa reinier Benjamin MD 08/23/2019 Refill Family Medicine Micheline Bond MD 08/03/2019 Travel 08/02/2019 Travel 08/02/2019 Telephone Family Micheline Hull MD 08/02/2019 Telephone [facility] Micheline Hull MD 07/26/2019 Refill Internal Medicine Micheline Bond MD 07/19/2019 Telephone Internal Medicine Micheline Bond Pre-d iabetes (Primary MD Sourav Dx) 07/13/2019 Telephone [facility] Micheline Hull MD 07/08/2019 Office Visit [facility] Micheline Bond Chronic acquired lymphedema (Primary Dx); MD Sourav Recurrent cellu litis of lower extremity; Pneumonia due t o infectious organism, unspecified laterality, unspecified part of lung after 02/08/2019 Surgical History Surgery Date Site/Laterality Comments LAPAROSCOPIC GASTROTOMY W/ 02/02/2019 - perfo rated gastric ulcer REPAIR OF ULCER 03/04/2019 Medical History Medical History Date Comments Lymphedema of both lower extremities Cellulitis of lower extremity recurring; mult hosp admits Perforated gastric ulcer (HCC) 02/18/2019 s/p surgi iain repair BPH (benign prostatic hyperplasia) Dr Bartolo siddiqui Family History Relation Name Status Comments Father Mother Social History Tobacco Use Types Packs/Day Years Used Date Never Smoker Smokeless Tobacco: Never Used Sex Assigned at Date Recorded Not on file Last Filed Vital Signs Vital Sign Reading Time Taken Comments Blood Pressure 130/72 07/08/2019 2:31 PM [employer] ACCOUNTANT Pulse 71 07/08/2019 2:31 PM [employer] ACCOUNTANT Temperature 36.4 C (97.6 F) 07/08/2019 2:31 PM [employer] ACCOUNTANT Respiratory Rate - - Oxygen Saturation 96% 07/08/2019 2:31 PM [employer] ACCOUNTANT Inhaled Oxygen Concentration - - Weight 147 kg (325 lb) 07/08/2019 2:31 PM COST ACCOUNTANT Height 175.3 cm (5' 9") 07/08/2019 2:31 PM COST ACCOUNTANT Body Mass Index 47.99 07/08/2019 2:31 PM COST ACCOUNTANT Plan of Treatment Health Maintenance Due Date Last Done Comments SHINGLES VACCINES (#1) 1988 65+ PNEUMOCOCCAL VACCINE (1 of 1 - PPSV23) 10/24/2003 INFLUENZA VACCINE 12/04/2019 Results Not on fileafter 02/08/2019 Insurance Payer Benefit Plan / Subscriber ID Effective Dates Phone Addre ss Type Group MEDICARE MEDICARE PART A [id number] 2011-Present [place], [place] Medicare AND B BCBS BCBS CHOICE [id number] 2019-Present PPO PPO/[employer] PPO Advance Directives For more information, please contact: [phone] Type Date Recorded 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
--- OUTSIDE RECORDS SUMMARY | 2020-02-10 21:14 | XMS REPORT | Continuity of Care Document ---
:1940 Author Organization [facility] t Address [address] [place] [address] Care Team Providers Name Role Phone Varun FORD, Peggy Benjamin Primary Care Physician [phone] Sourav Bond MD Attending Clinician Payers Payer Name Policy Type Policy Effective Date Expiration Date Sour ce Number MEDICAREMEDICARE PART [id number] 2011 Kwasi geraldine Welch AND 00:00:00 [facility]ism [id number][place] [place] [id number] 2019 [place] PPO/FEDERAL EMPL 7 00:00:00 Methodis t [id number]/24 19-PresentPPO Problems This patient has no known problems. Allergies, Adverse Reactions, Alerts Allergy Allergy Status Severity Reaction(s) Onset Inactive Treating Comm ents Source Name Type Date Date Clinician Levoflox Propensi Active Rash [place] acin ty to 3-05 Methodi adverse 00:00: st reaction 00 s to drug Social History Social Habit Start Date Stop Date Quantity Comments Source Sex Assigned At [facility] ethodist Tobacco use and 2019-07-09 2019-07-09 Never used [facility] ethodist exposure 00:00:00 00:00:00 Smoking Status Start Date Stop Date Source Never smoker [place] Eugeneis Medications Ordered Filled Start Stop Current Ordering Indication Dosage Frequency Signature Comments Components Source Medication Medication Date Date Medication? Clinician (SIG) Name Name furosemide Yes TAKE 1 [place] (LASIX) 20 4-20 TABLET BY Meth kindra mg tablet 00:00: MOUTH st 00 EVERY MORNING furosemide 2020-0 2020- No 20mg [id number] Take 20 mg [place] (LASIX) 20 3-16 03-16 [id number] by mouth 3 Methodi mg tablet 10:29: 00:00 3D (three) st 14 :00 times a day. freestyle 2020-0 Yes Pre-diabete Check [place] 28 gauge 3-16 s glucose Methodi lancets 00:00: once a st 00 day. FREESTYLE 2020-0 Yes Pre-diabete Check [place] TEST strip 3-16 s glucose Method i test strips 00:00: once a st 00 day. furosemide 2020-0 2020- No 20mg [id number] Take 1 [place] (LASIX) 20 3-16 04-20 [id number] tablet (20 Methodi mg tablet 00:00: 00:00 [...] Yes 5mg QD Take 5 mg H jem (PROSCAR) 5 3-05 by mouth Meth kindra mg tablet 14:40: daily. st 48 Vital Signs Vital Name Observation Time Observation Value Comments Source Systolic blood 2019-07-08 14:31:00 130 mm[Hg] Sara n Anab[facility]ism pressure Diastolic blood 2019-07-08 14:31:00 72 mm[Hg] [place] on Anabaptism pressure Heart rate 2019-07-08 14:31:00 71 /min [facility] Body temperature 2019-07-08 14:31:00 36.44 Nina [place] [facility] Body height 2019-07-08 14:31:[address] [facility] Body weight 2019-07-08 14:31:00 147.419 kg [place] BMI 2019-07-08 14:31:00 47.99 kg/m2 [place] Oxygen saturation in 2019-07-08 14:31:00 96 /min [place] Arterial blood by Pulse oximetry Procedures This patient has no known procedures. Plan of Care Planned Activity Planned Date Details Comments Source Future Scheduled 2019-12-04 INFLUENZA VACCINE [place] [facility] Test 00:00:00 [code = INFLUENZA VACCINE] Future Scheduled 2003-10-24 65+ PNEUMOCOCCAL [place] [facility] Test 00:00:00 VACCINE (1 of 1 - PPSV23) [code = 65+ PNEUMOCOCCAL VACCINE (1 of 1 - PPSV23)] Future Scheduled 1988 SHINGLES VACCINES (#1) [place] [facility] Test 00:00:00 [code = SHINGLES VACCINES (#1)] Encounters Start End Encounter Admission Attending Care Care Encounter Source Date/Time Date/Time Type Type Clinicians Facility Department ID 2019-07-08 2019-07-08 Outpatient [facility] [id number] [place] 00:00:00 00:00:[address] Results This patient has no known results.
[2020-02-11] MEDS: TOBRAMYCIN IV SCH (04:59)
[2020-02-11] MEDS: NA CHLORIDE 0.9% IV SCH (04:59)
[2020-02-11 05:59] LABS: BUN Blood Urea Nitrogen 13 mg/dL (7-18); Bicarbonate 28 mmol/L (21-32); Glucose Level 91 mg/dL (74-106); Potassium 3.5 mmol/L (3.5-5.1); Sodium Level 142 mmol/L (136-145)
[2020-02-11] MEDS ORDERED: POTASSIUM CL SA 10 MEQ TAB PO ONE (08:00)
[2020-02-11] MEDS: Meropenem 500 MG in NA CHLORIDE 0.9% 100 ML IV SCH (10:07)
[2020-02-11] MEDS: TAMSULOSIN 0.4 MG SR CAP PO SCH (10:09)
[2020-02-11] MEDS: SPIRONOLACTONE 25 MG TABLET PO SCH (10:09)
[2020-02-11] MEDS: FINASTERIDE 5 MG TAB PO SCH (10:10)
--- NOTE | 2020-02-11 10:19 | RAD REPORT ---
EXAM DESCRIPTION: RAD - Chest Single View - 02/11/2020 10:03 am CLINICAL HISTORY: picc line placement COMPARISON: Chest Single View dated 02/09/2020; Chest Single View dated 10/14/2019; Chest Pa And Lat ( 2 Views) dated 10/13/2019; Chest Single View dated 09/11/2019 FINDINGS: Portable chest was obtained following placement of a right upper extremity PICC line. The catheter tip projects over the SVC..
[2020-02-11] MEDS ORDERED: NA CHLORIDE 0.9% IV SCH (12:00)
[2020-02-11] MEDS ORDERED: TOBRAMYCIN IV SCH (12:00)
[2020-02-11 17:10] VITALS: BP 153/73; TEMP 97.2
--- NOTE | 2020-02-11 21:35 | P.DS ---
Admission Date: 02/09/20 Discharge Date: 02/11/20 Disposition: ROUTINE DISCHARGE Discharge Condition: FAIR Reason for Admission: LEG INFECTIONS - Problems (1) Pseudomonas infection Status: Acute (2) ESBL (extended spectrum beta-lactamase) producing bacteria infection Status: Acute (3) Lymphedema Status: Acute (4) Cellulitis, leg Onset Date: 09/15/14 Status: Resolved Brief History of Present Illness: FATHER THOMAS HAS SEVERE LYMPHEDEMA IN BOTH LEGS. HE HAS GONE THROUGH TOBRAMYCIN BY FELIBERTO FORD IN [place] FOR 3 WEEKS DID WELL FOR TWO WEEKS AFTER THAT AND STARTED INFECTION AGAIN WITHIN TWO WEEKS HE STARTED TO ULCERATE THE WHOLE LEG ON R SIDE WITH GREEN DISCHARGE AND GREW 3 REISSTANT BACTERIA FROM IT- PSEUDOMONAS, ESBL AND E FECALIS. SENSITIVE ONLY TO TOBRAMYCIN FOR FIRST ONE, MERREM AND GENTAMYCIN FOR SECOND ONE AND FEW MORE FOR THIRD BACTERIA. HE HAS NO FEVER, NO NAUSEA, VOMITING ETC. Hospital Course: FATHER THOMAS HAS IMPROVED WELL WITH TWO ANTIBIOTICS. MY CONCERN IS THAT IT IS SHORT LIVED RECOVERY AND THEN HE DEVELOPS VERY REISTANT BACTERIA IN HIS LEGS WITH POOR CONDITION. HE IS STABLE TO NE HOME. Vital Signs/Physical Exam: Temp Pulse Resp BP Pulse Ox 97.2 F 69 15 153/73 H 95 02/11/20 16:00 02/11/20 16:00 02/11/20 16:00 02/11/20 16:00 02/11/20 16:00 Laboratory Data at Discharge: WBC 3.9 K/uL (4.3-10.9) L 02/10/20 01:30 Hgb 11.7 g/dL (13.6-17.9) L 02/10/20 01:30 Hct 34.3 % (39.6-49.0) L 02/10/20 01:30 Plt Count 162 K/uL (152-406) 02/10/20 01:30 PT 20.9 SECONDS (9.5-12.5) H 02/09/20 15:00 INR 1.79 02/09/20 15:00 Sodium 142 mmol/L (136-145) 02/11/20 04:55 Potassium 3.5 mmol/L (3.5-5.1) 02/11/20 04:55 BUN 13 mg/dL (7-18) 02/11/20 04:55 Creatinine 0.78 mg/dL (0.55-1.3) 02/11/20 04:55 Glucose 91 mg/dL (74-106) 02/11/20 04:55 Home Medications: Rivaroxaban [Xarelto] 20 mg PO BEDTIME 04/26/19 Tamsulosin [Flomax*] 0.4 mg PO DAILY 04/26/19 Finasteride [Proscar*] 5 mg PO DAILY 06/22/19 Furosemide [Lasix*] 80 tab PO DAILY 10/13/19 Followup: Adeel Keenan MD [ACTIVE - CAN ADMIT] -
== END 2020-02-11 18:40 | disposition home health service (06) | DRG 603 ==
LOC: 2ND 13:43
PROVIDERS: ADMIT Internal Medicine; ATTEND Internal Medicine
PROC: 02HV33Z Insertion of Infusion Device into Superior Vena Cava, Percutaneous Approach (ICD-10-PCS; principal; 2020-02-11)
DX: L03.116 Cellulitis of left lower limb (principal); Z16.12 Extended spectrum beta lactamase (ESBL) resistance; Z68.41 Body mass index [BMI] 40.0-44.9, adult; L97.929 Non-pressure chronic ulcer of unspecified part of left lower leg with unspecified severity; L97.919 Non-pressure chronic ulcer of unspecified part of right lower leg with unspecified severity; L03.115 Cellulitis of right lower limb; B96.5 Pseudomonas (aeruginosa) (mallei) (pseudomallei) as the cause of diseases classified elsewhere; B96.89 Other specified bacterial agents as the cause of diseases classified elsewhere; E11.9 Type 2 diabetes mellitus without complications; I10 Essential (primary) hypertension; E66.9 Obesity, unspecified; Z79.01 Long term (current) use of anticoagulants; Z88.1 Allergy status to other antibiotic agents; Z79.899 Other long term (current) drug therapy; Z20.828 Contact with and (suspected) exposure to other viral communicable diseases
CPT/HCPCS: 36415; 36569; 71045; 80048; 80200; 81003; 82947; 84132; 85025; 85610; 93005; 99214; J3260; J7050; U0002

== ENCOUNTER 2020-10-11 14:13 | Inpatient (IN) | payer OTHER, BC ==
--- OUTSIDE RECORDS SUMMARY | 2020-10-11 16:02 | XMS REPORT | Continuity of Care Document ---
:1940 Author Organization [facility] t Address [address] [place] [address] Care Team Providers Name Role Phone Catherine FORD, Micheline Benjamin Primary Care Physician [phone] Sourav Bond MD Attending Clinician Payers Payer Name Policy Type Policy Effective Date Expiration Date Sour ce Number MEDICAREMEDICARE PART [id number] 2011 Kwasi geraldine Welch AND 00:00:00 [facility] [id number] 2011[place] [place] [id number] 2019 [place] PPO/FEDERAL EMPL 7 00:00:00 Methodis t [id number]/05/24 19-PresentPPO Problems This patient has no known problems. Allergies, Adverse Reactions, Alerts Allergy Allergy Status Severity Reaction(s) Onset Inactive Treating Comm ents Source Name Type Date Date Clinician Levoflox Propensi Active Rash [place] acin ty to 3-05 Methodi adverse 00:00: st reaction 00 s to drug Social History Social Habit Start Date Stop Date Quantity Comments Source Tobacco use and 2019-07-09 2019-07-09 Never used [facility] ethodist exposure 00:00:00 00:00:00 Sex Assigned At [birth year] [facility] ethodist 00:00:00 00:00:00 Smoking Status Start Date Stop Date Source Never smoker [place] Chirag marcelo Medications Ordered Filled Start Stop Current Ordering Indication Dosage Frequency Signature Comments Components Source Medication Medication Date Date Medication? Clinician (SIG) Name Name Tonia Yes Pre-diabete CHECK [place] Test strip 1-18 s GLUCOSE Method i test strips 00:00: ONCE A st 00 DAY. furosemide 2020-0 Yes TAKE 1 [place] (LASIX) 20 4-20 TABLET BY Meth kindra mg tablet 00:00: MOUTH st 00 EVERY MORNING freestyle 2020-0 Yes Pre-diabete Check [place] 28 gauge 3-16 s glucose Methodi lancets 00:00: once a st 00 day. FREESTYLE 2020-0 2020- No Pre-diabete Check [place] TEST strip 3-16 01-18 s glucose Metho di test strips 00:00: 00:[address] 00 :00 day. hydrALAZINE 2020-0 Yes 50mg Q.5D Take [...] kindra mg tablet 14:40: daily. st 48 Procedures This patient has no known procedures. Plan of Care Planned Activity Planned Date Details Comments Source Future Scheduled 2020-12-03 INFLUENZA VACCINE Sara erazo [facility] Test 00:00:00 [code = INFLUENZA VACCINE] Future Scheduled 2003-10-24 65+ PNEUMOCOCCAL [place] [facility] Test 00:00:00 VACCINE (1 of 1 - PPSV23) [code = 65+ PNEUMOCOCCAL VACCINE (1 of 1 - PPSV23)] Future Scheduled 1988 SHINGLES VACCINES (#1) [place] [facility] Test 00:00:00 [code = SHINGLES VACCINES (#1)] Future Scheduled 1950 COVID-19 VACCINE (1) [place] stocastro [facility] Test 00:00:00 [code = COVID-19 VACCINE (1)] Encounters Start End Encounter Admission Attending Care Care Encounter Source Date/Time Date/Time Type Type Clinicians Facility Department ID 2019-07-08 2019-07-08 Outpatient [facility] [id number] [place] 00:00:00 00:00:[address] Results This patient has no known results.
[2020-10-11 16:22] VITALS: BMI 39.9
[2020-10-11] MEDS ORDERED: LOPERAMIDE HCL 2 MG CAPSULE PO PRN (17:00)
[2020-10-11] MEDS ORDERED: PNEUMOCOCCAL VACCINE 0.5 ML IMVAC ONE (17:00)
[2020-10-11] MEDS ORDERED: ONDANSETRON 4 MG (ODT) TAB PO PRN (17:00)
[2020-10-11] MEDS ORDERED: DIPHENHYDRAMINE 25 MG TAB/CAP PO PRN (17:00)
[2020-10-11] MEDS ORDERED: Meropenem 1,000 MG in NA CHLORIDE 0.9% 100 ML IV SCH (17:00)
[2020-10-11] MEDS ORDERED: ACETAMINOPHEN 325 MG TABLET PO PRN (17:00)
[2020-10-11] MEDS ORDERED: POLYETHYL GLY 3350 17 GM/DOSE PO PRN (17:00)
[2020-10-11] MEDS ORDERED: ONDANSETRON 4 MG/2 ML VIAL IV PRN (17:00)
[2020-10-11] MEDS: ENOXAPARIN 40 MG/0.4 ML SQ SCH (17:19)
[2020-10-11] MEDS: NACHLORIDE 0.45% 1,000 ML IV SCH (17:20)
--- NOTE | 2020-10-11 18:44 | RAD REPORT ---
EXAM DESCRIPTION: RAD - Chest Pa And Lat (2 Views) - 10/11/2020 6:00 pm CLINICAL HISTORY: r/o PNA Chest pain. COMPARISON: Chest Single View dated 02/11/2020; Chest Single View dated 02/09/2020; Chest Single View dated 10/14/2019; Chest Pa And Lat (2 Views) dated 10/13/2019 FINDINGS: The lungs are clear. The heart is moderately enlarged. Tortuous thoracic aorta is seen.
[2020-10-11 19:09] LABS: Absolute Lymphocytes (CBC) 0.8 K/uL (0.7-4.9); Basophils % 0.6 % (0-1.3); Hematocrit 43.2 % (39.6-49.0); Lymphocytes % 15.6 % (15.3-44.8); MPV 8.2 fL (7.6-11.3); RBC Red Blood Cell Count 4.26 M/uL (4.33-5.43)
[2020-10-11 19:20] LABS: Protime INR 1.08
[2020-10-11 19:51] LABS: Albumin 3.3 g/dL (3.4-5.0); Bilirubin Direct 0.3 mg/dL (0-0.2); Bilirubin Total 0.9 mg/dL (0.2-1.0); Magnesium 2.1 mg/dL (1.8-2.4); Potassium 4.3 mmol/L (3.5-5.1); Protein, Total 7.4 g/dL (6.4-8.2); Thyroid Stimulating Hormone 1.59 uIU/mL (0.360-3.740)
[2020-10-11] MEDS ORDERED: MEROPENEM ONE (21:57)
[2020-10-11] MEDS: Meropenem 1,000 MG in NA CHLORIDE 0.9% 100 ML IV SCH (22:52)
[2020-10-12 04:31] LABS: Absolute Lymphocytes (CBC) 0.9 K/uL (0.7-4.9); Basophils % 1.1 % (0-1.3); Lymphocytes % 19.6 % (15.3-44.8); MPV 8.7 fL (7.6-11.3); Potassium 4.3 mmol/L (3.5-5.1); RBC Red Blood Cell Count 3.85 M/uL (4.33-5.43)
[2020-10-12] MEDS: Meropenem 1,000 MG in NA CHLORIDE 0.9% 100 ML IV SCH ×3 (06:16→21:10)
[2020-10-12 06:49] LABS: Blood Morphology Comment NOT SEEN (NOT SEEN); Platelet Estimate ADEQ
[2020-10-12] MEDS: SPIRONOLACTONE 100 MG TAB PO SCH (08:35)
[2020-10-12] MEDS: FINASTERIDE 5 MG TAB PO SCH (08:35)
[2020-10-12 08:36] LABS: Urine Appearance CLEAR (Clear); Urine Bilirubin NEGATIVE (Negative); Urine Blood NEGATIVE (Negative); Urine Color YELLOW (Yellow); Urine Glucose NEGATIVE (Negative); Urine Protein NEGATIVE (Negative); Urine pH 5.5 (5.0-7.0)
[2020-10-12 08:37] LABS: Urine Microscopic Reflex NO UMIC
[2020-10-12] MEDS ORDERED: NS 0.9% VIAL 20 ML ONE (09:52)
[2020-10-12] MEDS ORDERED: LIDOCAINE 1% MPF 30 ML VIAL ONE (09:52)
[2020-10-12] MEDS ORDERED: LIDOCAINE 2% MPF 5 ML VIAL ONE (09:59)
[2020-10-12] MEDS ORDERED: FENTANYL CITR 100 MCG/2 ML ONE (09:59)
[2020-10-12] MEDS ORDERED: propofoL 200 MG/20 ML VIAL IV ONE (09:59)
[2020-10-12] MEDS ORDERED: NA CHLORIDE 0.9% 1,000 ML ONE (10:09)
[2020-10-12] MEDS ORDERED: Phenylephrine HCl 10 MG/ML 1 ML VIAL ONE (10:46)
[2020-10-12] MEDS ORDERED: GLYCOPYRROLATE 0.2 MG/ML SYR ONE (10:47)
--- NOTE | 2020-10-12 10:48 | P.BOP ---
Preoperative diagnosis: poor peripheral access Postoperative diagnosis: same Primary procedure: 1. Placement of central line Secondary procedure: 2. Interpretation of fluoroscopy Other procedure(s): 3. right neck ultrasound Findings: as above Anesthesia: General Complications: None Transferred to: Recovery Room Condition: Good
[2020-10-12 11:36] VITALS: O2SAT 98
--- NOTE | 2020-10-12 11:43 | RAD REPORT ---
EXAM DESCRIPTION: RAD - Chest Single View - 10/12/2020 11:36 am CLINICAL HISTORY: S/P CENTRAL LINE INSERTION Chest pain. COMPARISON: Chest Pa And Lat (2 Views) dated 10/11/2020; Chest Single View dated 02/11/2020; Chest Sing le View dated 02/09/2020; Chest Single View dated 10/14/2019 FINDINGS: Portable technique limits examination quality. Right-sided venous catheter is in place with its tip in the SVC. No postprocedure pneumothorax.
--- NOTE | 2020-10-12 12:34 | RAD REPORT ---
EXAM DESCRIPTION: RAD - Fluoroscopy <1 Hour - 10/12/2020 12:24 pm CLINICAL HISTORY: Venous catheter insertion. CENTRAL LINE PLACEMENT COMPARISON: Fluoroscopy <1 Hour dated 10/14/2019 FINDINGS: Fluoroscopic imaging is submitted from placement of a venous catheter. Details of the pro cedure not available. Fluoroscopy time: 0.2 minutes
--- NOTE | 2020-10-12 12:57 | P.PN ---
Subjective Date of Service: 10/12/20 Chief Complaint: EDEMA. CHRONIC AND INFECTION R LEG NOW. Subjective: Improving FATHER THOMAS HAS SEVERE LYMPHEDEMA. IT WAS HARD TO CONTROL HIS EDEMA AND INFECTION BUT WHEN I GAVE HIM MERREM LAST VISIT HE TOTALLY SEALED UP AND THERE WAS NO SIGN OF INFECTION. LATER HE BECAME MORE ACTIVE AND FLUID STARTED TO SEEP FROM R LEG. I DECIDED TO WATCH FOR A WEEK I DID WANT TO SUBJECT HIM TO A VERY STRONG ABX AGAIN. 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 WE ARE WAITING FOR CENTRAL LINE THAT IS DONE AND INSURANCE APPROVAL FOR ABX. Review of Systems 10-point ROS is otherwise unremarkable Integumentary: As per HPI Physical Examination - Vital Signs Temperature: 97.2 F Blood Pressure: 133/63 Pulse: 56 Respirations: 16 Pulse Ox (%): 99 - Physical Exam General: Mild distress, Obese HEENT: Atraumatic, PERRLA, EOMI Neck: Supple, JVD not distended Respiratory: Clear to auscultation bilaterally, Normal air movement Cardiovascular: Regular rate/rhythm, Normal S1 S2, Edema (CHR SEVERE EDEMA , NON REDUCILBE DESPITE EDEMA THERAPY. BILAT. ) Gastrointestinal: Normal bowel sounds, No tenderness Musculoskeletal: No tenderness Integumentary: No rashes Neurological: Normal speech, Normal tone, Normal affect Lymphatics: No axilla or inguinal lymphadenopathy - Studies Laboratory Data (last 24 hrs) 10/12/20 03:51: Sodium 143, Potassium 4.3, BUN 23 H, Creatinine 1.00, Glucose 91 10/12/20 03:51: WBC 4.70, Hgb 13.2 L, Hct 39.0 L, Plt Count 167 10/11/20 18:41: Plt Count Cancelled 10/11/20 18:41: Sodium 139, Potassium 4.3, BUN 27 H, Creatinine 1.14, Glucose 105, Phosphorus 3.0, Magnesium 2.1, Total Bilirubin 0.9, AST 26, ALT 23, Alkaline Phosphatase 91 10/11/20 18:41: PT 12.4, INR 1.08, APTT 31.9 10/11/20 18:41: WBC 5.40, Hgb 14.6, Hct 43.2, Plt Count 153 Medications List Reviewed: Yes Assessment And Plan - Current Problems (Diagnosis) (1) Cellulitis of right leg Current Visit: Yes Status: Acute Plan: REDO MERREM. THIS TIME FOR 3 WEEKS. 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 (2) Lymphedema Current Visit: No Status: Chronic (3) Morbid obesity Current Visit: No Status: Chronic
--- NOTE | 2020-10-12 13:43 | CON ---
Date of Consultation: 10/12/2020 Reason For Consultation: Central line placement. History Of Present Illness: This is the case of an 79-year-old patient, known by us due to need of I V antibiotics to try the different lines on him. They have been able to get a good access for his ch ronic antibiotic treatment, so they called surgical consult for central line placement. The patient has multiple PICC lines in the past, multiple central lines in the past, and as seen before is becomi ng more difficult to get them, so at this time we planned to do it under anesthetic in an OR setting with fluoroscopy use. Allergies: INCLUDE CEFEPIME, LEVOFLOXACIN, SULFA. Past Medical History: Lymphedema, venous stasis ulcers, leukopenia, multiple UTIs, AFib. Medications: Reviewed including Lovenox. Family History: Noncontributory. Social History: He does not smoke. He does not drink alcohol. Review of Systems: No shortness of breath. No chest pain. No fever. Ten points otherwise unremarkable. Please see H and P. Physical Examination: General: The patient is awake, alert. HEENT: Pupils anicteric. Chest: Clear. Neck: Supple. Abdomen: Soft and depressible. Laboratory Data: Blood work shows a WBC count of 4.7, hemoglobin of 13, platelets of 167. INR is 1. 08. Chloride 111, creatinine is 1. Assessment: An 79-year-old patient with history of morbid obesity, history of poor peripheral access . It is being more difficult over the last 2 years to get new access on him, right now the PICC line is not even. They not even can do it anymore at least during this admission. Surgeons have to be c alled in the past and having difficult time to central lines and now they asked for central line agai n. So, I explained to the patient the benefits, alternatives, and risks of central line placement wh ich include, but not limited to infection, bleeding, damage to adjacent structures, anesthesia compli cation, pneumothorax, hemothorax, DVTs, PE, SD, and even . He also understands this may not rel ieve any symptoms. He might need more than one surgical intervention. We are going to bring him to the OR, give him some sedation and try to use fluoroscopy and ultrasound to delineate the tenotomy a little better since on the floor, it is becoming more difficult. The patient did understand. The pa tient was booked in OR. RICCARDO/JOSELUIS Voice ID: [id number] Report ID: [id number]
--- NOTE | 2020-10-12 14:34 | OP ---
Date of Procedure: 10/12/2020 Surgeon: Tj Jameson MD Preoperative Diagnosis: Need for IV antibiotics, poor peripheral access. Postoperative Diagnosis: Need for IV antibiotics, poor peripheral access. Procedures: 1.Placement of a central line in the right internal jugular vein. 2.Right neck ultrasound. 3.Interpretation of fluoroscopy. Anesthesia: General plus local. Indication: This is the case of an 79-year-old patient, comes to us with multiple medical problems, requiring IV medication and IV antibiotics. The primary doctor requested central line placement with benefits, alternatives, and risks fully explained, which include, but not limited to infection, blee ding, damage to adjacent structures, anesthesia complication, pneumothorax, hemothorax, DVTs, PE, WI, and even . He also understands this is a temporary catheter. He understands this may not reli art any symptoms. He might need more than one surgical intervention. He understood, signed a consen t. Procedure In Detail: The patient was brought to the operating room, placed in supine position. Anes thesia was done without complication. The patient was placed in Trendelenburg position. Right neck ultrasound was done making sure the jugular vein is patent. A time-out was called. We attempted to subclavian, but it is a difficult access in that case, so we decided going to the jugular so local an esthesia was applied and then inserted 18-gauge needle in the right internal jugular vein at the firs t attempt. Guidewire was passed through. Needle was removed and a central line was placed using Edilma alexi technique. Excellent backflow and inflow. This was done with the help of fluoroscopy for thao reyes. The line secured in place with 3-0 nylon and covered with sterile dressings and flushed with heparinized solution. The patient tolerated the procedure well. The patient on his way to recovery in stable condition and chest x-ray was ordered stat. HM/MODL Voice ID: [id number] Report ID: [id number]
[2020-10-13] MEDS: NACHLORIDE 0.45% 1,000 ML IV SCH (02:20)
[2020-10-13 05:30] LABS: Absolute Lymphocytes (CBC) 0.6 K/uL (0.7-4.9); Basophils % 0.9 % (0-1.3); Hematocrit 38.4 % (39.6-49.0); Lymphocytes % 12.7 % (15.3-44.8); MPV 8.2 fL (7.6-11.3)
[2020-10-13] MEDS: Meropenem 1,000 MG in NA CHLORIDE 0.9% 100 ML IV SCH ×2 (05:48→13:39)
[2020-10-13] MEDS: SPIRONOLACTONE 100 MG TAB PO SCH (08:26)
[2020-10-13] MEDS: FINASTERIDE 5 MG TAB PO SCH (08:26)
[2020-10-13] MEDS: ENOXAPARIN 40 MG/0.4 ML SQ SCH (08:27)
[2020-10-13 13:17] VITALS: BP 125/64; TEMP 97.6
--- NOTE | 2020-10-13 13:29 | P.DS ---
Admission Date: 10/12/20 Discharge Date: 10/13/20 Disposition: ROUTINE DISCHARGE Discharge Condition: FAIR Reason for Admission: EDEMA. CHRONIC AND INFECTION R LEG NOW. - Problems (1) Cellulitis of right leg Current Visit: Yes Status: Acute (2) Lymphedema Current Visit: No Status: Chronic (3) Morbid obesity Current Visit: No Status: Chronic Hospital Course: FATHER THOMAS HAS LYMPHEDEMA THAT IS SEVERE. LAST TIME HE GREW 3 BACTERIA FROM CULTURES OF R LEG INFLAMED, DENUDED SKIN. I ASKED HIM TO GO TO ID SPECIALIST WHO GAVE HIM TOBRAMYCIN BUT THAT DID NOT CURE THE INFECTION. I HAS ASKED HIM WHY HE HAS MERREM LISTED IN ALLERGY. HE SAID IT IS NOT ALLERGY BUT HE IS AFRAID THAT IT WILL GIVE HIM RENAL DYSFUNCTION. HIS RENAL FUNCTION IS GOOD NOW. HE AGREED TO TAKE MERREM LAS TIME AND THAT CURED HIS INFECTION BACK TO NORMAL SKIN STILL WITH LYMPHEDEMA. THEN HE GOT MORE ACTIVE WITH SOCIAL VISITS, HUNTING AND FISHING. HE STARTED TO WEEP AGAIN FROM LEGS. I HAVE CENTRAL LINE INSERTED. HE DID NOT DO WELL WITH PICC LINE PICC NURSE HAD A VERY DIFFICULT TIME INSERTING PICC LINE HE WILL NOW TAKE SAME ABX THAT WORKED BEFORE FOR ABOUT 3 WEEKS. HIS COMPLIANCE FOR THE EDEMA WRAP IS ALSO QUESTIONABLE. Vital Signs/Physical Exam: Temp Pulse Resp BP Pulse Ox 97.6 F 63 20 125/64 97 10/13/20 12:00 10/13/20 12:00 10/13/20 12:00 10/13/20 12:00 10/13/20 12:00 Laboratory Data at Discharge: WBC 4.90 K/uL (4.3-10.9) 10/13/20 05:12 Hgb 13.1 g/dL (13.6-17.9) L 10/13/20 05:12 Hct 38.4 % (39.6-49.0) L 10/13/20 05:12 Plt Count 160 K/uL (152-406) 10/13/20 05:12 PT 12.4 SECONDS (9.5-12.5) 10/11/20 18:41 INR 1.08 10/11/20 18:41 APTT 31.9 SECONDS (24.3-36.9) 10/11/20 18:41 Sodium 143 mmol/L (136-145) 10/12/20 03:51 Potassium 4.3 mmol/L (3.5-5.1) 10/12/20 03:51 BUN 23 mg/dL (7-18) H 10/12/20 03:51 Creatinine 1.00 mg/dL (0.55-1.3) 10/12/20 03:51 Glucose 91 mg/dL (74-106) 10/12/20 03:51 Phosphorus 3.0 mg/dL (2.5-4.9) 10/11/20 18:41 Magnesium 2.1 mg/dL (1.8-2.4) 10/11/20 18:41 Total Bilirubin 0.9 mg/dL (0.2-1.0) 10/11/20 18:41 AST 26 U/L (15-37) 10/11/20 18:41 ALT 23 U/L (12-78) 10/11/20 18:41 Alkaline Phosphatase 91 U/L (45-117) 10/11/20 18:41 Home Medications: Finasteride 5 mg PO DAILY 10/11/20 Spironolactone 100 mg PO DAILY 10/11/20 Polyethyl Gly 3350 [Glycolax*] 17 gm PO BEDTIME PRN PRN udbot 10/13/20 Followup: Adeel Keenan MD [ACTIVE - CAN ADMIT] - Tj Jameson MD [ACTIVE - CAN ADMIT] -
[2020-10-17 10:58] LABS: Vitamin D 1,25-Dihydroxy Total 28 pg/mL (18-72); Vitamin D,1,25-OH2, D2 <8 pg/mL
== END 2020-10-13 14:51 | disposition home health service (06) | DRG 603 ==
LOC: 2ND 15:59 → OBSVTOIN 10-12 15:59
PROVIDERS: ADMIT Internal Medicine; ATTEND Internal Medicine
PROC: 02HV33Z Insertion of Infusion Device into Superior Vena Cava, Percutaneous Approach (ICD-10-PCS; principal; 2020-10-12 09:15)
DX: L03.115 Cellulitis of right lower limb (principal); Z68.39 Body mass index [BMI] 39.0-39.9, adult; E66.01 Morbid (severe) obesity due to excess calories; A49.8 Other bacterial infections of unspecified site; I89.0 Lymphedema, not elsewhere classified; Z88.1 Allergy status to other antibiotic agents; Z79.899 Other long term (current) drug therapy
CPT/HCPCS: 36415; 71045; 71046; 76000; 80048; 80076; 81003; 82043; 82570; 82607; 82652; 82947; 83036; 83735; 84100; 84443; 85025; 85610; 85730; 87040; 87070; 87075; 87077; 87186; 87205; G0378; G0379; J1644; J1650; J2185; J2370; J2704; J3010; J7030; U0003

== ENCOUNTER 2024-12-30 16:41 | Emergency (ER) | payer OTHER, BC ==
[2024-12-30] MEDS ORDERED: TDAP (DIPHTH,PERTUSS(ACELL),TET VAC) 0.5 ML VIAL IMVAC ONE (17:08)
--- NOTE | 2024-12-30 18:27 | ER ---
Nurse's Notes [facility] Name: Shane Talbert Jr Age: 84 yrs Sex: Male : 1940 Arrival Date: 12/30/2024 Time: 16:40 Bed 3 Private MD: Diagnosis: residential (current) use of anticoagulants;Traumatic subdural hemorrhage-right frontal, 5 mm right to left shift;Fall on same level, unspecified;Lymphedema, not elsewhere classified;Persistent atrial fibrillation Presentation: 12/30 16:54 Chief complaint: EMS states: Mechanical fall from standing, hit back of head on wall, jl7 denies LOC. Care prior to arrival: None. Mechanism of Injury: Fall from standing position. Trauma event details: Injury occurred: at home. 16:54 Acuity: CARMEN 4 jl7 16:54 Method Of Arrival: Ambulatory jl7 16:57 Coronavirus screen: At this time, the client does not indicate any symptoms associated jl7 with coronavirus-19. Ebola Screen: No symptoms or risks identified at this time. Initial Sepsis Screen: Does the patient meet any 2 criteria? No. Patient's initial sepsis screen is negative. Does the patient have a suspected source of infection? No. Patient's initial sepsis screen is negative. Risk Assessment: Do you want to hurt yourself or someone else? Patient reports no desire to harm self or others. Onset of symptoms was December 30, 2024. 18:56 Acuity: CARMEN 2 iw Triage Assessment: 16:58 General: Appears in no apparent distress. uncomfortable, Behavior is calm, cooperative, jl7 appropriate for age. Pain: Complains of pain in scalp Pain currently is 1 out of 10 on a pain scale. Derm: Skin is pink, warm \T\ dry. Injury Description: Abrasion sustained to scalp. Trauma Activation: Not Applicable Physician: ED Physician; Name: ; Notified At: ; Arrived At: Physician: General Surgeon; Name: ; Notified At: ; Arrived At: Physician: Radiology; Name: ; Notified At: ; Arrived At: Physician: Respiratory; Name: ; Notified At: ; Arrived At: Physician: Lab; Name: ; Notified At: ; Arrived At: Historical: - Allergies: 16:58 Levaquin; jl7 16:58 cefepime; jl7 16:58 Bactrim; jl7 16:58 Vancomycin; jl7 16:58 meropenem; jl7 - Home Meds: 16:58 Xarelto 15 mg Oral tab daily [Active]; jl7 - PMHx: 16:58 Atrial Fib; BPH; Diabetes - NIDDM; Hypertension; lymphedema; jl7 - Immunization history:: Adult Immunizations up to date. - Infectious Disease History:: Denies. - Social history:: Smoking status: Patient denies any tobacco usage or history of. Screenin:55 Abuse screen: Denies threats or abuse. Denies injuries from another. Tuberculosis jl7 screening: No symptoms or risk factors identified. 18:00 [facility] ED Fall Risk Assessment (Adult) History of falling in the last 3 months, iw including since admission Yes- physiologic fall (2 pts) Confusion or Disorientation No (0 pts) Intoxicated or Sedated No (0 pts) Impaired Gait Yes (1 pt) Mobility Assist Device Used Yes (1 pt) Altered Elimination Yes (1 pt) Score/Fall Risk Level 3 or more points = High Risk Oriented to surroundings, Maintained a safe environment. Nutritional screening: No deficits noted. Primary Survey: 16:55 NO uncontrolled hemorrhage observed. A: The client is awake and alert. The airway is jl7 patent. Breathing/Chest: Spontaneous respiratory effort, equal unlabored respirations, breath sounds clear bilaterally, regular pattern, symmetrical chest rise and fall. Circulation: No external hemorrhage present. Regular and strong central pulse, skin warm/dry/normal color. Disability Client is alert. Exposure/Environment: Obvious injury(ies) are noted at this time: abrasion and hematoma to posterior scalp A warming method has been applied: A warm blanket has been provided to the patient. Assessment: 18:00 Reassessment: Patient appears in no apparent distress at this time. No changes from jl7 previously documented assessment. Patient and/or family updated on plan of care and expected duration. Pain level reassessed. Patient is alert, oriented x 3, equal unlabored respirations, skin warm/dry/pink. 18:34 Reassessment: Transfer initiated to [place] at this time by Dr. Ivy. ss 18:57 General: Appears in no apparent distress. Behavior is calm, cooperative. Pain: iw Complains of pain in right parietal area. Neuro: Level of Consciousness is awake, alert, obeys commands, Oriented to person, place, time, situation, Moves all extremities. Cardiovascular: Patient's skin is warm and dry. Respiratory: Respiratory effort is even, unlabored, Respiratory pattern is regular. GI: Abdomen is round obese. Derm: Skin is pink, warm \T\ dry. Injury Description: Abrasion sustained to right parietal area and scalp. 19:05 Reassessment: [facility] admin approval given at this time by GRETEL Vargas. Accepting ss Justin Cash to [facility] ER. Vital Signs: 16:55 BP 154 / 75; Pulse 65; Resp 17; Temp 97.4; Pulse Ox 95% ; Weight 127.01 kg; Height 5 jl7 ft. 8 in. ; Pain 1/10; 18:00 BP 139 / 77; Pulse 62; Resp 15; Pulse Ox 95% ; jl7 16:55 Body Mass Index 42.57 (127.01 kg, 172.72 cm) jl7 16:55 Pain Scale: Adult jl7 Floyd Coma Score: 16:55 Eye Response: spontaneous(4). Motor Response: obeys commands(6). Verbal Response: jl7 oriented(5). Total: 15. 17:03 Eye Response: spontaneous(4). Motor Response: obeys commands(6). Verbal Response: ruchi oriented(5). Total: 15. Trauma Score (Adult): 16:55 Eye Response: spontaneous(1); Verbal Response: oriented(1); Motor Response: obeys jl7 commands(2); Systolic BP: > 89 mm Hg(4); Respiratory Rate: 10 to 29 per min(4); [place] Score: 15; Trauma Score: 12 18:57 Eye Response: spontaneous(1); Verbal Response: oriented(1); Motor Response: obeys iw commands(2); Systolic BP: > 89 mm Hg(4); Respiratory Rate: 10 to 29 per min(4); Floyd Score: 15; Trauma Score: 12 ED Course: 16:40 Patient arrived in ED. iw 16:40 Mary Alice Harvey, GRETEL is Primary Nurse. iw 16:48 Darron Ivy MD is Attending Physician. [facility] 16:55 Triage completed. [facility] 16:55 Patient has correct armband on for positive identification. Bed in low position. Call jl7 light in reach. Side rails up X 1. Adult w/ patient. 16:55 Patient maintains SpO2 saturation greater than 95% on room air. jl7 16:58 Arm band placed on right wrist. jl7 17:28 Provided Education on: use of call padgett. jl7 17:35 CT Head C Spine In Process Unspecified. EDMS 18:30 Initial lab(s) drawn, by me, sent to lab. Inserted saline lock: 20 gauge in left iw antecubital area, using aseptic technique. Blood collected. Flushed with 10 mL NS. 19:07 No provider procedures requiring assistance completed. Patient transferred, IV remains iw in place. Administered Medications: 17:24 Drug: Boostrix Tdap IM 0.5 ml IM once; as a single dose Route: IM; Site: left deltoid; jl7 18:27 Follow up: Response: No adverse reaction jl7 18:39 Not Given (Duplicate Order): ns 0.9% 500 ml 500 ml IV at 100 ml/hr once; to be given as ruchi a bolus over 30 minutes 18:58 Drug: Famotidine IVP 20 mg IVP once; dilute with 10 mL 0.9% NaCl; give over 2 minutes iw Route: IVP; Site: left antecubital; 19:08 Follow up: Response: No adverse reaction iw 18:58 Drug: Keppra IV 1000 mg IV at per protocol once Route: IV; Rate: per protocol; Site: iw left antecubital; 19:08 Follow up: IV Status: Completed infusion iw 19:07 Drug: Phytonadione Sub-Q 10 mg Sub-Q once Route: Sub-Q; Site: right upper arm; iw 19:09 Follow up: Response: No adverse reaction iw 19:08 Drug: NS 0.9% IV 500 ml 500 ml IV at 1 bolus once; to be given as a bolus over 30 iw minutes Volume: 500 ml; Route: IV; Rate: 1 bolus; Site: left antecubital; 19:08 Follow up: IV Status: Infusion continued upon transfer iw 19:09 Not Given (pt transferred ): ns 0.9% 500 ml 500 ml IV at 100 ml/hr once iw 19:14 Drug: Kcentra IV 1,000 unit 1,000 unit 1000 units IV at per protocol once {Note: given iw by [facility] .} Route: IV; Rate: per protocol; Site: left antecubital; 19:14 Follow up: IV Status: Infusion continued upon transfer iw Medication: 17:28 Vaccine Information Statement (VIS) provided today. Questions and/or concerns klaus addressed. VIS edition date: December 10, 2020. Outcome: 18:26 Discharge ordered by . ruchi 18:37 ER care complete, transfer ordered by . ruchi 19:14 Transferred by helicopter [facility] . to [facility], Transfer form iw completed. X-rays sent w/ patient. 19:15 Condition: stable iw 19:15 Instructed on the need for transfer, 19:15 Patient left the ED. iw Signatures: Dispatcher [employer] EDMS Darron Ivy MD MD cha Williams, Irene, RN RN Vanessa Parada, RN GRETEL Georgette Campuzano RN RN jl7 Corrections: (The following items were deleted from the chart) 16:59 16:58 Allergies: Vancocin; klaus jl7
--- NOTE | 2024-12-30 18:27 | EDPHYS ---
Physician Documentation [facility] Name: Shane Talbert Jr Age: 84 yrs Sex: Male : 1940 Arrival Date: 12/30/2024 Time: 16:40 Bed 3 Private MD: ED Physician Darron Ivy HPI: 12/30 16:58 This 84 yrs old Male presents to ER via Ambulatory with complaints of Fall ruchi Injury. 16:58 Details of fall: The patient fell from an upright position, while walking. Onset: The ruchi symptoms/episode began/occurred just prior to arrival. Associated injuries: The patient sustained injury to the head. Severity of symptoms: At their worst the symptoms were mild, in the emergency department the symptoms are unchanged. The patient has not experienced similar symptoms in the past. Historical: - Allergies: 16:58 Levaquin; jl7 16:58 cefepime; jl7 16:58 Bactrim; jl7 16:58 Vancomycin; jl7 16:58 meropenem; jl7 - Home Meds: 16:58 Xarelto 15 mg Oral tab daily [Active]; jl7 - PMHx: 16:58 Atrial Fib; BPH; Diabetes - NIDDM; Hypertension; lymphedema; jl7 - Immunization history:: Adult Immunizations up to date. - Infectious Disease History:: Denies. - Social history:: Smoking status: Patient denies any tobacco usage or history of. ROS: 17:01 Constitutional: Negative for fever, chills, and weight loss, Eyes: Negative for injury, ruchi pain, redness, and discharge, ENT: Negative for injury, pain, and discharge, Neck: Negative for injury, pain, and swelling, Cardiovascular: Negative for chest pain, palpitations, and edema, Respiratory: Negative for shortness of breath, cough, wheezing, and pleuritic chest pain, Abdomen/GI: Negative for abdominal pain, nausea, vomiting, diarrhea, and constipation, Back: Negative for injury and pain, : Negative for injury, bleeding, discharge, and swelling, MS/Extremity: Negative for injury and deformity, Neuro: Negative for headache, weakness, numbness, tingling, and seizure, Psych: Negative for depression, anxiety, suicide ideation, homicidal ideation, and hallucinations, Allergy/Immunology: Negative for hives, rash, and allergies, Endocrine: Negative for neck swelling, polydipsia, polyuria, polyphagia, and marked weight changes, 17:01 Skin: Positive for laceration(s), of the right parietal area, Exam: 17:01 Constitutional: This is a well developed, well nourished patient who is awake, alert, ruchi and in no acute distress. Head/Face: Normocephalic, atraumatic. Eyes: Pupils equal round and reactive to light, extra-ocular motions intact. Lids and lashes normal. Conjunctiva and sclera are non-icteric and not injected. Cornea within normal limits. Periorbital areas with no swelling, redness, or edema. ENT: Nares patent. No nasal discharge, no septal abnormalities noted. Tympanic membranes are normal and external auditory canals are clear. Oropharynx with no redness, swelling, or masses, exudates, or evidence of obstruction, uvula midline. Mucous membranes moist. Neck: Trachea midline, no thyromegaly or masses palpated, and no cervical lymphadenopathy. Supple, full range of motion without nuchal rigidity, or vertebral point tenderness. No Meningismus. Chest/axilla: Normal chest wall appearance and motion. Nontender with no deformity. No lesions are appreciated. Cardiovascular: Regular rate and rhythm with a normal S1 and S2. No gallops, murmurs, or rubs. Normal PMI, no JVD. No pulse deficits. Respiratory: Lungs have equal breath sounds bilaterally, clear to auscultation and percussion. No rales, rhonchi or wheezes noted. No increased work of breathing, no retractions or nasal flaring. Abdomen/GI: Soft, non-tender, with normal bowel sounds. No distension or tympany. No guarding or rebound. No evidence of tenderness throughout. Back: No spinal tenderness. No costovertebral tenderness. Full range of motion. Male : Normal genitalia with no discharge or lesions. Skin: Warm, dry with normal turgor. Normal color with no rashes, no lesions, and no evidence of cellulitis. MS/ Extremity: Pulses equal, no cyanosis. Neurovascular intact. Full, normal range of motion., bilateral aka Psych: Awake, alert, with orientation to person, place and time. Behavior, mood, and affect are within normal limits. 17:01 Neuro: Orientation: appropriate for stated age, Mentation: is normal, appropriate for stated age, no acute changes, Memory: is normal, Cranial nerves: grossly normal, is grossly normal based on the patient's age, Cerebellar function: is grossly normal, is grossly normal based on the patient's age, no acute changes, Motor: is normal, is grossly normal based on the patient's age, no acute changes, moves all fours, strength is normal, Sensation: is normal, no obvious gross deficits, appropriate no acute changes, Gait: not tested. Deep tendon reflexes are 2+ (normal) in the bilateral brachioradialis, bicep, tricep and patellar and Achilles tendons, Babinski testing is normal, seizure activity, is not displayed by the patient, 19:00 ECG was reviewed by the Attending Physician. [facility] Vital Signs: 16:55 BP 154 / 75; Pulse 65; Resp 17; Temp 97.4; Pulse Ox 95% ; Weight 127.01 kg; Height 5 jl7 ft. 8 in. ; Pain 1/10; 18:00 BP 139 / 77; Pulse 62; Resp 15; Pulse Ox 95% ; jl7 16:55 Body Mass Index 42.57 (127.01 kg, 172.72 cm) 7 16:55 Pain Scale: Adult jl7 Floyd Coma Score: 16:55 Eye Response: spontaneous(4). Motor Response: obeys commands(6). Verbal Response: jl7 oriented(5). Total: 15. 17:03 Eye Response: spontaneous(4). Motor Response: obeys commands(6). Verbal Response: ruchi oriented(5). Total: 15. Trauma Score (Adult): 16:55 Eye Response: spontaneous(1); Verbal Response: oriented(1); Motor Response: obeys jl7 commands(2); Systolic BP: > 89 mm Hg(4); Respiratory Rate: 10 to 29 per min(4); [place] Score: 15; Trauma Score: 12 18:57 Eye Response: spontaneous(1); Verbal Response: oriented(1); Motor Response: obeys iw commands(2); Systolic BP: > 89 mm Hg(4); Respiratory Rate: 10 to 29 per min(4); [place] Score: 15; Trauma Score: 12 MDM: 16:48 Medical Screening Exam initiated [facility] 17:03 Differential diagnosis: Contusion of Hematoma on Laceration of Intracranial bleed- ruchi Concussion without LOC. cerebral contusion. Differential diagnosis: abrasion, closed head injury, contusion, fracture, laceration, multiple trauma, sprain, strain. Data reviewed: vital signs, nurses notes, lab test result(s). Consideration of Admission/Observation Escalation of care including admission/observation considered. I considered the following discharge prescriptions or medication management in the emergency department Medications were administered in the Emergency Department. See MAR. Test considered but Not performed: Labs: no cbc, no cmp. 12/30 18:34 Order name: CBC with Diff [facility] 12/30 18:34 Order name: CMP [facility] 12/30 18:34 Order name: PT-INR [facility] 12/30 16:51 Order name: CT Head C Spine 12/30 18:34 Order name: EKG; Complete Time: 18:35 [facility] 12/30 16:58 Order name: Wound Care; Complete Time: 17:00 [facility] 12/30 18:34 Order name: EKG - Nurse/Tech; Complete Time: 19:02 [facility] EC:00 Rate is 85 beats/min. Rhythm is irregularly irregular. QRS [place] is Normal. UT interval ruchi is normal. QRS interval is normal. QT interval is normal. No Q waves. T waves are Normal. No ST changes noted. Clinical impression: Atrial Fibrillation and No evidence of ischemia. Interpreted by me. Reviewed by me. Administered Medications: 17:24 Drug: Boostrix Tdap IM 0.5 ml IM once; as a single dose Route: IM; Site: left deltoid; jl7 18:27 Follow up: Response: No adverse reaction jl7 18:39 Not Given (Duplicate Order): ns 0.9% 500 ml 500 ml IV at 100 ml/hr once; to be given as ruchi a bolus over 30 minutes 18:58 Drug: Famotidine IVP 20 mg IVP once; dilute with 10 mL 0.9% NaCl; give over 2 minutes iw Route: IVP; Site: left antecubital; 19:08 Follow up: Response: No adverse reaction iw 18:58 Drug: Keppra IV 1000 mg IV at per protocol once Route: IV; Rate: per protocol; Site: iw left antecubital; 19:08 Follow up: IV Status: Completed infusion iw 19:07 Drug: Phytonadione Sub-Q 10 mg Sub-Q once Route: Sub-Q; Site: right upper arm; iw 19:09 Follow up: Response: No adverse reaction iw 19:08 Drug: NS 0.9% IV 500 ml 500 ml IV at 1 bolus once; to be given as a bolus over 30 iw minutes Volume: 500 ml; Route: IV; Rate: 1 bolus; Site: left antecubital; 19:08 Follow up: IV Status: Infusion continued upon transfer iw 19:09 Not Given (pt transferred ): ns 0.9% 500 ml 500 ml IV at 100 ml/hr once iw 19:14 Drug: Kcentra IV 1,000 unit 1,000 unit 1000 units IV at per protocol once {Note: given iw by [facility] .} Route: IV; Rate: per protocol; Site: left antecubital; 19:14 Follow up: IV Status: Infusion continued upon transfer iw Disposition Summary: 12/30/24 18:37 Transfer Ordered Notes: Transfer Location: [facility] ruchi Reason: Higher level of care ruchi Condition: Stable(12/30/24 18:37) ruchi Problem: new(12/30/24 18:37) ruchi Symptoms: are unchanged(12/30/24 18:37) ruchi Accepting Physician: to [facility](12/30/24 19:15) iw 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 Total time: 55 minutes Signatures: Dispatcher [employer] EDDarron Woodard MD MD cha Williams, Irene, RN RN Georgette Matthews RN RN janice7 Corrections: (The following items were deleted from the chart) 16:51 16:51 Head C Spine MPR Wo Con+CT.RAD.BRZ ordered. EDIA EDIA 16:59 16:58 Allergies: Vancocin; jl7 jl7 18:30 18:26 Home ruchi ruchi 18:30 18:26 new ruchi ruchi 18:30 18:26 have improved ruchi ruchi 18:30 18:26 Stable ruchi ruchi 18:30 18:26 Fall on same level, unspecified ruchi ruchi 18:30 18:26 Unspecified injury of head, initial encounter ruchi ruchi 18:30 18:26 Laceration without foreign body of other part of head - right posterior scalp ruchi ruchi 18:30 18:26 [facility] (current) use of anticoagulants ruchi ruchi 18:38 18:37 to [facility] ruchi ruchi 18:56 18:37 Traumatic subdural hemorrhage - left frontal ruchi ruchi 18:56 18:38 to [facility] ruchi ruchi 19:02 18:56 to [facility] ruchi ruchi 19:15 19:02 to [facility] ruchi iw
[2024-12-30] MEDS ORDERED: NA CHLORIDE 0.9% 1,000 ML ONE (18:37)
[2024-12-30] MEDS ORDERED: FAMOTIDINE 20 MG/2 ML VIAL IV ONE (18:37)
--- NOTE | 2024-12-30 18:41 | RAD REPORT ---
EXAM: CT brain without contrast HISTORY: fall, head injury - LOC, Takes Xarelto;Trauma COMPARISON: None TECHNIQUE: Multiple contiguous axial images were obtained and a CT of the brain without contrast. Sag ittal and coronal reformats were performed. FINDINGS: No acute territorial infarct. Mixed density right frontoparietal convexity subdural hematoma, with th e hyperdense component at the level of the operculum, measuring up to 1.4 cm in thickness. A hypodense component along the high frontal convexity measures 7 mm in thickness. No subarachnoid hemorrhage. Leftward midline shift measuring 5 mm. The calvarium is intact right parietal scalp swelling and susan omi. The visualized paranasal sinuses and mastoid air cells are essentially clear. IMPRESSION: Mixed density right frontoparietal convexity subdural hematoma, with underlying mass effect resulting in 5 mm leftward midline shift. Right parietal scalp swelling and hematoma. THIS REPORT CONTAINS FINDINGS THAT MAY BE CRITICAL TO PATIENT CARE. The findings were verbally commun icated via telephone to Darron Ivy MD on 12/30/2024 6:35PM. EXAM: CT of the cervical spine without contrast HISTORY: fall, head injury - LOC, Takes Xarelto;Trauma COMPARISON: None TECHNIQUE: Multiple contiguous axial images were obtained in a CT of the cervical spine without contr ast. Sagittal and coronal reformats were performed. FINDINGS: The vertebral bodies demonstrate normal height and alignment. No evidence of acute fracture or subluxation.. No degenerative changes are present. No prevertebral soft tissue swelling is seen. The posterior facets are well aligned. Normal alignment of the skull base with the cervical spine is seen. The lung apices are unremarkable. IMPRESSION: No evidence of acute osseous abnormality of the cervical spine.
[2024-12-30] MEDS ORDERED: NA CHLORIDE 0.9% 100 ML ONE (18:45)
[2024-12-30] MEDS ORDERED: LEVETIRACETAM 500 MG/5 ML VIAL IV ONE (18:45)
[2024-12-30 18:50] LABS: Absolute Lymphocytes (CBC) 0.6 K/uL (0.7-4.9); Hematocrit 38.9 % (39.6-49.0); Hemoglobin 13.0 g/dL (13.6-17.9); MCH 33.2 pg (27.0-35.0); MCHC 33.3 g/dL (32.0-36.0); MCV 99.6 fL (80-100); MPV 8.5 fL (7.6-11.3); Nucleated RBC Absolute Count 0.0 (0-0); Nucleated Red Blood Cells % 0.1 % (0-0); RBC Red Blood Cell Count 3.91 M/uL (4.33-5.43); White Blood Count 6.50 thou/uL (4.3-10.9)
[2024-12-30 18:56] LABS: PT Prothrombin Time 32.7 SECONDS (10-13.0); Protime INR 2.99
[2024-12-30] MEDS ORDERED: VITAMIN K (ADULT) 10 MG/ML ONE (18:59)
[2024-12-30 19:09] LABS: ALT/SGPT 29.0 U/L (16-61); AST/SGOT 34.0 U/L (15-37); Albumin 2.4 g/dL (3.4-5.0); Albumin/Globulin Ratio 0.5 (1.1-1.8); Alkaline Phosphatase 127.0 U/L (45-117); Anion Gap 9.7 mEq/L (5.0-15.0); BUN Blood Urea Nitrogen 42.0 mg/dL (7-18); Globulin 4.8 g/dL (2.3-3.5); Glucose Level 121.0 mg/dL (74-106); Potassium 4.7 mEq/L (3.5-5.1)
[2024-12-30] MEDS ORDERED: PROTHROMBIN COMPLEX CONCENTRATE (HUMAN) 500 UNIT VIAL IV ONE (20:00)
[2024-12-31 00:24] VITALS: TEMP 97.4; O2SAT 95
[2024-12-31 00:26] VITALS: BP 139/77
== END 2024-12-30 19:15 | disposition short-term general hospital (02) ==
LOC: ER 16:41
DX: S06.5X0A Traumatic subdural hemorrhage without loss of consciousness, initial encounter (principal); I89.0 Lymphedema, not elsewhere classified; I48.19 Other persistent atrial fibrillation; W18.30XA Fall on same level, unspecified, initial encounter; Z79.01 Long term (current) use of anticoagulants; Z23 Encounter for immunization
CPT/HCPCS: 93005; 85025; 36415; 85610; 80053; 70450; 72125; 90715; 96375; 96372; 96374; 99285; J1953; J7168; J3430; J7030